=== PATIENT | female | born 1935 | race Caucasian/White ===

== ENCOUNTER → 2017-05-16 13:45 | Outpatient (CLI) | payer MEDICARE, OTHER, SELFPAY ==
[2017-05-16 14:41] LABS: Absolute Lymphocyte Count 1.75 X10^3/ul (0.83-4.51); Absolute Neutrophil Count 3.1 X10^3/uL (2.0-7.7); Basophil# 0.03 X10^3/uL; Basophil% 0.5 % (0-1); Eosinophil# 0.28 X10^3/uL; Eosinophils% 5.1 % (0-5); Hematocrit 37.8 % (37-47); Hemoglobin 12.9 g/dl (12.0-15.0); Lymphocyte # 1.75 X10^3/ul (4.0); Lymphocyte % 31.8 % (19-41); Mean Corp Hgb Conc 34.1 g/gl (32-36); Mean Corpuscular Hgb 33.1 pg (27.0-32.0); Mean Corpuscular Volume 96.9 fL (81-99); Mean Platelet Vol. 10.4 fl (6.2-12.0); Monocyte# 0.35 X10^3/uL; Monocyte% 6.4 % (0-10); Neutrophil % 56.2 % (47-70); Platelet Count 160 K/mm3 (150-450); RBC Distribution Width CV 13.5 % (11.6-14.6); RBC Distribution Width SD 47.6 fl (35.1-43.9); White Blood Count 5.5 K/mm3 (4.4-11.0)
[2017-05-16 14:42] LABS: POSITIVE COUNT NO; POSITIVE DIFFERENTIAL NO; POSITIVE MORPHOLOGY NO
[2017-05-16 14:57] LABS: EST Glomerular Filtration Rate 86 mL/min (>60); Est Glom Filt Rate - Afr Amer 104 mL/min (>60)
== END ==
PROVIDERS: Family Provider Family Medicine; PCP Family Medicine; Visit Provider Dermatology
DX: C44.92 Squamous cell carcinoma of skin, unspecified (principal); Z79.899 Other long term (current) drug therapy
CPT/HCPCS: 36415; 82565; 85025

== ENCOUNTER → 2017-06-04 09:22 | Outpatient (CLI) | payer MEDICARE, OTHER, SELFPAY ==
[2017-06-04 10:43] LABS: Absolute Neutrophil Count 3.6 X10^3/uL (2.0-7.7); Basophil# 0.05 X10^3/uL; Basophil% 0.9 % (0-1); Eosinophil# 0.36 X10^3/uL; Eosinophils% 6.5 % (0-5); Hematocrit 36.2 % (37-47); Hemoglobin 12.4 g/dl (12.0-15.0); Lymphocyte % 21.7 % (19-41); Mean Corp Hgb Conc 34.3 g/gl (32-36); Mean Corpuscular Hgb 33.6 pg (27.0-32.0); Mean Corpuscular Volume 98.1 fL (81-99); Mean Platelet Vol. 10.4 fl (6.2-12.0); Monocyte# 0.26 X10^3/uL; Monocyte% 4.7 % (0-10); Neutrophil # 3.64 X10^3/uL (2.7-7.7); Platelet Count 153 K/mm3 (150-450); RBC Distribution Width CV 13.3 % (11.6-14.6); RBC Distribution Width SD 45.7 fl (35.1-43.9); Red Blood Count 3.69 M/mm3 (4.2-5.4); White Blood Count 5.5 K/mm3 (4.4-11.0)
[2017-06-04 10:54] LABS: POSITIVE COUNT NO; POSITIVE DIFFERENTIAL NO; POSITIVE MORPHOLOGY NO
== END ==
PROVIDERS: Family Provider Family Medicine; PCP Family Medicine; Visit Provider Dermatology
DX: C44.42 Squamous cell carcinoma of skin of scalp and neck (principal); Z79.899 Other long term (current) drug therapy
CPT/HCPCS: 36415; 85025

== ENCOUNTER → 2017-06-18 08:04 | Outpatient (CLI) | payer MEDICARE, OTHER, SELFPAY ==
[2017-06-18 08:43] LABS: Absolute Lymphocyte Count 1.08 X10^3/ul (0.83-4.51); Absolute Neutrophil Count 3.5 X10^3/uL (2.0-7.7); Basophil# 0.04 X10^3/uL; Basophil% 0.7 % (0-1); Eosinophil# 0.38 X10^3/uL; Eosinophils% 7.1 % (0-5); Hematocrit 35.6 % (37-47); Hemoglobin 12.1 g/dl (12.0-15.0); Lymphocyte # 1.08 X10^3/ul (4.0); Lymphocyte % 20.1 % (19-41); Mean Corpuscular Hgb 33.4 pg (27.0-32.0); Mean Corpuscular Volume 98.3 fL (81-99); Mean Platelet Vol. 10.1 fl (6.2-12.0); Monocyte# 0.33 X10^3/uL; Monocyte% 6.2 % (0-10); Neutrophil # 3.52 X10^3/uL (2.7-7.7); Neutrophil % 65.7 % (47-70); Platelet Count 140 K/mm3 (150-450); RBC Distribution Width CV 13.3 % (11.6-14.6); RBC Distribution Width SD 47.6 fl (35.1-43.9); Red Blood Count 3.62 M/mm3 (4.2-5.4); White Blood Count 5.4 K/mm3 (4.4-11.0)
[2017-06-18 08:44] LABS: POSITIVE COUNT NO; POSITIVE DIFFERENTIAL NO; POSITIVE MORPHOLOGY NO
== END ==
PROVIDERS: Family Provider Family Medicine; PCP Family Medicine; Visit Provider Dermatology
DX: C44.42 Squamous cell carcinoma of skin of scalp and neck (principal); Z79.899 Other long term (current) drug therapy
CPT/HCPCS: 36415; 85025

== ENCOUNTER → 2017-07-02 12:44 | Outpatient (CLI) | payer MEDICARE, OTHER, SELFPAY ==
[2017-07-02 13:46] LABS: Absolute Lymphocyte Count 1.82 X10^3/ul (0.83-4.51); Absolute Neutrophil Count 3.3 X10^3/uL (2.0-7.7); Basophil# 0.06 X10^3/uL; Eosinophil# 0.26 X10^3/uL; Eosinophils% 4.4 % (0-5); Hematocrit 36.3 % (37-47); Hemoglobin 12.8 g/dl (12.0-15.0); Lymphocyte # 1.82 X10^3/ul (4.0); Lymphocyte % 31.1 % (19-41); Mean Corp Hgb Conc 35.3 g/gl (32-36); Mean Corpuscular Hgb 34.5 pg (27.0-32.0); Mean Corpuscular Volume 97.8 fL (81-99); Mean Platelet Vol. 10.4 fl (6.2-12.0); Monocyte# 0.44 X10^3/uL; Monocyte% 7.5 % (0-10); Neutrophil # 3.27 X10^3/uL (2.7-7.7); Neutrophil % 55.8 % (47-70); Platelet Count 171 K/mm3 (150-450); RBC Distribution Width CV 13.4 % (11.6-14.6); RBC Distribution Width SD 46.1 fl (35.1-43.9); Red Blood Count 3.71 M/mm3 (4.2-5.4); White Blood Count 5.9 K/mm3 (4.4-11.0)
[2017-07-02 13:54] LABS: POSITIVE COUNT NO; POSITIVE DIFFERENTIAL NO; POSITIVE MORPHOLOGY NO
== END ==
PROVIDERS: Family Provider Family Medicine; PCP Family Medicine; Visit Provider Dermatology
DX: C44.42 Squamous cell carcinoma of skin of scalp and neck (principal); Z79.899 Other long term (current) drug therapy
CPT/HCPCS: 36415; 85025

== ENCOUNTER → 2017-07-16 07:19 | Outpatient (CLI) | payer MEDICARE, OTHER, SELFPAY ==
[2017-07-16 08:02] LABS: Anion Gap 6 (5-15); BUN 13 mg/dL (7-18); Calcium,Total 8.8 mg/dL (8.5-10.1); Chloride 103 mmol/L (98-107); Creatinine, Serum 0.68 mg/dL (0.55-1.02); EST Glomerular Filtration Rate 88 mL/min (>60); Est Glom Filt Rate - Afr Amer 106 mL/min (>60); Glucose 83 mg/dL (74-106); Potassium 3.8 mmol/L (3.5-5.1); Sodium Level 137 mmol/L (136-145)
== END ==
PROVIDERS: Family Provider Family Medicine; PCP Family Medicine; Visit Provider Family Medicine
DX: I10 Essential (primary) hypertension (principal)
CPT/HCPCS: 36415; 80048

== ENCOUNTER → 2018-02-10 11:43 | Outpatient (CLI) | payer MEDICARE, OTHER, SELFPAY ==
--- NOTE | 2018-02-10 11:48 | BI_ITS ---
MAMMOGRAPHY - BILATERAL SCREENING REASON FOR EXAM: Female, 82 years old. Routine annual screening examination. PERTINENT HISTORY: Non-contributory. TECHNIQUE: Digital bilateral breast nikki (3D mammographic acquisition) in the CC and MLO projections. 2-D mediolateral oblique (MLO) and craniocaudad (CC) views of both breasts were obtained. CAD: Full Field Digital Mammography with Computer Added Detection was performed. COMPARISON: Comparison is made with prior study dated March 14, 2016 and January 26, 2015. FINDINGS: Breast Composition: There are scattered areas of fibroglandular density. There are no dominant masses or suspicious calcifications. Stable left axillary lymph nodes. Stable appearance of the tissue clip marker in the slightly upper lateral aspect of the right breast. No other significant abnormalities are identified. There has been no significant change since the prior study. BI/SCREENING MAMM (CAD), BILAT IMPRESSION: Stable bilateral screening mammogram. Yearly follow-up mammogram recommended. (A) ASSESSMENT CATEGORY: BIRADS Category 2: Benign. A letter regarding these results will be sent to the patient by the facility within 30 days. Approximately 10% of breast cancers are not detected by mammography. A normal mammogram should not delay biopsy of a clinically suspicious abnormality. [id number] Electronically Signed: Rishabh Milian MD at 13:11 EST Tel [phone], Service support ,
== END ==
PROVIDERS: Family Provider Family Medicine; PCP Family Medicine; Referring Provider Family Medicine; Visit Provider Family Medicine
DX: Z12.31 Encounter for screening mammogram for malignant neoplasm of breast (principal)
CPT/HCPCS: 77063; 77067

== ENCOUNTER → 2018-07-07 14:35 | Outpatient (CLI) | payer MEDICARE, OTHER, SELFPAY ==
[2018-07-07 16:22] LABS: Anion Gap 7 (5-15); BUN 25 mg/dL (7-18); BUN/Creat Ratio 31.9 RATIO (10-20); Calcium,Total 9.1 mg/dL (8.5-10.1); Chloride 106 mmol/L (98-107); Creatinine, Serum 0.78 mg/dL (0.55-1.02); EST Glomerular Filtration Rate 75 mL/min (>60); Est Glom Filt Rate - Afr Amer 91 mL/min (>60); Glucose 87 mg/dL (74-106); Potassium 3.9 mmol/L (3.5-5.1); Sodium Level 141 mmol/L (136-145)
== END ==
PROVIDERS: Family Provider Family Medicine; PCP Family Medicine; Referring Provider Family Medicine; Visit Provider Family Medicine
DX: I10 Essential (primary) hypertension (principal)
CPT/HCPCS: 36415; 80048

== ENCOUNTER → 2018-09-04 14:00 | Outpatient (CLI) | payer MEDICARE, OTHER, SELFPAY | PROVIDERS: Family Provider Family Medicine; PCP Family Medicine; Referring Provider Nurse Practitioner Family; Visit Provider Nurse Practitioner Family | DX: N39.0 Urinary tract infection, site not specified (principal); R35.0 Frequency of micturition | CPT/HCPCS: 87086; 87088; 87186 ==

== ENCOUNTER → 2018-11-17 16:47 | Outpatient (CLI) | payer MEDICARE, OTHER, SELFPAY | PROVIDERS: Family Provider Family Medicine; PCP Family Medicine; Visit Provider Family Medicine | DX: N39.0 Urinary tract infection, site not specified (principal) | CPT/HCPCS: 87077; 87086; 87088; 87186 ==

== ENCOUNTER → 2018-12-15 15:26 | Outpatient (CLI) | payer MEDICARE, OTHER, SELFPAY ==
[2018-12-15 17:36] LABS: Absolute Lymphocyte Count 1.37 X10^3/uL (0.83-4.51); Absolute Neutrophil Count 3.1 X10^3/uL (2.0-7.7); Basophil# 0.04 X10^3/uL; Basophil% 0.8 % (0-1); Eosinophil# 0.22 X10^3/uL; Eosinophils% 4.4 % (0-5); Hematocrit 35.3 % (37-47); Hemoglobin 11.9 g/dL (12.0-15.0); Lymphocyte # 1.37 X10^3/ul (4.0); Lymphocyte % 27.6 % (19-41); Mean Corp Hgb Conc 33.7 g/dL (32-36); Mean Corpuscular Hgb 33.2 pg (27.0-32.0); Mean Corpuscular Volume 98.6 fL (81-99); Mean Platelet Vol. 10.8 fl (6.2-12.0); Monocyte# 0.28 X10^3/uL; Monocyte% 5.6 % (0-10); NRBC Flagged by Analyzer 0 % (0-5); Neutrophil # 3.05 X10^3/uL (2.7-7.7); Neutrophil % 61.4 % (47-70); Platelet Count 160 K/mm3 (150-450); RBC Distribution Width CV 12.7 % (11.6-14.6); RBC Distribution Width SD 46.2 fl (35.1-43.9); Red Blood Count 3.58 M/mm3 (4.2-5.4)
[2018-12-15 18:42] LABS: ALB/GLOB Ratio 1.2 RATIO (0.9-2.4); AST(SGOT) 18 U/L (15-37); Alanine Aminotransfer ALT/SGPT 19 U/L (13-56); Alkaline Phosphatase 60 U/L (45-117); Anion Gap 10 (5-15); BUN 25 mg/dL (7-18); BUN/Creat Ratio 32.1 RATIO (10-20); Calcium,Total 9.1 mg/dL (8.5-10.1); Chloride 104 mmol/L (98-107); Creatinine, Serum 0.78 mg/dL (0.55-1.02); EST Glomerular Filtration Rate 75 mL/min (>60); Est Glom Filt Rate - Afr Amer 91 mL/min (>60); Globulin 3.2 g/dL (2.2-4.2); Glucose 88 mg/dL (74-106); Potassium 4.1 mmol/L (3.5-5.1); Protein, Total 7.2 g/dL (6.4-8.2); Sodium Level 141 mmol/L (136-145); Thyroid Stim Hormone (TSH) 1.13 uIU/mL (0.358-3.74)
== END ==
PROVIDERS: Family Provider Family Medicine; PCP Family Medicine; Visit Provider Family Medicine
DX: R07.89 Other chest pain (principal); E78.5 Hyperlipidemia, unspecified
CPT/HCPCS: 36415; 80053; 84443; 85025

== ENCOUNTER → 2018-12-29 12:32 | Outpatient (CLI) | payer MEDICARE, OTHER, SELFPAY ==
--- NOTE | 2018-12-29 12:35 | STE_ITS ---
Reason For Study: NON CARDIAC CHEST PAIN Stress Results Protocol: [facility] Protocol Maximum Predicted HR: 138 bpm Target HR: 117 bpm % Maximum Predicted HR: 91 % DurationHeart Rate Stage (mm:ss) (bpm) BP Comment BASELINE 71 140/70 STAGE 1 3:00 110 172/70SLIGHT SOB STAGE 2 3:00 125 174/70SLIGHT SOB, NO CHEST PAIN RECOVERY 85 142/60 Stress Duration: 6:00 mm:ss Maximum Stress HR: 125 bpm Baseline Echocardiogram Findings Stress Echo Wall motion Data Resting WM Intermediate WM Stress WM Interpretation Summary Exercise stress echo. 83-year-old lady with a history of chest pain. Resting EKG: Resting EKG demonstrates normal sinus rhythm with rate of 74 bpm frequent premature ventricular complexes are noted resting blood pressures 140/70 mmHg. The patient exercised according to regular [facility] protocol for total duration of 6 minutes. The maximum heart rate attained was 144 bpm which was 104% of maximum predicted heart rate the maximum workload was 7 metabolic equivalents. At rest there were no ST or T wave changes noted suggest ischemia peak exercise upsloping ST changes only were noted with no meet the criteria for ischemia. No clinical angina was noted the test was terminated due to target heart rate being achieved. The resting blood pressures 140/70 mmHg with a peak blood pressure 174/70 mmHg. Stress echocardiogram. The resting echocardiogram demonstrated preserved ejection fraction estimated to be 55%. No wall motion of normalities were noted valvular structures were grossly normal. The patient exercised according to regular [facility] protocol for total duration of 6 minutes at peak exercise images were obtained there was thickening of all steve with reduction in left ventricular cavity size the estimated ejection fraction was noted to be 65%. No wall motion of normalities were noted to suggest ischemia. Conclusion: Exercise stress echo with normal resting echocardiogram and peak echocardiogram demonstrating no wall motion of normalities. Excellent functional capacity. Occasional premature ventricular complexes only. Ordering Physician: Yumi^Willow^Octavio^^ Referring Physician: Willow Eason Performed By: Usman Holden RCS
== END ==
PROVIDERS: Family Provider Family Medicine; PCP Family Medicine; Referring Provider Family Medicine; Visit Provider Family Medicine
DX: R07.89 Other chest pain (principal)
CPT/HCPCS: 93017; 93350

== ENCOUNTER → 2019-01-19 14:31 | Outpatient (CLI) | payer MEDICARE, OTHER, SELFPAY ==
[2019-01-19 16:12] LABS: AST(SGOT) 16 U/L (15-37); Alanine Aminotransfer ALT/SGPT 15 U/L (13-56); Cholesterol 156 mg/dL (200); High Density Lipoprotein 44 mg/dL; Triglycerides 154 mg/dL; Very Low Density Lipoprotein 31 mg/dL (5-40)
== END ==
PROVIDERS: Family Provider Family Medicine; PCP Family Medicine; Referring Provider Family Medicine; Visit Provider Family Medicine
DX: E78.5 Hyperlipidemia, unspecified (principal)
CPT/HCPCS: 36415; 80061; 84450; 84460

== ENCOUNTER → 2019-12-14 16:15 | Outpatient (CLI) | payer MEDICARE, OTHER, SELFPAY ==
[2019-12-14 18:36] LABS: AST(SGOT) 15 U/L (15-37); Alanine Aminotransfer ALT/SGPT 21 U/L (13-56); Anion Gap 7 (5-15); BUN 17 mg/dL (7-18); BUN/Creat Ratio 15.5 RATIO (10-20); Calcium,Total 9.3 mg/dL (8.5-10.1); Chloride 104 mmol/L (98-107); Cholesterol 148 mg/dL (200); EST Glomerular Filtration Rate 50 mL/min (>60); Est Glom Filt Rate - Afr Amer 61 mL/min (>60); Glucose 89 mg/dL (74-106); High Density Lipoprotein 39 mg/dL; Potassium 4.4 mmol/L (3.5-5.1); Sodium Level 136 mmol/L (136-145); Thyroid Stim Hormone (TSH) 1.14 uIU/mL (0.358-3.74); Triglycerides 148 mg/dL; Very Low Density Lipoprotein 30 mg/dL (5-40)
== END ==
PROVIDERS: PCP Family Medicine; Referring Provider Family Medicine; Visit Provider Family Medicine
DX: I10 Essential (primary) hypertension (principal); E78.5 Hyperlipidemia, unspecified; K59.00 Constipation, unspecified
CPT/HCPCS: 36415; 80048; 80061; 84443; 84450; 84460

== ENCOUNTER → 2020-05-16 16:14 | Outpatient (CLI) | payer MEDICARE, OTHER, SELFPAY | PROVIDERS: PCP Family Medicine; Visit Provider Family Medicine | DX: R19.7 Diarrhea, unspecified (principal) | CPT/HCPCS: 87177; 87209; 87493; 87506 ==

== ENCOUNTER → 2020-05-19 | Outpatient (CLI) | payer MEDICARE, OTHER, SELFPAY | END | disposition home or self-care (01) | LOC: LABSPEC 12:10 | PROVIDERS: PCP Family Medicine; Referring Provider Family Medicine; Visit Provider Family Medicine | DX: R19.7 Diarrhea, unspecified (principal) | CPT/HCPCS: 87177; 87209 ==

== ENCOUNTER → 2020-07-19 15:08 | Outpatient (CLI) | payer MEDICARE, OTHER, SELFPAY ==
[2020-07-19 19:13] LABS: AST(SGOT) 18 U/L (15-37); Alanine Aminotransfer ALT/SGPT 22 U/L (13-56); Anion Gap 6 (5-15); BUN 20 mg/dL (7-18); BUN/Creat Ratio 24.5 RATIO (10-20); CRP < 2.90 mg/L (0.0-3.0); Calcium,Total 9.1 mg/dL (8.5-10.1); Chloride 104 mmol/L (98-107); Cholesterol 149 mg/dL (200); Creatinine, Serum 0.82 mg/dL (0.55-1.02); EST Glomerular Filtration Rate 71 mL/min (>60); Est Glom Filt Rate - Afr Amer 86 mL/min (>60); Glucose 87 mg/dL (74-106); High Density Lipoprotein 43 mg/dL; Potassium 3.9 mmol/L (3.5-5.1); Sodium Level 137 mmol/L (136-145); Thyroid Stim Hormone (TSH) 1.09 uIU/mL (0.358-3.74); Triglycerides 157 mg/dL; Very Low Density Lipoprotein 31 mg/dL (5-40)
[2020-07-21 16:09] LABS: Endomysial Antibody IgA Negative (Negative)
[2020-07-21 18:38] LABS: Immunoglobulin A 180 mg/dL (64-422); t-Transglutaminase IgA <2 U/mL (0-3)
== END ==
PROVIDERS: PCP Family Medicine; Visit Provider Family Medicine
DX: R19.7 Diarrhea, unspecified (principal); E78.5 Hyperlipidemia, unspecified; I10 Essential (primary) hypertension; K59.00 Constipation, unspecified
CPT/HCPCS: 36415; 80048; 80061; 82784; 83516; 84443; 84450; 84460; 86140; 86255

== ENCOUNTER 2021-05-04 13:25 | Emergency (ER) | payer MEDICARE, OTHER, SELFPAY ==
[2021-05-04 13:25] VITALS: BP 218/94; PULSE 53; RESP 16; TEMP 36.4; O2SAT 99; BMI 27.4
--- NOTE | 2021-05-04 13:42 | CT_ITS ---
STUDY: CT BRAIN WITHOUT CONTRAST REASON FOR EXAM: Female, 85 years old. Numbness RADIATION DOSAGE (If Supplied By Facility): CTDIvol = ( 44.99 ) mGy, DLP = ( 765.18 ) mGycm TECHNIQUE: Transaxial CT imaging of the brain was performed without administration of intravenous contrast material. Individualized dose optimization techniques were used for this CT. COMPARISON: No relevant priors. FINDINGS: Normal soft tissue structures. Normal calvarium. There is mild cerebral atrophy with widening of the extra-axial spaces and ventricular dilatation. Normal white matter tracts of the cerebral hemispheres. Normal basal ganglia and thalami. Normal brainstem. Normal cerebellum. There is no intracranial hemorrhage. There are no findings of an acute ischemic infarction. Atherosclerotic calcification of the vertebral arteries as well as the cavernous portions of the internal carotid arteries bilaterally. Normal visualized paranasal sinuses. CT/Brain/Head without Contrast IMPRESSION: Chronic involutional changes of the brain. Electronically Signed: Rishabh Milian MD at 14:37 EST ,
--- NOTE | 2021-05-04 13:43 | EKG12_ITS ---
Test Reason : NEURO Blood Pressure : / mmHG Vent. Rate : 090 BPM Atrial Rate : 090 BPM P-R Int : 152 ms QRS Dur : 096 ms QT Int : 342 ms P-R-T Axes : 053 -04 039 degrees QTc Int : 418 ms Sinus rhythm with frequent Premature ventricular complexes in a pattern of bigeminy Otherwise normal ECG Confirmed by MIGUEL PARK, YAMILETH ([id number]), medical transcription editor MIGUEL ÁNGEL HARLEY ([id number]) on 05/08/2021 12:32:47 PM Referred By: ZCAHERY Confirmed By:YAMILETH RIVERA MD
--- NOTE | 2021-05-04 13:45 | EDS_ITS ---
HPI <DYLAN Bello - Last Filed: 05/04/21 15:02> History of Present Illness Chief Complaint: Numb/Ting Narrative Narrative: 85-year-old female with past medical history of HTN, HLD presents with transient left hand numbness. She took a nap and was sleeping on her left side and when she woke up 20 minutes ago her left hand was completely numb and she had trouble extending the wrist. She flopped it around several times and it went back to normal after 3 minutes. She had no symptoms in her face or legs. No vision or speech changes. She now is back to normal. She denies any headache, nausea, vomiting, or recent illness. She was found to be hypertensive in triage and states she took her morning BP meds at 5 AM. She has no history of TIA/stroke. PFSH <DYLAN Bello - Last Filed: 05/04/21 15:02> [facility] Home Medications lisinopril-hydrochlorothiazide 1 tab PO DAILY 05/04/21 [History Last Taken Unknown] simvastatin 10 mg PO DAILY 05/04/21 [History Last Taken Unknown] Allergy/AdvReac Type Severity Reaction Status Date / Time No Known Allergies Allergy Verified 05/04/21 13:27 Social History Smoking Status: Never smoker ROS <DYLAN Bello Last Filed: 05/04/21 15:02> ROS ED ROS Narrative Constitutional: Negative for fever, chills, malaise. Eyes: Negative for visual change. ENT: Negative for sore throat, ear pain, rhinorrhea. CVS: Negative for palpitations, chest pain, syncope. Respiratory: Negative for shortness of breath, cough, orthopnea. GI: Negative for abdominal pain, nausea, vomiting, diarrhea, constipation, melena, hematochezia. : Negative for dysuria, hematuria or frequency. Neuro: Positive for transient sensory dysfunction. Negative for headache, motor dysfunction. Skin: Negative for rash, abscess, or wound. Endo: Negative for polyuria, polydipsia. Heme: Negative for easy bruising, bleeding, lymphadenopathy. EXAM <DYLAN Bello Last Filed: 05/04/21 15:02> Physical Exam Narrative Exam Narrative: CONST: Patient sitting in no acute distress. EYES: Normal inspection. ENT: Normal inspection, moist mucous membranes. NECK: Normal inspection. RESP: No respiratory distress, CTAB. CVS: Irregularly irregular rhythm, no murmur, no gallop. ABD: Soft and nontender, no guarding or rebound, nondistended, no hepatosplenomegaly. SKIN: Color normal, no rash, warm, dry, intact. EXTREMITIES: Normal appearance, no pedal edema. NEURO: Oriented x4. Follows commands, extraocular motion intact with no visual field deficits, face symmetric, no upper or lower extremity drift, 5/5 upper and lower extremity strength, normal pjhhia-kg-[id number] and ivhn-ub-[id number] testing, normal sensation in face and arms and legs, no aphasia or dysarthria, no extinction. NIH equals 0. PSYCH: Normal affect. Const Vital Signs: 05/04/21 13:25 Temperature 97.5 F L Temperature Source Temporal Pulse Rate 53 L Respiratory Rate 16 Blood Pressure 218/94 H Blood Pressure Mean 135 Pulse Ox 99 Oxygen Delivery Method Room Air <Dr. Kristi Sherman DO - Last Filed: 05/04/21 15:58> Physical Exam Const Vital Signs: 05/04/21 13:25 Temperature 97.5 F L Temperature Source Temporal Pulse Rate 53 L Respiratory Rate 16 Blood Pressure 218/94 H Blood Pressure Mean 135 Pulse Ox 99 Oxygen Delivery Method Room Air MDM <DYLAN Bello - Last Filed: 05/04/21 15:02> [facility] MDM Narrative Medical decision making narrative: Patient had left hand numbness that occurred after sleeping on her left side and resolved within several minutes. She has no other strokelike symptoms. She appears well nontoxic. She was hypertensive at 218/94, otherwise normal vital signs. She has a normal neurological exam and NIH is 0. She did have an irregular heart rhythm on exam and EKG showed sinus rhythm with PVCs and a pattern of bigeminy. Basic labs and troponin are unremarkable. CT brain is negative. Patient symptoms are most consistent with a radial neuropathy from sleeping on her left arm. BP improved prior to discharge and she is stable to follow-up with her PCP. Lab Data Labs: Laboratory Results - last 24 hr 05/04/21 05/04/21 05/04/21 13:52 13:52 13:57 WBC 5.9 RBC 3.92 L Hgb 13.5 Hct 37.8 MCV 96.4 MCH 34.4 H MCHC 35.7 RDW Std Deviation 44.1 H RDW Coeff of Georges 12.5 Plt Count 183 MPV 10.2 Immature Gran % (Auto) 0.300 Neut % (Auto) 59.7 Lymph % (Auto) 29.4 Beltrami % (Auto) 6.8 Eos % (Auto) 3.1 Baso % (Auto) 0.7 Absolute Neuts (auto) 3.5 Absolute Lymphs (auto) 1.72 Nucleated RBC % 0 Sodium 135 L Potassium 3.7 Chloride 101 Carbon Dioxide 27.0 Anion Gap 7 BUN 20 H Creatinine 0.91 Estim Creat Clear Calc 39.74 Est GFR (MDRD) Af Amer 76 Est GFR (MDRD) Non-Af 63 BUN/Creatinine Ratio 22.0 H Glucose 147 H Calcium 9.3 Troponin I High Sens 6 Radiography Diagnostic Testing: Clinical Impression(s) from Imaging Studies Brain CT 05/04/21 13:42 IMPRESSION: Chronic involutional changes of the brain. Electronically Signed: Rishabh Milian MD at 14:37 EST , <Dr. Kristi Sherman, DO - Last Filed: 05/04/21 15:58> [facility] MDM Narrative Medical decision making narrative: Patient evaluated independently and in conjunction with physician clerical administrative assistant. Agree with note above unless documented otherwise. I was personally present or immediately available for all clinically relevant procedures and performed my own physical exam and review of systems. Patient presents with 3-minute episode of weakness of her left wrist. It happened when she woke up from a nap. She is describing a wrist drop and I suspect she might have compressed her radial nerve when she was sleeping. Her current NIH is 0. 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 She initially is hypertensive however her hypertension resolved without any further intervention with just monitoring in the ER. A work-up is largely unremarkable. No signs of endorgan damage from her hypertension. Patient be discharged with follow-up instructions with her PCP. Do not suspect an acute stroke and I do not do not think patient needs admission for MRI and further stroke evaluation. Lab Data Attestation: I reviewed the patient's lab results. Labs: Laboratory Results - last 24 hr 05/04/21 05/04/21 05/04/21 13:52 13:52 13:57 WBC 5.9 RBC 3.92 L Hgb 13.5 Hct 37.8 MCV 96.4 MCH 34.4 H MCHC 35.7 RDW Std Deviation 44.1 H RDW Coeff of Georges 12.5 Plt Count 183 MPV 10.2 Immature Gran % (Auto) 0.300 Neut % (Auto) 59.7 Lymph % (Auto) 29.4 Beltrami % (Auto) 6.8 Eos % (Auto) 3.1 Baso % (Auto) 0.7 Absolute Neuts (auto) 3.5 Absolute Lymphs (auto) 1.72 Nucleated RBC % 0 Sodium 135 L Potassium 3.7 Chloride 101 Carbon Dioxide 27.0 Anion Gap 7 BUN 20 H Creatinine 0.91 Estim Creat Clear Calc 39.74 Est GFR (MDRD) Af Amer 76 Est GFR (MDRD) Non-Af 63 BUN/Creatinine Ratio 22.0 H Glucose 147 H Calcium 9.3 Troponin I High Sens 6 Radiography Diagnostic Testing: Clinical Impression(s) from Imaging Studies Brain CT 05/04/21 13:42 IMPRESSION: Chronic involutional changes of the brain. Electronically Signed: Rishabh Milian MD at 14:37 EST , Rhythm Strip Rhythm Strip: Sinus Rhythm Rate: 90 Ectopy: PVC(s) EKG Initial EKG: Attestation: I personally reviewed and interpreted this EKG as follows: Interpretation: Sinus Rhythm Comments: Normal sinus rhythm rate of 90 Normal axis PVCs in a bigeminy pattern present Normal ST segments Compared to prior EKG on 01/31/2007 patient has some mild axis change and does not have bigeminy Discharge Plan Triage Chief Complaint: Numb/Ting ED Provider: Claribel Long Dx/Rx/DC Orders Clinical Impression: Hypertension, Acute radial nerve palsy of left upper extremity Instructions: ED Paraesthesias Prescriptions: No Action lisinopril-hydrochlorothiazide 20-12.5 mg tablet 1 tab PO DAILY RF: 0 simvastatin 10 mg tablet 10 mg PO DAILY RF: 0 Primary Care Provider: Willow Eason Referrals: Willow Eason MD [Primary Care Provider] - Disposition Disposition: Home, Self Care Discharge Date/Time: 05/04/21 15:13
[2021-05-04 13:58] LABS: Absolute Lymphocyte Count 1.72 X10^3/uL (0.83-4.51); Absolute Neutrophil Count 3.5 X10^3/uL (2.0-7.7); Basophil# 0.04 X10^3/uL; Basophil% 0.7 % (0-1); Eosinophil# 0.18 X10^3/uL; Eosinophils% 3.1 % (0-5); Hematocrit 37.8 % (37-47); Hemoglobin 13.5 g/dL (12.0-15.0); Lymphocyte # 1.72 X10^3/ul (0.83-4.51); Lymphocyte % 29.4 % (19-41); Mean Corp Hgb Conc 35.7 g/dL (32-36); Mean Corpuscular Hgb 34.4 pg (27.0-32.0); Mean Corpuscular Volume 96.4 fL (81-99); Mean Platelet Vol. 10.2 fl (6.2-12.0); Monocyte% 6.8 % (0-10); NRBC Flagged by Analyzer 0 % (0-5); Neutrophil % 59.7 % (47-70); Platelet Count 183 K/mm3 (150-450); RBC Distribution Width CV 12.5 % (11.6-14.6); RBC Distribution Width SD 44.1 fl (35.1-43.9); Red Blood Count 3.92 M/mm3 (4.2-5.4); White Blood Count 5.9 K/mm3 (4.4-11.0)
[2021-05-04 14:10] LABS: Anion Gap 7 (5-15); BUN 20 mg/dL (7-18); Calcium,Total 9.3 mg/dL (8.5-10.1); Chloride 101 mmol/L (98-107); Creatinine, Serum 0.91 mg/dL (0.55-1.02); EST Glomerular Filtration Rate 63 mL/min (>60); Est Glom Filt Rate - Afr Amer 76 mL/min (>60); Estimated Creatinine Clearance 39.74 ml/min; Glucose 147 mg/dL (74-106); Potassium 3.7 mmol/L (3.5-5.1); Sodium Level 135 mmol/L (136-145)
[2021-05-04 14:51] LABS: Troponin-I HS 6 pg/mL (3.0-54.0)
== END 2021-05-04 15:13 | disposition home or self-care (01) ==
PROVIDERS: Emergency Medicine; Emergency Provider Physician Assistant; PCP Family Medicine; Visit Provider Physician Assistant
DX: I10 Essential (primary) hypertension (principal); I49.3 Ventricular premature depolarization; G56.32 Lesion of radial nerve, left upper limb; E78.5 Hyperlipidemia, unspecified
CPT/HCPCS: 70450; 80048; 84484; 85025; 93005; 99283; A4216

== ENCOUNTER → 2021-07-26 | Outpatient (CLI) | payer MEDICARE, OTHER, SELFPAY ==
[2021-07-26 08:37] LABS: Hemoglobin A1c 5.4 % (3.8-5.6)
[2021-07-26 09:23] LABS: ALB/GLOB Ratio 1.2 RATIO (0.9-2.4); AST(SGOT) 15 U/L (15-37); Alanine Aminotransfer ALT/SGPT 18 U/L (13-56); Albumin, Serum 4.1 g/dL (3.2-5.0); Alkaline Phosphatase 61 U/L (45-117); Anion Gap 8 (5-15); BUN 15 mg/dL (7-18); BUN/Creat Ratio 21.6 RATIO (10-20); Calcium,Total 9.3 mg/dL (8.5-10.1); Chloride 101 mmol/L (98-107); Creatinine, Serum 0.69 mg/dL (0.55-1.02); EST Glomerular Filtration Rate 85 mL/min (>60); Est Glom Filt Rate - Afr Amer 103 mL/min (>60); Globulin 3.4 g/dL (2.2-4.2); Glucose 89 mg/dL (74-106); Potassium 3.9 mmol/L (3.5-5.1); Protein, Total 7.5 g/dL (6.4-8.2); Sodium Level 136 mmol/L (136-145)
[2021-07-26 09:32] LABS: Vitamin B12 402 pg/mL (211-911)
[2021-08-07 08:07] LABS: Free Kappa Light Chains 14.4 mg/L (3.3-19.4); Free Lambda Light Chains 12.3 mg/L (5.7-26.3)
== END | disposition home or self-care (01) ==
LOC: LAB 07:09
PROVIDERS: PCP Family Medicine; Referring Provider Psychiatry & Neurology Neurology; Visit Provider Psychiatry & Neurology Neurology
DX: G62.9 Polyneuropathy, unspecified (principal); R73.9 Hyperglycemia, unspecified; I10 Essential (primary) hypertension
CPT/HCPCS: 36415; 80053; 82607; 82746; 83036; 83883; 84425; 84443

== ENCOUNTER → 2021-09-13 | Outpatient (CLI) | payer MEDICARE, OTHER, SELFPAY ==
--- NOTE | 2021-09-13 10:40 | NEURO ---
NCS and/or EMG Patient Report Ordering Doctor: Erick Medina DATE OF SERVICE: 09/13/21 Malini presents for electrodiagnostic testing of the lower limbs. She reports numbness and tingling, which is intermittent in both feet, worse around the left foot. Electrodiagnostic findings: Peroneal motor nerve demonstrates normal distal latency, amplitude and conduction velocity bilaterally. Normal tibial motor response bilaterally. Borderline prolonged right tibial F wave. On needle EMG, sural nerve is prolonged bilaterally. Prolonged left median plantar latency. Normal superficial peroneal response bilaterally. On needle EMG, all muscles tested in the lower limbs as well as lumbar paraspinal showed no evidence of denervation with normal motor unit action potentials. Electrodiagnostic impression: This is a mildly abnormal study in the lower limbs 1. 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 2. No electrodiagnostic evidence is noted for lumbosacral radiculopathy.
== END | disposition home or self-care (01) ==
LOC: PSN 08:48
PROVIDERS: PCP Family Medicine; Referring Provider Psychiatry & Neurology Neurology; Visit Provider Psychiatry & Neurology Neurology
DX: G62.9 Polyneuropathy, unspecified (principal); R20.0 Anesthesia of skin
CPT/HCPCS: 95886; 95912

== ENCOUNTER → 2021-12-16 | Outpatient (CLI) | payer MEDICARE, OTHER, SELFPAY ==
[2021-12-16 14:22] LABS: Bacteria 0 SEEN /hpf (None Seen); Mucous, Urine 0 SEEN /hpf (<or=2+); Red Blood Cells-Urine 0 SEEN /hpf (0-5); Squamous Epithelial Cells - UA 0 SEEN /hpf (5-10)
[2021-12-16 14:30] LABS: Color, Urine Yellow (Yellow); Glucose, Dipstick Normal (Normal); Ketone-Dipstick Negative (Negative); Leukocyte Esterase-Dipstick 500 /ul (Negative); Nitrite-Dipstick Negative (Negative); Occult Blood-Urine 150 /ul (Negative); Protein-Dipstick 15 mg/dl (Negative); Specific Gravity, Urine 1.005 (1.002-1.030); Urine Bilirubin Dipstick Negative (Negative); Urine Clarity Clear (Clear); Urine Urobilinogen Normal (Normal); Urine pH 6.5 (5.0 - 8.0)
[2021-12-16 14:38] LABS: White Blood Cells 5-10 SEEN /hpf (0-5)
== END | disposition home or self-care (01) ==
PROVIDERS: PCP Family Medicine; Referring Provider Physician Assistant Surgical; Visit Provider Physician Assistant Surgical
DX: R35.0 Frequency of micturition (principal)
CPT/HCPCS: 81001; 87086; 87088; 87186

== ENCOUNTER → 2022-03-30 | Outpatient (CLI) | payer MEDICARE, OTHER, SELFPAY ==
--- NOTE | 2022-03-30 16:06 | RAD_ITS ---
STUDY: X-RAY - LUMBAR SPINE REASON FOR EXAM: Female, 86 years old. Lower back pain. TECHNIQUE: 5 view(s) of the lumbar spine were obtained. COMPARISON: None FINDINGS: Normal lumbar lordosis. Minimal dextroscoliotic stenosis. There is a normal alignment of the vertebrae. There is diffuse demineralization with multi-level endplate spondylosis. Normal disc space heights. There is no evidence of acute fracture or loss of vertebral axial height. There is no demonstrated spondylolysis of the pars interarticulares. There is atherosclerotic calcification of the abdominal aorta without a demonstrated aneurysm. RAD/L/S Spine Min 4 Views IMPRESSION: Degenerative changes of the lumbar spine without acute abnormality. Electronically Signed: Sarkis Sweet DO at 20:44 EST ,
== END | disposition home or self-care (01) ==
LOC: RAD 15:24
PROVIDERS: PCP Family Medicine; Visit Provider Family Medicine
DX: M47.816 Spondylosis without myelopathy or radiculopathy, lumbar region (principal); I70.0 Atherosclerosis of aorta
CPT/HCPCS: 72110

== ENCOUNTER 2022-05-02 13:00 | Outpatient (RCR) | payer MEDICARE, OTHER, SELFPAY ==
--- NOTE | 2022-04-04 10:01 | HP.PTEVAL_ITS ---
Patient's Visit Information MOSHE WALTER is a 86 year old F referred to Physical Therapy by Dr. Willow Eason MD with a diagnosis of LOW BACK PAIN. Date of Evaluation: 04/04/22 Physical Therapist: Plaicdo Hamilton PT, Cert MDT, OCS - Visit Plan Frequency: 2x /Week Duration: 4 Weeks Plan: PT INTEREVTIONS DLS , POSTURAL EX'S ,LUMBAR FLEXION AND MODALTRIES FOR PAIN - Subjective This 86 y/o female presents to physical therapy with low back pain. Patient has had back pain 10days due to picking up spouse who was falling . Patient seen DR recommended PT and did cortisone. Patient pain was highly irritated pain when getting OOB and progressively get better. Patient pain left lumbar describe as ache and occasional spasms which was worse initially.. Patient has had x-rays -. Patient has had no prior back pain or treatment Denies paresthesia/tingling. Bowel/bladder -. No abnormal night pain. Coughing/sneezing -. Patient goals not to have pain. Patient has had COVID past 1week Patient condition affects QOL . SOCAIL: . VOCATION:retired - Pain Left Back Pain Intensity (Out of 10): 4 Pain Intensity Range: 10 - Objective POSTURE: mild forward posture. GAIT: reciprocal pattern. NEURO: denies paresthesia/tingling ,reflexes L3-4,L4-5,L5-S1 1/3. PALAPTION: tende. LUMBAR ROM: flexion min loss ,extension mod loss ,side glides min mod loss. MMT: quads/hamstrings 4/5,hip flexion 4-/5,ankle 4/5. FLEXABILIY: hamstrings min loss - Balance/Special Test Scores Oswestry Low Back Score: 25 - Goals Goal 1:: Patient to be I with HEP Goal Time Frame: 4-6 Weeks Goal 2:: Patient to improve posture/body mechanics for ADLS' Goal Time Frame: 4-6 Weeks Goal 3:: Patient to demonstrate 50% improvement with increase function and less pain Goal Time Frame: 4-6 Weeks Goal 4:: Patient to improve lumbar ROM for function of recovery to tie shoes Goal Time Frame: 4-6 Weeks Goal 5:: Patient improve back oswestry score by 5 points or > to improve function Goal Time Frame: 4-6 Weeks - Rehabilitation Potential Physical Therapy Diagnosis: This patient has developed lumbar pain with decrease ROM for function of recovery ,spasms when lay down or transitional movements thus pain increases with motion testing and movements thus benefIt from skilled PT Rehabilitation Potential: Good - Anticipated Interventions Patient/Client Instruction: Educate patient on: Condition, Plan of Care For the Purpose of:: To decrease pain, To increase oxygenation perfusion, To improve ability to perform ADL's, To increase tolerance to activity/condition/position, To improve ability of physical actions for home/community/work/leisure, To improve health of tissue, To decrease soft tissue restriction, To increase flexibility/ROM Therapeutic Exercise to Include: Strength training, Body mechanics, Postural training, Flexibilty training, Dynamic Lumbar Stabilization For the Purpose of:: To decrease pain, To increase ROM, To improve muscle performance and motor function, To improve ability to perform ADL's, To increase tolerance to activity/condition/position, To improve ability of physical actions for home/community/work/leisure, To improve health of tissue, To decrease soft tissue restriction, To reduce risk of recurrence TENS: Yes IF ES: Yes Cryotherapy (ice pack, ice massage): Yes Thermo therapy (hot pack): Yes Ultrasound (thermal/non thermal): Yes For the Purpose of:: To decrease pain, To increase ROM, To improve nutrient delivery to tissue, To increase oxygenation perfusion, To improve health of ti ssue, To decrease soft tissue restriction Thank you for the opportunity to evaluate your patient. For Medicare and Medicare HMO plans, please review the plan of care and approve it. It will need to be FAXED BACK to us at [phone] for Medicare purposes. For Medicare only, by signing this I certify the plan of care. Please let me know if there are questions or concerns regarding this plan of care. Physician Signature: Date:
--- NOTE | 2022-10-10 13:42 | HP.PTDCSUM ---
Discharge Summary D/C summary: It has been my pleasure to treat MOSHE WALTER referred by Dr. Willow Eason MD, with the diagnosis of LOW BACK PAIN for a total of 8 visit(s). Discharge Date: Please see the following information for a summary of their discharge status. Subjective Subjective: Doing good ,no pain at night or getting OOB Pain Left Back: Pain Intensity (Out of 10): 0 Overall Improvement % Improvement: 70 Objective Objective/Function: Doing well with goals with decrease pain and improved function added seated knee ext appropriate fatigue no pain Goals Goal 1:: Patient to be I with HEP Goal Progress: Goal Met Goal 2:: Patient to improve posture/body mechanics for ADLS' Goal 3:: Patient to demonstrate 50% improvement with increase function and less pain Goal Progress: Goal Met Goal 4:: Patient to improve lumbar ROM for function of recovery to tie shoes Goal Progress: Goal Met Goal 5:: Patient improve back oswestry score by 5 points or > to improve function Goal Progress: Goal Met Plan Plan: D/C D/C Information d/c sentence: If there are questions or concerns regarding this patient's physical therapy, please feel free to call me at [phone]. Thank you for the referral of this patient. Sincerely, Placido Hamilton, PT, Cert MDT, OCS Balance/Gait/Functional tests Balance/Special Test Scores Oswestry Low Back Score: 5
== END 2022-05-02 19:00 | disposition home or self-care (01) ==
LOC: PT 13:00
PROVIDERS: PCP Family Medicine; Referring Provider Family Medicine; Visit Provider Family Medicine
DX: M54.50 Low back pain, unspecified (principal)
CPT/HCPCS: 97110; 97162

== ENCOUNTER → 2022-07-30 | Outpatient (CLI) | payer MEDICARE, OTHER, SELFPAY ==
[2022-07-30 12:45] LABS: Microalbumin,Random Urine 27.1 mg/L (NO RANGE EST.); Microalbumin:Creatinine Ratio 28.9 mg/g CRE (<30 mg/g CRE)
[2022-07-30 12:55] LABS: AST(SGOT) 15 U/L (15-37); Alanine Aminotransfer ALT/SGPT 19 U/L (13-56); Anion Gap 8 (5-15); BUN 37 mg/dL (7-18); BUN/Creat Ratio 38.3 RATIO (10-20); Calcium,Total 9.6 mg/dL (8.5-10.1); Chloride 106 mmol/L (98-107); Cholesterol 164 mg/dL (200); Creatinine, Serum 0.97 mg/dL (0.55-1.02); EST Glomerular Filtration Rate 58 mL/min (>60); Est Glom Filt Rate - Afr Amer 70 mL/min (>60); Glucose 76 mg/dL (74-106); High Density Lipoprotein 44 mg/dL; Potassium 3.6 mmol/L (3.5-5.1); Sodium Level 141 mmol/L (136-145); Triglycerides 144 mg/dL; Very Low Density Lipoprotein 29 mg/dL (5-40)
== END | disposition home or self-care (01) ==
LOC: MFPLAB 11:20
PROVIDERS: PCP Family Medicine; Visit Provider Family Medicine
DX: I10 Essential (primary) hypertension (principal); E78.5 Hyperlipidemia, unspecified
CPT/HCPCS: 36415; 80048; 80061; 82043; 82570; 84450; 84460

== ENCOUNTER → 2023-08-14 | Outpatient (CLI) | payer MEDICARE, OTHER, SELFPAY ==
[2023-08-14 10:54] LABS: Protein, Urine (Random) 18.7 mg/dL (<11.9); Protein:Creat Ratio 178 mg/g CRE (0-200)
[2023-08-14 11:18] LABS: AST(SGOT) 16 U/L (15-37); Alanine Aminotransfer ALT/SGPT 18 U/L (13-56); Anion Gap 6 (5-15); BUN 34 mg/dL (7-18); BUN/Creat Ratio 35.2 RATIO (10-20); Calcium,Total 9.4 mg/dL (8.5-10.1); Chloride 106 mmol/L (98-107); Cholesterol 145 mg/dL (200); Creatinine, Serum 0.97 mg/dL (0.55-1.02); EST Glomerular Filtration Rate 58 mL/min (>60); Est Glom Filt Rate - Afr Amer 70 mL/min (>60); Glucose 101 mg/dL (74-106); High Density Lipoprotein 46 mg/dL; Potassium 3.8 mmol/L (3.5-5.1); Sodium Level 140 mmol/L (136-145); Triglycerides 103 mg/dL; Very Low Density Lipoprotein 21 mg/dL (5-40)
== END | disposition home or self-care (01) ==
PROVIDERS: PCP Family Medicine; Visit Provider Family Medicine
DX: I10 Essential (primary) hypertension (principal); E78.5 Hyperlipidemia, unspecified
CPT/HCPCS: 36415; 80048; 80061; 82570; 84156; 84450; 84460

== ENCOUNTER → 2024-03-14 | Outpatient (CLI) | payer MEDICARE, OTHER, SELFPAY ==
[2024-03-14 09:35] LABS: Hematocrit 38.9 % (37-47); Hemoglobin 13.4 g/dL (12.0-15.0); Mean Corp Hgb Conc 34.4 g/dL (32-36); Mean Corpuscular Hgb 33.6 pg (27.0-32.0); Mean Corpuscular Volume 97.5 fL (81-99); Mean Platelet Vol. 10.9 fl (6.2-12.0); Platelet Count 194 K/mm3 (150-450); RBC Distribution Width CV 13.2 % (11.6-14.6); RBC Distribution Width SD 47.5 fl (35.1-43.9); Red Blood Count 3.99 M/mm3 (4.2-5.4); White Blood Count 6.3 K/mm3 (4.4-11.0)
[2024-03-14 10:53] LABS: ALB/GLOB Ratio 1.3 RATIO (0.9-2.4); AST(SGOT) 15 U/L (15-37); Alanine Aminotransfer ALT/SGPT 13 U/L (13-56); Albumin, Serum 4.2 g/dL (3.2-5.0); Alkaline Phosphatase 70 U/L (45-117); Anion Gap 8 (5-15); BUN 27 mg/dL (7-18); BUN/Creat Ratio 26.5 RATIO (10-20); Calcium,Total 9.6 mg/dL (8.5-10.1); Chloride 107 mmol/L (98-107); Creatinine, Serum 1.02 mg/dL (0.55-1.02); EST Glomerular Filtration Rate 54 mL/min (>60); Est Glom Filt Rate - Afr Amer 66 mL/min (>60); Globulin 3.2 g/dL (2.2-4.2); Glucose 108 mg/dL (74-106); Potassium 4.3 mmol/L (3.5-5.1); Protein, Total 7.4 g/dL (6.4-8.2); Sodium Level 140 mmol/L (136-145)
== END | disposition home or self-care (01) ==
LOC: LAB 09:03
PROVIDERS: PCP Family Medicine; Referring Provider Family Medicine; Visit Provider Family Medicine
DX: R00.1 Bradycardia, unspecified (principal)
CPT/HCPCS: 36415; 80053; 84443; 85027

== ENCOUNTER → 2024-05-27 | Outpatient (CLI) | payer MEDICARE, OTHER, SELFPAY ==
--- NOTE | 2024-05-27 08:47 | CDU_ITS ---
Reason For Study Reason For Study: Carotid bruit Rt. Velocities/BP Lt. Velocities/BP Prox CCA 82.6/12.6 cm/sec. Prox CCA 81.4/12.6 cm/sec. Mid CCA 77.7/10.2 cm/sec. Mid CCA 65.4/6.5 cm/sec. Dist CCA 70.4/10.2 cm/sec. Dist CCA 59.3/11.4 cm/sec. Prox ICA 43.6/11.6 cm/sec. Prox ICA 64.2/10.2 cm/sec. Mid ICA 70.9/18.6 cm/sec. Mid ICA 106/23.7 cm/sec. Dist ICA 96.1/22.5 cm/sec. Dist ICA 112/27.9 cm/sec. Rt. ICA/CCA = 1.24. Lt. ICA/CCA = 1.71. Prox ECA 70.7/4.7 cm/sec. Prox ECA 85.1/2.8 cm/sec. Rt. Vert. 53.2/15.1 cm/sec. Lt. Vert. 33.3/6 cm/sec. Right Extracranial There is homogeneous, smooth atherosclerotic plaque noted in the right common carotid artery. There is homogeneous, smooth atherosclerotic plaque noted in the right internal carotid artery. There is intimal thickening but no significant atherosclerotic plaque noted in the right external carotid artery. Antegrade flow is noted in the right vertebral artery. Left Extracranial There is homogeneous, smooth atherosclerotic plaque noted in the left common carotid artery. There is intimal thickening but no significant atherosclerotic plaque noted in the left internal carotid artery. There is intimal thickening but no significant atherosclerotic plaque noted in the left external carotid artery. Antegrade flow is noted in the left vertebral artery. Procedure Carotid Duplex [id number]. This is a Carotid Duplex examination using B-mode, color flow and specral Doppler. Exam performed in department. VL/Carotid Duplex Ultrasound Interpretation Summary Mild (<50%) stenosis right extracranial internal carotid. Normal left extracranial internal carotid. Patent and antegrade vertebrals bilaterally. Ordering Physician: Anish Capps Referring Physician: Willow Eason M.D. Performed By: Shantel Marshall RVT
== END | disposition home or self-care (01) ==
LOC: CVS 08:46
PROVIDERS: PCP Family Medicine; Referring Provider Internal Medicine Cardiovascular Disease; Visit Provider Internal Medicine Cardiovascular Disease
DX: R09.89 Other specified symptoms and signs involving the circulatory and respiratory systems (principal)
CPT/HCPCS: 93880

== ENCOUNTER → 2024-06-18 | Outpatient (CLI) | payer MEDICARE, OTHER, SELFPAY ==
--- NOTE | 2024-06-18 06:04 | ECHOD_ITS ---
Reason For Study Reason For Study: CHEST PAIN Procedure This was a 2D Doppler, Color Flow transthoracic echocardiogram. Exam performed in department. Left Ventricle Normal LV size. The left ventricular ejection fraction is 55 %. No regional wall motion abnormalities noted. Right Ventricle Normal RV size. Normal systolic function. Mitral Valve Normal mitral valve. Mild (1+) eccentric mitral valve insufficiency. Tricuspid Valve Normal tricuspid valve. Mild (1+) tricuspid valve insufficiency. Aortic Valve Trisinus/trileaflet aortic valve. Mild (1+) eccentric aortic valve insufficiency. Pulmonic Valve Normal pulmonic valve. Mild (1+) pulmonic valve insufficiency. Great Vessels Normal sized aortic root. The pulmonary artery is normal size. Inferior vena cava collapse with respiration. Pericardium/Pleural No pericardial effusion. MMode/2D Measurements & Calculations LVIDd: 4.9 cm IVSd: 1.4 cm LVOT diam: 2.0 cm LVIDs: 3.4 cm LVPWd: 1.1 cm LVOT area: 3.1 cm2 FS: 30.4 % Ao root diam: 3.2 cm LAV(MOD-bp): 58.2 ml LVAd ap4: 25.9 cm2 LAV(MOD-bp) Indexed: 32.7 ml/m2 LVLd ap4: 7.6 cm LAV(MOD-sp2): 59.3 ml EDV(MOD-sp4): 74.1 ml LAV(MOD-sp4): 52.6 ml EDV(sp4-el): 75.4 ml LVAs ap4: 16.2 cm2 LVLs ap4: 6.5 cm ESV(MOD-sp4): 33.2 ml ESV(sp4-el): 34.3 ml EF(MOD-sp4): 55.1 % EF(sp4-el): 54.5 % SV(MOD-sp4): 40.8 ml SV(sp4-el): 41.1 ml LA A4 area: 19.0 cm2 SI(MOD-sp4): 23.0 ml/m2 LA dimension(2D): 4.2 cm RA A4 area: 13.4 cm2 Time Measurements MV dec time: 0.21 sec Doppler Measurements & Calculations MV E max aung: 36.1 cm/sec Lat Peak E' Aung: 6.9 cm/sec Med Peak E' Aung: 6.0 cm/sec MV A max aung: 82.5 cm/sec E/E' lat: 5.2 E/E' med: 6.0 MV E/A: 0.44 MV V2 max: 97.6 cm/sec Ao V2 max: 120.5 cm/sec MV max P.8 mmHg MV dec slope: 176.5 cm/sec2 Ao max P.8 mmHg MV V2 mean: 44.4 cm/sec Ao V2 mean: 87.0 cm/sec MV mean P.1 mmHg Ao mean P.4 mmHg MV V2 VTI: 23.7 cm Ao V2 VTI: 27.1 cm AV (velocity ratio): 0.78 MVA(VTI): 2.8 cm2 JOHANA(I,D): 2.4 cm2 JOHANA(V,D): 2.7 cm2 AI max aung: 428.0 cm/sec LV V1 max: 103.8 cm/sec SV(LVOT): 66.1 ml AI max P.4 mmHg LV V1 max P.3 mmHg AI dec slope: 276.8 cm/sec2 LV V1 mean P.2 mmHg AI P1/2t: 452.9 msec LV V1 mean: 69.4 cm/sec LV V1 VTI: 21.2 cm PA V2 max: 120.8 cm/sec PI end-d aung: 78.9 cm/sec TR max aung: 296.9 cm/sec PA V2 mean: 82.2 cm/sec TR max P.3 mmHg PA mean PG (full): 1.8 mmHg ECHO/Echo Complete Interpretation Summary Normal LV size. The left ventricular ejection fraction is 55 %. No regional wall motion abnormalities noted. Mild (1+) eccentric mitral valve insufficiency. Mild (1+) eccentric aortic valve insufficiency. Mild (1+) tricuspid valve insufficiency. Ordering Physician: Anish Capps Referring Physician: Anish Capps Performed By: Juana Beal RCS
--- NOTE | 2024-06-18 14:06 | STRESSREP ---
Stress Test Report Exercise myocardial perfusion stress test. 88-year-old lady with a history of chest pain Stress protocol: Resting EKG demonstrates normal sinus rhythm with a rate of 60 bpm resting blood pressure is 128/70 mmHg. The patient exercised according to the regular [employer] protocol for a total duration of 5 minutes and 20 seconds attaining a maximum heart rate of 108 bpm which was 81% of maximum predicted heart rate; the maximum workload was 7 metabolic equivalents. At rest there were no ST or T wave changes noted to suggest ischemia and at peak exercise upsloping ST changes only were noted which did not meet the criteria for ischemia. No clinical angina was noted the test was terminated due to the target heart rate being achieved/fatigue. The peak blood pressure was 168/72 mmHg. Rate-pressure product was 15,000. Myocardial perfusion protocol. 11.8 mCi of technetium 99m sestamibi was injected at rest. The patient exercised according to regular [employer] protocol for total duration of 5 minutes and 20 seconds and at peak exercise 34.5 mCi of technetium 99m sestamibi was injected stress images were obtained stress and rest images were reconstructed in comparing the short axis vertical long and horizontal long axis. Gated images were also obtained. Perfusion SPECT analysis: Review of the stress images demonstrate normal uptake of tracer noted in all areas of the myocardium. The resting images similarly demonstrate normal uptake of tracer noted in all areas of the myocardium. No areas of reversibility are noted to suggest ischemia no previous infarct was noted. Gated SPECT analysis: The gated ejection fraction is 60%. Conclusion: Normal exercise myocardial perfusion stress test at a moderate workload Preserved ejection fraction.
== END | disposition home or self-care (01) ==
LOC: CVS 06:03
PROVIDERS: PCP Family Medicine; Referring Provider Internal Medicine Cardiovascular Disease; Visit Provider Internal Medicine Cardiovascular Disease
DX: R07.9 Chest pain, unspecified (principal); I10 Essential (primary) hypertension
CPT/HCPCS: 78452; 93017; 93306; A9500; A4216

== ENCOUNTER 2024-11-04 17:15 | Emergency (ER) | payer MEDICARE, OTHER, SELFPAY ==
[2024-11-04 17:15] VITALS: BP 219/58; PULSE 87; RESP 20; TEMP 36.2; O2SAT 98; BMI 28.0
--- NOTE | 2024-11-04 17:51 | EDS_ITS ---
HPI History of Present Illness Chief Complaint: Hypertension Detail of Chief Complaint: Asymptomatic hypertension Informant: patient Onset/Context/Timing Onset: Today (Several elevated blood pressure readings) Context: - (Unknown since patient was asymptomatic) Timing: Waxes and wanes Quality: Systolic varying from 140-220 Location: Cardiovascular Current Severity: Moderate Maximum Severity: Moderate Worsened by: Nothing per patient. She reports compliance Relieved by: Nothing Associated Symptoms Associated Symptoms: Absolutely no symptoms Narrative Narrative: Patient is an 89-year-old woman. She has history of carotid bruit, essential primary hypertension, hyperlipidemia, paresthesias of her hands, essential tremor and noncardiac chest pain. She presents because of elevated blood pressure readings. Patient denies headache. She denies double vision, blurred vision loss of vision. Denies ringing or ears or decreased hearing from ba seline. She states she her hearing is poor. She denies trouble with speech or swallowing. She denies trouble saying what she wants. She denies no new paresthesia, anesthesia or motor weakness upper or lower extremity. She denies problems with coordination or balance. She denies chest pain, pressure, tightness or heaviness. She denies ripping pain going through to her back. She denies back pain. Prior similar symptoms: Yes Recent Illness/Hospitalization: No [facility] Medical History Bradycardia Hyperlipidemia Essential (primary) hypertension Osteoporosis Paresthesia Hearing loss Tachycardia Fatigue Essential tremor Bilateral carpal tunnel syndrome Polyneuropathy Home Medications ?Medication ?Instructions ?Recorded ?Last Taken ?Type Bilateral wrist splints #2 ea 07/25/21 Unknown Rx acetaminophen 500 mg oral powder 500 mg PO Q6H PRN Unknown History packet (Tylenol Extra Strength) aspirin 81 mg chewable tablet 81 mg PO DAILY 07/23/22 Unknown History cranberry 500 mg capsule 500 mg PO BID 10/24/23 Unkno wn History loratadine 10 mg tablet 10 mg PO DAILY PRN 10/24/23 Unknown History naproxen 500 mg tablet 500 mg PO BID PRN 10/24/23 U nknown History psyllium husk 0.4 gram capsule 0.8 g PO DAILY 10/24/23 Unknown History (Fiber (psyllium husk)) cholecalciferol (vitamin D3) 25 25 mcg PO QDAY 5 Unknown History mcg (1,000 unit) capsule lisinopril 20 2 tab PO DAILY 05/06/2409/23 History mg-hydrochlorothiazide 12.5 mg tablet metoprolol succinate 50 mg 50 mg PO QDAY #90 tabs 08/2311/03/24 Rx tablet,extended release 24 hr (Toprol XL) gabapentin 100 mg capsule 100 mg PO BID #180 caps 07/31 Unknown Rx Allergy/AdvReac Type Severity Reaction Status Date / Time No Known Allergies Allergy Verified 11/04/24 17:22 Family History Mother Heart disease Diabetes Father Alzheimer disease Surgical History History of hysterectomy History of cataract surgery Social History Smoking Status: Never smoker second hand exposure: No alcohol intake: current details: rarely substance use type: does not use what type of physical activity do you participate in: walking and swimming ruddy/holiness: Druze seatbelt use: always ROS ROS ED Constitutional Constitutional ED: Denies chills or fever(s) Eyes Eyes: Denies blurry vision, change in vision or diplopia ENT ENT ED: Denies ear pain, rhinorrhea or sore throat Cardiovascular Cardiovascular: Denies chest pain, orthopnea, palpitations, paroxysmal nocturnal dyspnea or racing heartbeat Respiratory/Chest Respiratory/Chest: Denies cough, dyspnea, dyspnea on exertion, orthopnea or paroxysmal nocturnal dyspnea Gastrointestinal Gastrointestinal: Denies abdominal pain, nausea or vomiting Musculoskeletal Musculoskeletal: Denies arthralgias, back pain, myalgias or neck pain Integumentary Denies rash Neurologic Neurologic: Denies headache(s), paresthesias or weakness Hematologic/Lymphatic Hematologic/Lymphatic: Reports systems reviewed and no addt'l complaints, except as documented EXAM Physical Exam Const Vital Signs: 11/04/24 17:15 11/04/24 17:20 11/04/24 18:15 Temperature 97.2 F L Temperature Source Temporal Pulse Rate 87 69 Respiratory Rate 20 H 21 H Respiratory Effort Normal Respiratory Pattern Normal Blood Pressure 219/58 H 176/65 H Blood Pressure Mean 111 102 Pulse Ox 98 99 Oxygen Delivery Method Room Air Room Air 11/04/24 18:39 Temperature Temperature Source Pulse Rate 68 Respiratory Rate 18 Respiratory Effort Respiratory Pattern Blood Pressure 162/67 H Blood Pressure Mean 98 Pulse Ox 98 Oxygen Delivery Method Room Air Positive well nourished and well developed General Appearance ED: well developed and NAD; Negative for pallor HEENT Reports moist mucous membranes HEENT Narrative: Head is atraumatic and normocephalic. Ears normal. Nares patent. Uvula midline. No deviation of the tongue with protrusion. Eyes PERRL and EOMs intact bilaterally Eyes Narrative: There is no nystagmus. There is no diplopia. There is no visual field cut. General Eye ED: Negative for pale conjunctiva or scleral icterus Neck no lymphadenopathy, supple and no JVD Neck Narrative: Trachea is midline. There is no dysphonia. Chest Wall inspection of chest normal and palpation of chest normal Resp normal respiratory effort and clear to auscultation bilaterally Cardio regular rate, regular rhythm, S1 normal heart sound, S2 normal heart sound and no murmurs GI normal to inspection, nondistended, normoactive bowel sounds, non-tender, non- distended and no masses; Negative for hepatosplenomegaly GI Narrative: There is no palpable pulsatile mass. There is no abdominal bruit. Extremity normal to inspection General Extremety ED: Negative for edema or tenderness General Extremity: Negative for edema Neuro oriented x3, CN's II-XII intact bilaterally and no sensory deficits noted Neuro Narrative: There is no dysmetria. There is no clonus or Babinski sign noted right or left. Sensorium / Orientation: alert Psych mental status grossly normal Skin no rashes or lesions noted, no wounds and skin turgor normal General Skin Exam: elasticity normal; Negative for jaundice or pallor MDM MDM MDM Narrative Medical decision making narrative: Patient with asymptomatic hypertension. Her first reading is elevated to 19/58. Repeat was 182/84. Will obtain BMP and UA since she has not had blood work in approximately 9 months. This was obtained to assess for any evidence of an organ dysfunction. Since she does not have any chest pain, cardiac or cardiac equivalent symptoms or respiratory symptoms EKG and chest x-ray were not obtained. Will observe blood pressure. Will treat if needed. Lab Data Attestation: I reviewed the patient's lab results. Lab results narrative: UA is positive for protein, occult blood leukoesterase. Micro reveals 0-5 RBCs, WBCs and epithelial cells and 1+ bacteria. Since patient has no urinary symptoms she was not treated with with antibiotics per the literature. She has asymptomatic bacteriuria Labs: Laboratory Results - last 24 hr 11/04/24 11/04/24 17:41 18:05 Sodium 131 L Potassium 3.7 Chloride 95 L Carbon Dioxide 20.9 L Anion Gap 16 H BUN 22 H Creatinine 1.11 Estim Creat Clear Calc 34.52 L Est GFR (MDRD) Non-Af 48 L BUN/Creatinine Ratio 19.8 Glucose 96 Calcium 9.2 Urine Color Yellow Urine Clarity Clear Urine pH 6.0 Ur Specific [place] 1.010 Urine Protein 30 H Urine Glucose (UA) Normal Urine Ketones Negative Urine Occult Blood 10 H Urine Nitrite Negative Urine Bilirubin Negative Urine Urobilinogen Normal Ur Leukocyte Esterase 100 H Urine RBC 0-5 SEEN Urine WBC 0-5 SEEN Ur Squamous Epith Cells 0-5 SEEN Urine Bacteria 1+ Urine Mucus 0 SEEN Treatment and Re-Evaluation :: Most recent blood pressure is 162/67. When patient was informed of results she informed that her son-in-law just . She is inquiring if this could be due to stress. She states she is under a lot of stress. She was informed that it could. At this point recommend not checking her blood pressure and follow-up with her doctor for repeat exam Samp/blood pressure in 1 to 2 weeks. Discharge Plan Triage Chief Complaint: Hypertension ED Provider: Aaron Baig Dx/Rx/DC Orders Clinical Impression: Asymptomatic hypertension, Hyperlipidemia, Hematuria with proteinuria, Acute hyponatremia, High anion gap Instructions: ED High Blood Pressure Hypertension Prescriptions: No Action (DME) Bilateral wrist splints See Rx Instructions .Route .MEDSUPPLY Qty: 2 0RF Rx Instructions: Wear at night. Tylenol Extra Strength 500 mg powder in packet 500 mg PO Q6H PRN aspirin 81 mg tablet,chewable 81 mg PO DAILY cranberry 500 mg capsule 500 mg PO BID Rx Instructions: administer with meals psyllium husk [Fiber (psyllium husk)] 0.4 gram capsule 0.8 g PO DAILY loratadine 10 mg tablet 10 mg PO DAILY PRN naproxen 500 mg tablet 500 mg PO BID PRN gabapentin 100 mg capsule 100 mg PO BID Qty: 180 1RF cholecalciferol (vitamin D3) 25 mcg (1,000 unit) capsule 25 mcg PO QDAY lisinopril-hydrochlorothiazide 20-12.5 mg tablet 2 tab PO DAILY metoprolol succinate [Toprol XL] 50 mg tablet extended release 24 hr 50 mg PO QDAY Qty: 90 2RF Primary Care Provider: Will Polk Referrals: Will Polk MD [Primary Care Provider] - 1-2 Weeks Print Language: [place] Zealander Disposition Disposition: Home, Self Care
[2024-11-04 18:09] LABS: Mucous, Urine 0 SEEN /hpf (<or=2+)
[2024-11-04 18:15] VITALS: BP 176/65; PULSE 69; RESP 21; O2SAT 99
[2024-11-04 18:19] LABS: Color, Urine Yellow (Yellow); Glucose, Dipstick Normal (Normal); Ketone-Dipstick Negative (Negative); Leukocyte Esterase-Dipstick 100 /ul (Negative); Nitrite-Dipstick Negative (Negative); Occult Blood-Urine 10 /ul (Negative); Protein-Dipstick 30 mg/dl (Negative); Specific Gravity, Urine 1.010 (1.002-1.030); Urine Bilirubin Dipstick Negative (Negative)
[2024-11-04 18:32] LABS: Red Blood Cells-Urine 0-5 SEEN /hpf (0-5); Squamous Epithelial Cells - UA 0-5 SEEN /hpf (5-10)
[2024-11-04 18:39] VITALS: BP 162/67; PULSE 68; RESP 18; O2SAT 98
[2024-11-04 18:45] LABS: Anion Gap 16 (5-15); BUN 22 mg/dL (4-19); BUN/Creat Ratio 19.8 RATIO (10-20); Calcium,Total 9.2 mg/dL (7.6-11.0); Carbon Dioxide 20.9 mmol/L (21.0-32.0); Chloride 95 mmol/L (98-108); Estimated Creatinine Clearance 34.52 ml/min (50-250); Glucose 96 mg/dL (70-99); Potassium 3.7 mmol/L (3.3-5.1)
[2024-11-04 19:01] VITALS: BP 168/62; PULSE 67; RESP 15; TEMP 36.2; O2SAT 100
--- OUTSIDE RECORDS SUMMARY | 2024-11-04 19:06 | XMS RPT_ITS | CCD ---
Author Organization [facility] CliniSyct Care Team Providers Care Sales And Service Advisor Name Role Phone Dr. Willow Eason Primary Care Provider Dr. Willow Eason Referring Provider Dr. Erick Medina Attending Provider Dr. Willow Eason Primary Care Provider Dr. Willow Eason Referring Provider DYLAN Albarado Attending Provider DYLAN Ballard Attending Provider Dr. Willow Eason Primary Care Provider Dr. Erick Medina Attending Provider Dr. Erick Medina Referring Provider Dr. Willow Eason MD Primary Care Provider Dr. Willow Eason MD Attending Provider Dr. Willow Eason MD Referring Provider Dr. Anish Capps MD Attending Provider Dr. Anish Capps MD Referring Provider Dr. Jose Mello MD Attending Provider Dr. Willow Eason MD Primary Care Provider Dr. Willow Eason MD Referring Provider Dr. Erick Medina MD Attending Provider Anish Capps Attending Unavailable Anish Capps Referring Unavailable Jolliff, Willow S Primary Care Unavailable Jefry, [place] Attending Unavailable Jolliff, Willow S Primary Care Unavailable Jolliff, Willow S Referring Unavailable Jefry, [place] Attending Unavailable Jolliff, Willow S Primary Care Unavailable Jolliff, Willow S Primary Care Unavailable Jefry, Anish Referring Unavailable Jose Mello Attending Unavailable Jolliff, Willow S Referring Unavailable Jolliff, Willow S Primary Care Unavailable Erick Medina Attending Unavailable Erick Medina Attending Unavailable Jolliff, Willow S Primary Care Unavailable Jolliff, Willow S Referring Unavailable Jolliff, Willow S Primary Care Unavailable Jefry, Anish Attending Unavailable Jolliff, Willow S Referring Unavailable Jolliff, Willow S Primary Care Unavailable Jolliff, Willow S Attending Unavailable Jolliff, Willow S Referring Unavailable Ejfry, [place] Attending Unavailable Jolliff, Willow S Primary Care Unavailable Jefry, Anish Referring Unavailable Shanekaiff , Dr. Willow Cunningham Primary Care Provider Dr. Willow Eason MD Referring Provider Dr. aAron Baig MD Emergency Provider Jam PARK, Dr. Solis Primary Care Provider Medications Current Medications Medication Drug Class(es) Dates Sig (Normalized) Sig (Original) Acetaminophen (Tylenol Extra Strength) 500 mg powder in packet (5 sources) Start: 01-22-2022 take 500 mg by mouth every six hours as needed Acetaminophen (Tylenol Extra Strength) 500 mg powder in packet Active 500 mg PO EVERY 6 HOURS as needed January 22, 2022 12:00am Start: 01-22-2022 take 500 mg by mouth every six hours Acetaminophen (Tylenol Extra Strength) 500 mg powder in packet Active 500 MG PO EVERY 6 HOURS January 22, 2022 12:00am aspirin 81 mg chewable tablet (5 sources) Platelet Aggregation Inhibitor, Nonsteroidal Anti-inflammatory Drug Start: 07-23-2022 take 1 tablet by mouth once daily Aspirin 81 mg tablet,chewable Active 81 mg PO DAILY July 23, 2022 12:00am Bilateral wrist splints (8 sources) Start: 07-25-2021 Bilateral wrist splints Active 0 .Route .MEDSUPPLY 2 July 25, 2021 1:46pm Wear at night. Start: 07-25-2021 Bilateral wris t splints Active 0 .Route .MEDSUPPLY 2 0 July 25, 2021 12:00am Bilateral carpal tunnel syndrome Carpal tunnel syndrome, bilateral upper limbs Carpal tunnel syndrome Wear at night. Start: 07-25-2021 Bilateral wris t splints Active 0 .Route .MEDSUPPLY 2 July 25, 2021 12:00am Wear at night. cholecalciferol 0.025 mg oral capsule (4 sources) Vitamin D Start: 04-27-2024 take 1 capsule by mouth once daily Cholecalciferol (Vitamin D3) 25 mcg (1,000 unit) capsule Active 25 ug PO daily April 27, 2024 1:00am Cranberry (4 sources) Non-Standardized Food Allergenic Extract, Non-Standardized Plant Allergenic Extract Start: 10-24-2023 take 1 capsule by mouth twice daily at mealtime Cranberry 500 mg capsule Active 500 mg PO TWICE A DAY October 24, 2023 12:00am administer with meals gabapentin 100 mg oral capsule (4 sources) Anti-epileptic Agent Start: 08-18-2024 End: 08-18-2024 take 1 capsule by mouth twice daily Gabapentin 100 mg capsule Active 100 mg PO TWICE A DAY 180 1 August 18, 2024 8:53am hydroCHLOROthiazide 12.5 mg / lisinopril 20 mg oral tablet (12 sources) Thiazide Diuretic, Angiotensin Converting Enzyme Inhibitor Start: 05-04-2021 End: 05-06-2024 Lisinopril-Hydrochl orothiazide 20-12.5 mg tablet Active 2 {tbl} PO DAILY May 06, 2024 10:39am Start: 05-04-2021 take 1 tablet by dolores th once daily Lisinopril-Hydrochlorothiazide Active 1 TABLET PO DAILY May 04, 2021 1:00am loratadine 10 mg oral tablet (4 sources) Start: 10-24-2023 take 1 tablet by mouth once daily as needed Loratadine 10 mg tablet Active 10 mg PO DAILY as needed October 24, 2023 12:00am 24 hr metoprolol succinate 50 mg extended release oral tablet (4 sources) beta-Adrenergic Wilfred Start: 05-06-2024 take 1 tablet by mouth once daily Metoprolol Succinate (Toprol Xl) 50 mg tablet extended release 24 hr Active 50 mg PO daily 90 2 May 06, 2024 1:00am naproxen 500 mg oral tablet (4 sources) Nonsteroidal Anti-inflammatory Drug Start: 10-24-2023 take 1 tablet by mouth twice daily as needed Naproxen 500 mg tablet Active 500 mg PO TWICE A DAY as needed October 24, 2023 12:00am psyllium 400 mg oral capsule (4 sources) Start: 10-24-2023 Psyllium Husk (Fiber (Psyllium Husk)) 0.4 gram capsule Active 0.8 g PO DAILY October 24, 2023 12:00am Completed/Discontinued Medications Medication Drug Class(es) Dates Sig (Normalized) Sig (Original) amLODIPine 5 mg oral tablet (5 sources) Dihydropyridine Calcium Channel Wilfred Start: 07-23-2022 End: 05-06-2024 take 1 tablet by mouth once daily Amlodipine 5 mg tablet Discontinued 5 mg PO DAILY July 23, 2022 12:00am May 06, 2024 10:01am cephalexin 500 mg oral capsule (6 sources) Cephalosporin Antibacterial Start: 12-16-2021 End: 12-26-2021 take 1 capsule by mouth every twelve hours Cephalexin 500 mg capsule Discontinued 500 mg PO Q12H 20 10 0 December 16, 2021 12:00am December 25, 2021 12:00am December 26, 2021 12:03am DULoxetine 30 mg delayed release oral capsule (20 sources) Serotonin and Norepinephrine Reuptake Inhibitor Start: 07-25-2021 End: 05-06-2024 take 1 capsule by mouth once daily in the evening Duloxetine 30 mg capsule,delayed release(DR/EC) Discontinued 30 mg PO .Every evening 30 December 25, 2021 5:18pm January 22, 2022 2:24pm simvastatin 10 mg oral tablet (8 sources) HMG-CoA Reductase Inhibitor Start: 05-04-2021 End: 11-04-2024 take 1 tablet by mouth once daily Simvastatin 10 mg tablet Discontinued 10 mg PO DAILY May 04, 2021 1:00am November 04, 2024 6:09pm Problems Problem Classification Problem Date Documented Da te Episodic/Chronic Cardiac dysrhythmias (15 sources) Bradycardia; Translations: [Bradycardia, unspecified] Onset: 05-06-2024 04-27-2024 Episodic Disorders of lipid metabolism (5 sources) Hyperlipidemia; Translations: [Hyperlipidemia, unspecified] Onset: 05-06-2024 04-27-2024 Chronic Essential hypertension (19 sources) Hypertensive disorder; Translations: [Essential (primary) hypertension] Onset: 05-06-2024 05-12-2021 Chronic Fluid and electrolyte disorders (2 sources) Increased anion gap; Translations: [Other disorders of electrolyte and fluid balance, not elsewhere classified] 11-04-2024 Episodic Genitourinary symptoms and ill-defined conditions (1 source) Blood in urine; Translations: [Hematuria, unspecified] 11-04-2024 Episodic Malaise and fatigue (1 source) Chronic fatigue, unspecified; Translations: [Chronic fatigue, unspecified] Onset: 05-06-2024 Chronic Malaise and fatigue (7 sources) Fatigue; Translations: [Other fatigue] 2022 Episodic Nonspecific chest pain (10 sources) Chest pain; Translations: [Chest pain, unspecified] Onset: 06-26-2024 05-06-2024 Episodic Open wounds of extremities (5 sources) Laceration of left thumb; Translations: [Laceration without foreign body of left thumb without damage to nail, initial encounter] 01-19-2022 Episodic Osteoporosis (4 sources) Osteoporosis; Translations: [Age-related osteoporosis without current pathological fracture] 04-27-2024 Chronic Other circulatory disease (9 sources) Carotid bruit; Translations: [Other specified symptoms and signs involving the circulatory and respiratory systems] 05-06-2024 Episodic Other circulatory disease (1 source) Other specified symptoms and signs involving the circulatory and respiratory systems; Translations: [Other specified symptoms and signs involving the circulatory and respiratory systems] Onset: 06-07-2024 Episodic Other ear and sense organ disorders (4 sources) Hearing loss; Translations: [Unspecified hearing loss, unspecified ear] 04-27-2024 Chronic Other hereditary and degenerative nervous system conditions (7 sources) Essential tremor; Translations: [Essential tremor] 01-22-2022 Chronic Other hereditary and degenerative nervous system conditions (1 source) Essential tremor; Translations: [Essential and other specified forms of tremor] 07-23-2022 Chronic Other nervous system disorders (8 sources) Acute radial nerve palsy; Translations: [Lesion of radial nerve, left upper limb] 05-12-2021 Chronic Other nervous system disorders (10 sources) Polyneuropathy; Translations: [Polyneuropathy, unspecified] 07-25-2021 Chronic Other nervous system disorders (8 sources) Carpal tunnel syndrome; Translations: [Carpal tunnel syndrome, bilateral upper limbs] 07-25-2021 Chronic Other nervous system disorders (3 sources) Polyneuropathy, unspecified; Translations: [Unspecified hereditary and idiopathic peripheral neuropathy] Chronic Other nervous system disorders (1 source) Carpal tunnel syndrome, bilateral upper limbs; Translations: [Carpal tunnel syndrome, bilateral upper limbs] Onset: 05-06-2024 Chronic Other nervous system disorders (4 sources) Paresthesia; Translations: [Paresthesia of skin] 04-27-2024 Episodic Urinary tract infections (3 sources) Cystitis; Translations: [Cystitis, unspecified without hematuria] Episodic Results Test Name Value Interpretation Reference Range Facility Anion gap in Serum or Plasma Ordered By: Aaron Baig on 11-04-2024 Anion gap [Moles/Vol] 16 mmol/L High 5-15 [facility] BUN/creatinine ratioOrdered By: Aaron Baig on 11-04-2024 Urea nitrogen/Creatinine [Mass ratio] 19.8 mg/mg 10-20 [facility] Bilirubin Test strip Ql (U)O rdered By: Aaronkevin Baig on 11-04-2024 Bilirubin Ql (U) Negative Negative [facility] Carbon dioxide, total [Moles /volume] in Central venous bloodOrdered By: Aaron Baig on 11-04-2024 CO2 [Moles/Vol] 20.9 mmol/L Low 21.0-32.0 [facility] Chloride assayOrdered By: Doe Baig on 11-04-2024 Chloride [Moles/Vol] 95 mmol/L Low 98-108 [facility] Glomerular filtration rate ( GFR) estimation/1.73 sq m using serum, plasma, or whole bOrdered By: Aaron Baig on 11-04-2024 GFR/1.73 sq M.predicted among non-blacks MDRD (S/P/Bld) [Vol rate/Area] 48 mL/min/{1.73_m2} Low >60 [facility] Comment on above: mL/min/1.73m2 CKD-EP I Creatinine Equation (2020) Ketones Test strip Ql (U)Ord ered By: Aaron Baig on 11-04-2024 Ketones Ql (U) Negative Negative [facility] Microscopic analysis of urin e for red blood cells (RBC)Ordered By: Aaron Baig on 11-04-2024 Microscopic analysis of urine for red blood cells (RBC) 0-5 SEEN /hpf 0-5 [facility] Mucus LM Ql (Urine sed)Order ed By: Aaron Baig on 11-04-2024 Mucus Ql (Urine sed) 0 SEEN /hpf [facility] Nitrite Test strip Ql (U)Ord ered By: Aaron Baig on 11-04-2024 Nitrite Ql (U) Negative Negative [facility] Potassium measurement (mass/ volume)Ordered By: Aaron Baig on 11-04-2024 Potassium (Unsp spec) [Mass/Vol] 3.7 mmol/L 3.3-5.1 [facility] Comment on above: Hemolysis present, R esults could be affected. Protein Test strip Ql (U)Ord ered By: Aaron Baig on 11-04-2024 Protein Ql (U) 30 mg/dl High Negative [facility] Serum creatinine measurement (mass/volume)Ordered By: Aaron Baig on 11-04-2024 Creatinine [Mass/Vol] 1.11 mg/dL 0.70-1.20 [facility] Serum glucose measurement (m ass/volume)Ordered By: Aaron Baig on 11-04-2024 Glucose [Mass/Vol] 96 mg/dL 70-99 [facility] Serum or plasma calcium jaron urement (mass/volume)Ordered By: Aaron Baig on 11-04-2024 Calcium [Mass/Vol] 9.2 mg/dL 7.6-11.0 [facility] Serum or plasma urea nitroge n measurement (mass/volume)Ordered By: Aaron Baig on 11-04-2024 Urea nitrogen [Mass/Vol] 22 mg/dL High 4-19 [facility] Sodium levelOrdered By: Aaron Baig on 11-04-2024 Sodium [Moles/Vol] 131 mmol/L Low 133-145 [facility] Squamous epithelial cells de tection in urine sediment by light microscopyOrdered By: Aaron Baig on 11-04-2024 Epithelial cells.squamous LM Ql (Urine sed) 0-5 SEEN /hpf 5-10 [facility] Urine clarityOrdered By: Aaron Baig on 11-04-2024 Clarity (U) Clear Clear [facility] Urine color determinationOrd ered By: Aaron Baig on 11-04-2024 Color (U) Yellow Yellow [facility] Urine glucose detectionOrder ed By: Aaron Baig on 11-04-2024 Glucose Ql (U) Normal mg/dl Normal [facility] Urine leukocyte esterase det ection by dipstickOrdered By: Aaron Baig on 11-04-2024 Leukocyte esterase Test strip Ql (U) 100 /ul High Negative [facility] Urine pHOrdered By: Aaron brown on 11-04-2024 pH (U) 6.0 [pH] 5.0 - 8.0 [facility] Urine sediment bacteria coun t by microscopy (number/high power field)Ordered By: Aaron Baig on 11-04-2024 Bacteria LM.HPF (Urine sed) [#/Area] 1 /[HPF] None Seen [facility] Urine specific gravity measu rementOrdered By: Aaronkevin Baig on 11-04-2024 Specific gravity (U) [Rel density] 1.010 1.002-1.030 [facility] Urine urobilinogen measureme ntOrdered By: Aaron Baig on 11-04-2024 Urobilinogen Ql (U) Normal mg/dl Normal [facility] White blood cell countOrdere d By: Aaron Baig on 11-04-2024 White blood cell count 0-5 SEEN /hpf 0-5 [facility] Neurology Visit Reporton Neurology Visit Report [facility] [address], [address] [place] [address] OFFICE VISIT Date of Service: 08/18/24 MR#: [id number] Acct: [id number] Name: MALINI WALTER Rep #: [id number] : 1935 Provider: Dr. Erick chow MD Age/Sex: 88/F [place] [facility] [place] Status: Signed HPI HPI Chief Complaint: Details: Interim History: Malini returns for follow-up visit. She has a history of hypertension, hyperlipidemia and frequent UTIs. Since 2020, she has been experiencing numbness and tingling pain in the feet. Her pain is worse at night. She denied having any low back pain or lower extremity radicular type pain. She also reported having some difficulty climbing stairs otherwise she denied having any weakness. In 2021, she had intermittent numbness and tingling in the hands; this resolved. She denied having neck pain. She remains able to ambulate independently. In May 2021, she presented to the emergency room with complaint of transient left hand numbness and difficulty in extending the wrist that she noticed after awakening from a nap during which time she was lying on her left side. Her left wrist weakness and left hand numbness resolved within several minutes. 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 She has anxiety. She denied having depression. Since initiation of duloxetine she has had significant reduction of her lower extremity neuropathic pain and she is satisfied with her current degree of pain control however she notes having palpitations which she attributes as a side effect to duloxetine (since her last visit, she had discontinued the use of duloxetine for a period of time she had reduction of the occurrence of palpitations). Various cardiac arrhythmias including PVCs and brief episodes of ventricular tachycardia were noted on cardiac monitoring. She was evaluated by a licensed practical nurse, Dr. Capps, and is on antihypertensive medication. She has a history of chronic anosmia. She has had a mild intermittent tremor affecting the hands that occurs with action such as holding a steering wheel. Her tremor began around 2018 and had previously slightly worsened over time. No further recent changes in her tremor has been noted. She is not experiencing significant functional impairment due to her tremor. Per prior discussion, she did not wish to begin any medication for her tremor. Over the years, she has been experiencing left ear tinnitus. She does not have vertigo. She had an ENT evaluation in the past; she was noted to have hearing loss. Since her visit in December 2021, she had a COVID-19 infection and has had subsequent persistent fatigue. Monthly B12 1500 mcg injections lost efficacy for treatment of her fatigue and were discontinued. Physical Exam: Neuro: The patient is awake and alert and responds appropriately; speech is fluent; motor strength is 5/5 in the foot dorsiflexors bilaterally Neck: No bruits Heart: Irregularly irregular On prior examination: Extremities: Dupuytren's contractures are noted in both hands Supplemental Info Head MRI (09/09/2014): FINDINGS: The ventricles are normal in size. There is widening of the extra-axial spaces at the vertex. No subfrontal mass lesion is identified. The thin section coronal T2-weighted images suggest atrophy of the olfactory bulbs and tracts. No sinonasal mass lesion is identified. No acute infarction is demonstrated on the diffusion weighted series. No apparent changes of chronic small vessel ischemic disease are seen in the cerebral white matter. Numerous perivascular spaces are noted in the white matter. The basal ganglia and thalami appear normal. Minimal chronic small vessel ischemic changes are seen posteriorly in the lilia. No abnormality noted in the cerebellum A small arachnoid cyst is present in the retrocerebellar region, without change. No abnormal enhancement is identified. No abnormality is identified in the pituitary, optic chiasm, or pineal. The cavernous sinuses appear normal. Expected major vascular structures at the base of the brain show patency. The left vertebral artery is hypoplastic. The visualized internal auditory canals appear normal. No acute orbital abnormality is seen. There is mild mucosal thickening in the bilateral ethmoid sinus. Moderate left mastoid air cell opacification is present, mildly improved compared to the old MRI. No lesion is identified in the calvarium or skull base. IMPRESSION: No acute intracranial abnormality identified. Probable atrophic changes in the olfactory bulbs and tracts. TSH, lipid profile (07/19/2020): Normal. CBC, BMP, troponin (05/04/2021): Sodium 135, BUN 20, glucose 147 EKG (05/04/2021): Sinus rhythm with frequent premature ventricular complexes in a pattern of bigeminy. Otherwise normal EKG. Head CT (05/04/2021): Findings: (more content not included)... Normal [facility] Cardiovascular stress test r eportOrdered By: Anish Capps on 06-18-2024 Study report [facility] [address] [place] [address] MR#: [id number] Acct: [id number] Name: MALINI WALTER Rep #: [id number] : 1935 88 From: Anish Capps MD Primary Care: Dr. Willow Eason MD Statu s: REG CLI Referring Dr: Anish Capps MD Sex: F C Stress Test Report Exercise myocardial perfusion stress test. 88-year-old lady with a history of chest pain Stress protocol: Resting EKG demonstrates normal sinus rhythm with a rate of 60 bpm resting bloodpressure is 128/70 mmHg. The patient exercised according to the regular [employer] protocol for a total duration of 5 minutes and 20 seconds attaining a maximum heart rate of 108 bpm which was 81% of maximum predicted heart rate; the maximumworkload was 7 metabolic equivalents. At rest there were no ST or T wave changes noted to suggest ischemia and at peak exercise upsloping ST changes onlywere noted which did not meet the criteria for ischemia. No clinical angina wasnoted the test was terminated due to the target heart rate being achieved/fatigue. The peak blood pressure was 168/72 mmHg. Rate-pressure product was 15,000. Myocardial perfusion protocol. 11.8 mCi of technetium 99m sestamibi was injected at rest. The patient exercised according to regular [employer] protocol for total duration of 5 minutes and 20 seconds and at peak exercise 34.5 mCi of technetium 99m sestamibi was injected stress images were obtained stress and rest images were reconstructed in comparing the short axis vertical long and horizontal long axis. Gated images were also obtained. Perfusion SPECT analysis: Review of the stress images demonstrate normal uptake of tracer noted in all areas of the myocardium. The resting images similarly demonstrate normal uptakeof tracer noted in all areas of the myocardium. No areas of reversibility are noted to suggest ischemia no previous infarct was noted. Gated SPECT analysis: The gated ejection fraction is 60%. Conclusion: Normal exercise myocardial perfusion stress test at a moderate workload Preserved ejection fraction. 06/18/24 1413 Date _ Anish Capps MD CC: Dr. Willow Eason MD; Dr. Anish Capps MD ~ Date Dictated: 06/18/24 140 Date Transcribed: 06/18/241405 Stained Glass [place]: [place] Signed [facility] Work Phone: Echo Completeon 06-18-2024 Echo Complete [facility] Cardiovascular Services [address] [place] [address] Echo Complete 06/18/24 0839 MR#: [id number] Acct: [id number] Name: MALINI WALTER Rep #: [id number] : 1935 88 From: Anish Capps MD Attending Dr: Dr. Anish Capps MD Status: [facility] Ordering Dr: Anish Capps MD Date: 06/18/24 Location: [facility] Sex: F C Admitted: Reason For Study Reason For Study: CHEST PAIN Procedure This was a 2D Doppler, Color Flow transthoracic echocardiogram. Exam performed in department. Left Ventricle Normal LV size. The left ventricular ejection fraction is 55 %. No regional wall motion abnormalities noted. Right Ventricle Normal RV size. Normal systolic function. Mitral Valve Normal mitral valve. Mild (1+) eccentric mitral valve insufficiency. Tricuspid Valve Normal tricuspid valve. Mild (1+) tricuspid valve insufficiency. Aortic Valve Trisinus/trileaflet aortic valve. Mild (1+) eccentric aortic valve insufficiency. Pulmonic Valve Normal pulmonic valve. Mild (1+) pulmonic valve insufficiency. Great Vessels Normal sized aortic root. The pulmonary artery is normal size. Inferior vena cava collapse with respiration. Pericardium/Pleural No pericardial effusion. MMode/2D Measurements Calculations LVIDd: 4.9 cm IVSd: 1.4 cm LVOT diam: 2.0 cm LVIDs: 3.4 cm LVPWd: 1.1 cm LVOT area: 3.1 cm2 FS: 30.4 % Ao root diam: 3.2 cm LAV(MOD-bp): 58.2 ml LVAd ap4: 25.9 cm2 LAV(MOD-bp) Indexed: 32.7 ml/m2 LVLd ap4: 7.6 cm LAV(MOD-sp2): 59.3 ml EDV(MOD-sp4): 74.1 ml LAV(MOD-sp4): 52.6 ml EDV(sp4-el): 75.4 ml LVAs ap4: 16.2 cm2 LVLs ap4: 6.5 cm ESV(MOD-sp4): 33.2 ml ESV(sp4-el): 34.3 ml EF(MOD-sp4): 55.1 % EF(sp4-el): 54.5 % SV(MOD-sp4): 40.8 ml SV(sp4-el): 41.1 ml LA A4 area: 19.0 cm2 SI(MOD-sp4): 23.0 ml/m2 LA dimension(2D): 4.2 cm RA A4 area: 13.4 cm2 Time Measurements MV dec time: 0.21 sec Doppler Measurements Calculations MV E max aung: 36.1 cm/sec Lat Peak E' Aung: 6.9 cm/sec Med Peak E' Aung: 6.0 cm/sec MV A max aung: 82.5 cm/sec E/E' lat: 5.2 E/E' med: 6.0 MV E/A: 0.44 MV V2 max: 97.6 cm/sec Ao V2 max: 120.5 cm/sec MV max P.8 mmHg MV dec slope: 176.5 cm/sec2 Ao max P.8 mmHg MV V2 mean: 44.4 cm/sec Ao V2 mean: 87.0 cm/sec MV mean P.1 mmHg Ao mean P.4 mmHg MV V2 VTI: 23.7 cm Ao V2 VTI: 27.1 cm AV (velocity ratio): 0.78 MVA(VTI): 2.8 cm2 JOHANA(I,D): 2.4 cm2 JOHANA(V,D): 2.7 cm2 AI max aung: 428.0 cm/sec LV V1 max: 103.8 cm/sec SV(LVOT): 66.1 ml AI max P.4 mmHg LV V1 max P.3 mmHg AI dec slope: 276.8 cm/sec2 LV V1 mean P.2 mmHg AI P1/2t: 452.9 msec LV V1 mean: 69.4 cm/sec LV V1 VTI: 21.2 cm PA V2 max: 120.8 cm/sec PI end-d aung: 78.9 cm/sec TR max aung: 296.9 cm/sec PA V2 mean: 82.2 cm/sec TR max P.3 mmHg PA mean PG (full): 1.8 mmHg ECHO/Echo Complete Interpretation Summary Normal LV size. The left ventricular ejection fraction is 55 %. No regional wall motion abnormalities noted. Mild (1+) eccentric mitral valve insufficiency. Mild (1+) eccentric aortic valve insufficiency. Mild (1+) tricuspid valve insufficiency. Ordering Physician: Anish Capps Referring Physician: Anish Capps Performed By: Juana Beal RCS 06/18/24 1251 Date Anish Capps MD CC: Dr. Willow Eason MD; Dr. Anish Capps MD Date Dictated: 06/18/24 0839 Date Transcribed: 06/18/24 1251 Stained Glass Glazier: Signed Normal [facility] Echocardiogram study reportO rdered By: Anish Capps on 06-18-2024 Study report [facility] [address] [place] [address] Echo Complete 06/18/24 0839 MR#: [id number] Acct: [id number] Name: MALINI WALTER Rep #:[id number] : 1935 88 From: Anish Esposito Attending Dr: Dr. Anish Capps MD S tatus: REG CLI Ordering Dr: Anish Capps MD Date: Location: CVS Sex: F C Admitted: Reason For Study Reason For Study: CHEST PAIN Procedure This was a 2D Doppler, Color Flow transthoracic echocardiogram. Exam performed in department. Left Ventricle Normal LV size. The left ventricular ejection fraction is 55 %. No regional wallmotion abnormalities noted. Right Ventricle Normal RV size. Normal systolic function. Mitral Valve Normal mitral valve. Mild (1+) eccentric mitral valve insufficiency. Tricuspid Valve Normal tricuspid valve. Mild (1+) tricuspid valve insufficiency. Aortic Valve Trisinus/trileaflet aortic valve. Mild (1+) eccentric aortic valve insufficiency. Pulmonic Valve Normal pulmonic valve. Mild (1+) pulmonic valve insufficiency. Great Vessels Normal sized aortic root. The pulmonary artery is normal size. Inferior vena cava collapse with respiration. Pericardium/Pleural No pericardial effusion. MMode/2D Measurements & Calculations LVIDd: 4.9 cm IVSd: 1.4 cm LVOT diam: 2.0 cm LVIDs: 3.4 cm LVPWd: 1.1 cm LVOT area: 3.1 cm2 FS: 30.4 % Ao root diam: 3.2 cm LAV(MOD-bp): 58.2 ml LVAd ap4: 25.9 cm2 LAV(MOD-bp) Indexed: 32.7 ml/m2 LVLd ap4: 7.6 cm LAV(MOD-sp2): 59.3 ml EDV(MOD-sp4): 74.1 ml LAV(MOD-sp4): 52.6 ml EDV(sp4-el): 75.4 ml LVAs ap4: 16.2 cm2 LVLs ap4: 6.5 cm ESV(MOD-sp4): 33.2 ml ESV(sp4-el): 34.3 ml EF(MOD-sp4): 55.1 % EF(sp4-el): 54.5 % SV(MOD-sp4): 40.8 ml SV(sp4-el): 41.1 ml LA A4 area: 19.0 cm2 SI(MOD-sp4): 23.0 ml/m2 LA dimension(2D): 4.2 cm RA A4 area: 13.4 cm2 Time Measurements MV dec time: 0.21 sec Doppler Measurements & Calculations MV E max aung: 36.1 cm/sec Lat Peak E' Aung: 6.9 cm/sec Med Peak E' Aung: 6.0 cm/sec MV A max aung: 82.5 cm/sec E/E' lat: 5.2 E/E' med: 6.0 MV E/A: 0.44 MV V2 max: 97.6 cm/sec Ao V2 max: 120.5 cm/sec MV max P.8 mmHg MV dec slope: 176.5 cm/sec2 Ao max P.8 mmHg MV V2 mean: 44.4 cm/sec Ao V2 mean: 87.0 cm/sec MV mean P.1 mmHg Ao mean P.4 mmHg MV V2 VTI: 23.7 cm Ao V2 VTI: 27.1 cm AV (velocity ratio): 0.78 MVA(VTI): 2.8 cm2 JOHANA(I,D): 2.4 cm2 JOHANA(V,D): 2.7 cm2 AI max aung: 428.0 cm/sec LV V1 max: 103.8 cm/sec SV(LVOT): 66.1 ml AI max P.4 mmHg LV V1 max P.3 mmHg AI dec slope: 276.8 cm/sec2 LV V1 mean P.2 mmHg AI P1/2t: 452.9 msec LV V1 mean: 69.4 cm/sec LV V1 VTI: 21.2 cm PA V2 max: 120.8 cm/sec PI end-d aung: 78.9 cm/sec TR max aung: 296.9 cm/sec PA V2 mean: 82.2 cm/sec TR max P.3 mmHg PA mean PG (full): 1.8 mmHg ECHO/Echo Complete Interpretation Summary Normal LV size. The left ventricular ejection fraction is 55 %. No regional wall motion abnormalities noted. Mild (1+) eccentric mitral valve insufficiency. Mild (1+) eccentric aortic valve insufficiency. Mild (1+) tricuspid valve insufficiency. Ordering Physician: Anish Capps Referring Physician: Anish Capps Performed By: Juana Beal RCS 06/18/24 1251 Date _ Anish Capps MD CC: Dr. Willow Eason MD; Dr. Anish Capps MD ~ Date Dictated: 06/18/24 0839 Date Transcribed: 06/18/24 125 Stained Glass Glazier: Signed [facility] Work Phone: Stress Reporton 06-18-2024 Stress Report [facility] Cardi[facility] Services [address] [place] [address] MR#: [id number] Acct: [id number] Name: MALINI WALTER Rep #: [id number] : 1935 88 From: Anish Capps MD Primary Care: Dr. Willow Eason MD Status: REG CLI Referring Dr: Anish Capps MD Sex: F C Stress Test Report Exercise myocardial perfusion stress test. 88-year-old lady with a history of chest pain Stress protocol: Resting EKG demonstrates normal sinus rhythm with a rate of 60 bpm resting blood pressure is 128/70 mmHg. The patient exercised according to the regular [employer] protocol for a total duration of 5 minutes and 20 seconds attaining a maximum heart rate of 108 bpm which was 81% of maximum predicted heart rate; the maximum workload was 7 metabolic equivalents. At rest there were no ST or T wave changes noted to suggest ischemia and at peak exercise upsloping ST changes only were noted which did not meet the criteria for ischemia. No clinical angina was noted the test was terminated due to the target heart rate being achieved/fatigue. The peak blood pressure was 168/72 mmHg. Rate- pressure product was 15,000. Myocardial perfusion protocol. 11.8 mCi of technetium 99m sestamibi was injected at rest. The patient exercised according to regular [employer] protocol for total duration of 5 minutes and 20 seconds and at peak exercise 34.5 mCi of technetium 99m sestamibi was injected stress images were obtained stress and rest images were reconstructed in comparing the short axis vertical long and horizontal long axis. Gated images were also obtained. Perfusion SPECT analysis: Review of the stress images demonstrate normal uptake of tracer noted in all areas of the myocardium. The resting images similarly demonstrate normal uptake of tracer noted in all areas of the myocardium. No areas of reversibility are noted to suggest ischemia no previous infarct was noted. Gated SPECT analysis: The gated ejection fraction is 60%. Conclusion: Normal exercise myocardial perfusion stress test at a moderate workload Preserved ejection fraction. 06/18/24 1413 Date Anish Capps MD CC: Dr. Willow Eason MD; Dr. Anish Capps MD Date Dictated: 06/18/24 140 Date Transcribed: 06/18/241405 Stained Glass Glazier: CO Signed Normal [facility] Cardiology Visit Reporton Cardiology Visit Report [facility] [address] [place] [address]. [address] [place] [address] OFFICE VISIT Date of Service: 06/16/24 MR#: [id number] Acct: [id number] Name: MALINI WALTER Rep #: [id number] : 1935 Provider: Dr. 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 She had presented for evaluation of chest tightness, was noted to be very hypertensive and she had also had some cardiac arrhythmias. She was placed on medication and she says that she has done quite well with this medication her blood pressure has improved she has not had any palpitations she is only short of breath with activity but otherwise has not had any neck arm or jaw discomfort suggest angina. She has been compliant with her medications. She is due for a stress test and an echocardiogram later this week. Intake Vital Signs 05/06/24 08:51 06/16/24 14:41 Height 5 ft 4 in 5 ft 4 in Weight: 170 lb 166 lb BMI 29.2 28.5 BP 184/65 H 111/63 Blood Pressure Location Lt brachial Lt brachial Position Sitting Sitting Respiration 16 16 Pulse 44 L 70 Pulse Source Monitor Monitor Intake Visit Reasons: 6 W FU Regulator Assembler Required: No Accompanied by: Self Is patient in pain?: No Allergies No Known Allergies Allergy (Verified 06/16/24 14:44) Medications ???Medication ???Instructions ???Recorded ???Confirmed ???Type simvastatin 10 mg tablet 10 mg PO DAILY 05/04/21 06/16/24 H istory Bilateral wrist splints #2 ea 07/25/21 01/22/23 Rx acetaminophen 500 mg oral powder 500 mg PO Q6H PRN 01/22/22 5 History packet (Tylenol Extra Strength) aspirin 81 mg chewable tablet 81 mg PO DAILY 07/23/22 06/16/24 H istory cranberry 500 mg capsule 500 mg PO BID 10/24/23 06/16/24 Hi story loratadine 10 mg tablet 10 mg PO DAILY PRN 10/24/23 History naproxen 500 mg tablet 500 mg PO BID PRN 10/24/23 5 History psyllium husk 0.4 gram capsule 0.8 g PO DAILY 10/24/23 06/16/24 H istory (Fiber (psyllium husk)) cholecalciferol (vitamin D3) 25 25 mcg PO QDAY 04/27/24 06/16/24 H istory mcg (1,000 unit) capsule lisinopril 20 2 tab PO DAILY 05/06/24 06/16/24 H istory mg-hydrochlorothiazi de 12.5 mg tablet metoprolol succinate 50 mg 50 mg PO QDAY #90 tabs 05/06/24 Rx tablet,extended release 24 hr (Toprol XL) Have you fallen in the past year?: No PFSH Medical History Bradycardia Hyperlipidemia Essential (primary) hypertension Osteoporosis Paresthesia Hearing loss Tachycardia Fatigue Essential tremor Bilateral carpal tunnel syndrome Polyneuropathy Surgical History History of hysterectomy History of cataract surgery Family History Mother Heart disease Diabetes Father Alzheimer disease Social History Smoking Status: Never smoker second hand exposure: No alcohol intake: current details: rarely substance use type: does not use what type of physical activity do you participate in: walking and swimming ruddy/quaker: Jew seatbelt use: always ROS Const Const: Negative for fatigue, weakness, headache(s), daytime sleepiness or difficulty sleeping ENT ENT: Positive for dizziness (occasionally); Negative for headache(s) or Nosebleed/epistaxis Cardio Chest Pain: No Palpitations: No Edema: None Resp Respiratory: Positive for SOB with activity; Negative for SOB at rest, SOB orthopnea SOB lying down or Cough GI GI: Negative nausea, vomiting or heartburn Neuro Neuro: Positive for dizziness (occasionally); Negative for lightheadedness, near syncope, headache(s) or weakness Endo Endo: Negative for fatigue Cardiology Exam Const Appearance: cooperative, healthy appearing, no acute distress, well developed and well groomed Nutritional Appearance: average body habitus and well nourished Orientation: alert, awake and oriented x3 Head Head: normal to inspection, normocephalic and atraumatic Ears: hearing grossly normal bilaterally and external ears normal Nose: external nose normal, nares normal, nasal mucous membranes and turbinates normal, septum normal and no nasal discharge Face and Sinus: face symmetric Mouth: oral mucosae normal, tongue normal, oropharynx normal and moist mucous membranes Teeth and gingiva: dentition normal Throat: posterior oropharynx normal, tonsils normal and uvula midline Eyes General: appearance normal, both eyes and all related structur (more content not included)... Normal [facility] Carotid Duplex Ultrasoundon 05-27-2024 Carotid Duplex Ultrasound [facility] [address] [place] [address] Carotid Duplex Ultrasound 05/27/24 0947 MR#: [id number] Acct: [id number] Name: MALINI WALTER Rep #: [id number] : 1935 88 From: Jose Mello MD Attending Dr: Dr. Anish Capps MD Status: REG C LI Ordering Dr: Anish Capps MD Date: 05/27/24 Location: [facility] Sex: F C Admitted: Reason For Study Reason For Study: Carotid bruit Rt. Velocities/BP Lt. Velocities/BP Prox CCA 82.6/12.6 cm/sec. Prox CCA 81.4/12.6 cm/sec. Mid CCA 77.7/10.2 cm/sec. Mid CCA 65.4/6.5 cm/sec. Dist CCA 70.4/10.2 cm/sec. Dist CCA 59.3/11.4 cm/sec. Prox ICA 43.6/11.6 cm/sec. Prox ICA 64.2/10.2 cm/sec. Mid ICA 70.9/18.6 cm/sec. Mid ICA 106/23.7 cm/sec. Dist ICA 96.1/22.5 cm/sec. Dist ICA 112/27.9 cm/sec. Rt. ICA/CCA = 1.24. Lt. ICA/CCA = 1.71. Prox ECA 70.7/4.7 cm/sec. Prox ECA 85.1/2.8 cm/sec. Rt. Vert. 53.2/15.1 cm/sec. Lt. Vert. 33.3/6 cm/sec. Right Extracranial There is homogeneous, smooth atherosclerotic plaque noted in the right common carotid artery. There is homogeneous, smooth atherosclerotic plaque noted in the right internal carotid artery. There is intimal thickening but no significant atherosclerotic plaque noted in the right external carotid artery. Antegrade flow is noted in the right vertebral artery. Left Extracranial There is homogeneous, smooth atherosclerotic plaque noted in the left common carotid artery. There is intimal thickening but no significant atherosclerotic plaque noted in the left internal carotid artery. There is intimal thickening but no significant atherosclerotic plaque noted in the left external carotid artery. Antegrade flow is noted in the left vertebral artery. Procedure Carotid Duplex 76004. This is a Carotid Duplex examination using B-mode, color flow and specral Doppler. Exam performed in department. VL/Carotid Duplex Ultrasound Interpretation Summary Mild (<50%) stenosis right extracranial internal carotid. Normal left extracranial internal carotid. Patent and antegrade vertebrals bilaterally. Ordering Physician: Anish Capps Referring Physician: Willow Eason M.D. Performed By: Shantel Marshall RVT 05/27/241831 Date Jose Mello MD CC: Dr. Willow Eason MD; Dr. Anish Capps MD Date Dictated: 05/27/24946 Date Transcribed: 05/27/241831 Stained Glass Glazier: Signed Normal [facility] Duplex ultrasound of carotid artery reportOrdered By: Jose Mello on 05-27-2024 Study report [facility] [address] [place] [address] Carotid Duplex Ultrasound 05/27/24946 MR#: [id number] Acct: [id number] Name: MALINI WALTER Rep #:[id number] : 1935 88 From: Jose Esposito Attending Dr: Dr. Anish Capps MD S tatus: REG CLI Ordering Dr: Anish Capps MD Date: Location: [facility] Sex: F C Admitted: Reason For Study Reason For Study: Carotid bruit Rt. Velocities/BP Lt. Velocities/BP Prox CCA 82.6/12.6 cm/sec. Prox CCA 81.4/12.6 cm/sec. Mid CCA 77.7/10.2 cm/sec. Mid CCA 65.4/6.5 cm/sec. Dist CCA 70.4/10.2 cm/sec. Dist CCA 59.3/11.4 cm/sec. Prox ICA 43.6/11.6 cm/sec. Prox ICA 64.2/10.2 cm/sec. Mid ICA 70.9/18.6 cm/sec. Mid ICA 106/23.7 cm/sec. Dist ICA 96.1/22.5 cm/sec. Dist ICA 112/27.9 cm/sec. Rt. ICA/CCA = 1.24. Lt. ICA/CCA = 1.71. Prox ECA 70.7/4.7 cm/sec. Prox ECA 85.1/2.8 cm/sec. Rt. Vert. 53.2/15.1 cm/sec. Lt. Vert. 33.3/6 cm/sec. Right Extracranial There is homogeneous, smooth atherosclerotic plaque noted in the right common carotid artery. There is homogeneous, smooth atherosclerotic plaque noted in the right internal carotid artery. There is intimal thickening but no significant atherosclerotic plaque noted in the right external carotid artery. Antegrade flow is noted in the right vertebral artery. Left Extracranial There is homogeneous, smooth atherosclerotic plaque noted in the left common carotid artery. There is intimal thickening but no significant atherosclerotic plaque noted in the left internal carotid artery. There is intimal thickening but no significant atherosclerotic plaque noted in the left external carotid artery. Antegrade flow is noted in the left vertebral artery. Procedure Carotid Duplex 02416. This is a Carotid Duplex examination using B-mode, color flow and specral Doppler. Exam performed in department. VL/Carotid Duplex Ultrasound Interpretation Summary Mild (<50%) stenosis right extracranial internal carotid. Normal left extracranial internal carotid. Patent and antegrade vertebrals bilaterally. Ordering Physician: Anish Capps Referring Physician: Willow Eason M.D. Performed By: Shantel Marshall RVT 05/27/241831 Date _ Jose Mello MD CC: Dr. Willow Eason MD; Dr. Anish Capps MD ~ Date Dictated: 05/27/24946 Date Transcribed: 05/27/241831 Stained Glass Glazier: Signed [facility] Work Phone: 12 Lead EKG performed by [facility] on 05-06-2024 12 Lead EKG performed by [id number] [place] [address] 12 Lead EKG performed by [facility] 05/06/24850 MR#: [id number] Acct: [id number] Name: MALINI WALTER Rep #: [id number] : 1935 88 From: Anish Capps MD Attending Dr: Dr. Anish Capps MD Status: DEP A MB Ordering Dr: Anish Capps MD Date: 05/06/24 Location: [facility] [place] Sex: F C Admitted: [facility]12 Lead EKG performed by [facility] ECG Report Interpretation ------Sinus Rhythm -Frequent pvcs -ventricular bigeminy -Combined atrial enlargement. ABNORMAL RHYTHMElectronically signed on 05/07/2024 at 11:38 by Anish Capps [employer] Version [id number] 05/07/24 1140 Date Anish Capps MD CC: Dr. Willow Eason MD Date Dictated: 05/06/24850 Date Transcribed: 02/05/25 0851 Stained Glass Glazier: CO Signed Normal [facility] Cardiology Visit Reporton Cardiology Visit Report [facility] [address] [place] [address] OFFICE VISIT Date of Service: 05/06/24 MR#: [id number] Acct: [id number] Name: MALINI WALTER Rep #: [id number] : 1935 Provider: Dr. 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 She remains actually quite active and she says that she has been having some tightness on and off in her chest for a while it does not last long it is not when she is exerting herself. She is also noted that her pulse is sometimes on the low side and as a result of this Holter monitor was performed and this demonstrated some premature ventricular complexes as well as short periods of atrial tachycardia. The predominant rhythm however was noted to be sinus and was approximately 69 bpm. She has had no dizziness or diaphoresis no near-syncope or syncope. She has not had any recent other cardiac workup her last echocardiogram was from 2006 demonstrating mitral calcification and a preserved ejection fraction. She did have an EKG performed in May 2021 demonstrating sinus rhythm with frequent premature ventricular complexes in a pattern of bigeminy and her most recent EKG today demonstrates sinus rhythm with a rate of 89 bpm with premature ventricular complexes and occasional couplet activity. She was also noted to have a 3 beat run of a wide-complex tachycardia with an average heart rate of 144 bpm. She has been compliant with her medication she says that her blood pressure has been running somewhat high on occasion. She has not had any syncopal episodes. Her most recent lipid profile demonstrates a total cholesterol 145 HDL of 46 LDL of 78. Intake Vital Signs 10/24/23 12:46 05/06/24 08:51 Height 5 ft 4 in 5 ft 4 in Weight: 164 lb 10 oz 170 lb BMI 28.2 29.2 BP 166/60 H 184/65 H Blood Pressure Location Lt brachial Lt brachial Position Sitting Sitting Respiration 16 16 Pulse 45 L 44 L Pulse Source Monitor Monitor Temp 97.3 F L Pulse Oximetry (%) 97 Oxygen Delivery Method room air Intake Visit Reasons: TACHYCARDIA (JOLLIFF) Regulator Assembler Required: No Accompanied by: Self Is patient in pain?: No Allergies No Known Allergies Allergy (Verified 05/06/24 08:59) Medications ???Medication ???Instructions ???Recorded ???Confirmed ???Type simvastatin 10 mg tablet 10 mg PO DAILY 05/04/21 05/06/24 H istory Bilateral wrist splints #2 ea 07/25/21 01/22/23 Rx acetaminophen 500 mg oral powder 500 mg PO Q6H PRN 01/22/22 5 History packet (Tylenol Extra Strength) aspirin 81 mg chewable tablet 81 mg PO DAILY 07/23/22 05/06/24 H istory cranberry 500 mg capsule 500 mg PO BID 10/24/23 05/06/24 Hi story loratadine 10 mg tablet 10 mg PO DAILY PRN 10/24/23 History naproxen 500 mg tablet 500 mg PO BID PRN 10/24/23 5 History psyllium husk 0.4 gram capsule 0.8 g PO DAILY 10/24/23 05/06/24 H istory (Fiber (psyllium husk)) cholecalciferol (vitamin D3) 25 25 mcg PO QDAY 04/27/24 05/06/24 H istory mcg (1,000 unit) capsule lisinopril 20 2 tab PO DAILY 05/06/24 05/06/24 H istory mg-hydrochlorothiazi de 12.5 mg tablet metoprolol succinate 50 mg 50 mg PO QDAY #90 tabs 05/06/24 Rx tablet,extended release 24 hr (Toprol XL) Have you fallen in the past year?: No PFSH Medical History Bradycardia Hyperlipidemia Essential (primary) hypertension Osteoporosis Paresthesia Hearing loss Tachycardia Fatigue Essential tremor Bilateral carpal tunnel syndrome Polyneuropathy Surgical History History of hysterectomy History of cataract surgery Family History Mother Heart disease Diabetes Father Alzheimer disease Social History Smoking Status: Never smoker second hand exposure: No alcohol intake: current details: rarely substance use type: does not use what type of physical activity do you participate in: walking and swimming ruddy/quaker: Jew seatbelt use: always ROS Const Const: Positive for headache(s); Negative for fatigue, weakness, daytime sleepiness or difficulty sleeping ENT ENT: Positive for headache(s); Negative for dizziness or Nosebleed/epistaxis Cardio Chest Pain: Yes Frequency: other (comes and goes) Character: other (tightness) Onset: other Location: mid sternal and left chest Duration: brief Palpitations: Yes feels like its: skipping Edema: Bi (more content not included)... Normal [facility] Albumin to globulin ratioOrd ered By: Willow Eason on 03-14-2024 Albumin/Globulin [Mass ratio] 1.3 {ratio} 0.9-2.4 [facility] Bilirubin, totalOrdered By: Willow Eason on 03-14-2024 Bilirubin [Mass/Vol] 0.80 mg/dL 0.20-1.00 [facility] Comment on above: For patients on eltr ombopag therapy, use of Dimension [place] TBIL is not recommended. Blood urea nitrogen (BUN)/cr eatinine ratioOrdered By: Willow Eason on 03-14-2024 Urea nitrogen/Creatinine [Mass ratio] 26.5 mg/mg High 10-20 [facility] CBC-Complete Blood Cnt No Di ffon 03-14-2024 Erythrocyte distribution width (RBC) [Ratio] 13.2 % Normal 11.6-14.6 [facility] Comment on above: Order Comment: Order Date: 03/13/24 Order Info: [id number] - CBC Performed By: #### L 501.7865, L500.3750, L100.0500 #### [facility] [address] [place], [address] Hematocrit (Bld) [Volume fraction] 38.9 % Normal 37-47 [facility] Comment on above: Order Comment: Order Date: 03/13/24 Order Info: [id number] - CBC Performed By: #### L 501.9520, L500.4050, L100.0500 #### [facility] [address] [place], [address] Hemoglobin (Bld) [Mass/Vol] 13.4 g/dL Normal 12.0-15.0 [facility] Comment on above: Order Comment: Order Date: 03/13/24 Order Info: [id number] - CBC Performed By: #### L 501.9520, L500.4050, L100.0500 #### [facility] [address] [place], [address] MCH (RBC) [Entitic mass] 33.6 pg High 27.0-32.0 [facility] Comment on above: Order Comment: Order Date: 03/13/24 Order Info: [id number] - CBC Performed By: #### L 501.9520, L500.4050, L100.0500 #### [facility] [address] [place], [address] MCHC (RBC) [Mass/Vol] 34.4 g/dL Normal 32-36 [facility] Comment on above: Order Comment: Order Date: 03/13/24 Order Info: [id number] - CBC Performed By: #### L 501.9520, L500.4050, L100.0500 #### [facility] [address] [place], [address] MCV (RBC) [Entitic vol] 97.5 fL Normal 81-99 [facility] Comment on above: Order Comment: Order Date: 03/13/24 Order Info: [id number] - CBC Performed By: #### L 501.9520, L500.4050, L100.0500 #### [facility] [address] [place], [address] Platelet mean volume (Bld) [Entitic vol] 10.9 fL Normal 6.2-12.0 [facility] Comment on above: Order Comment: Order Date: 03/13/24 Order Info: [id number] - CBC Performed By: #### L 501.9520, L500.4050, L100.0500 #### [facility] [address] [place], [address] Platelets (Bld) [#/Vol] 194 10*3/uL Normal 150-450 [facility] Comment on above: Order Comment: Order Date: 03/13/24 Order Info: [id number] - CBC Performed By: #### L 501.9520, L500.4050, L100.0500 #### [facility] [address] [place], [address] RBC (Bld) [#/Vol] 3.99 10*6/uL Low 4.2-5.4 [facility] Comment on above: Order Comment: Order Date: 03/13/24 Order Info: [id number] - CBC Performed By: #### L 501.9520, L500.4050, L100.0500 #### [facility] [address] [place], [address] RDW SD 47.5 fl High 35.1-43.9 [facility] Comment on above: Order Comment: Order Date: 03/13/24 Order Info: [id number] - CBC Performed By: #### L 501.9520, L500.4050, L100.0500 #### [facility] [facility] [address] [place], [address] WBC (Bld) [#/Vol] 6.3 10*3/uL Normal 4.4-11.0 [facility] Comment on above: Order Comment: Order Date: 03/13/24 Order Info: [id number] - CBC Performed By: #### L [id number], L500.4050, L100.0500 #### [facility] [address] [place], [address] Carbon dioxide measurementOr dered By: Willow Eason on 03-14-2024 CO2 [Moles/Vol] 26.0 mmol/L 21.0-32.0 [facility] Chloride measurementOrdered By: Willow Eason on 03-14-2024 Chloride [Moles/Vol] 107 mmol/L 98-107 [facility] Comprehensive Metabolic Prof ilon 03-14-2024 Albumin [Mass/Vol] 4.2 g/dL Normal 3.2-5.0 [facility] Comment on above: Order Comment: Order Date: 03/13/24 Order Info: 0786-1 - CMP Order Info: 3016-3 - TSH Performed By: #### L [id number], [id number], L100.0500 #### [facility] [address] [place], [address] Albumin/Globulin [Mass ratio] 1.3 {ratio} Normal 0.9-2.4 [facility] Comment on above: Order Comment: Order Date: 03/13/24 Order Info: 0786-1 - CMP Order Info: 3016-3 - TSH Performed By: #### L [id number], [id number], L100.0500 #### [facility] [address] [place], [address] ALK P 70 U/L Normal 45-117 [facility] Comment on above: Order Comment: Order Date: 03/13/24 Order Info: 0786-1 - CMP Order Info: 3016-3 - TSH Performed By: #### L [id number], [id number], L100.0500 #### [facility] [address] [place], [address] ALT [Catalytic activity/Vol] 13 U/L Normal 13-56 [facility] Comment on above: Order Comment: Order Date: 03/13/24 Order Info: 0786-1 - CMP Order Info: 3016-3 - TSH Performed By: #### L [id number], [id number], L100.0500 #### [facility] [address] [place], [address] AST [Catalytic activity/Vol] 15 U/L Normal 15-37 [facility] Comment on above: Order Comment: Order Date: 03/13/24 Order Info: 785-04 - CMP Order Info: 3015-05 - TSH Performed By: #### L [id number], [id number], L100.0500 #### [facility] [address] [place], [address] Bilirubin [Mass/Vol] 0.80 mg/dL Normal 0.20-1.00 [facility] Comment on above: Order Comment: Order Date: 03/13/24 Order Info: 785-04 - CMP Order Info: 3015-05 - TSH Result Comment: For patients on eltrombopag therapy, use of Dimension [place] TBIL is not recommended. Performed By: #### L [id number], [id number], L100.0500 #### [facility] [address] [place], [address] BUN/CRE 26.5 RATIO High 10-20 [facility] Comment on above: Order Comment: Order Date: 03/13/24 Order Info: 785-04 - CMP Order Info: 3015-05 - TSH Performed By: #### L [id number], [id number], L100.0500 #### [facility] [address] [place], [address] CA,Total 9.6 mg/dL Normal 8.5-10.1 [facility] Comment on above: Order Comment: Order Date: 03/13/24 Order Info: 785-04 - CMP Order Info: 3015-05 - TSH Performed By: #### L [id number], [id number], L100.0500 #### [facility] [address] [place], [address] Chloride [Moles/Vol] 107 mmol/L Normal 98-107 [facility] Comment on above: Order Comment: Order Date: 03/13/24 Order Info: 0786-1 - CMP Order Info: 301-3 - TSH Performed By: #### L [id number], [id number], L100.0500 #### [facility] [address] [place], [address] CO2 [Moles/Vol] 26.0 mmol/L Normal 21.0-32.0 [facility] Comment on above: Order Comment: Order Date: 03/13/24 Order Info: 0786- - CMP Order Info: 3 - TSH Performed By: #### L [id number], [id number], L100.0500 #### [facility] [address] [place], [address] Creatinine [Mass/Vol] 1.02 mg/dL Normal 0.55-1.02 [facility] Comment on above: Order Comment: Order Date: 03/13/24 Order Info: 0786- - CMP Order Info: [id number] - TSH Result Comment: The validity of the calculated GFR GFRAA in patients over 70 years has not been determined. Clinical correlation is essential. Performed By: #### L [id number], [id number], L100.0500 #### [facility] [address] [place], [address] EST GFR - AA 66 mL/min Normal >60 [facility] Comment on above: Order Comment: Order Date: 03/13/24 Order Info: 0786- - CMP Order Info: 301-3 - TSH Result Comment: Afri can [place] Citizen GFR Calc Performed By: #### L [id number], [id number], L100.0500 #### [facility] [address] [place], [address] GAP 8 Normal 5-15 [facility] Comment on above: Order Comment: Order Date: 03/13/24 Order Info: 0786-1 - CMP Order Info: 3016-3 - TSH Performed By: #### L [id number], [id number], L100.0500 #### [facility] [address] [place], [address] GFR/1.73 sq M.predicted among non-blacks MDRD (S/P/Bld) [Vol rate/Area] 54 mL/min/{1.73_m2} Low >60 [facility] Comment on above: Order Comment: Order Date: 03/13/24 Order Info: 0786-1 - [facility] Order Info: [id number] - TSH Result Comment: Non- GFR Calc Performed By: #### L [id number], [id number], L100.0500 #### [facility] [address] [place], [address] Globulin (S) [Mass/Vol] 3.2 g/dL Normal 2.2-4.2 [facility] Comment on above: Order Comment: Order Date: 03/13/24 Order Info: 0786-1 - [facility] Order Info: 3016-3 - TSH Performed By: #### L [id number], [id number], L100.0500 #### [facility] [address] [place], [address] Glucose [Mass/Vol] 108 mg/dL High 74-106 [facility] Comment on above: Order Comment: Order Date: 03/13/24 Order Info: 0786-1 - [facility] Order Info: 3016-3 - TSH Result Comment: Fast ing Glucose result from 100 to 125 mg/dL suggests IMPAIRED HOMEOSTASIS per A.D.A. criteria. Performed By: #### L [id number], L500.4050, L100.0500 #### [facility] [address] [place], [address] Potassium [Moles/Vol] 4.3 mmol/L Normal 3.5-5.1 [facility] Comment on above: Order Comment: Order Date: 03/13/24 Order Info: 0786-1 - CMP Order Info: 3015-3 - TSH Performed By: #### L [id number], L500.4050, L100.0500 #### [facility] [address] [place], [address] Sodium [Moles/Vol] 140 mmol/L Normal 136-145 [facility] Comment on above: Order Comment: Order Date: 03/13/24 Order Info: 0786-1 - [facility] Order Info: 3 - TSH Performed By: #### L [id number], [id number], L100.0500 #### [facility] [address] [place], [address] T PROT 7.4 g/dL Normal 6.4-8.2 [facility] Comment on above: Order Comment: Order Date: 03/13/24 Order Info: 0786-1 - [facility] Order Info: 3 - TSH Performed By: #### L [id number], [id number], L100.0500 #### [facility] [address] [place], [address] Urea nitrogen [Mass/Vol] 27 mg/dL High 7-18 [facility] Comment on above: Order Comment: Order Date: 03/13/24 Order Info: 0786-1 - [facility] Order Info: 3013 - TSH Performed By: #### L [id number], L500.4050, L100.0500 #### [facility] [address] [place], [address] Erythrocyte distribution wid th ratioOrdered By: Willow Eason on 03-14-2024 Erythrocyte distribution width (RBC) [Ratio] 13.2 % 11.6-14.6 [facility] Erythrocyte distribution wid th standard deviationOrdered By: Willow Eason on 03-14-2024 Erythrocyte distribution width (RBC) [Entitic vol] 47.5 fL High 35.1-43.9 [facility] Estimated glomerular filtrat ion rate (GFR) AmericanOrdered By: Willow Eason on 03-14-2024 Estimated GFR (MDRD) Amer 66 mL/min >60 [facility] Comment on above: GFR Calc Glomerular filtration rate ( GFR) estimationOrdered By: Willow Eason on 03-14-2024 Estimated GFR (MDRD) Non-Af Amer 54 mL/min Low >60 [facility] Comment on above: Non- GFR Calc Glucose measurementOrdered B y: Willow Eason on 03-14-2024 Glucose [Mass/Vol] 108 mg/dL High 74-106 [facility] Comment on above: Fasting Glucose resu lt from 100 to 125 mg/dL suggests IMPAIRED HOMEOSTASIS per A.D.A. criteria. Hematocrit Auto (Bld) [Volum e fraction]Ordered By: Willow Eason on 03-14-2024 Hematocrit (Bld) [Volume fraction] 38.9 % 37-47 [facility] Hemoglobin measurementOrdere d By: Willow Eason on 03-14-2024 Hemoglobin (Bld) [Mass/Vol] 13.4 g/dL 12.0-15.0 [facility] - Chemistry and C hemistry - challengeOrdered By: Willow Eason on 03-14-2024 AST [Catalytic activity/Vol] 15 U/L 15-37 [facility] MCV (mean corpuscular volume ) determinationOrdered By: Willow Eason on 03-14-2024 MCV (RBC) [Entitic vol] 97.5 fL 81-99 [facility] Mean corpuscular hemoglobin (MCH) determinationOrdered By: Willow Eason on 03-14-2024 MCH (RBC) [Entitic mass] 33.6 pg High 27.0-32.0 [facility] Mean corpuscular hemoglobin concentration (MCHC) determinationOrdered By: Willow Eason on 03-14-2024 MCHC (RBC) [Mass/Vol] 34.4 g/dL 32-36 [facility] Mean platelet volume determi nationOrdered By: Willow Eason on 03-14-2024 Platelet mean volume (Bld) [Entitic vol] 10.9 fL 6.2-12.0 [facility] Platelet countOrdered By: Mart Eason on 03-14-2024 Platelets (Bld) [#/Vol] 194 10*3/uL 150-450 [facility] Potassium measurementOrdered By: Willow Eason on 03-14-2024 Potassium [Moles/Vol] 4.3 mmol/L 3.5-5.1 [facility] RBC Auto (Bld) [#/Vol]Ordere d By: Willow Eason on 03-14-2024 RBC (Bld) [#/Vol] 3.99 10*6/uL Low 4.2-5.4 [facility] Serum anion gap measurementO rdered By: Willow Eason on 03-14-2024 Anion gap [Moles/Vol] 8 mmol/L 5-15 [facility] Serum globulin measurementOr dered By: Willow Eason on 03-14-2024 Globulin (S) [Mass/Vol] 3.2 g/dL 2.2-4.2 [facility] Serum or plasma alanine man otransferase (ALT) measurementOrdered By: Willow Eason on 03-14-2024 ALT [Catalytic activity/Vol] 13 U/L 13-56 [facility] Serum or plasma albumin jaron urement (mass/volume)Ordered By: Willow Eason on 03-14-2024 Albumin [Mass/Vol] 4.2 g/dL 3.2-5.0 [facility] Serum or plasma alkaline sissy sphatase measurementOrdered By: Willow Eason on 03-14-2024 ALP [Catalytic activity/Vol] 70 U/L 45-117 [facility] Serum or plasma calcium jaron urement (mass/volume)Ordered By: Willow Eason on 03-14-2024 Calcium [Mass/Vol] 9.6 mg/dL 8.5-10.1 [facility] Serum or plasma creatinine m easurement (mass/volume)Ordered By: Willow Eason on 03-14-2024 Creatinine [Mass/Vol] 1.02 mg/dL 0.55-1.02 [facility] Comment on above: The validity of the calculated GFR & GFRAA in patients over 70 years has not been determined. Clinical correlation is essential. Serum or plasma urea nitroge n measurement (mass/volume)Ordered By: Willow Eason on 03-14-2024 Urea nitrogen [Mass/Vol] 27 mg/dL High - [facility] Sodium levelOrdered By: Willow Eason on 03-14-2024 Sodium [Moles/Vol] 140 mmol/L 136-145 [facility] TSH QnOrdered By: Willow courtney on 03-14-2024 Thyroid Stimulating Hormone (TSH) 1.490 uIU/mL 0.358-3.740 [facility] Thyroid Stim Hormone (TSH)on 03-14-2024 TSH 1.490 uIU/mL Normal 0.358-3.740 [facility] Comment on above: Order Comment: Order Date: 03/13/24 Order Info: 0786-1 - CMP Order Info: 3016-3 - TSH Performed By: #### L [id number], L500.4050, L100.0500 #### [facility] [address] [place], [place], [id number] Total proteinOrdered By: Willow Eason on 03-14-2024 Protein [Mass/Vol] 7.4 g/dL 6.4-8.2 [facility] White blood cell (WBC) count Ordered By: Willow Eason on 03-14-2024 WBC (Bld) [#/Vol] 6.3 10*3/uL 4.4-11.0 [facility] Neurology Visit Reporton Neurology Visit Report [facility] [address], [address] [place], [place] [id number] OFFICE VISIT Date of Service: 10/24/23 MR#: [id number] Acct: [id number] Name: MALINI WALTER Rep #: [id number] : 1935 Provider: Dr. Erick chow MD Age/Sex: 88/F [place] [facility] [place] Status: Signed with Addenda ADDENDUM by Dr. Erick Medina MD on 10/24/23 at 1356 Addendum Addendum (10/24/2023): Correction change heart examination on 10/24/2023 visit to: Heart: Regular rhythm; bradycardia 10/24/23 1356 Date Erick Medina MD cc: * Signed [facility] Chief Complaint: Details: Interim History: Malini returns for follow-up visit. She has a history of hypertension, hyperlipidemia and frequent UTIs. Since 2020, she has been experiencing numbness and tingling pain in the feet. Her pain is worse at night. She denied having any low back pain or lower extremity radicular type pain. She also reported having some difficulty climbing stairs otherwise she denied having any weakness. In 2021, she had intermittent numbness and tingling in the hands; this resolved. She denied having neck pain. She remains able to ambulate independently. In May 2021, she presented to the emergency room with complaint of transient left hand numbness and difficulty in extending the wrist that she noticed after awakening from a nap during which time she was lying on her left side. Her left wrist weakness and left hand numbness resolved within several minutes. 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 She has anxiety. She denied having depression. Since initiation of duloxetine she has had significant reduction of her lower extremity neuropathic pain and she is satisfied with her current degree of pain control. She has a history of chronic anosmia. She has had a mild intermittent tremor affecting the hands that occurs with action such as holding a steering wheel. Her tremor began around 2018 and had previously slightly worsened over time. No further recent changes in her tremor has been noted. She infrequently experiences functional impairment with using her computer due to her tremor. She did not wish to begin any medication for her tremor at this time. Over the years, she has been experiencing left ear tinnitus. She does not have vertigo. She had an ENT evaluation in the past; she was noted to have hearing loss. Since her visit in December 2021, she had a COVID-19 infection and has had subsequent persistent fatigue. Monthly B12 1500 mcg injections lost efficacy for treatment of her fatigue and were discontinued. Physical Exam: Neuro: The patient is awake and alert and responds appropriately; speech is fluent; motor strength is 5/5 in the foot dorsiflexors bilaterally and quadriceps bilaterally; a minimal fine tremor is noted in the left hand when arms are extended; no tremor is noted in the right hand Neck: No bruits Heart: Regular rate and rhythm On prior examination: Extremities: Dupuytren's contractures are noted in both hands Supplemental Info Head MRI (09/09/2014): FINDINGS: The ventricles are normal in size. There is widening of the extra-axial spaces at the vertex. No subfrontal mass lesion is identified. The thin section coronal T2-weighted images suggest atrophy of the olfactory bulbs and tracts. No sinonasal mass lesion is identified. No acute infarction is demonstrated on the diffusion weighted series. No apparent changes of chronic small vessel ischemic disease are seen in the cerebral white matter. Numerous perivascular spaces are noted in the white matter. The basal ganglia and thalami appear normal. Minimal chronic small vessel ischemic changes are seen posteriorly in the lilia. No abnormality noted in the cerebellum A small arachnoid cyst is present in the retrocerebellar region, without change. No abnormal enhancement is identified. No abnormality is identified in the pituitary, optic chiasm, or pineal. The cavernous sinuses appear normal. Expected major vascular structures at the base of the brain show patency. The left vertebral artery is hypoplastic. The visualized internal auditory canals appear normal. No acute orbital abnormality is seen. There is mild mucosal thickening in the bilateral ethmoid sinus. Moderate left mastoid air cell opacification is present, mildly improved compared to the old MRI. No lesion is identified in the calvarium or skull base. IMPRESSION: No acute intracranial abnormality identified. Probable atrophic changes in the olfactory bulbs and tracts. TSH, lipid profile (07/19/2020): Normal. CBC, BMP, troponin (05/04/2021): Sodium 135, BUN 20, glucose 147 EKG (05/04/2021): Sinus rhythm with frequent premature ventricular complexes in a pattern of bigeminy. Otherwise normal EKG. Hea (more content not included)... Normal [facility] Basophil percentageOrdered B y: Willow Eason on 07-30-2022 Chloride [Moles/Vol] 106 mmol/L 98-107 [facility] Cholesterol [Mass/Vol] 164 mg/dL <200 [facility] Comment on above: <200 mg/dL Desirable 200-240 mg/dL Borderline >240 mg/dL High Risk Glucose [Mass/Vol] 76 mg/dL 74-106 [facility] Potassium [Moles/Vol] 3.6 mmol/L 3.5-5.1 [facility] Sodium [Moles/Vol] 141 mmol/L 136-145 [facility] Triglyceride [Mass/Vol] 144 mg/dL <199 [facility] Comment on above: The drugs N-Acetylcy steine and Metamizole may falsely depress this assay.Serum Triglycerides Reference Interval Normal <150 mg/dL Borderline high 150 - 199 mg/dL High 200 - 499 mg/dL Very High > or = 500 mg/dL Laboratory - Chemistry and C hemistry - challengeOrdered By: Willow Eason on 07-30-2022 ALT [Catalytic activity/Vol] 19 U/L 13-56 [facility] CO2 [Moles/Vol] 27.0 mmol/L 21.0-32.0 [facility] Urea nitrogen/Creatinine [Mass ratio] 38.3 mg/mg 10-20 [facility] No Panel InformationOrdered By: Willow Eason on 07-30-2022 Estimated GFR (MDRD) Amer 70 mL/min >60 [facility] Comment on above: GFR Calc Estimated GFR (MDRD) Non-Af Amer 58 mL/min >60 [facility] Comment on above: Non- GFR Calc Urine Microalbumin/Creatinine Ratio 28.9 mg/g CRE <30 [facility] Serum or plasma calcium jaron urement (mass/volume)Ordered By: Willow Eason on 07-30-2022 Calcium [Mass/Vol] 9.6 mg/dL 8.5-10.1 [facility] Serum or plasma cholesterol in HDL measurement (mass/volume)Ordered By: Willow Eason on 07-30-2022 Cholesterol in HDL [Mass/Vol] 44 mg/dL >40 [facility] Comment on above: The drugs N-Acetylcy steine and Metamizole may falsely depress this assay. Reference Range HDL <40 mg/dL Low HDL Cholesterol HDL >or= 60 mg/dL High HDL Cholesterol Serum or plasma cholesterol in VLDL measurement (mass/volume)Ordered By: Willow Eason on 07-30-2022 Cholesterol in VLDL [Mass/Vol] 29 mg/dL 5-40 [facility] Serum or plasma creatinine m easurement (mass/volume)Ordered By: Willow Eason on 07-30-2022 Creatinine [Mass/Vol] 0.97 mg/dL 0.55-1.02 [facility] Comment on above: The validity of the calculated GFR & GFRAA in patients over 70 years has not been determined. Clinical correlation is essential. Serum or plasma low density lipoprotein (LDL) cholesterol measurement (mass/volume)Ordered By: Willow Eason on 07-30-2022 Cholesterol in LDL [Mass/Vol] 91 mg/dL 0-130 [facility] Serum or plasma urea nitroge n measurement (mass/volume)Ordered By: Willow Eason on 07-30-2022 Urea nitrogen [Mass/Vol] 37 mg/dL 7-18 [facility] Thin prep Papanicolaou smear with manual screeningOrdered By: Willow Eason on 07-30-2022 Thin prep Papanicolaou smear with manual screening 15 U/L 15-37 [facility] Thin prep Papanicolaou smear with manual screening 8 5-15 [facility] Thin prep Papanicolaou smear with manual screening 27.1 mg/L NO RANGE EST. [facility] Urine creatinine measurement (mass/volume)Ordered By: Willow Eason on 07-30-2022 Creatinine (U) [Mass/Vol] 93.70 mg/dL NO RANGE EST. [facility] Basophil percentageon 2021 Basophil percentage 5-10 SEEN /hpf 0-5 [facility] Work Phone: Bilirubin Test strip Ql (U)o n 12-16-2021 Bilirubin Ql (U) Negative Negative [facility] Work Phone: Ketones Test strip Ql (U)on 12-16-2021 Ketones Ql (U) Negative Negative [facility] Work Phone: Laboratory - Chemistry and C hemistry - challengeon 12-16-2021 Bilirubin Ql (U) Negative [facility] Work Phone: Glucose Ql (U) Negative [facility] Work Phone: Ketones Ql (U) Negative [facility] Work Phone: pH (U) 6.5 [pH] [facility] Work Phone: Specific gravity (U) [Rel density] 1.005 [facility] Work Phone: Urobilinogen (U) [Mass/Vol] Negative [facility] Work Phone: Laboratory - Hematology and Cell countson 12-16-2021 Hemoglobin Ql (U) Hemolyzed [facility] Work Phone: Laboratory - Specimen inform ationon 12-16-2021 Clarity (U) Cloudy [facility] Work Phone: Color (U) YELLOW [facility] Work Phone: Laboratory - Urinalysison Nitrite Ql (U) Positive [facility] Work Phone: Protein Ql (U) Negative [facility] Work Phone: Mucus LM Ql (Urine sed)on Mucus Ql (Urine sed) 0 SEEN /hpf [facility] Work Phone: Nitrite Test strip Ql (U)on 12-16-2021 Nitrite Ql (U) Negative Negative [facility] Work Phone: No Panel Informationon 12-16 Urine Leukocytes Positive [facility] Work Phone: Urine Non-Hemolyzed Blood Large [facility] Work Phone: Protein Test strip Ql (U)on 12-16-2021 Protein Ql (U) 15 mg/dl Negative [facility] Work Phone: Squamous epithelial cells de tection in urine sediment by light microscopyon 12-16-2021 Epithelial cells.squamous LM Ql (Urine sed) 0 SEEN /hpf 5-10 [facility] Work Phone: Urine blood detectionon 11-30 RBC Ql (U) 150 /ul Negative [facility] Work Phone: RBC Ql (U) 0 SEEN /hpf 0-5 [facility] Work Phone: Urine clarityon 12-16-2021 Clarity (U) Clear Clear [facility] Work Phone: Urine color determinationon 12-16-2021 Color (U) Yellow Yellow [facility] Work Phone: Urine glucose detectionon Glucose Ql (U) Normal mg/dl Normal [facility] Work Phone: Urine leukocyte esterase det ection by dipstickon 12-16-2021 Leukocyte esterase Test strip Ql (U) 500 /ul Negative [facility] Work Phone: Urine pHon 12-16-2021 pH (U) 6.5 [pH] 5.0 - 8.0 [facility] Work Phone: Urine sediment bacteria coun t by microscopy (number/high power field)on 12-16-2021 Bacteria LM.HPF (Urine sed) [#/Area] 0 /[HPF] None Seen [facility] Work Phone: Urine specific gravity measu rementon 12-16-2021 Specific gravity (U) [Rel density] 1.005 1.002-1.030 [facility] Work Phone: Urobilinogen Auto test strip Ql (U)on 12-16-2021 Urobilinogen Ql (U) Normal mg/dl Normal [facility] Work Phone: Basophil percentageon 2021 Bilirubin [Mass/Vol] 0.50 mg/dL 0.20-1.00 [facility] Work Phone: Comment on above: For patients on eltr ombopag therapy, use of Dimension [place] TBIL is not recommended. Chloride [Moles/Vol] 101 mmol/L 98-107 [facility] Work Phone: Glucose [Mass/Vol] 89 mg/dL 74-106 [facility] Work Phone: Potassium [Moles/Vol] 3.9 mmol/L 3.5-5.1 [facility] Work Phone: Protein [Mass/Vol] 7.5 g/dL 6.4-8.2 [facility] Work Phone: Sodium [Moles/Vol] 136 mmol/L 136-145 [facility] Work Phone: Laboratory - Chemistry and C hemistry - challengeon 07-26-2021 ALP [Catalytic activity/Vol] 61 U/L 45-117 [facility] Work Phone: ALT [Catalytic activity/Vol] 18 U/L 13-56 [facility] Work Phone: CO2 [Moles/Vol] 27.0 mmol/L 21.0-32.0 [facility] Work Phone: Cobalamin (Vitamin B12) [Mass/Vol] 402 pg/mL 211-911 [facility] Work Phone: Globulin (S) [Mass/Vol] 3.4 g/dL 2.2-4.2 [facility] Work Phone: Urea nitrogen/Creatinine [Mass ratio] 21.6 mg/mg 10-20 [facility] Work Phone: No Panel Informationon 07-26 Estimated GFR (MDRD) Amer 103 mL/min >60 [facility] Work Phone: Comment on above: GFR Calc Estimated GFR (MDRD) Non-Af Amer 85 mL/min >60 [facility] Work Phone: Comment on above: Non- GFR Calc Free Lambda Light Chains, Quant 12.3 mg/L 5.7-26.3 [facility] Work Phone: Thyroid Stimulating Hormone (TSH) 1.60 uIU/mL 0.358-3.74 [facility] Work Phone: Whole Blood Vitamin B1 Level 118.0 nmol/L 66.5-200.0 [facility] Work Phone: Comment on above: Performed at: [address] [id number] Director: Darren Britt PhD, Phone: [phone] at: [facility] [place] [address] [id number] Director: Barrera Castro MD, Phone: [phone] Serum immunoglobulin kappa l ight chains/immunoglobulin lambda light chains mass ratioon 07-26-2021 Immunoglobulin light chains.kappa/Immunoglobu pippa light chains.lambda (S) [Mass ratio] 1.17 0.26-1.65 [facility] Work Phone: Serum or plasma albumin jaron urement (mass/volume)on 07-26-2021 Albumin [Mass/Vol] 4.1 g/dL 3.2-5.0 [facility] Work Phone: Serum or plasma albumin/glob ulin mass ratioon 07-26-2021 Albumin/Globulin [Mass ratio] 1.2 {ratio} 0.9-2.4 [facility] Work Phone: Serum or plasma calcium jaron urement (mass/volume)on 07-26-2021 Calcium [Mass/Vol] 9.3 mg/dL 8.5-10.1 [facility] Work Phone: Serum or plasma creatinine m easurement (mass/volume)on 07-26-2021 Creatinine [Mass/Vol] 0.69 mg/dL 0.55-1.02 [facility] Work Phone: Comment on above: The validity of the calculated GFR & GFRAA in patients over 70 years has not been determined. Clinical correlation is essential. Serum or plasma folate measu rement (mass/volume)on 07-26-2021 Folate [Mass/Vol] 39.70 ng/mL 3.1-55.4 [facility] Work Phone: Serum or plasma immunoglobul in kappa light chains measurement (mass/volume)on 07-26-2021 Immunoglobulin light chains.kappa [Mass/Vol] 14.4 mg/L 3.3-19.4 [facility] Work Phone: Serum or plasma urea nitroge n measurement (mass/volume)on 07-26-2021 Urea nitrogen [Mass/Vol] 15 mg/dL 7-18 [facility] Work Phone: Thin prep Papanicolaou smear with manual screeningon 07-26-2021 Thin prep Papanicolaou smear with manual screening 15 U/L 15-37 [facility] Work Phone: Thin prep Papanicolaou smear with manual screening 8 5-15 [facility] Work Phone: Whole blood hemoglobin A1c/t otal hemoglobin ratio (mass fraction)on 07-26-2021 HbA1c (Bld) [Mass fraction] 5.4 % 3.8-5.6 [facility] Work Phone: Comment on above: Normal < 5.7 % Predi abetic 5.7 - 6.4 % Diabetic >or= 6.5 % Please note range changes. Absolute lymphocyte counton 05-04-2021 Lymphocytes Auto (Unsp spec) [#/Vol] 1.72 10*3/uL 0.83-4.51 [facility] Work Phone: Basophil percentageon 2021 Basophils/100 WBC (Bld) 0.7 % 0-1 [facility] Work Phone: Chloride [Moles/Vol] 101 mmol/L 98-107 [facility] Work Phone: Eosinophils/100 WBC (Bld) 3.1 % 0-5 [facility] Work Phone: Glucose [Mass/Vol] 147 mg/dL 74-106 [facility] Work Phone: Comment on above: Fasting Glucose resu lt greater than or equal to 126 mg/dL suggests DIABETES MELLITUS per A.D.A. criteria. Neutrophils (Bld) [#/Vol] 3.5 10*3/uL 2.0-7.7 [facility] Work Phone: Neutrophils/100 WBC (Bld) 59.7 % 47-70 [facility] Work Phone: Potassium [Moles/Vol] 3.7 mmol/L 3.5-5.1 [facility] Work Phone: Sodium [Moles/Vol] 135 mmol/L 136-145 [facility]: WBC (Bld) [#/Vol] 5.9 10*3/uL 4.4-11.0 [facility] Work [facility]: Blood erythrocytes count (nu mber/volume)on 05-04-2021 RBC (Bld) [#/Vol] 3.92 10*6/uL 4.2-5.4 [facility] Work Phone: Blood hemoglobin measurement (mass/volume)on 05-04-2021 Hemoglobin (Bld) [Mass/Vol] 13.5 g/dL 12.0-15.0 [facility] Work Phone: Blood lymphocytes/100 leukoc yteson 05-04-2021 Lymphocytes/100 WBC (Bld) 29.4 % 19-41 [facility] Work Phone: Blood monocytes/100 leukocyt eson 05-04-2021 Monocytes/100 WBC (Bld) 6.8 % 0-10 [facility] Work Phone: Blood platelet mean volumeon 05-04-2021 Platelet mean volume (Bld) [Entitic vol] 10.2 fL 6.2-12.0 [facility] Work Phone: Determination of erythrocyte mean corpuscular volume (MCV)on 05-04-2021 MCV (RBC) [Entitic vol] 96.4 fL 81-99 [facility] Work Phone: Hematocrit Auto (Bld) [Volum e fraction]on 05-04-2021 Hematocrit (Bld) [Volume fraction] 37.8 % 37-47 [facility] Work Phone: Laboratory - Chemistry and C hemistry - challengeon 05-04-2021 CO2 [Moles/Vol] 27.0 mmol/L 21.0-32.0 [facility] Work Phone: Urea nitrogen/Creatinine [Mass ratio] 22.0 mg/mg 10-20 [facility] Work Phone: Laboratory - Hematology and Cell countson 05-04-2021 Erythrocyte distribution width (RBC) [Entitic vol] 44.1 fL 35.1-43.9 [facility] Work Phone: Erythrocyte distribution width (RBC) [Ratio] 12.5 % 11.6-14.6 [facility] Work Phone: Immature granulocytes/100 WBC (Bld) 0.300 % 0.0-0.9 [facility] Work Phone: Comment on above: IG% - Immature Granu locytes (promyelocytes, myelocytes and metamyelocytes) > 1% indicates that a LEFT SHIFT is Present. MCH (RBC) [Entitic mass] 34.4 pg 27.0-32.0 [facility] Work Phone: Nucleated RBC/100 WBC (Bld) [Ratio] 0 % 0-5 [facility] Work Phone: MCHC Auto (RBC) [Mass/Vol]on 05-04-2021 MCHC (RBC) [Mass/Vol] 35.7 g/dL 32-36 [facility] Work Phone: No Panel Informationon 05-04 Troponin I High Sensitivity 6 pg/mL 3.0-54.0 [facility] Work Phone: Comment on above: Please Note: New Jacque t Units and Gender Specific Reference Ranges. For more information see Policy Stat Procedure [place] High Sensitivity Troponin (TNIH) and attachments. Estimated Creatinine Clearance Calc 39.74 ml/min [facility] Work Phone: Estimated GFR (MDRD) Amer 76 mL/min >60 [facility] Work Phone: Comment on above: GFR Calc Estimated GFR (MDRD) Non-Af Amer 63 mL/min >60 [facility] Work Phone: Comment on above: Non- GFR Calc Platelets bldon 05-04-2021 Platelets (Bld) [#/Vol] 183 10*3/uL 150-450 [facility] Work Phone: Serum or plasma calcium jaron urement (mass/volume)on 05-04-2021 Calcium [Mass/Vol] 9.3 mg/dL 8.5-10.1 [facility] Work Phone: Serum or plasma creatinine m easurement (mass/volume)on 05-04-2021 Creatinine [Mass/Vol] 0.91 mg/dL 0.55-1.02 [facility] Work Phone: Comment on above: The validity of the calculated GFR & GFRAA in patients over 70 years has not been determined. Clinical correlation is essential. Serum or plasma urea nitroge n measurement (mass/volume)on 05-04-2021 Urea nitrogen [Mass/Vol] 20 mg/dL 7-18 [facility] Work Phone: Thin prep Papanicolaou smear with manual screeningon 05-04-2021 Thin prep Papanicolaou smear with manual screening 7 5-15 [facility] Work Phone: Culture, urine Bacteria identified Cx Nom (U) Presumptive E. coli [facility] Work Phone: Vital Signs Date Time Vital Sign Value Performing Clinician Faci lity 11-04-2024 19:01-0400 Body temperature 97.2 [degF] Dr. Willow Eason MD Work Phone: [facility] 11-04-2024 19:01-0400 Diastolic blood pressure 62 mm[Hg] Dr. Willow Eason MD Work Phone: [facility] 11-04-2024 19:01-0400 Heart rate 67 /min Dr. Willow Eason MD Work Phone: [facility] 11-04-2024 19:01-0400 Respiratory rate 15 /min Dr. Willow Eason MD Work Phone: [facility] 11-04-2024 19:01-0400 SaO2% (BldA) [Mass fraction] 100 % Dr. Willow Eason MD Work Phone: 4(493)352-863506 [place] [address] 11-04-2024 19:01-0400 Systolic blood pressure 168 mm[Hg] Dr. Willow Eason MD Work Phone: 4(452)030-482197 [place] [address] 11-04-2024 17:15-0400 Body height 162.[address] Willow Eason MD Work Phone: 8(245)870-487706 [place] [address] 11-04-2024 17:15-0400 Body mass index (BMI) [Ratio] 28 kg/m2 Dr. Willow Eason MD Work Phone: 4(999)069-955406 [place] [address] 11-04-2024 17:15-0400 Body weight [address] Willow Eason MD Work Phone: 7(306)438-826333 [address] 08-18-2024 08:10-0400 Body height 162.[address] Willow Eason MD Work Phone: 2(265)191-599106 [place] [address] 08-18-2024 08:10-0400 Body mass index (BMI) [Ratio] 29.2 kg/m2 Dr. Willow Eason MD Work Phone: 9(488)004-909197 [place] [address] 08-18-2024 08:10-0400 Body temperature 97.5 [degF] Dr. Willow Eason MD Work Phone: [facility] 08-18-2024 08:10-0400 Body weight 77.[address] Willow Eason MD Work Phone: 7(675)410-898206 [place] [address] 08-18-2024 08:10-0400 Diastolic blood pressure 59 mm[Hg] Dr. Willow Eason MD Work Phone: 3(300)087-421433 [address] 08-18-2024 08:10-0400 Heart rate 72 /min Dr. Willow Eason MD Work Phone: [facility] 08-18-2024 08:10-0400 Respiratory rate 16 /min Dr. Willow Eason MD Work Phone: [facility] 08-18-2024 08:10-0400 SaO2% (BldA) [Mass fraction] 98 % Dr. Willow Eason MD Work Phone: 2(008)829-329997 [place] [address] 08-18-2024 08:10-0400 Systolic blood pressure 148 mm[Hg] Dr. Willow Eason MD Work Phone: 1(743)677-956497 [place] [address] 06-16-2024 14:41-0400 Body height 162.[address] Willow Eason MD Work Phone: 7(285)045-118133 [address] 06-16-2024 14:41-0400 Body mass index (BMI) [Ratio] 28.5 kg/m2 Dr. Willow Eason MD Work Phone: 9(743)080-727497 [place] [address] 06-16-2024 14:41-0400 Body weight 75.[address] Willow Eason MD Work Phone: 5(626)434-479097 [place] [address] 06-16-2024 14:41-0400 Diastolic blood pressure 63 mm[Hg] Dr. Willow Eason MD Work Phone: 7(767)744-211197 [place] [address] 06-16-2024 14:41-0400 Heart rate 70 /min Dr. Willow Eason MD Work Phone: 6(331)635-576897 [place] [address] 06-16-2024 14:41-0400 Respiratory rate 16 /min Dr. Willow Eason MD Work Phone: 8(516)494-930597 [place] [address] 06-16-2024 14:41-0400 Systolic blood pressure 111 mm[Hg] Dr. Willow Eason MD Work Phone: 6(301)081-561697 [place] [address] 05-06-2024 08:51-0500 Body height 162.[address] Willow Eason MD Work Phone: 5(786)898-545697 [place] [address] 05-06-2024 08:51-0500 Body mass index (BMI) [Ratio] 29.2 kg/m2 Dr. Willow Eason MD Work Phone: [facility] 05-06-2024 08:51-0500 Body weight 77.[address] Willow Eason MD Work Phone: [facility] 05-06-2024 08:51-0500 Diastolic blood pressure 65 mm[Hg] Dr. Willow Eason MD Work Phone: 0(617)128-606797 [place] [address] 05-06-2024 08:51-0500 Heart rate 44 /min Dr. Willow Eason MD Work Phone: [facility] 05-06-2024 08:51-0500 Respiratory rate 16 /min Dr. Willow Eason MD Work Phone: 9(723)589-173297 [place] [address] 05-06-2024 08:51-0500 Systolic blood pressure 184 mm[Hg] Dr. Willow Eason MD Work Phone: 1(829)488-609397 [place] [address] 09-11-2022 09:19-0400 Body height 162.[address] Willow Eason Work Phone: 8(675)827-728197 [place] [address] 09-11-2022 09:19-0400 Body mass index (BMI) [Ratio] 26.9 kg/m2 Dr. Willow Eason Work Phone: [facility] 09-11-2022 09:19-0400 Body temperature 98.2 [degF] Dr. Willow Eason Work Phone: [facility] 09-11-2022 09:19-0400 Body weight 71.[address] Willow Eason Work Phone: [facility] 09-11-2022 09:19-0400 Diastolic blood pressure 60 mm[Hg] Dr. Willow Eason Work Phone: [facility] 09-11-2022 09:19-0400 Heart rate 48 /min Dr. Willow Eason Work Phone: [facility] 09-11-2022 09:19-0400 Respiratory rate 17 /min Dr. Willow Eason Work Phone: [facility] 09-11-2022 09:19-0400 SaO2% (BldA) [Mass fraction] 97 % Dr. Willow Eason Work Phone: [facility] 09-11-2022 09:19-0400 Systolic blood pressure 128 mm[Hg] Dr. Willow Eason Work Phone: [facility] 07-23-2022 13:33-0400 Body mass index (BMI) [Ratio] 26.6 kg/m2 Dr. Willow Eason Work Phone: [facility] 07-23-2022 13:33-0400 Body temperature 98 [degF] Dr. Willow Eason Work Phone: [facility] 07-23-2022 13:33-0400 Body weight 70.[address] Willow Eason Work Phone: [facility] 07-23-2022 13:33-0400 Diastolic blood pressure 64 mm[Hg] Dr. Willow Eason Work Phone: [facility] 07-23-2022 13:33-0400 Heart rate 76 /min Dr. Willow Eason Work Phone: [facility] 07-23-2022 13:33-0400 Respiratory rate 17 /min Dr. Willow Eason Work Phone: [facility] 07-23-2022 13:33-0400 SaO2% (BldA) [Mass fraction] 98 % Dr. Willow Eason Work Phone: [facility] 07-23-2022 13:33-0400 Systolic blood pressure 130 mm[Hg] Dr. Willow Eason Work Phone: [facility] 12-16-2021 09:19-0400 Body temperature 97.8 [degF] Dr. Willow Eason Work Phone: [facility] Work Phone: 12-16-2021 09:19-0400 Diastolic blood pressure 76 mm[Hg] Dr. Willow Eason Work Phone: [facility] Work Phone: 12-16-2021 09:19-0400 Heart rate 52 /min Dr. Willow Eason Work Phone: [facility] Work Phone: 12-16-2021 09:19-0400 Respiratory rate 14 /min Dr. Willow Eason Work Phone: [facility] Work Phone: 12-16-2021 09:19-0400 SaO2% (BldA) [Mass fraction] 99 % Dr. Willow Eason Work Phone: [facility] Work Phone: 12-16-2021 09:19-0400 Systolic blood pressure 142 mm[Hg] Dr. Willow Eason Work Phone: [facility] Work Phone: 11-11-2021 11:49-0400 Body height 162.[address] Willow Eason Work Phone: [facility] Work Phone: 11-11-2021 11:49-0400 Body mass index (BMI) [Ratio] 27.4 kg/m2 Dr. Willow Eason Work Phone: [facility] Work Phone: 11-11-2021 11:49-0400 Body temperature 97.3 [degF] Dr. Willow Eason Work Phone: [facility] Work Phone: 11-11-2021 11:49-0400 Body weight 72.[address] Willow Eason Work Phone: [facility] Work Phone: 11-11-2021 11:49-0400 Diastolic blood pressure 64 mm[Hg] Dr. Willow Eason Work Phone: [facility] Work Phone: 11-11-2021 11:49-0400 Heart rate 63 /min Dr. Willow Eason Work Phone: [facility] Work Phone: 11-11-2021 11:49-0400 Respiratory rate 15 /min Dr. Willow Eason Work Phone: [facility] Work Phone: 11-11-2021 11:49-0400 SaO2% (BldA) [Mass fraction] 99 % Dr. Willow Eason Work Phone: [facility] Work Phone: 11-11-2021 11:49-0400 Systolic blood pressure 160 mm[Hg] Dr. Willow Eason Work Phone: [facility] Work Phone: 07-25-2021 10:08-0400 Body height 162.[address] Willow Eason Work Phone: [facility] Work Phone: 07-25-2021 10:08-0400 Body mass index (BMI) [Ratio] 27.9 kg/m2 Dr. Willow Eason Work Phone: [facility] Work Phone: 07-25-2021 10:08-0400 Body temperature 97.7 [degF] Dr. Willow Eason Work Phone: [facility] Work Phone: 07-25-2021 10:08-0400 Body weight 73.[address] Willow Eason Work Phone: [facility] Work Phone: 07-25-2021 10:08-0400 Diastolic blood pressure 100 mm[Hg] Dr. Willow Eason Work Phone: [facility] Work Phone: 07-25-2021 10:08-0400 Heart rate 77 /min Dr. Willow Eason Work Phone: [facility] Work Phone: 07-25-2021 10:08-0400 Respiratory rate 16 /min Dr. Willow Eason Work Phone: [facility] Work Phone: 07-25-2021 10:08-0400 SaO2% (BldA) [Mass fraction] 99 % Dr. Wlilow Eason Work Phone: [facility] Work Phone: 07-25-2021 10:08-0400 Systolic blood pressure 190 mm[Hg] Dr. Willow Eason Work Phone: [facility] Work Phone: 07-25-2021 10:08-0400 Body height 162.[address] Willow Eason Work Phone: [facility] Work Phone: 07-25-2021 10:08-0400 Body mass index (BMI) [Ratio] 27.9 kg/m2 Dr. Willow Eason Work Phone: [facility] Work Phone: 07-25-2021 10:08-0400 Body temperature 97.7 [degF] Dr. Willow Eason Work Phone: [facility] Work Phone: 07-25-2021 10:08-0400 Body weight 73.[address] Willow Eason Work Phone: [facility] Work Phone: 07-25-2021 10:08-0400 Diastolic blood pressure 100 mm[Hg] Dr. Willow Eason Work Phone: [facility] Work Phone: 07-25-2021 10:08-0400 Heart rate 77 /min Dr. Willow Eason Work Phone: [facility] Work Phone: 07-25-2021 10:08-0400 Respiratory rate 16 /min Dr. Willow Eason Work Phone: [facility] Work Phone: 07-25-2021 10:08-0400 SaO2% (BldA) [Mass fraction] 99 % Dr. Willow Eason Work Phone: [facility] Work Phone: 07-25-2021 10:08-0400 Systolic blood pressure 190 mm[Hg] Dr. Willow Eason Work Phone: [facility] Work Phone: 05-04-2021 12:25-0500 Body mass index (BMI) [Ratio] 27.4 kg/m2 Dr. Willow Eason Work Phone: [facility] Work Phone: 05-04-2021 12:25-0500 Body temperature 97.5 [degF] Dr. Willow Eason Work Phone: [facility] Work Phone: 05-04-2021 12:25-0500 Body weight 72.[address] Willow Eason Work Phone: [facility] Work Phone: 05-04-2021 12:25-0500 Diastolic blood pressure 94 mm[Hg] Dr. Willow Eason Work Phone: [facility] Work Phone: 05-04-2021 12:25-0500 Heart rate 53 /min Dr. Willow Eason Work Phone: [facility] Work Phone: 05-04-2021 12:25-0500 Respiratory rate 16 /min Dr. Willow Eason Work Phone: [facility] Work Phone: 05-04-2021 12:25-0500 SaO2% (BldA) [Mass fraction] 99 % Dr. Willow Eason Work Phone: [facility] Work Phone: 05-04-2021 12:25-0500 Systolic blood pressure 218 mm[Hg] Dr. Willow Eason Work Phone: [facility] Work Phone: Encounters Encounter Date Encounter Type Care Provider Facility Start: 11-04-2024 End: 11-04-2024 Emergency department patient visit Dr. Willow Eason MD Work Phone: -Emergency Department Work Phone: Start: 08-18-2024 End: 08-18-[address] Erick Medina MD -[facility] Work Phone: Start: 08-18-2024 End: 08-18-[address] Willow Eason MD Work Phone: [facility] Work Phone: Start: 06-18-2024 ambulatory Anish Capps Facility:[facility] Start: 06-18-2024 Non-patient / Non-visit [facility]. Sharonda [facility] Start: 06-18-2024 End: 06-18-[address] Willow Eason MD Work Phone: [facility] Work Phone: Start: 06-18-2024 End: 06-18-[address] Anish Capps MD -Cardiovascular Services Work Phone: Start: 06-18-2024 End: 06-18-2024 ambulatory Anish Capps Facility:[facility] Start: 06-16-2024 End: 06-16-[address] Anish Capps MD -[facility] Work Phone: Start: 06-16-2024 End: 06-16-2024 ambulatory Anish Capps Facility:[facility] Start: 05-27-2024 ambulatory Willow Eason Facility: [facility] Start: 05-27-2024 Non-patient / Non-visit Dr. Jose rene MD -[facility] Start: 05-27-2024 End: 05-27-[address] Willow Eason MD Work Phone: [facility] Work Phone: Start: 05-27-2024 End: 05-27-[address] Anish Capps MD -Cardiovascular Services Work Phone: Start: 05-27-2024 End: 05-27-2024 ambulatory Anish Capps Facility:[facility] Start: 05-06-2024 End: 05-06-[address] Anish Capps MD -[facility] Work Phone: Start: 05-06-2024 End: 05-06-2024 ambulatory Willow Eason Facility:[facility] Start: 03-14-2024 End: 03-14-[address] Willow Eason MD -Laboratory Work Phone: Start: 03-14-2024 End: 03-14-2024 ambulatory Willow Eason Facility:[facility] Start: 10-24-2023 End: 10-24-2023 [facility] Start: 09-11-2022 End: 09-11-[address] Willow Eason Work Phone: [facility] Work Phone: Start: 07-30-2022 End: 07-30-[address] Willow Eason Work Phone: [facility] Start: 07-23-2022 End: 07-23-[address] Willow Eason Work Phone: [facility] Work Phone: Start: 12-16-2021 End: 12-16-[address] Willow Eason Work Phone: [facility] Work Phone: Start: 12-16-2021 End: 12-16-[address] Willow Eason Work Phone: [facility]-Laboratory, Specimen Start: 12-16-2021 End: 12-16-[address] Willow Eason Work Phone: [facility] Start: 11-11-2021 End: 11-11-[address] Willow Eason Work Phone: [facility] Start: 09-13-2021 End: 09-13-[address] Willow Eason Work Phone: [facility]-Pulmonary Services/Neurology Start: 07-26-2021 End: 07-26-[address] Willow Eason Work Phone: [facility]-Laboratory Start: 07-25-2021 End: 07-25-[address] Willow Eason Work Phone: [facility] Start: 05-04-2021 End: 05-04-2021 Emergency department patient [facility] Date Procedure Procedure Detail Performing Clinician Start: 11-04-2024 Urnls dip stick/tabl et reagent auto microscopy Dr. Willow Eason MD Work Phone: Start: 11-04-[address] Willow Eason MD Work Phone: Start: 06-18-2024 Radionuclide imaging of perfusion of myocardium under exercise stress Dr. Willow Eason MD Work Phone: Start: 05-06-2024 Evaluation of diagno stic study results Dr. Willow Eason MD Work Phone: Start: 05-04-2021 CT of head without contrast Dr. Willow Eason Work Phone: Urine culture Dr. Willow courtney Work Phone: Plan of Treatment Date Care Activity Detail Author Start: 11-04-2024 [facility] Patient Education [facility] Work Phone: Patient referral [facility] Work Phone: Radionuclide imaging of perfusion of myocardium under exercise stress [facility] Immunizations Immunization Date Immunization Notes Care Provider Fa cility 01-01-2024 influenza, seasonal, injectable, preservative free Dr. Willow Eason MD Work Phone: [facility] 01-02-2023 influenza, injectabl e, quadrivalent, preservative free Dr. Willow Eason MD Work Phone: [facility] 11-11-2021 tetanus toxoid, redu ethel diphtheria toxoid, and acellular pertussis vaccine, adsorbed Dr. Willow Eason Work Phone: [facility] 12-30-2015 influenza, injectabl e, quadrivalent, preservative free Dr. Willow Eason MD Work Phone: [facility] 12-30-2015 influenza, seasonal, injectable Dr. Willow Eason Work Phone: [facility] 12-29-2014 influenza, injectabl e, quadrivalent, preservative free Dr. Willow Eason MD Work Phone: [facility] 12-29-2014 influenza, seasonal, injectable Dr. Willow Eason Work Phone: [facility] 12-16-2013 influenza, injectabl e, quadrivalent, preservative free Dr. Willow Eason MD Work Phone: [facility] 12-16-2013 influenza, seasonal, injectable Dr. Willow Eason Work Phone: [facility] Payers Date Payer Category Payer Self-pay [id number] 2020 Medicare [id number] 2014 Private Health Insurance [id number] Unknown [id number] 2.16.8 [id number] Unknown [id number] 2.16.8 [id number] Unknown [id number] 2.16.8 [id number] Unknown [id number] 2.16.8 [id number] Unknown [id number] 2.16.8 [id number] Unknown [id number] 2.16.8 [id number] Unknown [id number] 2.16.8 [id number] Unknown [id number] 2.16.8 [id number] Unknown [id number] 2.16.8 [id number] Social History Date Type Detail Facility Start: 07-25-2021 End: 09-11-2022 Tobacco smoking status NHIS Unknown if ever smoked [facility] Start: 1935 Sex Assigned At Female [facility] Start: 03-14-2023 End: 11-04-2024 Tobacco smoking status NHIS Never smoked tobacco (finding) [facility] Start: 06-07-2024 End: 06-26-2024 Sex Female (finding) [facility] Mental Status Date Assessment Result Facility 11-04-2024 Cognitive function Level Of Cons ciousness Awake;Alert;Appropriate;Follow s Commands [facility] Work Phone: 05-04-2021 Cognitive function Voice/Name [facility] Work Phone: Discharge summary 11-04-2024 Note Date & Type Note Facility 11-04-2024 Discharge summary [facility] Discharge summary 11-04-2024 Note Date & Type Note Facility 11-04-2024 Discharge summary Note Date/Time November 04, 2024 6:55pm [facility] Medical Records Department [address] [place] [address] Emergency Department Summary 11/04/24 MR#: [id number] Acct: [id number] Name: MALINI WALTER Rep #:[id number] : [id number] 89 From: Aaron Baig MD PCP: Dr. Will Polk MD Status :REG ER Location: ED HPI History of Present Illness Chief Complaint: Hypertension Detail of Chief Complaint: Asymptomatic hypertension Informant: patient Onset/Context/Timing Onset: Today (Several elevated blood pressure readings) Context: - (Unknown since patient was asymptomatic) Timing: Waxes and wanes Quality: Systolic varying from 140-220 Location: Cardiovascular Current Severity: Moderate Maximum Severity: Moderate Worsened by: Nothing per patient. She reports compliance Relieved by: Nothing Associated Symptoms Associated Symptoms: Absolutely no symptoms Narrative Narrative: Patient is an 89-year-old woman. She has history of carotid bruit, essential primary hypertension, hyperlipidemia, paresthesias of her hands, essential tremor and noncardiac chest pain. She presents because of elevated blood pressure readings. Patient denies headache. She denies double vision, blurred vision loss of vision. Denies ringing or ears or decreased hearing from baseline. She states she her hearing is poor. She denies trouble with speech or swallowing. She denies trouble saying what she wants. She denies no new paresthesia, anesthesia or motor weakness upper or lower extremity. She denies problems with coordination or balance. She denies chest pain, pressure, tightness or heaviness. She denies ripping pain going through to her back. Shedenies back pain. Prior similar symptoms: Yes Recent Illness/Hospitalization: No PFSH PFSH Medical History Bradycardia Hyperlipidemia Essential (primary) hypertension Osteoporosis Paresthesia Hearing loss Tachycardia Fatigue Essential tremor Bilateral carpal tunnel syndrome Polyneuropathy Home Medications ?Medication ?Instructions ?Recorded ?Last Taken ?Type Bilateral wrist splints #2 ea 07/25/21 Unknown Rx acetaminophen 500 mg oral powder 500 mg PO Q6H PRN Unknown History packet (Tylenol Extra Strength) aspirin 81 mg chewable tablet 81 mg PO DAILY 07/23/22 Unknown History cranberry 500 mg capsule 500 mg PO BID 10/24/23 Unkno wn History loratadine 10 mg tablet 10 mg PO DAILY PRN 10/24/23 Unknown History naproxen 500 mg tablet 500 mg PO BID PRN 10/24/23 U nknown History psyllium husk 0.4 gram capsule 0.8 g PO DAILY 10/24/23 Unknown History (Fiber (psyllium husk)) cholecalciferol (vitamin D3) 25 25 mcg PO QDAY 5 Unknown History mcg (1,000 unit) capsule lisinopril 20 2 tab PO DAILY 05/06/2409/23 History mg-hydrochlorothiazide 12.5 mg tablet metoprolol succinate 50 mg 50 mg PO QDAY #90 tabs 08/2311/03/24 Rx tablet,extended release 24 hr (Toprol XL) gabapentin 100 mg capsule 100 mg PO BID #180 caps 07/31 Unknown Rx Allergy/AdvReac Type Severity Reaction Status Date / Time No Known Allergies Allergy Verified 11/04/24 17:22 Family History Mother Heart disease Diabetes Father Alzheimer disease Surgical History History of hysterectomy History of cataract surgery Social History Smoking Status: Never smoker second hand exposure: No alcohol intake: current details: rarely substance use type: does not use what type of physical activity do you participate in: walking and swimming ruddy/quaker: Jew seatbelt use: always ROS ROS ED Constitutional Constitutional ED: Denies chills or fever(s) Eyes Eyes: Denies blurry vision, change in vision or diplopia ENT ENT ED: Denies ear pain, rhinorrhea or sore throat Cardiovascular Cardiovascular: Denies chest pain, orthopnea, palpitations, paroxysmal nocturnaldyspnea or racing heartbeat Respiratory/Chest Respiratory/Chest: Denies cough, dyspnea, dyspnea on exertion, orthopnea or paroxysmal nocturnal dyspnea Gastrointestinal Gastrointestinal: Denies abdominal pain, nausea or vomiting Musculoskeletal Musculoskeletal: Denies arthralgias, back pain, myalgias or neck pain Integumentary Denies rash Neurologic Neurologic: Denies headache(s), paresthesias or weakness Hematologic/Lymphatic Hematologic/Lymphatic: Reports systems reviewed and no addt'l complaints, exceptas documented EXAM Physical Exam Const Vital Signs: 11/04/24 17:15 11/04/24 17:20 11/04/24 18:15 Temperature 97.2 F L Temperature Source Temporal Pulse Rate 87 69 Respiratory Rate 20 H 21 H Respiratory Effort Normal Respiratory Pattern Normal Blood Pressure 219/58 H 176/65 H Blood Pressure Mean 111 102 Pulse Ox 98 99 Oxygen Delivery Method Room Air Room Air 11/04/24 18:39 Temperature Temperature Source Pulse Rate 68 Respiratory Rate 18 Respiratory Effort Respiratory Pattern Blood Pressure 162/67 H Blood Pressure Mean 98 Pulse Ox 98 Oxygen Delivery Method Room Air Positive well nourished and well developed General Appearance ED: well developed and NAD; Negative for pallor HEENT Reports moist mucous membranes HEENT Narrative: Head is atraumatic and normocephalic. Ears normal. Nares patent. Uvula midline. No deviation of the tongue with protrusion. Eyes PERRL and EOMs intact bilaterally Eyes Narrative: There is no nystagmus. There is no diplopia. There is no visual field cut. General Eye ED: Negative for pale conjunctiva or scleral icterus Neck no lymphadenopathy, supple and no JVD Neck Narrative: Trachea is midline. There is no dysphonia. Chest Wall inspection of chest normal and palpation of chest normal Resp normal respiratory effort and clear to auscultation bilaterally Cardio regular rate, regular rhythm, S1 normal heart sound, S2 normal heart sound and no murmurs GI normal to inspection, nondistended, normoactive bowel sounds, non-tender, non-distended and no masses; Negative for hepatosplenomegaly GI Narrative: There is no palpable pulsatile mass. There is no abdominal bruit. Extremity normal to inspection General Extremety ED: Negative for edema or tenderness General Extremity: Negative for edema Neuro oriented x3, CN's II-XII intact bilaterally and no sensory deficits noted Neuro Narrative: There is no dysmetria. There is no clonus or Babinski sign noted right or left. Sensorium / Orientation: alert Psych mental status grossly normal Skin no rashes or lesions noted, no wounds and skin turgor normal General Skin Exam: elasticity normal; Negative for jaundice or pallor MDM MDM MDM Narrative Medical decision making narrative: Patient with asymptomatic hypertension. Her first reading is elevated to 19/58. Repeat was 182/84. Will obtain BMP and UA since she has not had blood work in approximately 9 months. This was obtained to assess for any evidence of an organ dysfunction. Since she does not have any chest pain, cardiac or cardiac equivalent symptoms or respiratory symptoms EKG and chest x-ray were not obtained. Will observe blood pressure. Will treat if needed. Lab Data Attestation: I reviewed the patient's lab results. Lab results narrative: UA is positive for protein, occult blood leukoesterase. Micro reveals 0-5 RBCs,WBCs and epithelial cells and 1+ bacteria. Since patient has no urinary symptoms she was not treated with with antibiotics per the literature. She has asymptomatic bacteriuria Labs: Laboratory Results - last 24 hr 11/04/24 11/04/24 17:41 18:05 Sodium 131 L Potassium 3.7 Chloride 95 L Carbon Dioxide 20.9 L Anion Gap 16 H BUN 22 H Creatinine 1.11 Estim Creat Clear Calc 34.52 L Est GFR (MDRD) Non-Af 48 L BUN/Creatinine Ratio 19.8 Glucose 96 Calcium 9.2 Urine Color Yellow Urine Clarity Clear Urine pH 6.0 Ur Specific [place] 1.010 Urine Protein 30 H Urine Glucose (UA) Normal Urine Ketones Negative Urine Occult Blood 10 H Urine Nitrite Negative Urine Bilirubin Negative Urine Urobilinogen Normal Ur Leukocyte Esterase 100 H Urine RBC 0-5 SEEN Urine WBC 0-5 SEEN Ur Squamous Epith Cells 0-5 SEEN Urine Bacteria 1+ Urine Mucus 0 SEEN Treatment and Re-Evaluation :: Most recent blood pressure is 162/67. When patient was informed of results she informed that her son-in-law just . She is inquiring if this could be due to stress. She states she is under a lot of stress. She was informed that it could. At this point recommend not checking her blood pressure and follow-up with her doctor for repeat exam Samp/blood pressure in 1 to 2 weeks. Discharge Plan Triage Chief Complaint: Hypertension ED Provider: Aaron Baig Dx/Rx/DC Orders Clinical Impression: Asymptomatic hypertension, Hyperlipidemia, Hematuria with proteinuria, Acute hyponatremia, High anion gap Instructions: ED High Blood Pressure Hypertension Prescriptions: No Action (DME) Bilateral wrist splints See Rx Instructions .Route .MEDSUPPLY Qty: 2 0RF Rx Instructions: Wear at night. Tylenol Extra Strength 500 mg powder in packet 500 mg PO Q6H PRN aspirin 81 mg tablet,chewable 81 mg PO DAILY cranberry 500 mg capsule 500 mg PO BID Rx Instructions: administer with meals psyllium husk [Fiber (psyllium husk)] 0.4 gram capsule 0.8 g PO DAILY loratadine 10 mg tablet 10 mg PO DAILY PRN naproxen 500 mg tablet 500 mg PO BID PRN gabapentin 100 mg capsule 100 mg PO BID Qty: 180 1RF cholecalciferol (vitamin D3) 25 mcg (1,000 unit) capsule 25 mcg PO QDAY lisinopril-hydrochlorothiazide 20-12.5 mg tablet 2 tab PO DAILY metoprolol succinate [Toprol XL] 50 mg tablet extended release 24 hr 50 mg PO QDAY Qty: 90 2RF Primary Care Provider: Will Polk Referrals: Will Polk MD [Primary Care Provider] - 1-2 Weeks Print Language: Portuguese Disposition Disposition: Home, Self Care What to do if you have Problems For any increased pain, shortness of breath, bleeding, nausea or vomiting, chestpain, or any unexpected problems, contact your Primary Care Provider. Call [facility] ([phone]) or report to the closest Emergency Room. Call 911 if necessary. 11/04/241854 <Electronically signed by Aaron Baig MD> Cosigner Signature (if applicable): CC: Dr. Will Polk MD ~ Signed [facility] Work Phone: Evaluation note 08-18-2024 Note Date & Type Note Facility 08-18-2024 Evaluation note Diagnosis Onset Date Resolution Polyneuropathy chronic August 18, 2024 8:11am Essential tremor inactive July 8:11am [facility] Work Phone: Evaluation note 05-06-2024 Note Date & Type Note Facility 05-06-2024 Evaluation note Diagnosis Onset Date Resolution Bradycardia acute May 06, 2024 8:49am Carotid bruit acute May 8:49am Chest pain acute May 06, 2024 8:49am Essential (primary) hypertension acute May 06 8:49am [facility] Work Phone: Evaluation note 05-06-2024 Note Date & Type Note Facility 05-06-2024 Evaluation note Diagnosis Onset Date Resolution Bradycardia acute May 06, 2024 8:49am Carotid bruit acute May 8:49am Chest pain acute May 06, 2024 8:49am Essential (primary) hypertension acute May 06 8:49am Bradycardia acute June 16, 2 025 2:40pm Carotid bruit acute June 16, 2024 2:40pm Chest pain acute June 16 2:40pm Essential (primary) hypertension acute June 16, 2024 2:40pm [facility] Work Phone: Evaluation note 05-06-2024 Note Date & Type Note Facility 05-06-2024 Evaluation note Diagnosis Onset Date Resolution Bradycardia acute May 06, 2024 8:49am Carotid bruit acute May 8:49am Chest pain acute May 06, 2024 8:49am Essential (primary) hypertension acute May 06 8:49am Bradycardia acute June 16, 2 025 2:40pm Carotid bruit acute June 16, 2024 2:40pm Chest pain acute June 16 2:40pm Essential (primary) hypertension acute June 16, 2024 2:40pm Essential tremor chronic July 8:11am Polyneuropathy chronic August 18, 2024 8:11am [facility] Work Phone: Evaluation note Note Date & Type Note Facility Evaluation note Diagnosis Onset Date Polyneuropathy chronic [facility] Work Phone: Evaluation note Note Date & Type Note Facility Evaluation note Diagnosis Onset Date Cystitis acute [facility] Work Phone: Evaluation note Note Date & Type Note Facility Evaluation note Diagnosis Onset Date Essential tremor chronic Fatigue chronic Polyneuropathy chronic Fatigue chronic [facility] Work Phone: Reason for referral (narrative) Note Date & Type Note Facility Reason for referral (narrative) No reason for referral information available [facility] Work Phone: Chief Complaint and Reason for Visit Chief Complaint N/T NUMBNESS AND TINGLING IN FEET AND LEGS E ORDERS Reason for Visit Polyneuropathy Chief Complaint NUMBNESS AND TINGLIN G IN FEET AND LEGS E ORDERS BILAT LOWER POLYNEUROPATHY Reason for Visit Polyneuropathy Chief Complaint BILAT LOWER POLYNEUR OPATHY LACERATION THUMB/ TETANUS CONCERN FOR UTI Reason for Visit Cystitis Chief Complaint 6 M FU B12 inject Reason for Visit Essential tremor Fatigue Polyneuropathy Fatigue Chief Complaint Admit Date TACHYCARDIA (JOLLIFF) May 06, 2024 8:49am BRUIT May 27, 2024 8:43am Reason for Visit Admit Date Bradycardia May 06, 2024 8 :49am Carotid bruit May 06, 2024 8 :49am Chest pain May 06, 2024 8 :49am Essential (primary) hypertension 2024 8:49am Chief Complaint Admit Date TACHYCARDIA (JOLLIFF) May 06, 2024 8:49am BRUIT May 27, 2024 8:43am 6 W FU June 16, 2024 2:4 0pm CP June 18, 2024 6:0 1am Reason for Visit Admit Date Bradycardia May 06, 2024 8 :49am Carotid bruit May 06, 2024 8 :49am Chest pain May 06, 2024 8 :49am Essential (primary) hypertension 2024 8:49am Bradycardia June 16, 2024 2:4 0pm Carotid bruit June 16, 2024 2:4 0pm Chest pain June 16, 2024 2:4 0pm Essential (primary) hypertension May 302024 2:40pm Chief Complaint Admit Date TACHYCARDIA (JOLLIFF) May 06, 2024 8:49am BRUIT May 27, 2024 8:43am 6 W FU June 16, 2024 2:4 0pm CP June 18, 2024 6:0 1am 10 M FU August 18, 2024 8:11a m Reason for Visit Admit Date Bradycardia May 06, 2024 8 :49am Carotid bruit May 06, 2024 8 :49am Chest pain May 06, 2024 8 :49am Essential (primary) hypertension 2024 8:49am Bradycardia June 16, 2024 2:4 0pm Carotid bruit June 16, 2024 2:4 0pm Chest pain June 16, 2024 2:4 0pm Essential (primary) hypertension May 302024 2:40pm Essential tremor August 18, 2024 8:11a m Polyneuropathy August 18, 2024 8:11a m Chief Complaint Admit Date 10 M FU August 18, 2024 8:11a m HTN November 04, 2024 5:1 5pm Reason for Visit Admit Date Polyneuropathy August 18, 2024 8:11a m Essential tremor August 18, 2024 8:11a m Family History Relationship Condition Age at Onset Recorded Date/T kevin mother Cardiac disease Unknown Diabetes mellitus Unknown father Alzheimer's disease Unknown Advance Directives Advance Directive Response Recorded Date/ Time Living Will No May 04 3:08pm Power of Quill Worker No May 04, 2021 3:08pm Advance Directive Response Recorded Date/ Time Living Will No May 04 3:08pm Do you have a Healthcare Power of Quill Worker? No May 04, 2021 3:08pm Advance Directive Response Recorded Date/ Time Living Will No May 04 3:08pm Do you have a Healthcare Power of Quill Worker? No May 04, 2021 3:08pm Do you have a Healthcare Power of Quill Worker? Yes November 04, 2024 5:20pm Name of Medical Power of Quill Worker CHELO GODFREY November 04, 2024 5:20pm Summary Purpose Additional Source Comments Goals (unrecognized section and content) Goals may be documented in a n alternate sectionGoals may be documented in an alternate sectionGoals may be documented in an alternate sectionGoals may be documented in an alternate sectionGoals may be documented in an alternate sectionGoals may be documented in an alternate sectionGoals may be documented in an alternate sectionGoals may be documented in an alternate section Care Teams (unrecognized sec tion and content) Team Status: Active Member Role Status Dates Dr. Willow Eason MD Family Provider Active Dr. Willow Eason MD Primary Care Provider Active Team Status: Inactive Member Role Status Dates Dr. Willow Eason MD Primary Care Provider Active Dr. Erick Medina MD Attending Provider, Referring Provider Active Team Status: Inactive Member Role Status Dates Dr. Willow Eason MD Primary Care Provider, Attendin g Provider Active Team Status: Active Member Role Status Dates Dr. Willow Eason MD Primary Care Provider Active Team Status: Inactive Member Role Status Dates Dr. Willow Eason MD Primary Care Provider Active Start: March 14, 2024 End: March 14, 2024 Dr. Willow Eason MD Attending Provider Active Start: March 14, 2024 End: March 14, 2024 Dr. Willow Eason MD Referring Provider Active Start: March 14, 2024 End: March 14, 2024 Team Status: Inactive Member Role Status Dates Dr. Willow Eason MD Primary Care Provider Active Start: May 06, 2024 End: May 06, 2024 Dr. Willow Eason MD Referring Provider Active Start: May 06, 2024 End: May 06, 2024 Dr. Anish Capps MD Attending Provider Active S tart: May 06, 2024 End: May 06, 2024 Team Status: Inactive Member Role Status Dates Dr. Willow Eason MD Primary Care Provider Active Start: May 27, 2024 End: May 27, 2024 Dr. Anish Capps MD Attending Provider Active S tart: May 27, 2024 End: May 27, 2024 Dr. Anish Capps MD Referring Provider Active S tart: May 27, 2024 End: May 27, 2024 Team Status: Active Member Role Status Dates Dr. Willow Eason MD Primary Care Provider Active Start: May 27, 2024 Dr. Jose Mello MD Attending Provider Active S tart: May 27, 2024 Dr. Anish Capps MD Referring Provider Active S tart: May 27, 2024 Team Status: Inactive Member Role Status Dates Dr. Willow Eason MD Primary Care Provider Active Start: June 16, 2024 End: June 16, 2024 Dr. Willow Eason MD Referring Provider Active Start: June 16, 2024 End: June 16, 2024 Dr. Anish Capps MD Attending Provider Active S tart: June 16, 2024 End: June 16, 2024 Team Status: Inactive Member Role Status Dates Dr. Willow Eason MD Primary Care Provider Active Start: June 18, 2024 End: June 18, 2024 Dr. Anish Capps MD Attending Provider Active S tart: June 18, 2024 End: June 18, 2024 Dr. Anish Capps MD Referring Provider Active S tart: June 18, 2024 End: June 18, 2024 Team Status: Active Member Role Status Dates Dr. Willow Eason MD Primary Care Provider Active Start: June 18, 2024 Dr. Anish Capps MD Attending Provider Active S tart: June 18, 2024 Team Status: Inactive Member Role Status Dates Dr. Willow Eason MD Primary Care Provider Active Start: August 18, 2024 End: August 18, 2024 Dr. Willow Eason MD Referring Provider Active Start: August 18, 2024 End: August 18, 2024 Dr. Erick Medina MD Attending Provider Active Start: August 18, 2024 End: August 18, 2024 Team Status: Active Member Role/Relationship Status Dates Dr. Will Polk MD Primary Care Provider Acti ve Team Status: Inactive Member Role/Relationship Status Dates Dr. Willow Eason MD Primary Care Provider Active Start: August 18, 2024 End: August 18, 2024 Dr. Willow Eason MD Referring Provider Active Start: August 18, 2024 End: August 18, 2024 Dr. Erick Medina MD Attending Provider Active Start: August 18, 2024 End: August 18, 2024 Team Status: Inactive Member Role/Relationship Status Dates Dr. Aaron Baig MD Emergency Provider Active Sta rt: November 04, 2024 End: November 04, 2024 Dr. Will Polk MD Primary Care Provider Acti ve Start: November 04, 2024 End: November 04, 2024 INFORMATION SOURCE (unrecogn ized section and content) DATE CREATED AUTHOR 08/19/2024 [facility] FOR RECORDS PERTAINING TO PATIENTS WHO ARE OR HAVE BEEN ENROLLED IN A CHEMICAL DEPENDENCY/SUBSTANCEABUSE PROGRAM, SOME INFORMATION MAY BE OMITTED. This clinical summary was aggregated from multiple sources. Caution should be exercised in using it in the provision of clinical care. This summary normalizes information from multiple sources, and as a consequence, information in this document may materially change the coding, format and clinical context of patient data. In addition, data may be omitted in some cases. CLINICAL DECISIONS SHOULD BE BASED ON THE PRIMARY CLINICAL RECORDS. [employer] provides no warranty or guarantee of the accuracy or completeness of information in this document.
== END 2024-11-04 19:02 | disposition home or self-care (01) ==
PROVIDERS: Emergency Provider Emergency Medicine; PCP Family Medicine; Visit Provider Emergency Medicine
DX: I10 Essential (primary) hypertension (principal); E78.5 Hyperlipidemia, unspecified; R80.9 Proteinuria, unspecified; E87.1 Hypo-osmolality and hyponatremia; R31.9 Hematuria, unspecified; Z79.899 Other long term (current) drug therapy
CPT/HCPCS: 80048; 81001; 99283

== ENCOUNTER 2024-12-06 09:22 | Emergency (ER) | payer MEDICARE, OTHER, SELFPAY ==
[2024-12-06 09:23] VITALS: BP 178/66; PULSE 86; RESP 16; TEMP 36.6; O2SAT 100; BMI 27.4
--- OUTSIDE RECORDS SUMMARY | 2024-12-06 09:39 | XMS RPT_ITS | CCD ---
Author Organization [facility] CliniSywv Care Team Providers Care Data Transcriber Name Role Phone Dr. Willow Eason Primary [...] Provider Dr. Erick Medina MD Attending Provider Dr. Willow Eason MD Primary Care Provider Dr. Willow Eason MD Referring Provider [phone] Dr. Aaron Baig MD Emergency Provider Jam PARK, Dr. Solis Primary Care Provider Jefry, [place] Attending Unavailable Jolliff, Willow S Primary Care Unavailable Jefry, Anish Referring Unavailable Will Polk Primary Care Unavailable Aaron Baig Attending Unavailable Jolliff, Willow Octavio Primary Care Unavailable Jefry, Anish Attending Unavailable Jolliff, Willow S Primary Care Unavailable Jefry, Anish Referring Unavailable Jose Mello Attending Unavailable Erick Medina Attending Unavailable Jolliff, Willow S Referring Unavailable Jolliff, Willow S Primary Care Unavailable Jefry, [place] Attending Unavailable Jolliff, Willow S Primary Care Unavailable Jolliff, Willow S Referring Unavailable Jolliff, Willow S Primary Care Unavailable Jefry, [place] Attending Unavailable Jolliff, Willow S Referring Unavailable Jolliff, Willow S Primary Care Unavailable Jolliff, Willow S Attending Unavailable Jolliff, Willow S Referring Unavailable Jolliff, Willow S Primary Care Unavailable Jefry, Anish Attending Unavailable Jefry, Anish Referring Unavailable Medications Current Medications Medication Drug Class(es) Dates [...] 100 mg PO TWICE A DAY 180 August 18, 2024 8:53am hydroCHLOROthiazide 12.5 mg / lisinopril 20 mg oral tablet (12 sources) Thiazide Diuretic, Angiotensin Converting Enzyme Inhibitor Start: 05-04-2021 End: 05-06-2024 Lisinopril-Hydrochl orothiazide 20-12.5 mg tablet Active 2 {tbl} PO DAILY May 06, 2024 10:39am Start: 05-04-2021 take 1 tablet by dolores once daily Lisinopril-Hydrochlorothiazide Active 1 TABLET PO [...] 2021 1:00am November 04, 2024 6:09pm Problems Active Problems Problem Classification Problem Date Documented Da te Episodic/Chronic Disorders of lipid metabolism (5 sources) Hyperlipidemia; [...] sources) Fatigue; Translations: [Other fatigue] 2022 Episodic Open wounds of extremities (5 sources) Laceration of left thumb; Translations: [Laceration without foreign body of left thumb without damage to nail, initial encounter] 01-19-2022 Episodic Osteoporosis (4 sources) Osteoporosis; Translations: [Age-related osteoporosis without current pathological fracture] 04-27-2024 Chronic Other circulatory disease (9 sources) Carotid bruit; Translations: [Other specified symptoms and signs involving the circulatory and respiratory systems] 05-06-2024 Episodic Other ear and sense organ disorders [...] Cystitis; Translations: [Cystitis, unspecified without hematuria] Episodic Past or Other Problems Problem Classification Problem Date Documented Da te Episodic/Chronic Cardiac dysrhythmias (15 sources) Bradycardia; Translations: [Bradycardia, unspecified] Onset: 05-06-2024 04-27-2024 Episodic Nonspecific chest pain (10 sources) Chest pain; Translations: [Chest pain, unspecified] Onset: 06-26-2024 05-06-2024 Episodic Other circulatory disease (1 source) Other specified symptoms and signs involving the circulatory and respiratory systems; Translations: [Other specified symptoms and signs involving the circulatory and respiratory systems] Onset: 06-07-2024 Episodic Results Test Name Value Interpretation Reference Range Facility Anion gap in Serum or Plasma Ordered By: Aaron Baig on 11-04-2024 Anion gap [Moles/Vol] 16 mmol/L High 5-15 [facility] BUN/creatinine ratioOrdered By: Aaron Baig on 11-04-2024 Urea nitrogen/Creatinine [Mass ratio] 19.8 mg/mg - [facility] Basic Metabolic Profile (BMP )on 11-04-2024 BUN/CRE 19.8 RATIO Normal 01-18 [facility] Comment on above: Performed By: #### L 500.2500 #### [facility] [address] [place], [address] Calcium [Mass/Vol] 9.2 mg/dL Normal 7.6-11.0 [facility] Comment on above: Performed By: #### L 500.2500 #### [facility] [address] [place], [address] Chloride [Moles/Vol] 95 mmol/L Low 98-108 [facility] Comment on above: Performed By: #### L 500.2500 #### [facility] [address] [place], [address] CO2 [Moles/Vol] 20.9 mmol/L Low 21.0-32.0 [facility] Comment on above: Performed By: #### L 500.2500 #### [facility] [address] [place], [address] Creatinine [Mass/Vol] 1.11 mg/dL Normal 0.70-1.20 [facility] Comment on above: Performed By: #### L 500.2500 #### [facility] [address] [place], [address] ECRCL 34.52 ml/min Low 50-250 [facility] Comment on above: Performed By: #### L 500.2500 #### [facility] [address] [place], [address] GAP 16 High 5-15 [facility] Comment on above: Performed By: #### L 500.2500 #### [facility] [address] [place], [address] GFR/1.73 sq M.predicted among non-blacks MDRD (S/P/Bld) [Vol rate/Area] 48 mL/min/{1.73_m2} Low >60 [facility] Comment on above: Result Comment: mL/m in/1.73m2 CKD-EPI Creatinine Equation (2020) Performed By: #### L 500.2500 #### [facility] [address] [place], [address] Glucose [Mass/Vol] 96 mg/dL Normal 70-99 [facility] Comment on above: Performed By: #### L 500.2500 #### [facility] [address] [place], [address] Potassium [Moles/Vol] 3.7 mmol/L Normal 3.3-5.1 [facility] Comment on above: Result Comment: Hemo lysis present, Results??could be affected. ?? Performed By: #### L 500.2500 #### [facility] [address] [place], [address] Sodium [Moles/Vol] 131 mmol/L Low 133-145 [facility] Comment on above: Performed By: #### L 500.2500 #### [facility] [address] [place], [place], [address] Urea nitrogen [Mass/Vol] 22 mg/dL High 4-19 [facility] Comment on above: Performed By: #### L 500.2500 #### [facility] [address] [place], [place], [address] Bilirubin Test strip Ql (U)O rdered By: Aaron Baig on 11-04-2024 Bilirubin Ql (U) Negative Negative [facility] Carbon dioxide, total [Moles /volume] in Central venous bloodOrdered By: Aaron Baig on 11-04-2024 CO2 [Moles/Vol] 20.9 mmol/L Low 21.0-32.0 [facility] Chloride assayOrdered By: Doe Baig on 11-04-2024 Chloride [Moles/Vol] 95 mmol/L Low 98-108 [facility] Emergency Department Summary on 11-04-2024 Emergency Department Summary [facility] Medical Records Department [address] [place] [address] Emergency Department Summary 11/04/24 MR#: [id number] Acct: [id number] Name: MALINI WALTER Rep #: [id number] : 1935 89 From: Aaron Baig MD PCP: Dr. Will Polk MD Status:REG ER Location: ED HPI History of Present [...] ripping pain going through to her back. She denies back pain. Prior similar symptoms: Yes Recent Illness/Hospitalizat ion: No PFSH PFS Medical History Bradycardia Hyperlipidemia Essential (primary) hypertension Osteoporosis Paresthesia Hearing loss Tachycardia Fatigue Essential tremor Bilateral carpal tunnel syndrome Polyneuropathy Home Medications ???Medication ???Instructions ???Recorded ???Last Taken ???Type Bilateral wrist splints #2 ea 07/25/21 Unknown Rx acetaminophen 500 mg oral powder 500 mg PO Q6H PRN 01/22/22 Unknown History packet (Tylenol Extra Strength) aspirin 81 mg chewable tablet 81 mg PO DAILY 07/23/22 Unknown Hi story cranberry 500 mg capsule 500 mg PO BID 10/24/23 Unknown His tory loratadine 10 mg tablet 10 mg PO DAILY PRN 10/24/23 Unknow n History naproxen 500 mg tablet 500 mg PO BID PRN 10/24/23 Unknown History psyllium husk 0.4 gram capsule 0.8 g PO DAILY 10/24/23 Unknown Hi story (Fiber (psyllium husk)) cholecalciferol (vitamin D3) 25 25 mcg PO QDAY 04/27/24 Unknown Hi story mcg (1,000 unit) capsule lisinopril 20 2 tab PO DAILY 05/06/24 11/04/24 H istory mg-hydrochlorothiazi de 12.5 mg tablet metoprolol succinate 50 mg 50 mg PO QDAY #90 tabs 05/06/24 Rx tablet,extended release 24 hr (Toprol XL) gabapentin 100 mg capsule 100 mg PO BID #180 caps 08/18/24 U nknown Rx Allergy/AdvReac Type Severity Reaction Status Date [...] do you participate in: walking and swimming ruddy/baptism: Episcopal seatbelt use: always ROS ROS ED Constitutional Constitutional ED: Denies chills or fever(s) Eyes Eyes: Denies blurry vision, change in vision or diplopia ENT ENT ED: Denies ear pain, rhinorrhea or sore throat Cardiovascular Cardiovascular: Denies chest pain, orthopnea, palpitations, paroxysmal nocturnal dyspnea or racing heartbeat Respiratory/Chest Respiratory/Chest: Denies cough, dyspnea, dyspnea on exertion, orthopnea or paroxysmal nocturnal dyspnea Gastrointestinal Gastrointestinal: Denies abdominal pain, nausea or vomiting Musculoskeletal Musculoskeletal: Denies arthralgias, back pain, myalgias or neck pain Integumentary Denies rash Neurologic Neurologic: Denies headache(s), paresthesias or weakness Hematologic/Lymphati c Hematologic/Lymphati c: Reports systems reviewed and no addt'l complaints, except as documented EXAM Physical Exam Const Vital Signs: 11/04/24 17:15 11/04/24 17:20 11/04/24 18:15 Temperature 97.2 F L Temperature Source Temporal Pulse Rate 87 69 Respiratory Rate 20 H 21 H (more content not included)... Normal [facility] Glomerular filtration rate ( GFR) estimation/1.73 sq m using serum, plasma, or whole bOrdered By: Aaron Baig on 11-04-2024 GFR/1.73 sq M.predicted among non-blacks MDRD (S/P/Bld) [Vol rate/Area] 48 mL/min/{1.73_m2} Low >60 [facility] Comment on above: mL/min/1.73m2 CKD-EP I Creatinine Equation (2020) Ketones Test strip Ql (U)Ord ered By: Aaron Baig on 11-04-2024 Ketones Ql (U) Negative Negative [facility] Microscopic analysis of urin e for red blood cells (RBC)Ordered By: Aaron Baig on 11-04-2024 Microscopic analysis of urine for red blood cells (RBC) 0-5 SEEN /hpf 0-5 [facility] Mucus LM Ql (Urine sed)Order ed By: Aaron Baig on 11-04-2024 Mucus Ql (Urine sed) 0 SEEN /hpf [facility] Nitrite Test strip Ql (U)Ord ered By: Aaron Baig on 11-04-2024 Nitrite Ql (U) Negative Negative [facility] Potassium measurement (mass/ volume)Ordered By: Aaron Baig on 11-04-2024 Potassium (Unsp spec) [Mass/Vol] 3.7 mmol/L 3.3-5.1 [facility] Comment on above: Hemolysis present, R esults could be affected. Protein Test strip Ql (U)Ord ered By: Aaron Baig on 11-04-2024 Protein Ql (U) 30 mg/dl High Negative [facility] Serum creatinine measurement (mass/volume)Ordered By: Aaron Baig on 11-04-2024 Creatinine [Mass/Vol] 1.11 mg/dL 0.70-1.20 [facility] Serum glucose measurement (m ass/volume)Ordered By: Aaron Baig on 11-04-2024 Glucose [Mass/Vol] 96 mg/dL 70-99 [facility] Serum or plasma calcium jaron urement (mass/volume)Ordered By: Aaron Baig on 11-04-2024 Calcium [Mass/Vol] 9.2 mg/dL 7.6-11.0 [facility] Serum or plasma urea nitroge n measurement (mass/volume)Ordered By: Aaron Baig on 11-04-2024 Urea nitrogen [Mass/Vol] 22 mg/dL High 4-19 [facility] Sodium levelOrdered By: Aaron Baig on 11-04-2024 Sodium [Moles/Vol] 131 mmol/L Low 133-145 [facility] Squamous epithelial cells de tection in urine sediment by light microscopyOrdered By: Aaron Baig on 11-04-2024 Epithelial cells.squamous LM Ql (Urine sed) 0-5 SEEN /hpf 5-10 [facility] Urinalysis, Completeon 11-04 BACTERIA 1+ /hpf Normal None Seen [facility] Comment on above: Order Comment: CLEAN CATCH Performed By: #### L 400.0001 #### [facility] [address] [place], [address] EPI,SQUAMOUS 0-5 SEEN Normal 5-10 [facility] Comment on above: Order Comment: CLEAN CATCH Performed By: #### L 400.0001 #### [facility] [address] [place], [address] RBC 0-5 SEEN Normal 0-5 [facility] Comment on above: Order Comment: CLEAN CATCH Performed By: #### L 400.0001 #### [facility] [address] [place], [address] WBC 0-5 SEEN Normal 0-5 [facility] Comment on above: Order Comment: CLEAN CATCH Performed By: #### L 400.0001 #### [facility] [address] [place], [address] Mucus Ql (Urine sed) 0 SEEN Normal [facility] Comment on above: Order Comment: CLEAN CATCH Performed By: #### L 400.0001 #### [facility] [address] [place], [place], [id number] Urine clarityOrdered By: Aaron Baig on 11-04-2024 Clarity (U) Clear Clear [facility] Urine color determinationOrd ered By: Aaron Baig on 11-04-2024 Color (U) Yellow Yellow [facility] Urine glucose detectionOrder ed By: Aaron Baig on 11-04-2024 Glucose Ql (U) Normal mg/dl Normal [facility] Urine leukocyte esterase det ection by dipstickOrdered By: Aaron Baig on 11-04-2024 Leukocyte esterase Test strip Ql (U) 100 /ul High Negative [facility] Urine pHOrdered By: Aaron brown on 11-04-2024 pH (U) 6.0 [pH] 5.0 - 8.0 [facility] Urine sediment bacteria coun t by microscopy (number/high power field)Ordered By: Aaron Baig on 11-04-2024 Bacteria LM.HPF (Urine sed) [#/Area] 1 /[HPF] None Seen [facility] Urine specific gravity measu rementOrdered By: Aaron Baig on 11-04-2024 Specific gravity (U) [Rel density] 1.010 1.002-1.030 [facility] Urine urobilinogen measureme ntOrdered By: Aaron Baig on 11-04-2024 Urobilinogen Ql (U) Normal mg/dl Normal [facility] White blood cell countOrdere d By: Aaron Baig on 11-04-2024 White blood cell count 0-5 SEEN /hpf 0-5 [facility] Neurology Visit Reporton Neurology Visit Report [facility] [address] [place] [address], [address] [place] [address] OFFICE VISIT Date of Service: 08/18/24 MR#: [id number] Acct: [id number] Name: MALINI WALTER Rep #: [id number] : 1935 Provider: Dr. Erick chow MD Age/Sex: 88/F Location: [facility] Status: Signed HPI HPI Chief Complaint: Details: [...] cardiac monitoring. She was evaluated by a top installer, Dr. Capps, and is on antihypertensive medication. [...] (05/04/2021): Findings: (more content not included)... Normal [facility] Cardiovascular stress test r eportOrdered By: Anish Capps on 06-18-2024 Study report [facility] [address] [place] [address] MR#: [id number] Acct: [id number] Name: MALINI WALTER Rep #: [id number] [...] Dr. Anish Capps MD ~ Date Dictated: 06/18/241405 Date Transcribed: 06/18/241405 Hatchery Worker: [place] Signed [facility] Work Phone: Echo Complete 06-18-2024 Echo Complete [facility] [address] [place] [address] Echo Complete 06/18/24 0839 MR#: [id number] Acct: [id number] Name: MALINI WALTER Rep #: [id number] : 1935 88 From: Anish Capps MD Attending Dr: Dr. Anish Capps MD Status: IBIS BALL Ordering Dr: Anish Capps MD Date: 06/18/24 Location: [facility] Sex: F C Admitted: Reason For Study [...] Dictated: 06/18/24 0839 Date Transcribed: 06/18/24 125 Hatchery Worker: Signed Normal [facility] Echocardiogram study reportO rdered By: Anish Capps on 06-18-2024 Study report [facility] [address] [place] [address] Echo Complete 06/18/24 0839 MR#: [id number] Acct: [id number] Name: MALINI WALTER Rep #:[id number] : 1935 88 From: Anish Esposito Attending Dr: Dr. Anish Capps MD S tatus: REG CLI Ordering Dr: Anish Capps MD Date: Location: [facility] Sex: F C Admitted: Reason For Study [...] Dictated: 06/18/24 0839 Date Transcribed: 06/18/24 1251 Hatchery Worker: Signed [facility] Work Phone: Stress Reporton 06-18-2024 Stress Report [facility] [address] [place] [address] MR#: [id number] Acct: [id number] Name: MALINI WALTER Rep #: [id number] : 1935 88 From: Anish Capps MD [...] MD; Dr. Anish Capps MD Date Dictated: 06/18/241405 Date Transcribed: 06/18/241405 Hatchery Worker: CO Signed Normal [facility] Cardiology Visit Reporton Cardiology Visit Report [facility] [address] [place] [address] OFFICE VISIT Date of Service: 06/16/24 MR#: [id number] Acct: [id number] Name: MALINI WALTER Rep #: [id number] : 1935 Provider: Dr. Anish Capps MD Age/Sex: 88/F Location: [facility] Status: Signed HPI HPI History of Present [...] Monitor Intake Visit Reasons: 6 W FU Shell Grader Required: No Accompanied by: Self Is patient [...] do you participate in: walking and swimming ruddy/baptism: Episcopal seatbelt use: always ROS Const Const: Negative [...] related structur (more content not included)... Normal [facility] Carotid Duplex Ultrasoundon 05-27-2024 Carotid Duplex Ultrasound [facility] [address] [facility] [place] [address] Carotid Duplex Ultrasound 05/27/24 0947 MR#: [id number] Acct: [id number] Name: MALINI WALTER Rep #: [id number] : 1935 88 From: Jose Mello MD Attending Dr: Dr. Anish Capps MD Status: REG Mona BALL Ordering Dr: Anish Capps MD Date: 05/27/24 Location: [facility] Sex: F C Admitted: Reason [...] the left vertebral artery. Procedure Carotid Duplex 61509. This is a Carotid Duplex examination using [...] MD; Dr. Anish Capps MD Date Dictated: 05/27/2447 Date Transcribed: 05/27/241831 Hatchery Worker: Signed Normal [facility] Duplex ultrasound of carotid artery reportOrdered By: Jose Mello on 05-27-2024 Study report [facility] [address] [place] [address] Carotid Duplex Ultrasound 05/27/24946 MR#: [id number] Acct: [id number] Name: MALINI WALTER Rep #:[id number] : 1935 88 From: Jose Esposito Attending Dr: Dr. Anish Capps MD S tatus: REG CLI Ordering Dr: Anish Capps MD Date: Location: [facility] Sex: F C Admitted: Reason For Study [...] the left vertebral artery. Procedure Carotid Duplex 99627. This is a Carotid Duplex examination using [...] Dr. Anish Capps MD ~ Date Dictated: 05/27/2447 Date Transcribed: 05/27/241831 Hatchery Worker: Signed [facility] Work Phone: 12 Lead EKG performed by [facility] on 05-06-2024 12 Lead EKG performed by [facility] [address] [place] [address] 12 Lead EKG performed by [facility] 05/06/24 0851 MR#: [id number] Acct: [id number] Name: MALINI WALTER Rep #: [id number] : 1935 88 From: Anish Capps MD Attending Dr: Dr. Anish Capps MD Status: DEP A MB Ordering Dr: Anish Capps MD Date: 05/06/24 Location: [facility] Sex: F C Admitted: BMS/12 Lead EKG performed by [facility] ECG Report Interpretation ------Sinus Rhythm -Frequent pvcs -ventricular bigeminy -Combined atrial enlargement. ABNORMAL RHYTHMElectronically signed on 05/07/2024 at 11:38 by Anish Cappswood Software Version [id number] 05/07/24 1140 Date Anish Capps MD CC: Dr. Willow Eason MD Date Dictated: 05/06/24850 Date Transcribed: 05/06/24850 Hatchery Worker: CO Signed Normal [facility] Cardiology Visit Reporton Cardiology Visit Report [facility] [address] [place] [address] OFFICE VISIT Date of Service: 05/06/24 MR#: [id number] Acct: [id number] Name: MALINI WALTER Rep #: [id number] : 1935 Provider: Dr. Anish Capps MD Age/Sex: 88/F Location: [facility] Status: Signed HPI HPI History of Present [...] room air Intake Visit Reasons: TACHYCARDIA (JOLLIFF) Shell Grader Required: No Accompanied by: Self Is patient [...] do you participate in: walking and swimming ruddy/baptism: Episcopal seatbelt use: always ROS Const Const: Positive for headache(s); Negative for fatigue, weakness, daytime sleepiness or difficulty sleeping ENT ENT: Positive for headache(s); Negative for dizziness or Nosebleed/epistaxis Cardio Chest Pain: Yes Frequency: other (comes and goes) Character: other (tightness) Onset: other Location: mid sternal and left chest Duration: brief Palpitations: Yes feels like its: skipping Edema: Bi (more content not included)... Normal [facility] Albumin to globulin ratioOrd ered By: Willow Eason on 03-14-2024 Albumin/Globulin [Mass ratio] 1.3 {ratio} 0.9-2.4 [facility] Bilirubin, totalOrdered By: Willow Eason on 03-14-2024 Bilirubin [Mass/Vol] 0.80 mg/dL 0.20-1.00 [facility] Comment on above: For patients on eltr ombopag therapy, use of Dimension [place] TBIL is not recommended. Blood urea nitrogen (BUN)/cr eatinine ratioOrdered By: Willow Eason on 03-14-2024 Urea nitrogen/Creatinine [Mass ratio] 26.5 mg/mg High 10-20 [facility] CBC-Complete Blood Cnt No Di ffon 03-14-2024 Erythrocyte distribution width (RBC) [Ratio] 13.2 % Normal 11.6-14.6 [facility] Comment on above: Order Comment: Order Date: 03/13/24Order Info: [id number] - CBC Performed By: #### L 501.9520, L500.4050, L100.0500 ####[facility] [address] [place], [address] Hematocrit (Bld) [Volume fraction] 38.9 % Normal 37-47 [facility] Comment on above: Order Comment: Order Date: 03/13/24Order Info: [id number] - CBC Performed By: #### L 501.9520, L500.4050, L100.0500 ####[facility] [address] [place], [address] Hemoglobin (Bld) [Mass/Vol] 13.4 g/dL Normal 12.0-15.0 [facility] Comment on above: Order Comment: Order Date: 03/13/24Order Info: [id number] - CBC Performed By: #### L 501.9520, L500.4050, L100.0500 ####[facility] [address] [place], [address] MCH (RBC) [Entitic mass] 33.6 pg High 27.0-32.0 [facility] Comment on above: Order Comment: Order Date: 03/13/24Order Info: [id number] - CBC Performed By: #### L 501.9520, L500.4050, L100.0500 ####[facility] [address] [place], [address] MCHC (RBC) [Mass/Vol] 34.4 g/dL Normal 32-36 [facility] Comment on above: Order Comment: Order Date: 03/13/24Order Info: [id number] - CBC Performed By: #### L 501.9520, L500.4050, L100.0500 ####[facility] [address] [place], [address] MCV (RBC) [Entitic vol] 97.5 fL Normal 81-99 [facility] Comment on above: Order Comment: Order Date: 03/13/24Order Info: [id number] - CBC Performed By: #### L 501.9520, L500.4050, L100.0500 ####[facility] [address] [place], [address] Platelet mean volume (Bld) [Entitic vol] 10.9 fL Normal 6.2-12.0 [facility] Comment on above: Order Comment: Order Date: 03/13/24Order Info: [id number] - CBC Performed By: #### L 501.9520, L500.4050, L100.0500 ####[facility] [address] [place], [address] Platelets (Bld) [#/Vol] 194 10*3/uL Normal 150-450 [facility] Comment on above: Order Comment: Order Date: 03/13/24Order Info: [id number] - CBC Performed By: #### L 501.9520, L500.4050, L100.0500 ####[facility] [address] [place], [address] RBC (Bld) [#/Vol] 3.99 10*6/uL Low 4.2-5.4 [facility] Comment on above: Order Comment: Order Date: 03/13/24Order Info: [id number] - CBC Performed By: #### L 501.9520, L500.4050, L100.0500 ####[facility] [address] [place], [address] RDW SD 47.5 fl High 35.1-43.9 [facility] Comment on above: Order Comment: Order Date: 03/13/24Order Info: [id number] - CBC Performed By: #### L 501.9520, L500.4050, L100.0500 ####[facility] [address] [place], [address] WBC (Bld) [#/Vol] 6.3 10*3/uL Normal 4.4-11.0 [facility] Comment on above: Order Comment: Order Date: 03/13/24Order Info: [id number] - CBC Performed By: #### L 501.9520, L500.4050, [id number] ####[facility] [address] [place], [address] Carbon dioxide measurementOr dered By: Willow Eason on 03-14-2024 CO2 [Moles/Vol] 26.0 mmol/L 21.0-32.0 [facility] Chloride measurementOrdered By: Willow Eason on 03-14-2024 Chloride [Moles/Vol] 107 mmol/L 98-107 [facility] Comprehensive Metabolic Prof ilon 03-14-2024 Albumin [Mass/Vol] 4.2 g/dL Normal 3.2-5.0 [facility] Comment on above: Order Comment: Order Date: 03/13/24Order Info: [id number] - CMPOrder Info: 3 - TSH Performed By: #### L [id number], [id number], [id number] ####[facility] [address] [place], [address] Albumin/Globulin [Mass ratio] 1.3 {ratio} Normal 0.9-2.4 [facility] Comment on above: Order Comment: Order Date: 03/13/24Order Info: [id number] - CMPOrder Info: 3 - TSH Performed By: #### L [id number], [id number], [id number] ####[facility] [address] [place], [address] ALK P 70 U/L Normal 45-117 [facility] Comment on above: Order Comment: Order Date: 03/13/24Order Info: [id number] - CMPOrder Info: 3 - TSH Performed By: #### L [id number], [id number], [id number] ####[facility] [address] [place], [address] ALT [Catalytic activity/Vol] 13 U/L Normal 13-56 [facility] Comment on above: Order Comment: Order Date: 03/13/24Order Info: [id number] - CMPOrder Info: 3 - TSH Performed By: #### L [id number], [id number], [id number] ####[facility] [address] [place], [address] AST [Catalytic activity/Vol] 15 U/L Normal 15-37 [facility] Comment on above: Order Comment: Order Date: 03/13/24Order Info: [id number] - CMPOrder Info: 3015-3 - TSH Performed By: #### L [id number], [id number], [id number] ####[facility] [address] [place], [address] Bilirubin [Mass/Vol] 0.80 mg/dL Normal 0.20-1.00 [facility] Comment on above: Order Comment: Order Date: 03/13/24Order Info: [id number] - CMPOrder Info: 3016-3 - TSH Result Comment: For patients on eltrombopag therapy, use of Dimension [place] TBIL is not recommended. Performed By: #### L [id number], [id number], L100.0500 ####[facility] [address] [place], [address] BUN/CRE 26.5 RATIO High 10-20 [facility] Comment on above: Order Comment: Order Date: 03/13/24Order Info: [id number] - CMPOrder Info: [id number] - TSH Performed By: #### L [id number], [id number], L100.0500 ####[facility] [address] [place], [address] CA,Total 9.6 mg/dL Normal 8.5-10.1 [facility] Comment on above: Order Comment: Order Date: 03/13/24Order Info: [id number] - CMPOrder Info: 3016-3 - TSH Performed By: #### L [id number], [id number], L100.0500 ####[facility] [address] [place], [address] Chloride [Moles/Vol] 107 mmol/L Normal 98-107 [facility] Comment on above: Order Comment: Order Date: 03/13/24Order Info: [id number] - CMPOrder Info: 3016-3 - TSH Performed By: #### L [id number], [id number], L100.0500 ####[facility] [address] [place], [address] CO2 [Moles/Vol] 26.0 mmol/L Normal 21.0-32.0 [facility] Comment on above: Order Comment: Order Date: 03/13/24Order Info: [id number] - CMPOrder Info: 3016-3 - TSH Performed By: #### L [id number], [id number], L100.0500 ####[facility] [address] [place], [address] Creatinine [Mass/Vol] 1.02 mg/dL Normal 0.55-1.02 [facility] Comment on above: Order Comment: Order Date: 03/13/24Order Info: [id number] - CMPOrder Info: 3015-05 - TSH Result Comment: The validity of the calculated GFR GFRAA in patients over 70 years has not been determined. Clinical correlation is essential. Performed By: #### L 501.9520, L500.4050, L100.0500 ####[facility] [address] [place], [address] EST GFR - AA 66 mL/min Normal >60 [facility] Comment on above: Order Comment: Order Date: 03/13/24Order Info: [id number] - CMPOrder Info: 3015-05 - TSH Result Comment: Afri can Palauan GFR Calc Performed By: #### L [id number], [id number], L100.0500 ####[facility] [address] [place], [address] GAP 8 Normal 5-15 [facility] Comment on above: Order Comment: Order Date: 03/13/24Order Info: [id number] - CMPOrder Info: 3015-05 - TSH Performed By: #### L [id number], [id number], L100.0500 ####[facility] [address] [place], [address] GFR/1.73 sq M.predicted among non-blacks MDRD (S/P/Bld) [Vol rate/Area] 54 mL/min/{1.73_m2} Low >60 [facility] Comment on above: Order Comment: Order Date: 03/13/24Order Info: [id number] - CMPOrder Info: 3015-05 - TSH Result Comment: Non- GFR Calc Performed By: #### L [id number], L500.4050, L100.0500 ####[facility] [address] [place], [address] Globulin (S) [Mass/Vol] 3.2 g/dL Normal 2.2-4.2 [facility] Comment on above: Order Comment: Order Date: 03/13/24Order Info: [id number] - CMPOrder Info: 3 - TSH Performed By: #### L [id number], [id number], L100.0500 ####[facility] [address] [place], [address] Glucose [Mass/Vol] 108 mg/dL High 74-106 [facility] Comment on above: Order Comment: Order Date: 03/13/24Order Info: [id number] - CMPOrder Info: 3015-05 - TSH Result Comment: Fast ing Glucose result from 100 to 125 mg/dL suggests IMPAIRED HOMEOSTASIS per A.D.A. criteria. Performed By: #### L [id number], L500.4050, L100.0500 ####[facility] [address] [place], [address] Potassium [Moles/Vol] 4.3 mmol/L Normal 3.5-5.1 [facility] Comment on above: Order Comment: Order Date: 03/13/24Order Info: [id number] - CMPOrder Info: 3015-05 - TSH Performed By: #### L [id number], [id number], L100.0500 ####[facility] [address] [place], [address] Sodium [Moles/Vol] 140 mmol/L Normal 136-145 [facility] Comment on above: Order Comment: Order Date: 03/13/24Order Info: 07 - CMPOrder Info: [id number] - TSH Performed By: #### L [id number], [id number], L100.0500 ####[facility] [address] [place], [place], [address] T PROT 7.4 g/dL Normal 6.4-8.2 [facility] Comment on above: Order Comment: Order Date: 03/13/24Order Info: [id number] - CMPOrder Info: [id number] - TSH Performed By: #### L [id number], L500.4050, L100.0500 ####[facility] [address] [place], [address] Urea nitrogen [Mass/Vol] 27 mg/dL High 7-18 [facility] Comment on above: Order Comment: Order Date: 03/13/24Order Info: [id number] - CMPOrder Info: [id number] - TSH Performed By: #### L [id number], L500.4050, L100.0500 ####[facility] [address] [place], [address] Erythrocyte distribution wid th ratioOrdered By: Willow Eason on 03-14-2024 Erythrocyte distribution width (RBC) [Ratio] 13.2 % 11.6-14.6 [facility] Erythrocyte distribution wid th standard deviationOrdered By: Willow Eason on 03-14-2024 Erythrocyte distribution width (RBC) [Entitic vol] 47.5 fL High 35.1-43.9 [facility] Estimated glomerular filtrat ion rate (GFR) AmericanOrdered By: Willow Eason on 03-14-2024 Estimated GFR (MDRD) Amer 66 mL/min >60 [facility] Comment on above: GFR Calc Glomerular filtration rate ( GFR) estimationOrdered By: Willow Eason on 03-14-2024 Estimated GFR (MDRD) Non-Af Amer 54 mL/min Low >60 [facility] Comment on above: Non- GFR Calc Glucose measurementOrdered B y: Willow Eason on 03-14-2024 Glucose [Mass/Vol] 108 mg/dL High 74-106 [facility] Comment on above: Fasting Glucose resu lt from 100 to 125 mg/dL suggests IMPAIRED HOMEOSTASIS per A.D.A. criteria. Hematocrit Auto (Bld) [Volum e fraction]Ordered By: Willow Eason on 03-14-2024 Hematocrit (Bld) [Volume fraction] 38.9 % 37-47 [facility] Hemoglobin measurementOrdere d By: Willow Eason on 03-14-2024 Hemoglobin (Bld) [Mass/Vol] 13.4 g/dL 12.0-15.0 [facility] Laboratory - Chemistry and C hemistry - challengeOrdered By: Willow Eason on 03-14-2024 AST [Catalytic activity/Vol] 15 U/L 15-37 [facility] MCV (mean corpuscular volume ) determinationOrdered By: Willow Eason on 03-14-2024 MCV (RBC) [Entitic vol] 97.5 fL 81-99 [facility] Mean corpuscular hemoglobin (MCH) determinationOrdered By: Willow Eason on 03-14-2024 MCH (RBC) [Entitic mass] 33.6 pg High 27.0-32.0 [facility] Mean corpuscular hemoglobin concentration (MCHC) determinationOrdered By: Willow Eason on 03-14-2024 MCHC (RBC) [Mass/Vol] 34.4 g/dL 32-36 [facility] Mean platelet volume determi nationOrdered By: Willow Eason on 03-14-2024 Platelet mean volume (Bld) [Entitic vol] 10.9 fL 6.2-12.0 [facility] Platelet countOrdered By: Mart Eason on 03-14-2024 Platelets (Bld) [#/Vol] 194 10*3/uL 150-450 [facility] Potassium measurementOrdered By: Willow Eason on 03-14-2024 Potassium [Moles/Vol] 4.3 mmol/L 3.5-5.1 [facility] RBC Auto (Bld) [#/Vol]Ordere d By: Willow Eason on 03-14-2024 RBC (Bld) [#/Vol] 3.99 10*6/uL Low 4.2-5.4 [facility] Serum anion gap measurementO rdered By: Willow Eason on 03-14-2024 Anion gap [Moles/Vol] 8 mmol/L 5-15 [facility] Serum globulin measurementOr dered By: Willow Eason on 03-14-2024 Globulin (S) [Mass/Vol] 3.2 g/dL 2.2-4.2 [facility] Serum or plasma alanine man otransferase (ALT) measurementOrdered By: Willow Eason on 03-14-2024 ALT [Catalytic activity/Vol] 13 U/L 13-56 [facility] Serum or plasma albumin jaron urement (mass/volume)Ordered By: Willow Eason on 03-14-2024 Albumin [Mass/Vol] 4.2 g/dL 3.2-5.0 [facility] Serum or plasma alkaline sissy sphatase measurementOrdered By: Willow Eason on 03-14-2024 ALP [Catalytic activity/Vol] 70 U/L 45-117 [facility] Serum or plasma calcium jaron urement (mass/volume)Ordered By: Willow Eason on 03-14-2024 Calcium [Mass/Vol] 9.6 mg/dL 8.5-10.1 [facility] Serum or plasma creatinine m easurement (mass/volume)Ordered By: Willow Eason on 03-14-2024 Creatinine [Mass/Vol] 1.02 mg/dL 0.55-1.02 [facility] Comment on above: The validity of the calculated GFR & GFRAA in patients over 70 years has not been determined. Clinical correlation is essential. Serum or plasma urea nitroge n measurement (mass/volume)Ordered By: Willow Eason on 03-14-2024 Urea nitrogen [Mass/Vol] 27 mg/dL High 7-18 [facility] Sodium levelOrdered By: Willow Eason on 03-14-2024 Sodium [Moles/Vol] 140 mmol/L 136-145 [facility] TSH QnOrdered By: Willow courtney on 03-14-2024 Thyroid Stimulating Hormone (TSH) 1.490 uIU/mL 0.358-3.740 [facility] Thyroid Stim Hormone (TSH)on 03-14-2024 TSH 1.490 uIU/mL Normal 0.358-3.740 [facility] Comment on above: Order Comment: Order Date: 03/13/24Order Info: [id number] - CMPOrder Info: [id number] - TSH Performed By: #### L [id number], L500.4050, L100.0500 ####[facility] [address] [place], [address] Total proteinOrdered By: Willow Eason on 03-14-2024 Protein [Mass/Vol] 7.4 g/dL 6.4-8.2 [facility] White blood cell (WBC) count Ordered By: Willow Eason on 03-14-2024 WBC (Bld) [#/Vol] 6.3 10*3/uL 4.4-11.0 [facility] Basophil percentageOrdered B y: Willow Eason on 07-30-2022 Chloride [Moles/Vol] 106 mmol/L 98-107 [facility] Cholesterol [Mass/Vol] 164 mg/dL <200 [facility] Comment on above: <200 mg/dL Desirable 200-240 mg/dL Borderline >240 mg/dL High Risk Glucose [Mass/Vol] 76 mg/dL 74-106 [facility] Potassium [Moles/Vol] 3.6 mmol/L 3.5-5.1 [facility] Sodium [Moles/Vol] 141 mmol/L 136-145 [facility] Triglyceride [Mass/Vol] 144 mg/dL <199 [facility] Comment on above: The drugs N-Acetylcy steine and Metamizole may falsely depress this assay.Serum Triglycerides Reference Interval Normal <150 mg/dL Borderline high 150 - 199 mg/dL High 200 - 499 mg/dL Very High > or = 500 mg/dL Laboratory - Chemistry and C hemistry - challengeOrdered By: Willow Eason on 07-30-2022 ALT [Catalytic activity/Vol] 19 U/L 13-56 [facility] CO2 [Moles/Vol] 27.0 mmol/L 21.0-32.0 [facility] Urea nitrogen/Creatinine [Mass ratio] 38.3 mg/mg 10-20 [facility] No Panel InformationOrdered By: Willow Eason on 07-30-2022 Estimated GFR (MDRD) Amer 70 mL/min >60 [facility] Comment on above: GFR Calc Estimated GFR (MDRD) Non-Af Amer 58 mL/min >60 [facility] Comment on above: Non- GFR Calc Urine Microalbumin/Creatinine Ratio 28.9 mg/g CRE <30 [facility] Serum or plasma calcium jaron urement (mass/volume)Ordered By: Willow Eason on 07-30-2022 Calcium [Mass/Vol] 9.6 mg/dL 8.5-10.1 [facility] Serum or plasma cholesterol in HDL measurement (mass/volume)Ordered By: Willow Eason on 07-30-2022 Cholesterol in HDL [Mass/Vol] 44 mg/dL >40 [facility] Comment on above: The drugs N-Acetylcy steine and Metamizole may falsely depress this assay. Reference Range HDL <40 mg/dL Low HDL Cholesterol HDL >or= 60 mg/dL High HDL Cholesterol Serum or plasma cholesterol in VLDL measurement (mass/volume)Ordered By: Willow Eason on 07-30-2022 Cholesterol in VLDL [Mass/Vol] 29 mg/dL 5-40 [facility] Serum or plasma creatinine m easurement (mass/volume)Ordered By: Willow Eason on 07-30-2022 Creatinine [Mass/Vol] 0.97 mg/dL 0.55-1.02 [facility] Comment on above: The validity of the calculated GFR & GFRAA in patients over 70 years has not been determined. Clinical correlation is essential. Serum or plasma low density lipoprotein (LDL) cholesterol measurement (mass/volume)Ordered By: Willow Eason on 07-30-2022 Cholesterol in LDL [Mass/Vol] 91 mg/dL 0-130 [facility] Serum or plasma urea nitroge n measurement (mass/volume)Ordered By: Willow Eason on 07-30-2022 Urea nitrogen [Mass/Vol] 37 mg/dL 7-18 [facility] Thin prep Papanicolaou smear with manual screeningOrdered By: Willow Eason on 07-30-2022 Thin prep Papanicolaou smear with manual screening 15 U/L 15-37 [facility] Thin prep Papanicolaou smear with manual screening 8 5-15 [facility] Thin prep Papanicolaou smear with manual screening 27.1 mg/L NO RANGE EST. [facility] Urine creatinine measurement (mass/volume)Ordered By: Willow Eason on 07-30-2022 Creatinine (U) [Mass/Vol] 93.70 mg/dL NO RANGE EST. [facility] Basophil percentageon 2021 Basophil percentage 5-10 SEEN /hpf 0-5 [facility] Work Phone: Bilirubin Test strip Ql (U)o n 12-16-2021 Bilirubin Ql (U) Negative Negative [facility] Work Phone: Ketones Test strip Ql (U)on 12-16-2021 Ketones Ql (U) Negative Negative [facility] Work Phone: Laboratory - Chemistry and C hemistry - challengeon 12-16-2021 Bilirubin Ql (U) Negative [facility] Work Phone: Glucose Ql (U) Negative [facility] Work Phone: Ketones Ql (U) Negative [facility] Work Phone: pH (U) 6.5 [pH] [facility] Work Phone: Specific gravity (U) [Rel density] 1.005 [facility] Work Phone: Urobilinogen (U) [Mass/Vol] Negative [facility] Work Phone: Laboratory - Hematology and Cell countson 12-16-2021 Hemoglobin Ql (U) Hemolyzed [facility] Work Phone: Laboratory - Specimen inform ationon 12-16-2021 Clarity (U) Cloudy [facility] Work Phone: Color (U) YELLOW [facility] Work Phone: Laboratory - Urinalysison Nitrite Ql (U) Positive [facility] Work Phone: Protein Ql (U) Negative [facility] Work Phone: Mucus LM Ql (Urine sed)on Mucus Ql (Urine sed) 0 SEEN /hpf [facility] Work Phone: Nitrite Test strip Ql (U)on 12-16-2021 Nitrite Ql (U) Negative Negative [facility] Work Phone: No Panel Informationon 12-16 Urine Leukocytes Positive [facility] Work Phone: Urine Non-Hemolyzed Blood Large [facility] Work Phone: Protein Test strip Ql (U)on 12-16-2021 Protein Ql (U) 15 mg/dl Negative [facility] Work Phone: Squamous epithelial cells de tection in urine sediment by light microscopyon 12-16-2021 Epithelial cells.squamous LM Ql (Urine sed) 0 SEEN /hpf 5-10 [facility] Work Phone: Urine blood detectionon 11-30 RBC Ql (U) 150 /ul Negative [facility] Work Phone: RBC Ql (U) 0 SEEN /hpf 0-5 [facility] Work Phone: Urine clarityon 12-16-2021 Clarity (U) Clear Clear [facility] Work Phone: Urine color determinationon 12-16-2021 Color (U) Yellow Yellow [facility] Work Phone: Urine glucose detectionon Glucose Ql (U) Normal mg/dl Normal [facility] Work Phone: Urine leukocyte esterase det ection by dipstickon 12-16-2021 Leukocyte esterase Test strip Ql (U) 500 /ul Negative [facility] Work Phone: Urine pHon 12-16-2021 pH (U) 6.5 [pH] 5.0 - 8.0 [facility] Work Phone: Urine sediment bacteria coun t by microscopy (number/high power field)on 12-16-2021 Bacteria LM.HPF (Urine sed) [#/Area] 0 /[HPF] None Seen [facility] Work Phone: Urine specific gravity measu rementon 12-16-2021 Specific gravity (U) [Rel density] 1.005 1.002-1.030 [facility] Work Phone: Urobilinogen Auto test strip Ql (U)on 12-16-2021 Urobilinogen Ql (U) Normal mg/dl Normal [facility] Work Phone: Basophil percentageon 2021 Bilirubin [Mass/Vol] 0.50 mg/dL 0.20-1.00 [facility] Work Phone: Comment on above: For patients on eltr ombopag therapy, use of Dimension [place] TBIL is not recommended. Chloride [Moles/Vol] 101 mmol/L 98-107 [facility] Work Phone: Glucose [Mass/Vol] 89 mg/dL 74-106 [facility] Work Phone: Potassium [Moles/Vol] 3.9 mmol/L 3.5-5.1 [facility] Work Phone: Protein [Mass/Vol] 7.5 g/dL 6.4-8.2 [facility] Work Phone: Sodium [Moles/Vol] 136 mmol/L 136-145 [facility] Work Phone: Laboratory - Chemistry and C hemistry - challengeon 07-26-2021 ALP [Catalytic activity/Vol] 61 U/L 45-117 [facility] Work Phone: [phone] ALT [Catalytic activity/Vol] 18 U/L 13-56 [facility] Work Phone: [phone] CO2 [Moles/Vol] 27.0 mmol/L 21.0-32.0 [facility] Work Phone: [phone] Cobalamin (Vitamin B12) [Mass/Vol] 402 pg/mL 211-911 [facility] Work Phone: [phone] Globulin (S) [Mass/Vol] 3.4 g/dL 2.2-4.2 [facility] Work Phone: Urea nitrogen/Creatinine [Mass ratio] 21.6 mg/mg 10-20 [facility] Work Phone: No Panel Informationon 07-26 Estimated GFR (MDRD) Amer 103 mL/min >60 [facility] Work Phone: Comment on above: GFR Calc Estimated GFR (MDRD) Non-Af Amer 85 mL/min >60 [facility] Work Phone: Comment on above: Non- GFR Calc Free Lambda Light Chains, Quant 12.3 mg/L 5.7-26.3 [facility] Work Phone: Thyroid Stimulating Hormone (TSH) 1.60 uIU/mL 0.358-3.74 [facility] Work Phone: Whole Blood Vitamin B1 Level 118.0 nmol/L 66.5-200.0 [facility] Work Phone: Comment on above: Performed at: [address] [id number] Director: Darren Britt PhD, Phone: [phone] at: [facility] [address] [id number] Director: Barrera Castro MD, Phone: [phone] Serum immunoglobulin kappa l ight chains/immunoglobulin lambda light chains mass ratioon 07-26-2021 Immunoglobulin light chains.kappa/Immunoglobu pippa light chains.lambda (S) [Mass ratio] 1.17 0.26-1.65 [facility] Work Phone: Serum or plasma albumin jaron urement (mass/volume)on 07-26-2021 Albumin [Mass/Vol] 4.1 g/dL 3.2-5.0 [facility] Work [facility]: Serum or plasma albumin/glob ulin mass ratioon 07-26-2021 Albumin/Globulin [Mass ratio] 1.2 {ratio} 0.9-2.4 [facility] Work Phone: Serum or plasma calcium jaron urement (mass/volume)on 07-26-2021 Calcium [Mass/Vol] 9.3 mg/dL 8.5-10.1 [facility] Work Phone: Serum or plasma creatinine m easurement (mass/volume)on 07-26-2021 Creatinine [Mass/Vol] 0.69 mg/dL 0.55-1.02 [facility] Work Phone: Comment on above: The validity of the calculated GFR & GFRAA in patients over 70 years has not been determined. Clinical correlation is essential. Serum or plasma folate measu rement (mass/volume)on 07-26-2021 Folate [Mass/Vol] 39.70 ng/mL 3.1-55.4 [facility] Work Phone: Serum or plasma immunoglobul in kappa light chains measurement (mass/volume)on 07-26-2021 Immunoglobulin light chains.kappa [Mass/Vol] 14.4 mg/L 3.3-19.4 [facility] Work Phone: Serum or plasma urea nitroge n measurement (mass/volume)on 07-26-2021 Urea nitrogen [Mass/Vol] 15 mg/dL 7-18 [facility] Work Phone: Thin prep Papanicolaou smear with manual screeningon 07-26-2021 Thin prep Papanicolaou smear with manual screening 15 U/L 15-37 [facility] Work Phone: Thin prep Papanicolaou smear with manual screening 8 5-15 [facility] Work Phone: Whole blood hemoglobin A1c/t otal hemoglobin ratio (mass fraction)on 07-26-2021 HbA1c (Bld) [Mass fraction] 5.4 % 3.8-5.6 [facility] Work Phone: Comment on above: Normal < 5.7 % Predi abetic 5.7 - 6.4 % Diabetic >or= 6.5 % Please note range changes. Absolute lymphocyte counton 05-04-2021 Lymphocytes Auto (Unsp spec) [#/Vol] 1.72 10*3/uL 0.83-4.51 [facility] Work Phone: Basophil percentageon 2021 Basophils/100 WBC (Bld) 0.7 % 0-1 [facility] Work Phone: [phone] Chloride [Moles/Vol] 101 mmol/L 98-107 [facility]: [phone] Eosinophils/100 WBC (Bld) 3.1 % 0-5 [facility] Work Phone: Glucose [Mass/Vol] 147 mg/dL 74-106 [facility] Work Phone: Comment on above: Fasting Glucose resu lt greater than or equal to 126 mg/dL suggests DIABETES MELLITUS per A.D.A. criteria. Neutrophils (Bld) [#/Vol] 3.5 10*3/uL 2.0-7.7 [facility] Work Phone: Neutrophils/100 WBC (Bld) 59.7 % 47-70 [facility] Work Phone: Potassium [Moles/Vol] 3.7 mmol/L 3.5-5.1 [facility] Work Phone: [phone] Sodium [Moles/Vol] 135 mmol/L 136-145 [facility] Work Phone: WBC (Bld) [#/Vol] 5.9 10*3/uL 4.4-11.0 [facility] Work Phone: Blood erythrocytes count (nu mber/volume)on 05-04-2021 RBC (Bld) [#/Vol] 3.92 10*6/uL 4.2-5.4 [facility] Work Phone: Blood hemoglobin measurement (mass/volume)on 05-04-2021 Hemoglobin (Bld) [Mass/Vol] 13.5 g/dL 12.0-15.0 [facility] Work Phone: Blood lymphocytes/100 leukoc yteson 05-04-2021 Lymphocytes/100 WBC (Bld) 29.4 % 19-41 [facility] Work Phone: Blood monocytes/100 leukocyt eson 05-04-2021 Monocytes/100 WBC (Bld) 6.8 % 0-10 [facility] Work Phone: Blood platelet mean volumeon 05-04-2021 Platelet mean volume (Bld) [Entitic vol] 10.2 fL 6.2-12.0 [facility] Work Phone: Determination of erythrocyte mean corpuscular volume (MCV)on 05-04-2021 MCV (RBC) [Entitic vol] 96.4 fL 81-99 [facility] Work Phone: Hematocrit Auto (Bld) [Volum e fraction]on 05-04-2021 Hematocrit (Bld) [Volume fraction] 37.8 % 37-47 [facility] Work Phone: Laboratory - Chemistry and C hemistry - challengeon 05-04-2021 CO2 [Moles/Vol] 27.0 mmol/L 21.0-32.0 [facility] Work Phone: Urea nitrogen/Creatinine [Mass ratio] 22.0 mg/mg 10-20 [facility] Work Phone: Laboratory - Hematology and Cell countson 05-04-2021 Erythrocyte distribution width (RBC) [Entitic vol] 44.1 fL 35.1-43.9 [facility] Work Phone: Erythrocyte distribution width (RBC) [Ratio] 12.5 % 11.6-14.6 [facility] Work Phone: Immature granulocytes/100 WBC (Bld) 0.300 % 0.0-0.9 [facility] Work Phone: Comment on above: IG% - Immature Granu locytes (promyelocytes, myelocytes and metamyelocytes) > 1% indicates that a LEFT SHIFT is Present. MCH (RBC) [Entitic mass] 34.4 pg 27.0-32.0 [facility] Work Phone: Nucleated RBC/100 WBC (Bld) [Ratio] 0 % 0-5 [facility] Work Phone: MCHC Auto (RBC) [Mass/Vol]on 05-04-2021 MCHC (RBC) [Mass/Vol] 35.7 g/dL 32-36 [facility] Work Phone: No Panel Informationon 05-04 Troponin I High Sensitivity 6 pg/mL 3.0-54.0 [facility] Work Phone: Comment on above: Please Note: New Jacque t Units and Gender Specific Reference Ranges. For more information see Policy Stat Procedure [place] High Sensitivity Troponin (TNIH) and attachments. Estimated Creatinine Clearance Calc 39.74 ml/min [facility] Work Phone: Estimated GFR (MDRD) Amer 76 mL/min >60 [facility] Work Phone: Comment on above: GFR Calc Estimated GFR (MDRD) Non-Af Amer 63 mL/min >60 [facility] Work Phone: Comment on above: Non- GFR Calc Platelets bldon 05-04-2021 Platelets (Bld) [#/Vol] 183 10*3/uL 150-450 [facility] Work Phone: Serum or plasma calcium jaron urement (mass/volume)on 05-04-2021 Calcium [Mass/Vol] 9.3 mg/dL 8.5-10.1 [facility] Work Phone: Serum or plasma creatinine m easurement (mass/volume)on 05-04-2021 Creatinine [Mass/Vol] 0.91 mg/dL 0.55-1.02 [facility] Work Phone: Comment on above: The validity of the calculated GFR & GFRAA in patients over 70 years has not been determined. Clinical correlation is essential. Serum or plasma urea nitroge n measurement (mass/volume)on 05-04-2021 Urea nitrogen [Mass/Vol] 20 mg/dL 7-18 [facility] Work Phone: Thin prep Papanicolaou smear with manual screeningon 05-04-2021 Thin prep Papanicolaou smear with manual screening 7 5-15 [facility] Work Phone: Culture, urine Bacteria identified Cx Nom (U) Presumptive E. coli [facility] Work Phone: Vital Signs Date Time Vital Sign Value Performing Clinician Faci lity 11-04-2024 19:01-0400 Body temperature 97.2 [degF] Dr. Willow Eason MD Work Phone: [facility] 11-04-2024 19:01-0400 Diastolic blood pressure 62 mm[Hg] Dr. Willow Eason MD Work Phone: [facility] 11-04-2024 19:01-0400 Heart rate 67 /min Dr. Willow Eason MD Work Phone: [facility] 11-04-2024 19:01-0400 Respiratory rate 15 /min Dr. Willow Eason MD Work Phone: [facility] 11-04-2024 19:01-0400 SaO2% (BldA) [Mass fraction] 100 % Dr. Willow Eason MD Work Phone: [facility] 11-04-2024 19:01-0400 Systolic blood pressure 168 mm[Hg] Dr. Willow Eason MD Work Phone: [facility] 11-04-2024 17:15-0400 Body height 162.[address] Willow Eason MD Work Phone: [facility] 11-04-2024 17:15-0400 Body mass index (BMI) [Ratio] 28 kg/m2 Dr. Willow Eason MD Work Phone: [facility] 11-04-2024 17:15-0400 Body weight [address] Willow Eason MD Work Phone: 0(450)258-717882 [address] 08-18-2024 08:10-0400 Body height 162.[address] Willow Eason MD Work Phone: 3(793)310-288087 [place] [address] 08-18-2024 08:10-0400 Body mass index (BMI) [Ratio] 29.2 kg/m2 Dr. Willow Eason MD Work Phone: 1(993)585-512107 [place] [address] 08-18-2024 08:10-0400 Body temperature 97.5 [degF] Dr. Willow Eason MD Work Phone: 4(491)288-366787 [place] [address] 08-18-2024 08:10-0400 Body weight 77.[address] Willow Eason MD Work Phone: 8(197)528-387407 [place] [address] 08-18-2024 08:10-0400 Diastolic blood pressure 59 mm[Hg] Dr. Willow Eason MD Work Phone: 6(717)638-180007 [place] [address] 08-18-2024 08:10-0400 Heart rate 72 /min Dr. Willow Eason MD Work Phone: 4(618)272-670907 [place] [address] 08-18-2024 08:10-0400 Respiratory rate 16 /min Dr. Willow Eason MD Work Phone: 8(059)404-757807 [place] [address] 08-18-2024 08:10-0400 SaO2% (BldA) [Mass fraction] 98 % Dr. Willow Eason MD Work Phone: 8(299)263-776307 [place] [address] 08-18-2024 08:10-0400 Systolic blood pressure 148 mm[Hg] Dr. Willow Eason MD Work Phone: 8(509)133-851187 [place] [address] 06-16-2024 14:41-0400 Body height 162.[address] Willow Eason MD Work Phone: 6(794)301-952407 [place] [address] 06-16-2024 14:41-0400 Body mass index (BMI) [Ratio] 28.5 kg/m2 Dr. Willow Eason MD Work Phone: 5(040)954-969387 [place] [address] 06-16-2024 14:41-0400 Body weight 75.[address] Willow Eason MD Work Phone: [facility] 06-16-2024 14:41-0400 Diastolic blood pressure 63 mm[Hg] Dr. Willow Eason MD Work Phone: 6(751)268-028987 [place] [address] 06-16-2024 14:41-0400 Heart rate 70 /min Dr. Willow Eason MD Work Phone: 1(531)166-631682 [address] 06-16-2024 14:41-0400 Respiratory rate 16 /min Dr. Willow Eason MD Work Phone: 4(257)731-393487 [place] [address] 06-16-2024 14:41-0400 Systolic blood pressure 111 mm[Hg] Dr. Willow Eason MD Work Phone: 3(686)855-010207 [place] [address] 05-06-2024 08:51-0500 Body height 162.[address] Willow Eason MD Work Phone: 9(246)721-113507 [place] [address] 05-06-2024 08:51-0500 Body mass index (BMI) [Ratio] 29.2 kg/m2 Dr. Willow Eason MD Work Phone: 7(082)242-376382 [address] 05-06-2024 08:51-0500 Body weight 77.[address] Willow Eason MD Work Phone: 4(713)894-430707 [place] [address] 05-06-2024 08:51-0500 Diastolic blood pressure 65 mm[Hg] Dr. Willow Eason MD Work Phone: 6(042)757-518987 [place] [address] 05-06-2024 08:51-0500 Heart rate 44 /min Dr. Willow Eason MD Work Phone: 7(334)885-773587 [place] [address] 05-06-2024 08:51-0500 Respiratory rate 16 /min Dr. Willow Eason MD Work Phone: 3(145)636-053807 [place] [address] 05-06-2024 08:51-0500 Systolic blood pressure 184 mm[Hg] Dr. Willow Eason MD Work Phone: 8(627)691-757782 [address] 09-11-2022 09:19-0400 Body height 162.[address] Willow Eason Work Phone: 9(103)169-547987 [place] [address] 09-11-2022 09:19-0400 Body mass index (BMI) [Ratio] 26.9 kg/m2 Dr. Willow Eason Work Phone: 2(753)360-456587 [place] [address] 09-11-2022 09:19-0400 Body temperature 98.2 [degF] Dr. Willow Eason Work Phone: 2(208)733-768607 [place] [address] 09-11-2022 09:19-0400 Body weight 71.[address] Willow Eason Work Phone: 5(700)216-148107 [place] [address] 09-11-2022 09:19-0400 Diastolic blood pressure 60 mm[Hg] Dr. Willow Eason Work Phone: 1(365)727-202607 [place] [address] 09-11-2022 09:19-0400 Heart rate 48 /min Dr. Willow Eason Work Phone: 9(164)234-525507 [place] [address] 09-11-2022 09:19-0400 Respiratory rate 17 /min Dr. Willow Eason Work Phone: 7(079)555-399007 [place] [address] 09-11-2022 09:19-0400 SaO2% (BldA) [Mass fraction] 97 % Dr. Willow Eason Work Phone: 3(394)047-401707 [place] [address] 09-11-2022 09:19-0400 Systolic blood pressure 128 mm[Hg] Dr. Willow Eason Work Phone: 3(350)791-943307 [place] [address] 07-23-2022 13:33-0400 Body mass index (BMI) [Ratio] 26.6 kg/m2 Dr. Willow Eason Work Phone: 0(147)833-134587 [place] [address] 07-23-2022 13:33-0400 Body temperature 98 [degF] Dr. Willow Eason Work Phone: 4(944)907-122407 [place] [address] 07-23-2022 13:33-0400 Body weight 70.[address] Willow Eason Work Phone: 6(148)524-452787 [place] [address] 07-23-2022 13:33-0400 Diastolic blood pressure 64 mm[Hg] Dr. Willow Eason Work Phone: 1(546)568-660587 [place] [address] 07-23-2022 13:33-0400 Heart rate 76 /min Dr. Willow Eason Work Phone: [facility] 07-23-2022 13:33-0400 Respiratory rate 17 /min Dr. Willow Eason Work Phone: [facility] 07-23-2022 13:33-0400 SaO2% (BldA) [Mass fraction] 98 % Dr. Willow Eason Work Phone: [facility] 07-23-2022 13:33-0400 Systolic blood pressure 130 mm[Hg] Dr. Willow Eason Work Phone: [facility] 12-16-2021 09:19-0400 Body temperature 97.8 [degF] Dr. Willow Eason Work Phone: [facility] Work Phone: 12-16-2021 09:19-0400 Diastolic blood pressure 76 mm[Hg] Dr. Willow Eason Work Phone: [facility] Work Phone: 12-16-2021 09:19-0400 Heart rate 52 /min Dr. Willow Eason Work Phone: [facility] Work Phone: 12-16-2021 09:19-0400 Respiratory rate 14 /min Dr. Willow Eason Work Phone: [facility] Work Phone: 12-16-2021 09:19-0400 SaO2% (BldA) [Mass fraction] 99 % Dr. Willow Eason Work Phone: [facility] Work Phone: 12-16-2021 09:19-0400 Systolic blood pressure 142 mm[Hg] Dr. Willow Eason Work Phone: [facility] Work Phone: 11-11-2021 11:49-0400 Body height 162.[address] Willow Eason Work Phone: [facility] Work Phone: 11-11-2021 11:49-0400 Body mass index (BMI) [Ratio] 27.4 kg/m2 Dr. Willow Eason Work Phone: [facility] Work Phone: 11-11-2021 11:49-0400 Body temperature 97.3 [degF] Dr. Willow Eason Work Phone: [facility] Work Phone: 11-11-2021 11:49-0400 Body weight 72.[address] Willow Eason Work Phone: [facility] Work Phone: 11-11-2021 11:49-0400 Diastolic blood pressure 64 mm[Hg] Dr. Willow Eason Work Phone: [facility] Work Phone: 11-11-2021 11:49-0400 Heart rate 63 /min Dr. Willow Eason Work Phone: [facility] Work Phone: 11-11-2021 11:49-0400 Respiratory rate 15 /min Dr. Willow Eason Work Phone: [facility] Work Phone: 11-11-2021 11:49-0400 SaO2% (BldA) [Mass fraction] 99 % Dr. Willow Eason Work Phone: [facility] Work Phone: 11-11-2021 11:49-0400 Systolic blood pressure 160 mm[Hg] Dr. Willow Eason Work Phone: [facility] Work Phone: 07-25-2021 10:08-0400 Body height 162.[address] Willow Eason Work Phone: [facility] Work Phone: 07-25-2021 10:08-0400 Body mass index (BMI) [Ratio] 27.9 kg/m2 Dr. Willow Eason Work Phone: [facility] Work Phone: 07-25-2021 10:08-0400 Body temperature 97.7 [degF] Dr. Willow Eason Work Phone: [facility] Work Phone: 07-25-2021 10:08-0400 Body weight 73.[address] Willow Eason Work Phone: [facility] Work Phone: 07-25-2021 10:08-0400 Diastolic blood pressure 100 mm[Hg] Dr. Willow Eason Work Phone: [facility] Work Phone: 07-25-2021 10:08-0400 Heart rate 77 /min Dr. Willow Eason Work Phone: [facility] Work Phone: 07-25-2021 10:08-0400 Respiratory rate 16 /min Dr. Willow Eason Work Phone: [facility] Work Phone: 07-25-2021 10:08-0400 SaO2% (BldA) [Mass fraction] 99 % Dr. Willow Eason Work Phone: [facility] Work Phone: 07-25-2021 10:08-0400 Systolic blood pressure 190 mm[Hg] Dr. Willow Eason Work Phone: [facility] Work Phone: 07-25-2021 10:08-0400 Body height 162.[address] Willow Eason Work Phone: [facility] Work Phone: 07-25-2021 10:08-0400 Body mass index (BMI) [Ratio] 27.9 kg/m2 Dr. Willow Eason Work Phone: [facility] Work Phone: 07-25-2021 10:08-0400 Body temperature 97.7 [degF] Dr. Willow Eason Work Phone: [facility] Work Phone: 07-25-2021 10:08-0400 Body weight 73.[address] Willow Eason Work Phone: [facility] Work Phone: 07-25-2021 10:08-0400 Diastolic blood pressure 100 mm[Hg] Dr. Willow Eason Work Phone: [facility] Work Phone: 07-25-2021 10:08-0400 Heart rate 77 /min Dr. Willow Eason Work Phone: [facility] Work Phone: 07-25-2021 10:08-0400 Respiratory rate 16 /min Dr. Willow Eason Work Phone: [facility] Work Phone: 07-25-2021 10:08-0400 SaO2% (BldA) [Mass fraction] 99 % Dr. Willow Eason Work Phone: [facility] Work Phone: 07-25-2021 10:08-0400 Systolic blood pressure 190 mm[Hg] Dr. Willow Eason Work Phone: [facility] Work Phone: 05-04-2021 12:25-0500 Body mass index (BMI) [Ratio] 27.4 kg/m2 Dr. Willow Eason Work Phone: [facility] Work Phone: 05-04-2021 12:25-0500 Body temperature 97.5 [degF] Dr. Willow Eason Work Phone: [facility] Work Phone: 05-04-2021 12:25-0500 Body weight 72.[address] Willow Eason Work Phone: [facility] Work Phone: 05-04-2021 12:25-0500 Diastolic blood pressure 94 mm[Hg] Dr. Willow Eason Work Phone: [facility] Work Phone: 05-04-2021 12:25-0500 Heart rate 53 /min Dr. Willow Eason Work Phone: [facility] Work Phone: 05-04-2021 12:25-0500 Respiratory rate 16 /min Dr. Willow Eason Work Phone: [facility] Work Phone: 05-04-2021 12:25-0500 SaO2% (BldA) [Mass fraction] 99 % Dr. Willow Eason Work Phone: [facility] Work Phone: 05-04-2021 12:25-0500 Systolic blood pressure 218 mm[Hg] Dr. Willow Eason Work Phone: [facility] Work Phone: Encounters Encounter Date Encounter Type Care Provider Facility Start: 11-04-2024 End: 11-04-2024 Emergency department patient visit Dr. Willow Eason MD Work Phone: -Emergency Department Work Phone: Start: 08-18-2024 End: 08-18-[address] Erick Medina MD -[facility] Work Phone: Start: 08-18-2024 End: 08-18-[address] Willow Eason MD Work Phone: [facility] Work Phone: Start: 06-18-2024 ambulatory Willow Eason Facility: [facility] Start: 06-18-2024 Non-patient / Non-visit Dr. Sharonda P[facility] Start: 06-18-2024 End: 06-18-[address] Willow Eason MD Work Phone: [facility] Work Phone: Start: 06-18-2024 End: 06-18-[address] Anish Capps MD -[facility] Work Phone: Start: 06-18-2024 End: 06-18-2024 ambulatory Anish Capps Facility:[facility] Start: 06-16-2024 End: 06-16-[address] Anish Capps MD -[facility] Work Phone: Start: 06-16-2024 End: 06-16-2024 ambulatory Willow Eason Facility:[facility] Start: 05-27-2024 ambulatory Willow Eason Facility: [facility] Start: 05-27-2024 Non-patient / Non-visit Dr. Jose rene MD -[facility] Start: 05-27-2024 End: 05-27-[address] Willow Eason MD Work Phone: [facility] Work Phone: Start: 05-27-2024 End: 05-27-[address] Anish Capps MD -[facility] Work Phone: Start: 05-27-2024 End: 05-27-2024 ambulatory Willow Eason Facility:[facility] Start: 05-06-2024 End: 05-06-[address] Anish Capps MD -[facility] Work Phone: Start: 05-06-2024 End: 05-06-2024 ambulatory Anish Capps Facility:[facility] Start: 03-14-2024 End: 03-14-[address] Willow Eason MD -Laboratory Work Phone: Start: 03-14-2024 End: 03-14-2024 ambulatory Willow Eason Facility:[facility] Start: 09-11-2022 End: 09-11-[address] Willow Eason Work Phone: [facility] Work Phone: Start: 07-30-2022 End: 07-30-[address] [facility] Start: 07-23-2022 End: 07-23-[address] Willow Eason Work Phone: [facility] Work Phone: Start: 12-16-2021 End: 12-16-[address] Willow Eason Work Phone: [facility] Work Phone: Start: 12-16-2021 End: 12-16-[address] [facility] Start: 12-16-2021 End: 12-16-[address] Willow Eason Work Phone: [facility] Start: 11-11-2021 End: 11-11-[address] Willow Eason Work Phone: [facility] Start: 09-13-2021 End: 09-13-[address] [facility] Start: 07-26-2021 End: 07-26-[address] [facility] Start: 07-25-2021 End: 07-25-[address] Willow Eason Work Phone: [facility] Start: 05-04-2021 End: 05-04-2021 Emergency department patient visit Dr. Willow Eason Work Phone: [facility]-Emergency Department Procedures Date Procedure Procedure Detail Performing [...] Date Care Activity Detail Author Start: 11-04-2024 [facility] Patient Education [facility] Work Phone: Patient referral [facility] Work Phone: Radionuclide imaging of perfusion of myocardium under exercise stress [facility] Immunizations Immunization Date Immunization Notes Care Provider Fa yoni 01-01-2024 influenza, seasonal, injectable, preservative free Dr. Willow Eason MD Work Phone: [facility] 01-02-2023 influenza, injectabl e, quadrivalent, preservative free Dr. Willow Eason MD Work Phone: [facility] 11-11-2021 tetanus toxoid, redu ethel diphtheria toxoid, and acellular pertussis vaccine, adsorbed Dr. Willow Eason Work Phone: [facility] 12-30-2015 influenza, injectabl e, quadrivalent, preservative free Dr. Willow Eason MD Work Phone: [facility] 12-30-2015 influenza, seasonal, injectable Dr. Willow Eason Work Phone: [facility] 12-29-2014 influenza, injectabl e, quadrivalent, preservative free Dr. Willow Eason MD Work Phone: [facility] 12-29-2014 influenza, seasonal, injectable Dr. Willow Eason Work Phone: [facility] 12-16-2013 influenza, injectabl e, quadrivalent, preservative free Dr. Willow Eason MD Work Phone: [facility] 12-16-2013 influenza, seasonal, injectable Dr. Willow Eason Work Phone: [facility] Payers Date Payer Category Payer Self-pay [id number] 2020 Medicare [id number] Private Health Insurance [id number] Unknown [id number] [id number] [id number] Unknown [id number] 2.16.8 [id number] Unknown [id number] 2.16.8 [id number] Unknown [id number] 2.16.8 [id number] Unknown [id number] 2.16.8 [id number] Unknown [id number] 2.16.8 [id number] Unknown [id number] 2.16.8 [id number] Unknown [id number] 2.16.8 [id number] Unknown [id number] 2.16.8 [id number] Social History Date Type Detail Facility Start: 07-25-2021 End: 09-11-2022 Tobacco smoking status VAIS Unknown if ever smoked [facility] Start: 1935 Sex Assigned At Female [facility] Start: 03-14-2023 End: 11-04-2024 Tobacco smoking status NHIS Never smoked tobacco (finding) [facility] Start: 06-07-2024 End: 06-26-2024 Sex Female (finding) [facility] Mental Status Date Assessment Result Facility 11-04-2024 Cognitive function Level Of Cons ciousness Awake;Alert;Appropriate;Follow s Commands [facility] Work Phone: 05-04-2021 Cognitive function Voice/Name [facility] Work Phone: Discharge summary 11-04-2024 Note Date & Type Note Facility 11-04-2024 Discharge summary [facility] Discharge summary 11-04-2024 Note Date & Type Note Facility 11-04-2024 Discharge summary Note Date/Time November 04, 2024 6:55pm [facility] Medical Records Department [address] [place] [address] Emergency Department Summary 11/04/24 MR#: [id number] Acct: [id number] Name: MALINI WALTER Rep #:[id number] : [...] Prior similar symptoms: Yes Recent [facility]ness[facility]: [facility] Medical History Bradycardia Hyperlipidemia Essential (primary) hypertension [...] do you participate in: walking and swimming ruddy/baptism: [employer] seatbelt use: always ROS ROS ED Constitutional [...] Clarity Clear Urine pH 6.0 Ur Specific [place] 1.010 Urine Protein 30 H Urine Glucose [...] Care Provider] - 1-2 Weeks Print Language: Chilean Disposition Disposition: Home, Self Care What to do if you have Problems For any increased pain, shortness of breath, bleeding, nausea or vomiting, chestpain, or any unexpected problems, contact your Primary Care Provider. Call [facility] ([phone]) or report to the closest Emergency Room. Call 911 if necessary. 11/04/24 1855 <Electronically signed by Aaron Baig MD> Cosigner Signature (if applicable): CC: Dr. Will Polk MD ~ Signed [facility] Work Phone: Evaluation note 08-18-2024 Note Date & Type Note Facility 08-18-2024 Evaluation note Diagnosis Onset Date Resolution Polyneuropathy chronic August 18, 2024 8:11am Essential tremor inactive July 8:11am [facility] Work Phone: Evaluation note 05-06-2024 Note Date & Type Note Facility 05-06-2024 Evaluation note Diagnosis Onset Date Resolution Bradycardia acute May 06, 2024 8:49am Carotid bruit acute May 8:49am Chest pain acute May 06, 2024 8:49am Essential (primary) hypertension acute May 06 8:49am [facility] Work Phone: Evaluation note 05-06-2024 Note Date [...] (primary) hypertension acute June 16, 2024 2:40pm [facility] Work Phone: Evaluation note 05-06-2024 Note Date [...] 8:11am Polyneuropathy chronic August 18, 2024 8:11am [facility] Work Phone: Evaluation note Note Date & Type Note Facility Evaluation note Diagnosis Onset Date Polyneuropathy chronic [facility] Work Phone: Evaluation note Note Date & Type Note Facility Evaluation note Diagnosis Onset Date Cystitis acute [facility] Work Phone: Evaluation note Note Date & Type Note Facility Evaluation note Diagnosis Onset Date Essential tremor chronic Fatigue chronic Polyneuropathy chronic Fatigue chronic [facility] Work Phone: Reason for referral (narrative) Note Date & Type Note Facility Reason for referral (narrative) No reason for referral information available [facility] Work Phone: Chief Complaint and Reason for [...] August 18, 2024 8:11a m Family History No Family History Records Found Relationship Condition Age at Onset Recorded Date/T kevin mother Cardiac disease Unknown Diabetes mellitus Unknown father Alzheimer's disease Unknown Advance Directives No Advanced Directives Records Found Advance Directive Response Recorded Date/ Time Living Will No May 04 3:08pm Power of Environmental Studies Department Chair No May 04, 2021 3:08pm Advance Directive Response Recorded Date/ Time Living Will No May 04 3:08pm Do you have a Healthcare Power of Environmental Studies Department Chair? No May 04, 2021 3:08pm Advance Directive Response Recorded Date/ Time Living Will No May 04 3:08pm Do you have a Healthcare Power of Environmental Studies Department Chair? No May 04, 2021 3:08pm Do you have a Healthcare Power of Environmental Studies Department Chair? Yes November 04, 2024 5:20pm Name of Medical Power of Environmental Studies Department Chair ALANNA- SON November 04, 2024 5:20pm Summary Purpose Additional [...] 2024 End: March 14, 2024 Dr. Willow Easno MD Referring Provider Active Start: March 14, [...] 18, 2024 End: June 18, 2024 Dr. Anihs Capps MD Attending Provider Active S tart: [...] ized section and content) DATE CREATED AUTHOR 11/07/2024 [facility] FOR RECORDS PERTAINING TO PATIENTS WHO ARE [...] BE BASED ON THE PRIMARY CLINICAL RECORDS. [employer] provides no warranty or guarantee of the accuracy or completeness of information in this document.
[2024-12-06] MEDS: Rabies Immune Globulin/PF 300 UNIT/ML, 5 ML VIAL 1450 UNIT IM (10:34)
[2024-12-06] MEDS: Lidocaine 2% (20 ml mdv) 20 ML Vial 10 ML INFILT (10:35)
--- NOTE | 2024-12-06 10:40 | EX.ED.GENINJ ---
HPI History of Present Illness Chief Complaint: Bite Informant: patient Narrative Narrative: Patient is a 89-year-old female who takes daily 81 mg aspirin presenting with injury to her left index finger. Patient states that she was carrying a raccoon trap it with a raccoon. She is regularly particularly feisty. It either clawed at her and bit her through the cage. She did let the raccoon go. She continued to have some bleeding and pain of her finger so she came in for further evaluation. She denies any numbness or tingling. Denies other injuries. Never had rabies vaccination before. No other complaints or concerns at this time. Tetanus Immunization: <5 years [facility] Medical History Bradycardia Hyperlipidemia Essential (primary) hypertension Osteoporosis Paresthesia Hearing loss Tachycardia Fatigue Essential tremor Bilateral carpal tunnel syndrome Polyneuropathy Home Medications ?Medication ?Instructions ?Recorded ?Last Taken ?Type Bilateral wrist splints #2 ea 07/25/21 Unknown Rx acetaminophen 500 mg oral powder 500 mg PO Q6H PRN 01/22/22 Unknown History packet (Tylenol Extra Strength) aspirin 81 mg chewable tablet 81 mg PO DAILY 07/23/22 Unknown History cranberry 500 mg capsule 500 mg PO BID 10/24/23 Unknown History loratadine 10 mg tablet 10 mg PO DAILY PRN 10/24/23 Unknown History naproxen 500 mg tablet 500 mg PO BID PRN 10/24/23 Unknown History psyllium husk 0.4 gram capsule 0.8 g PO DAILY 10/24/23 Unknown History (Fiber (psyllium husk)) cholecalciferol (vitamin D3) 25 25 mcg PO QDAY 04/27/24 Unknown History mcg (1,000 unit) capsule lisinopril 20 2 tab PO DAILY 05/06/24 11/04/24 History mg-hydrochlorothiazide 12.5 mg tablet metoprolol succinate 50 mg 50 mg PO QDAY #90 tabs 05/06/24 11/03/24 Rx tablet,extended release 24 hr (Toprol XL) gabapentin 100 mg capsule 100 mg PO BID #180 caps 08/18/24 Unknown Rx Allergy/AdvReac Type Severity Reaction Status Date / Time No Known Allergies Allergy Verified 12/06/24 09:23 Family History Mother Heart disease Diabetes Father Alzheimer disease Surgical History History of hysterectomy History of cataract surgery Social History Smoking Status: Never smoker second hand exposure: No alcohol intake: current details: rarely substance use type: does not use what type of physical activity do you participate in: walking and swimming ruddy/taoist: Uatsdin seatbelt use: always ROS ROS ED Constitutional Constitutional ED: Denies chills or fever(s) Musculoskeletal Musculoskeletal: Reports other Details: Left index finger pain Integumentary Reports other Details: Wound to her left index finger Neurologic Neurologic: Denies paresthesias or weakness Hematologic/Lymphatic Hematologic/Lymphatic: Denies easy bleeding or easy bruising EXAM Physical Exam Const Vital Signs: 12/06/24 09:23 12/06/24 10:51 Temperature 97.9 F 97.9 F Temperature Source Oral Pulse Rate 86 86 Respiratory Rate 16 16 Blood Pressure 178/66 H 164/70 H Blood Pressure Mean 103 101 Pulse Ox 100 100 Oxygen Delivery Method Room Air Positive well nourished and well developed General Appearance ED: well developed and NAD HEENT atraumatic Chest Wall inspection of chest normal Resp normal respiratory effort and clear to auscultation bilaterally Cardio regular rhythm Rate: regular rate Extremity Extremity Narrative: Left index finger?normal range of motion in flexion extension. Soft tissue injury to the distal left index finger. No mallet deformity present. Neuro oriented x3, moves all extremities, no focal motor deficits and no sensory deficits noted Psych mental status grossly normal Skin Skin Narrative: Nail avulsion of the left index finger with associated soft tissue injury. Patient was not aware that she was missing her fingernail. There is some active venous bleeding present. MDM MDM MDM Narrative Medical decision making narrative: Patient is evaluated for left index finger injury after a raccoon bite versus scratch. She has complete avulsion of the nail. Wound care applied. She is treated with rabies immunoglobulin and vaccine. Digital nerve block is performed using 2% lidocaine without epinephrine at the base of the finger for ring block to better tolerate wound care and immunoglobulin. Bleeding controlled with Surgicel and direct pressure. Patient given wound care instructions. Will follow-up with primary care doctor for wound check. Will return for rabies series. Patient neuro vastly intact. No concern for foreign body underlying fracture. I do not think she requires x-ray. Discharge Plan Triage Chief Complaint: Bite ED Provider: Kristi Sherman Dx/Rx/DC Orders Clinical Impression: Avulsion of nail of left index finger, Other contact with raccoon, initial encounter, Need for immunization against rabies Instructions: ED Animal Bite (General), ED Detached Fingernail or Toenail Prescriptions: No Action (DME) Bilateral wrist splints See Rx Instructions .Route .MEDSUPPLY Qty: 2 0RF Rx Instructions: Wear at night. Tylenol Extra Strength 500 mg powder in packet 500 mg PO Q6H PRN aspirin 81 mg tablet,chewable 81 mg PO DAILY cranberry 500 mg capsule 500 mg PO BID Rx Instructions: administer with meals psyllium husk [Fiber (psyllium husk)] 0.4 gram capsule 0.8 g PO DAILY loratadine 10 mg tablet 10 mg PO DAILY PRN naproxen 500 mg tablet 500 mg PO BID PRN gabapentin 100 mg capsule 100 mg PO BID Qty: 180 1RF cholecalciferol (vitamin D3) 25 mcg (1,000 unit) capsule 25 mcg PO QDAY lisinopril-hydrochlorothiazide 20-12.5 mg tablet 2 tab PO DAILY metoprolol succinate [Toprol XL] 50 mg tablet extended release 24 hr 50 mg PO QDAY Qty: 90 2RF Primary Care Provider: Will Polk Referrals: Will Polk MD [Primary Care Provider] - Activity Restrictions/Additional Instructions: Follow-up with wound check with your family doctor. There is a chance your nail might not grow back or grow back abnormally. Return to the ER as instructed for the rest of the rabies series. Alternate ibuprofen and Tylenol for pain. I would stop your aspirin for the next few days to help limit bleeding. Print Language: American Disposition Disposition: Home, Self Care Discharge Date/Time: 12/06/24 11:27
[2024-12-06 10:51] VITALS: BP 164/70; PULSE 86; RESP 16; TEMP 36.6; O2SAT 100
== END 2024-12-06 11:27 | disposition home or self-care (01) ==
PROVIDERS: Emergency Provider Emergency Medicine; PCP Family Medicine; Visit Provider Emergency Medicine
DX: S61.301A Unspecified open wound of left index finger with damage to nail, initial encounter (principal); W55.89XA Other contact with other mammals, initial encounter; Z23 Encounter for immunization; I10 Essential (primary) hypertension; E78.5 Hyperlipidemia, unspecified; Z79.82 Long term (current) use of aspirin; Z79.899 Other long term (current) drug therapy
CPT/HCPCS: 64450; 90675; 96372; 99282; 90375

== ENCOUNTER 2024-12-11 14:24 | Outpatient (CLI) | payer MEDICARE, OTHER, SELFPAY ==
[2024-12-11 17:52] LABS: Hematocrit 34.6 % (37-47); Hemoglobin 12.3 g/dL (12.0-15.0); Immature Granulocytes Count 0.020 X10^3/uL (0.0-0.0); Mean Corp Hgb Conc 35.5 g/dL (32-36); Mean Corpuscular Volume 96.9 fL (81-99); Mean Platelet Vol. 10.8 fl (6.2-12.0); NRBC Flagged by Analyzer 0 % (0-5); Platelet Count 199 K/mm3 (150-450); RBC Distribution Width CV 13.3 % (11.6-14.6); RBC Distribution Width SD 47.5 fl (35.1-43.9); Red Blood Count 3.57 M/mm3 (4.2-5.4); White Blood Count 5.6 K/mm3 (4.4-11.0)
[2024-12-11 18:45] LABS: AST(SGOT) 22 U/L (<=31); Alanine Aminotransfer ALT/SGPT 13 U/L (<=34); Albumin, Serum 4.5 g/dL (3.4-4.8); Alkaline Phosphatase 55 U/L (35-104); Anion Gap 12 (5-15); BUN 27 mg/dL (4-19); BUN/Creat Ratio 27.7 RATIO (10-20); Calcium,Total 9.9 mg/dL (7.6-11.0); Carbon Dioxide 25.5 mmol/L (21.0-32.0); Chloride 100 mmol/L (98-108); Cholesterol 157 mg/dL (<=200); Globulin 2.6 g/dL (2.2-4.2); Glucose 102 mg/dL (70-99); Low Density Lipoprotein Calc. 81 mg/dL; Potassium 4.6 mmol/L (3.3-5.1); Triglycerides 156 mg/dL; Very Low Density Lipoprotein 31 mg/dL (5-40); Vitamin B12 244 pg/mL (180-914); Vitamin D,25 Hydroxy 37.9 ng/mL (30-100); cholesterol:hdl ratio screen 3.53
== END 2024-12-11 23:59 | disposition home or self-care (01) ==
LOC: MFPLAB 14:27
PROVIDERS: PCP Family Medicine; Referring Provider Family Medicine; Visit Provider Family Medicine
DX: Z00.00 Encounter for general adult medical examination without abnormal findings (principal)
CPT/HCPCS: 80053; 80061; 82306; 82607; 84439; 84443; 85025

== ENCOUNTER 2024-12-20 08:46 | Outpatient (CLI) | payer MEDICARE, OTHER, SELFPAY ==
[2024-12-20 08:46] VITALS: BP 156/97; PULSE 87; RESP 16; O2SAT 98
[2024-12-20 08:47] VITALS: BP 156/97; PULSE 87; RESP 16; O2SAT 98; BMI 26.9
--- OUTSIDE RECORDS SUMMARY | 2024-12-20 08:58 | XMS RPT_ITS | CCD ---
Author Organization [facility] [place] Care Team Providers Care Vice President Sales Name Role Phone Dr. Willow Eason Primary [...] Dr. Willow Eason MD Primary Care Provider Yumi PARK Dr. Willow Cunningham Referring Provider Jovanni PARK, Dr. Walker Emergency Provider Jam PARK, Dr. Solis Primary Care Provider Jovanni PARK, Dr. Walker Attending Provider Whit MOSELEY, Dr. Berry Emergency Provider Yumi PARK, Dr. Willow Cunningham Primary Care Physician Carol PARK, Dr. Suarez Attending Physician Jovanni PARK, Dr. Walker Attending Physician Jovanni PARK, Dr. Walker Emergency Department Physician Jam PARK, Dr. Solis Primary Care Physicia n Whit MOSELEY, Dr. Berry Attending Physician Whit MOSELEY, Dr. Berry Emergency Department Physi halie Deion PARK, Dr. Rocco Calzada Attending Physician Deion PARK, Dr. Rocco Calzada Referring Provider Deion PARK, Dr. Rocco Calzada Primary Care Physician Will Polk Primary Care Unavailable Kristi Sherman Attending Unavailable Jolliff, Willow S Primary Care Unavailable Jolliff, Willow S Attending Unavailable Gayelliff, Willow S Referring Unavailable Rocco Albarran Referring Unavailable Will Polk Primary Care Unavailable Rocco Albarran Attending Unavailable Jolliff, Willow S Primary Care Unavailable Jefry, Anish Attending Unavailable Jefry, Anish Referring Unavailable Jolliff, Willow S Referring Unavailable Adryan Sheikhyler Attending Unavailable Rocco Albararn Primary Care Unavailable Jolliff, Willow S Primary Care Unavailable Jefry, Bethel Attending Unavailable Jolliff, Willow S Referring Unavailable Jefry, Anish Attending Unavailable Jolliff, Willow S Primary Care Unavailable Jolliff, Willow S Referring Unavailable Jefry, Bethel Attending Unavailable Jolliff, Willow S Primary Care Unavailable Jolliff, Willow S Primary Care Unavailable Jefry, Anish Referring Unavailable Jose Mello Attending Unavailable Willow Eason Referring Unavailable Willow Eason Primary Care Unavailable Erick Medina Attending Unavailable Anish Capps Attending Unavailable Willow Eason Primary Care Unavailable Anish Capps Referring Unavailable Kristi Sherman Attending Unavailable Rocco Albarran Primary Care Unavailable Aaron Baig Attending Unavailable Will Polk Primary Care Unavailable Will Polk Primary Care Unavailable Kristi Sherman Attending Unavailable Medications Current Medications Medication Drug Class(es) Dates Sig (Normalized) Sig (Original) acetaminophen 500 mg oral powder (1 source) Start: 01-22-2022 take 500 mg by mouth every six hours as needed Acetaminophen (Tylenol Extra Strength) 500 mg powder in packet (7 sources) Start: 01-22-2022 take 500 mg by [...] 2022 12:00am aspirin 81 mg chewable tablet (8 sources) Platelet Aggregation Inhibitor, Nonsteroidal Anti-inflammatory Drug Start: 07-23-2022 take 1 tablet by mouth once daily Bilateral wrist splints (11 sources) Start: 07-25-2021 Bilateral wris t splints Active [...] at night. cholecalciferol 0.025 mg oral capsule (7 sources) Vitamin D Start: 04-27-2024 take 1 capsule by mouth once daily Cranberry (7 sources) Non-Standardized Food Allergenic Extract, Non-Standardized Plant Allergenic Extract Start: 10-24-2023 take 1 capsule by mouth twice daily at mealtime Start: 10-24-2023 take 1 capsule by mo [facility] twice daily at mealtime Cranberry 500 mg capsule Active 500 mg PO TWICE A DAY October 24, 2023 12:00am administer with meals gabapentin 100 mg oral capsule (10 sources) Anti-epileptic Agent Start: 08-18-2024 End: 08-18-2024 take 1 capsule by mouth twice daily hydroCHLOROthiazide 12.5 mg / lisinopril 20 mg oral tablet (18 sources) Thiazide Diuretic, Angiotensin Converting Enzyme Inhibitor Start: 05-04-2021 End: 05-06-2024 Start: 05-04-2021 [facility] Lisinopril-Hydrochlorothiazide Active 1 TABLET PO DAILY May 04, 2021 1:00am loratadine 10 mg oral tablet (7 sources) Start: 10-24-2023 take 1 tablet by mouth once daily as needed 24 hr metoprolol succinate 50 mg extended release oral tablet (7 sources) beta-Adrenergic Wilfred Start: 05-06-2024 take 1 tablet by mouth once daily naproxen 500 mg oral tablet (7 sources) Nonsteroidal Anti-inflammatory Drug Start: 10-24-2023 take 1 tablet by mouth twice daily as needed psyllium 400 mg oral capsule (7 sources) Start: 10-24-2023 Completed/Discontinued Medications Medication Drug Class(es) Dates Sig (Normalized) Sig (Original) amLODIPine 5 mg oral tablet (8 sources) Dihydropyridine Calcium Channel Wilfred Start: 07-23-2022 End: 05-06-2024 take 1 tablet by mouth once daily Amlodipine 5 mg tablet Discontinued 5 mg PO DAILY July 23, 2022 12:00am May 06, 2024 10:01am cephalexin 500 mg oral capsule (9 sources) Cephalosporin Antibacterial Start: 12-16-2021 End: 12-26-2021 [...] in the evening Duloxetine 30 mg capsule,delayed release(/EC) Discontinued 30 mg PO .Every evening 30 December 25, 2021 5:18pm January 22, 2022 2:24pm simvastatin 10 mg oral tablet (11 sources) HMG-CoA Reductase Inhibitor Start: 05-04-2021 End: 11-04-2024 take 1 tablet by mouth once daily Simvastatin 10 mg tablet Discontinued 10 mg PO DAILY May 04, 2021 1:00am November 04, 2024 6:09pm Problems Active Problems Problem Classification Problem Date Documented Da te Episodic/Chronic Cardiac dysrhythmias (1 source) Cardiac arrhythmia, unspecified; Translations: [Cardiac arrhythmia, unspecified] Onset: 12-18-2024 Chronic Disorders of lipid metabolism (8 sources) Hyperlipidemia; Translations: [Hyperlipidemia, unspecified] Onset: 05-06-2024 04-27-2024 Chronic E Codes: Natural/environment (3 sources) Other contact with raccoon, initial encounter; Translations: [Other contact with raccoon, initial encounter] 12-06-2024 Episodic Essential hypertension (20 sources) Hypertensive disorder; Translations: [Essential (primary) hypertension] Onset: 11-09-2024 05-12-2021 Chronic Fluid and electrolyte disorders (8 sources) Increased anion gap; Translations: [Other disorders of electrolyte and fluid balance, not elsewhere classified] 11-04-2024 Episodic Genitourinary symptoms and ill-defined conditions (4 sources) Blood in urine; Translations: [Hematuria, unspecified] 11-04-2024 Episodic Immunizations and screening for infectious disease (4 sources) Requires rabies vaccination course; Translations: [Encounter for immunization] Onset: 12-14-2024 12-06-2024 Episodic Malaise and fatigue (1 source) Chronic fatigue, unspecified; Translations: [Chronic fatigue, unspecified] Onset: 05-06-2024 Chronic Malaise and fatigue (10 sources) Fatigue; Translations: [Other fatigue] 2022 Episodic Open wounds of extremities (12 sources) Laceration of left thumb; Translations: [Laceration without foreign body of left thumb without damage to nail, initial encounter] Onset: 12-11-2024 01-19-2022 Episodic Osteoporosis (7 sources) Osteoporosis; Translations: [Age-related osteoporosis without current pathological fracture] 04-27-2024 Chronic Other circulatory disease (12 sources) Carotid bruit; Translations: [Other specified symptoms and signs involving the circulatory and respiratory systems] 05-06-2024 Episodic Other ear and sense organ disorders (7 sources) Hearing loss; Translations: [Unspecified hearing loss, unspecified ear] 04-27-2024 Chronic Other hereditary and degenerative nervous system conditions (13 sources) Essential tremor; Translations: [Essential tremor] 01-22-2022 Chronic Other hereditary and degenerative nervous system conditions (1 source) Essential tremor; Translations: [Essential and other specified forms of tremor] 07-23-2022 Chronic Other nervous system disorders (11 sources) Acute radial nerve palsy; Translations: [Lesion of radial nerve, left upper limb] 05-12-2021 Chronic Other nervous system disorders (16 sources) Polyneuropathy; Translations: [Polyneuropathy, unspecified] 07-25-2021 Chronic Other nervous system disorders (10 sources) Carpal tunnel syndrome; Translations: [Carpal tunnel syndrome, bilateral upper limbs] 07-25-2021 Chronic Other nervous system disorders (3 sources) Polyneuropathy, unspecified; Translations: [Unspecified hereditary and idiopathic peripheral neuropathy] Chronic Other nervous system disorders (1 source) Bilateral carpal tunnel syndrome; Translations: [Carpal tunnel syndrome, bilateral upper limbs] 04-27-2024 Chronic Other nervous system disorders (1 source) Carpal tunnel syndrome, bilateral upper limbs; Translations: [Carpal tunnel syndrome, bilateral upper limbs] Onset: 05-06-2024 Chronic Other nervous system disorders (7 sources) Paresthesia; Translations: [Paresthesia of skin] 04-27-2024 Episodic Urinary tract infections (3 sources) Cystitis; Translations: [Cystitis, unspecified without hematuria] Episodic Past or Other Problems Problem Classification Problem Date Documented Da te Episodic/Chronic Cardiac dysrhythmias (20 sources) Bradycardia; Translations: [Bradycardia, unspecified] Onset: 05-06-2024 04-27-2024 Episodic Nonspecific chest pain (13 sources) Chest pain; Translations: [Chest pain, unspecified] Onset: 06-26-2024 05-06-2024 Episodic Other circulatory disease (1 source) Other specified symptoms and signs involving the circulatory and respiratory systems; Translations: [Other specified symptoms and signs involving the circulatory and respiratory systems] Onset: 06-07-2024 Episodic Results Test Name Value Interpretation Reference Range Facility Cardiology Visit Reporton Cardiology Visit Report [facility] [address] [place], [place] [address] OFFICE VISIT Date of Service: 12/18/24 MR#: [id number] Acct: [id number] Name: MALINI MCNAIR Rep #: [id number] : 1935 Provider: DYLAN Storm Age/Sex: 89/F Location: [facility] [place] Status: Signed HPI HPI History of Present Illness Details: Malini Mcnair is an 89-year-old female who presents to office today for follow-up for monitoring her cardiovascular health. Patient has a history of hypertension. She was evaluated with concerns of chest tightness and was noted to be very hypertensive and was noted to have some cardiac arrhythmias. She was placed on medication for this and reported doing quite well. 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 Upon presentation today, patient reports doing well. She denies any change in her palpitations since last seen. She was seen in the ER in October for hypertension and reports being under a great amount of stress at that time secondary to son-in-law suddenly passing away. She reports chronic minor LE edema that she reports she hardly notices. Her PCP increased her amlodipine yesterday. Further ROS below. 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: No Accompanied by: Self Is patient in pain?: No Allergies No Known Allergies Allergy (Verified 12/18/24 08:20) Medications ???Medication ???Instructions ???Recorded ???Confirmed ???Type Bilateral wrist splints #2 ea 07/25/21 01/22/23 Rx acetaminophen 500 mg oral powder 500 mg PO Q6H PRN 01/22/22 5 History packet (Tylenol Extra Strength) aspirin 81 mg chewable tablet 81 mg PO DAILY 07/23/22 12/18/24 H istory cranberry 500 mg capsule 500 mg PO BID 10/24/23 12/18/24 Hi story loratadine 10 mg tablet 10 mg PO DAILY PRN 10/24/23 History naproxen 500 mg tablet 500 mg PO BID PRN 10/24/23 5 History cholecalciferol (vitamin D3) 25 25 mcg PO QDAY 04/27/24 12/18/24 H istory mcg (1,000 unit) capsule lisinopril 20 2 tab PO DAILY 05/06/24 12/18/24 H istory mg-hydrochlorothiazi de 12.5 mg tablet metoprolol succinate 50 mg 50 mg PO QDAY #90 tabs 05/06/24 Rx tablet,extended release 24 hr (Toprol XL) amlodipine 5 mg tablet 5 mg PO QDAY 12/18/24 12/18/24 His tory psyllium husk 0.4 gram capsule 0.8 g PO DAILY PRN 12/18/24 History (Fiber (psyllium husk)) simvastatin 10 mg tablet 10 mg PO QDAY 12/18/24 12/18/24 Hi story Ejection fraction %: 55 Have you fallen in the past year?: [...] do you participate in: walking and swimming ruddy/alevism: Muslim seatbelt use: always ROS Const Const: Negative for fatigue or weakness Eyes Eyes: Negative for change in vision ENT ENT: Negative for dizziness or balance problems Cardio Chest Pain: No Palpitations: No Edema: Bilateral (slight) Resp Respiratory: Negative for SOB with activity, SOB at rest or SOB orthopnea SOB lying down GI GI: Negative nausea or heartburn Musc Musc: Negative for balance problems Neuro Neuro: Negative for dizziness, lightheadedness, near syncope, syncope or weakness Endo Endo: Negative for fatigue Cardiology Exam Const Appearance: cooperative, comfortable, no acute distress and well developed; Negative diaphoretic or ill appearing Nutritional Appearance: average body habitus Orientation: alert and oriented x3 Ambulating without assistive device Head Head: normal to inspection, normocephalic and atraumatic Ears: hearing grossly normal bilaterally Nose: exte (more content not included)... Normal [facility] Absolute lymphocyte countOrd ered By: Rocco Albarran on 12-11-2024 Lymphocytes Auto (Unsp spec) [#/Vol] 1.26 10*3/uL 0.83-4.51 [facility] Absolute neutrophil countOrd ered By: Rocco Albarran on 12-11-2024 Neutrophils (Bld) [#/Vol] 3.7 10*3/uL 2.0-7.7 [facility] Anion gap in Serum or Plasma Ordered By: Rocco Albarran on 12-11-2024 Anion gap [Moles/Vol] 12 mmol/L 5-15 [facility] Automated lymphocyte count a s percentage of total leukocytesOrdered By: Rocco Albarran on 12-11-2024 Lymphocytes/100 WBC Auto (Unsp spec) 22.3 % 19-41 [facility] BUN/creatinine ratioOrdered By: Rocco Albarran on 12-11-2024 Urea nitrogen/Creatinine [Mass ratio] 27.7 mg/mg High 10-20 [facility] Basophil percentageOrdered B y: Rocco Albarran on 12-11-2024 Basophils/100 WBC (Bld) 1.2 % High 0-1 [facility] Bilirubin, totalOrdered By: Rocco Albarran on 12-11-2024 Bilirubin [Mass/Vol] 0.30 mg/dL 0.00-1.30 [facility] CBC W/Diff, Automatedon 11-30 Absolute Lymph 1.26 X10 3/uL Normal 0.83-4.51 [facility] Comment on above: Order Comment: Order Date: 12/11/24 Order Info: [id number] - CBCD Performed By: #### L 506.0400, L501.9520, L500.4050, L500.4100, L100.0100 #### [facility] [address] [place], [address] Absolute Neut 3.7 X10 3/uL Normal 2.0-7.7 [facility] Comment on above: Order Comment: Order Date: 12/11/24 Order Info: [id number] - CBCD Performed By: #### L 506.0400, L501.9520, L500.4050, L500.4100, L100.0100 #### [facility] [address] [place], [address] Basophils/100 WBC (Bld) 1.2 % High 0-1 [facility] Comment on above: Order Comment: Order Date: 12/11/24 Order Info: [id number] - CBCD Performed By: #### L 506.0400, L501.9520, L500.4050, L500.4100, L100.0100 #### [facility] [address] [place], [address] Eosinophils/100 WBC (Bld) 3.7 % Normal 0-5 [facility] Comment on above: Order Comment: Order Date: 12/11/24 Order Info: [id number] - CBCD Performed By: #### L 506.0400, L501.9520, L500.4050, L500.4100, L100.0100 #### [facility] [address] [place], [address] Erythrocyte distribution width (RBC) [Ratio] 13.3 % Normal 11.6-14.6 [facility] Comment on above: Order Comment: Order Date: 12/11/24 Order Info: [id number] - CBCD Performed By: #### L 506.0400, L501.9520, L500.4050, L500.4100, L100.0100 #### [facility] [address] [place], [address] Hematocrit (Bld) [Volume fraction] 34.6 % Low 37-47 [facility] Comment on above: Order Comment: Order Date: 12/11/24 Order Info: [id number] - CBCD Performed By: #### L 506.0400, L501.9520, L500.4050, L500.4100, L100.0100 #### [facility] [address] [place], [address] Hemoglobin (Bld) [Mass/Vol] 12.3 g/dL Normal 12.0-15.0 [facility] Comment on above: Order Comment: Order Date: 12/11/24 Order Info: [id number] - CBCD Performed By: #### L 506.0400, L501.9520, L500.4050, L500.4100, L100.0100 #### [facility] [address] [place], [address] IG% 0.400 Normal 0.0-0.9 [facility] Comment on above: Order Comment: Order Date: 12/11/24 Order Info: [id number] - CBCD Result Comment: IG% - Immature Granulocytes (promyelocytes, myelocytes and metamyelocytes) > 1% indicates that a LEFT SHIFT is Present. Performed By: #### L 506.0400, L501.9520, L500.4050, L500.4100, L100.0100 #### [facility] [address] [place], [address] Lymphocytes/100 WBC (Bld) 22.3 % Normal 19-41 [facility] Comment on above: Order Comment: Order Date: 12/11/24 Order Info: 0184- - CBCD Performed By: #### L 506.0400, L501.9520, L500.4050, L500.4100, L100.0100 #### [facility] [address] [place], [address] MCH (RBC) [Entitic mass] 34.5 pg High 27.0-32.0 [facility] Comment on above: Order Comment: Order Date: 12/11/24 Order Info: 0184- - CBCD Performed By: #### L 506.0400, L501.9520, L500.4050, L500.4100, L100.0100 #### [facility] [address] [place], [address] MCHC (RBC) [Mass/Vol] 35.5 g/dL Normal 32-36 [facility] Comment on above: Order Comment: Order Date: 12/11/24 Order Info: 0184- - CBCD Performed By: #### L 506.0400, L501.9520, L500.4050, L500.4100, L100.0100 #### [facility] [address] [place], [address] MCV (RBC) [Entitic vol] 96.9 fL Normal 81-99 [facility] Comment on above: Order Comment: Order Date: 12/11/24 Order Info: 0184- - CBCD Performed By: #### L 506.0400, L501.9520, L500.4050, L500.4100, L100.0100 #### [facility] [address] [place], [address] Monocytes/100 WBC (Bld) 6.9 % Normal 0-10 [facility] Comment on above: Order Comment: Order Date: 12/11/24 Order Info: 0184- - CBCD Performed By: #### L 506.0400, L501.9520, L500.4050, L500.4100, L100.0100 #### [facility] [address] [place], [address] Neutrophils/100 WBC (Bld) 65.5 % Normal 47-70 [facility] Comment on above: Order Comment: Order Date: 12/11/24 Order Info: 0184-1 - CBCD Performed By: #### L 506.0400, L501.9520, L500.4050, L500.4100, L100.0100 #### [facility] [address] [place], [address] Nucleated RBC (Bld) [#/Vol] 0 10*3/uL Normal 0-5 [facility] Comment on above: Order Comment: Order Date: 12/11/24 Order Info: 0184- - CBCD Performed By: #### L 506.0400, L501.9520, L500.4050, L500.4100, L100.0100 #### [facility] [address] [place], [address] Platelet mean volume (Bld) [Entitic vol] 10.8 fL Normal 6.2-12.0 [facility] Comment on above: Order Comment: Order Date: 12/11/24 Order Info: 0184- - CBCD Performed By: #### L 506.0400, L501.9520, L500.4050, L500.4100, L100.0100 #### [facility] [address] [place], [address] Platelets (Bld) [#/Vol] 199 10*3/uL Normal 150-450 [facility] Comment on above: Order Comment: Order Date: 12/11/24 Order Info: [id number] - CBCD Performed By: #### L 506.0400, L501.9520, L500.4050, L500.4100, L100.0100 #### [facility] [address] [place], [address] RBC (Bld) [#/Vol] 3.57 10*6/uL Low 4.2-5.4 [facility] Comment on above: Order Comment: Order Date: 12/11/24 Order Info: [id number] - CBCD Performed By: #### L 506.0400, L501.9520, L500.4050, L500.4100, L100.0100 #### [facility] [address] [place], [address] RDW SD 47.5 fl High 35.1-43.9 [facility] Comment on above: Order Comment: Order Date: 12/11/24 Order Info: [id number] - CBCD Performed By: #### L 506.0400, L501.9520, L500.4050, L500.4100, L100.0100 #### [facility] [address] [place], [address] WBC (Bld) [#/Vol] 5.6 10*3/uL Normal 4.4-11.0 [facility] Comment on above: Order Comment: Order Date: 12/11/24 Order Info: [id number] - CBCD Performed By: #### L 506.0400, L501.9520, L500.4050, L500.4100, L100.0100 #### [facility] [address] [place], [address] Calculated very low density lipoprotein (VLDL) cholesterol measurementOrdered By: Rocco Albarran on 12-11-2024 Calculated very low density lipoprotein (VLDL) cholesterol measurement 31 mg/dL 5-40 [facility] Carbon dioxide, total [Moles /volume] in Central venous bloodOrdered By: Rocco Albarran on 12-11-2024 CO2 [Moles/Vol] 25.5 mmol/L 21.0-32.0 [facility] Chloride assayOrdered By: Gaye Albarran on 12-11-2024 Chloride [Moles/Vol] 100 mmol/L 98-108 [facility] Comprehensive Metabolic Prof ilon 12-11-2024 Albumin [Mass/Vol] 4.5 g/dL Normal 3.4-4.8 [facility] Comment on above: Order Comment: Order Date: 12/11/24 Order Info: [id number] - CMP Order Info: [id number] - LIPID Order Info: 3 - TSH Order Info: [id number] - T4F Performed By: #### L 506.0400, L501.9520, L500.4050, L500.4100, L100.0100 #### [facility] [address] [place], [address] Albumin/Globulin [Mass ratio] 1.7 {ratio} Normal 0.9-2.4 [facility] Comment on above: Order Comment: Order Date: 12/11/24 Order Info: [id number] - CMP Order Info: - LIPID Order Info: 3 - TSH Order Info: [id number] - T4F Performed By: #### L 506.0400, L501.9520, L500.4050, L500.4100, L100.0100 #### [facility] [address] [place], [place], [address] ALK PHOS 55 U/L Normal 35-104 [facility] Comment on above: Order Comment: Order Date: 12/11/24 Order Info: 07-1 - CMP Order Info: [id number] - LIPID Order Info: 3 - TSH Order Info: [id number] - T4F Performed By: #### L 506.0400, L501.9520, L500.4050, L500.4100, L100.0100 #### [facility] [address] [place], [address] ALT [Catalytic activity/Vol] 13 U/L Normal <=34 [facility] Comment on above: Order Comment: Order Date: 12/11/24 Order Info: 07-1 - CMP Order Info: [id number] - LIPID Order Info: [id number] - TSH Order Info: 4-7 - T4F Performed By: #### L 506.0400, L501.9520, L500.4050, L500.4100, L100.0100 #### [facility] [address] [place], [address] AST [Catalytic activity/Vol] 22 U/L Normal <=31 [facility] Comment on above: Order Comment: Order Date: 12/11/24 Order Info: 86-1 - CMP Order Info: [id number] - LIPID Order Info: 3 - TSH Order Info: 7 - T4F Performed By: #### L 506.0400, L501.9520, L500.4050, L500.4100, L100.0100 #### [facility] [address] [place], [address] Bilirubin [Mass/Vol] 0.30 mg/dL Normal 0.00-1.30 [facility] Comment on above: Order Comment: Order Date: 12/11/24 Order Info: [id number]- - CMP Order Info: - LIPID Order Info: [id number] - TSH Order Info: 7 - T4F Performed By: #### L 506.0400, L501.9520, L500.4050, L500.4100, L100.0100 #### [facility] [address] [place], [address] BUN/CRE 27.7 RATIO High 10-20 [facility] Comment on above: Order Comment: Order Date: 12/11/24 Order Info: 07-1 - CMP Order Info: [id number] - LIPID Order Info: 3 - TSH Order Info: 3024-7 - T4F Performed By: #### L 506.0400, L501.9520, L500.4050, L500.4100, L100.0100 #### [facility] [address] [place], [address] Calcium [Mass/Vol] 9.9 mg/dL Normal 7.6-11.0 [facility] Comment on above: Order Comment: Order Date: 12/11/24 Order Info: 785-1 - CMP Order Info: [id number] - LIPID Order Info: 3 - TSH Order Info: 3023-7 - T4F Performed By: #### L 506.0400, L501.9520, L500.4050, L500.4100, L100.0100 #### [facility] [address] [place], [address] Chloride [Moles/Vol] 100 mmol/L Normal 98-108 [facility] Comment on above: Order Comment: Order Date: 12/11/24 Order Info: 785- - CMP Order Info: - LIPID Order Info: 3 - TSH Order Info: 7 - T4F Performed By: #### L 506.0400, L501.9520, L500.4050, L500.4100, L100.0100 #### [facility] [address] [place], [address] CO2 [Moles/Vol] 25.5 mmol/L Normal 21.0-32.0 [facility] Comment on above: Order Comment: Order Date: 12/11/24 Order Info: [id number] - CMP Order Info: - LIPID Order Info: [id number] - TSH Order Info: 4-7 - T4F Performed By: #### L 506.0400, L501.9520, L500.4050, L500.4100, L100.0100 #### [facility] [address] [place], [address] Creatinine [Mass/Vol] 0.98 mg/dL Normal 0.70-1.20 [facility] Comment on above: Order Comment: Order Date: 12/11/24 Order Info: 785- - CMP Order Info: [id number] - LIPID Order Info: 3 - TSH Order Info: 7 - T4F Performed By: #### L 506.0400, L501.9520, L500.4050, L500.4100, L100.0100 #### [facility] [address] [place], [address] GAP 12 Normal 5-15 [facility] Comment on above: Order Comment: Order Date: 12/11/24 Order Info: 785-1 - CMP Order Info: [id number] - LIPID Order Info: 3 - TSH Order Info: 7 - T4F Performed By: #### L 506.0400, L501.9520, L500.4050, L500.4100, L100.0100 #### [facility] [address] [facility] [place], [place], [address] GFR/1.73 sq M.predicted among non-blacks MDRD (S/P/Bld) [Vol rate/Area] 56 mL/min/{1.73_m2} Low >60 [facility] Comment on above: Order Comment: Order Date: 12/11/24 Order Info: [id number] - CMP Order Info: - LIPID Order Info: [id number] - TSH Order Info: 3023-09 - T4F Result Comment: mL/m in/1.73m2 CKD-EPI Creatinine Equation (2020) Performed By: #### L 506.0400, L501.9520, L500.4050, L500.4100, L100.0100 #### [facility] [address] [place], [place], [address] Globulin (S) [Mass/Vol] 2.6 g/dL Normal 2.2-4.2 [facility] Comment on above: Order Comment: Order Date: 12/11/24 Order Info: 07-1 - CMP Order Info: [id number] - LIPID Order Info: 3 - TSH Order Info: 7 - T4F Performed By: #### L 506.0400, L501.9520, L500.4050, L500.4100, L100.0100 #### [facility] [address] [place], [address] Glucose [Mass/Vol] 102 mg/dL High 70-99 [facility] Comment on above: Order Comment: Order Date: 12/11/24 Order Info: [id number] - CMP Order Info: [id number] - LIPID Order Info: [id number] - TSH Order Info: 3024-7 - T4F Performed By: #### L 506.0400, L501.9520, L500.4050, L500.4100, L100.0100 #### [facility] [address] [place], [address] Potassium [Moles/Vol] 4.6 mmol/L Normal 3.3-5.1 [facility] Comment on above: Order Comment: Order Date: 12/11/24 Order Info: 785- - CMP Order Info: [id number] - LIPID Order Info: 3 - TSH Order Info: 3024-7 - T4F Performed By: #### L 506.0400, L501.9520, L500.4050, L500.4100, L100.0100 #### [facility] [address] [place], [address] Sodium [Moles/Vol] 137 mmol/L Normal 133-145 [facility] Comment on above: Order Comment: Order Date: 12/11/24 Order Info: 07-1 - CMP Order Info: [id number] - LIPID Order Info: [id number] - TSH Order Info: 3024-7 - T4F Performed By: #### L 506.0400, L501.9520, L500.4050, L500.4100, L100.0100 #### [facility] [address] [place], [address] T PROT 7.1 g/dL Normal 5.9-8.4 [facility] Comment on above: Order Comment: Order Date: 12/11/24 Order Info: [id number] - CMP Order Info: [id number] - LIPID Order Info: 6-3 - TSH Order Info: 3023-7 - T4F Performed By: #### L 506.0400, L501.9520, L500.4050, L500.4100, L100.0100 #### [facility] [address] [place], [address] Urea nitrogen [Mass/Vol] 27 mg/dL High 4-19 [facility] Comment on above: Order Comment: Order Date: 12/11/24 Order Info: [id number] - CMP Order Info: [id number] - LIPID Order Info: 3 - TSH Order Info: 7 - T4F Performed By: #### L 506.0400, L501.9520, L500.4050, L500.4100, L100.0100 #### [facility] [address] [place], [address] Eosinophil percentageOrdered By: Rocco Albarran on 12-11-2024 Eosinophils/100 WBC (Bld) 3.7 % 0-5 [facility] Erythrocyte distribution wid th ratioOrdered By: Rocco Albarran on 12-11-2024 Erythrocyte distribution width (RBC) [Ratio] 13.3 % 11.6-14.6 [facility] Erythrocyte distribution wid th standard deviationOrdered By: Rocco Albarran on 12-11-2024 Erythrocyte distribution width (RBC) [Ratio] 47.5 fl High 35.1-43.9 [facility] Glomerular filtration rate ( GFR) estimation/1.73 sq m using serum, plasma, or whole bOrdered By: Rocco Albarran on 12-11-2024 GFR/1.73 sq M.predicted among non-blacks MDRD (S/P/Bld) [Vol rate/Area] 56 mL/min/{1.73_m2} Low >60 [facility] Comment on above: mL/min/1.73m2 CKD-EP I Creatinine Equation (2020) Hematocrit Auto (Bld) [Volum e fraction]Ordered By: Rocco Albarran on 12-11-2024 Hematocrit (Bld) [Volume fraction] 34.6 % Low 37-47 [facility] Hemoglobin measurementOrdere d By: Rocco Albarran on 12-11-2024 Hemoglobin (Bld) [Mass/Vol] 12.3 g/dL 12.0-15.0 [facility] Immature granulocytes/100 WB C Auto (Bld)Ordered By: Rocco Albarran on 12-11-2024 Immature granulocytes/100 WBC (Bld) 0.400 % 0.0-0.9 [facility] Comment on above: IG% - Immature Granu locytes (promyelocytes, myelocytes and metamyelocytes) > 1% indicates that a LEFT SHIFT is Present. LDL calc ser/plasOrdered By: Rocco Albarran on 12-11-2024 Cholesterol in LDL [Mass/Vol] 81 mg/dL [facility] Comment on above: Ghkhbwvqih=024-156 m g/dL & Higher Ksma=490 mg/dL or greaterFriedwald Equation for LDL-C Laboratory - Chemistry and C hemistry - challengeOrdered By: Rocco Albarran on 12-11-2024 AST [Catalytic activity/Vol] 22 U/L <32 [facility] Lipid Profileon 12-11-2024 CHOL:HDL 3.53 Normal [facility] Comment on above: Order Comment: Order Date: 12/11/24 Order Info: [id number] - CMP Order Info: [id number] - LIPID Order Info: [id number] - TSH Order Info: 3024-7 - T4F Performed By: #### L 506.0400, L501.9520, L500.4050, L500.4100, L100.0100 #### [facility] [address] [place], [address] Cholesterol [Mass/Vol] 157 mg/dL Normal <=200 [facility] Comment on above: Order Comment: Order Date: 12/11/24 Order Info: [id number] - CMP Order Info: [id number] - LIPID Order Info: [id number] - TSH Order Info: 3024-7 - T4F Result Comment: Chol esterol level, Desirable <200 mg/dL Borderline high cholesterol 200-239 mg/dL High cholesterol >=240 mg/dL Recommendations of the NCEP Adult Treatment Panel for the following risk-cutoff thresholds for the [place] population. Performed By: #### L 506.0400, L501.9520, L500.4050, L500.4100, L100.0100 #### [facility] [address] [place], [address] Cholesterol in HDL [Mass/Vol] 45 mg/dL Normal [facility] Comment on above: Order Comment: Order Date: 12/11/24 Order Info: 0786-1 - CMP Order Info: [id number] - LIPID Order Info: 3 - TSH Order Info: 3023-09 T4F Result Comment: Andie onal Cholesterol Education Program (NCEP) guidelines: <40 mg/dL: Low HDL-cholesterol (major risk factor for CHD) >= 60 mg/dL: High HDL-cholesterol (negative risk factor for CHD) HDL-cholesterol is affected by a number of factors, e.g. smoking, exercise, hormones, sex and age. Performed By: #### L 506.0400, L501.9520, L500.4050, L500.4100, L100.0100 #### [facility] [address] [place], [address] Cholesterol in LDL [Mass/Vol] 81 mg/dL Normal [facility] Comment on above: Order Comment: Order Date: 12/11/24 Order Info: 0786- - CMP Order Info: [id number] - LIPID Order Info: [id number] - TSH Order Info: 3023-09 T4F Result Comment: Bord zqsitl=700-403 mg/dL Higher Pcov=058 mg/dL or greater Friedwald Equation for LDL-C Performed By: #### L 506.0400, L501.9520, L500.4050, L500.4100, L100.0100 #### [facility] [address] [place], [address] Cholesterol in VLDL [Mass/Vol] 31 mg/dL Normal 5-40 [facility] Comment on above: Order Comment: Order Date: 12/11/24 Order Info: [id number] - CMP Order Info: [id number] - LIPID Order Info: 3 - TSH Order Info: 3023-09 - T4F Performed By: #### L 506.0400, L501.9520, L500.4050, L500.4100, L100.0100 #### [facility] [address] [place], [place], [address] Triglyceride [Mass/Vol] 156 mg/dL Normal [facility] Comment on above: Order Comment: Order Date: 12/11/24 Order Info: [id number] - CMP Order Info: [id number] - LIPID Order Info: [id number] - TSH Order Info: 3023-09 - T4F Result Comment: The drugs N-Acetylcysteine and Metamizole may falsely depress this assay. Normal range: <150 mg/dL Borderline High: 150-199 mg/dL High: 200-499 mg/dL Very High: >500 mg/dL Performed By: #### L 506.0400, L501.9520, L500.4050, L500.4100, L100.0100 #### [facility] [address] [place], [place], [address] MCV (mean corpuscular volume ) determinationOrdered By: Rocco Albarran on 12-11-2024 MCV (RBC) [Entitic vol] 96.9 fL 81-99 [facility] Mean corpuscular hemoglobin (MCH) determinationOrdered By: Rocco Albarran on 12-11-2024 MCH (RBC) [Entitic mass] 34.5 pg High 27.0-32.0 [facility] Mean corpuscular hemoglobin concentration (MCHC) determinationOrdered By: Rocco Albarran on 12-11-2024 MCHC (RBC) [Mass/Vol] 35.5 g/dL 32-36 [facility] Mean platelet volume determi nationOrdered By: Rocco Albarran on 12-11-2024 Platelet mean volume (Bld) [Entitic vol] 10.8 fL 6.2-12.0 [facility] Monocyte percentageOrdered B y: Rocco Albarran on 12-11-2024 Monocytes/100 WBC (Bld) 6.9 % 0-10 [facility] Neutrophil percentageOrdered By: Rocco Albarran on 12-11-2024 Neutrophils/100 WBC (Bld) 65.5 % 47-70 [facility] Nucleated red blood cell per centageOrdered By: Rocco Albarran on 12-11-2024 Nucleated RBC/100 WBC (Bld) [Ratio] 0 % 0-5 [facility] Platelet countOrdered By: Gaye Albarran on 12-11-2024 Platelets (Bld) [#/Vol] 199 10*3/uL 150-450 [facility] Potassium measurement (mass/ volume)Ordered By: Rocco Albarran on 12-11-2024 Potassium (Unsp spec) [Mass/Vol] 4.6 mmol/L 3.3-5.1 [facility] RBC Auto (Bld) [#/Vol]Ordere d By: Rocco Albarran on 12-11-2024 RBC (Bld) [#/Vol] 3.57 10*6/uL Low 4.2-5.4 [facility] Screening total cholesterol/ high density lipoprotein (HDL) cholesterol ratioOrdered By: Rocco Albarran on 12-11-2024 Cholesterol.total/Choles terol in HDL [Mass ratio] 3.53 {ratio} [facility] Serum creatinine measurement (mass/volume)Ordered By: Rocco Albarran on 12-11-2024 Creatinine [Mass/Vol] 0.98 mg/dL 0.70-1.20 [facility] Serum globulin measurementOr dered By: Rocco Albarran on 12-11-2024 Globulin (S) [Mass/Vol] 2.6 g/dL 2.2-4.2 [facility] Serum glucose measurement (m ass/volume)Ordered By: Rocco Albarran on 12-11-2024 Glucose [Mass/Vol] 102 mg/dL High 70-99 [facility] Serum or plasma alanine man otransferase (ALT) measurementOrdered By: Rocco Albarran on 12-11-2024 ALT [Catalytic activity/Vol] 13 U/L <35 [facility] Serum or plasma albumin jaron urement (mass/volume)Ordered By: Rocco Albarran on 12-11-2024 Albumin [Mass/Vol] 4.5 g/dL 3.4-4.8 [facility] Serum or plasma albumin/glob ulin mass ratioOrdered By: Rocco Albarran on 12-11-2024 Albumin/Globulin [Mass ratio] 1.7 {ratio} 0.9-2.4 [facility] Serum or plasma alkaline sissy sphatase measurementOrdered By: Rocco Albarran on 12-11-2024 ALP [Catalytic activity/Vol] 55 U/L 35-104 [facility] Serum or plasma calcium jaron urement (mass/volume)Ordered By: Rocco Albarran on 12-11-2024 Calcium [Mass/Vol] 9.9 mg/dL 7.6-11.0 [facility] Serum or plasma cholesterol in HDL measurement (mass/volume)Ordered By: Rocco Albarran on 12-11-2024 Cholesterol in HDL [Mass/Vol] 45 mg/dL >40 [facility] Comment on above: National Cholesterol Education Program (NCEP) guidelines:<40 mg/dL: Low HDL-cholesterol (major risk factor for CHD)>= 60 mg/dL: High HDL-cholesterol (negative risk factor for CHD)HDL-cholesterol is affected by a number of factors, e.g. smoking, exercise, hormones, sex and age. Serum or plasma cholesterol measurement (mass/volume)Ordered By: Rocco Albarran on 12-11-2024 Cholesterol [Mass/Vol] 157 mg/dL <201 [facility] Comment on above: Cholesterol level, D esirable <200 mg/dLBorderline high cholesterol 200-239 mg/dLHigh cholesterol >=240 mg/dLRecommendations of the NCEP Adult Treatment Panel for the following risk-cutoff thresholds for the [place] population. Serum or plasma urea nitroge n measurement (mass/volume)Ordered By: Rocco Albarran on 12-11-2024 Urea nitrogen [Mass/Vol] 27 mg/dL High 4-19 [facility] Sodium levelOrdered By: Rocco Albarran on 12-11-2024 Sodium [Moles/Vol] 137 mmol/L 133-145 [facility] T4 Free Directon 12-11-2024 T4 FREE DIRECT 1.30 ng/dL Normal 0.76-1.46 [facility] Comment on above: Order Comment: Order Date: 12/11/24 Order Info: [id number] - CMP Order Info: [id number] - LIPID Order Info: 63 - TSH Order Info: 7 - T4F Performed By: #### L 506.0400, L501.9520, L500.4050, L500.4100, L100.0100 #### [facility] [address] [place], [place], [id number] T4 freeOrdered By: Rocco laird on 12-11-2024 Free T4 [Mass/Vol] 1.30 ng/dL 0.76-1.46 [facility] TSH DL <= 0.005 mIU/L QnOrde red By: Rocco Albarran on 12-11-2024 TSH Qn 0.942 uIU/mL 0.300-4.200 [facility] Thyroid Stim Hormone (TSH)on 12-11-2024 TSH 0.942 uIU/mL Normal 0.300-4.200 [facility] Comment on above: Order Comment: Order Date: 12/11/24 Order Info: [id number] - CMP Order Info: [id number] - LIPID Order Info: 3 - TSH Order Info: 7 - T4F Performed By: #### L 506.0400, L501.9520, L500.4050, L500.4100, L100.0100 #### [facility] [address] [place], [place], [address] Total proteinOrdered By: Anil Albarran on 12-11-2024 Protein [Mass/Vol] 7.1 g/dL 5.9-8.4 [facility] Triglycerides measurementOrd ered By: Rocco Albarran on 12-11-2024 Triglyceride [Mass/Vol] 156 mg/dL <199 [facility] Comment on above: The drugs N-Acetylcy steine and Metamizole may falsely depress this assay. Normal range: <150 mg/dLBorderline High: 150-199 mg/dLHigh: 200-499 mg/dLVery High: >500 mg/dL Vitamin B12on 12-11-2024 Cobalamin (Vitamin B12) [Mass/Vol] 244 pg/mL Normal 180-914 [facility] Comment on above: Order Comment: Order Date: 12/11/24 Order Info: [id number] - CMP Order Info: [id number] - LIPID Order Info: [id number] - TSH Order Info: 302-7 - T4F Performed By: #### L 503.0106, L506.1001 #### [facility] [address] [place], [address] Vitamin B12 ser/plasOrdered By: Rocco Albarran on 12-11-2024 Cobalamin (Vitamin B12) [Mass/Vol] 244 pg/mL 180-914 [facility] Vitamin D,25 Hydroxyon 12-11 Vitamin D 25-OH 37.9 ng/mL Normal 30-100 [facility] Comment on above: Order Comment: Order Date: 12/11/24 Order Info: [id number] - CMP Order Info: [id number] - LIPID Order Info: [id number] - TSH Order Info: 3024-7 - T4F Result Comment: Cari min D Status Deficiency: <20 ng/mL (50nmol/L) Insufficiency: 20-30 ng/mL (50-75 nmol/L) Sufficiency: 30-100 ng/mL (75-250 nmol/L) Toxicity: >100 ng/mL (>250 nmol/L) Performed By: #### L 503.0106, L506.1001 #### [facility] [address] [place], [place], [address] White blood cell (WBC) count Ordered By: Rocco Albarran on 12-11-2024 WBC (Bld) [#/Vol] 5.6 10*3/uL 4.4-11.0 [facility] Emergency Department Summary on 12-06-2024 Emergency Department Summary [facility] Medical Records Department [address] [place] [address] Emergency Department Summary 12/06/24 MR#: [id number] Acct: [id number] Name: MALINI MCNAIR Rep #: [id number] : [id number] From: Kristi Sherman DO PCP: Dr. Will Polk MD Status:DEP ER Location: ED HPI History of Present Illness Chief Complaint: Bite Informant: patient Narrative Narrative: Patient is a 89-year-old female who takes daily 81 mg aspirin presenting with injury to her left index finger. Patient states that she was carrying a raccoon trap it with a raccoon. She is regularly particularly feisty. It either clawed at her and bit her through the cage. She did let the raccoon go. She continued to have some bleeding and pain of her finger so she came in for further evaluation. She denies any numbness or tingling. Denies other injuries. Never had rabies vaccination before. No other complaints or concerns at this time. Tetanus Immunization: <5 years [facility] Medical History Bradycardia Hyperlipidemia Essential (primary) [...] / Time No Known Allergies Allergy Verified 12/06/24 09:23 Family History Mother Heart disease Diabetes Father Alzheimer disease Surgical History History of hysterectomy History of cataract surgery Social History Smoking Status: Never smoker second hand exposure: No alcohol intake: current details: rarely substance use type: does not use what type of physical activity do you participate in: walking and swimming ruddy/alevism: Muslim seatbelt use: always ROS ROS ED Constitutional Constitutional ED: Denies chills or fever(s) Musculoskeletal Musculoskeletal: Reports other Details: Left index finger pain Integumentary Reports other Details: Wound to her left index finger Neurologic Neurologic: Denies paresthesias or weakness Hematologic/Lymphati c Hematologic/Lymphati c: Denies easy bleeding or easy bruising EXAM Physical Exam Const Vital Signs: 12/06/24 09:23 12/06/24 10:51 Temperature 97.9 F 97.9 F Temperature Source Oral Pulse Rate 86 86 Respiratory Rate 16 16 Blood Pressure 178/66 H 164/70 H Blood Pressure Mean 103 101 Pulse Ox 100 100 Oxygen Delivery Method Room Air Positive well nourished and well developed General Appearance ED: well developed and NAD HEENT atraumatic Chest Wall inspection of chest normal Resp normal respiratory effort and clear to auscultation bilaterally Cardio regular rhythm Rate: regular rate Extremity Extremity Narrative: Left index finger???normal range of motion in flexion extension. Soft tissue injury to the distal left index finger. No mallet deformity present. Neuro oriented x3, moves all extremities, no focal motor deficits and no sensory deficits noted Psych mental status grossly normal Skin Skin Narrative: Nail avulsion of the left index finger with associated soft tissue injury. Patient was not aware that she was missing her fingernail. There is some active venous bleeding present. MDM MDM MDM Narrative Medical decision making narrative: Patient is evaluated for left index finger injury after a raccoon bite versus scratch. She has complete avulsion of the nail. Wound care applied. She is treated with rabies immunoglobulin and vaccine. Digital nerve block is performed (more content not included)... Normal [facility] Anion gap in Serum or Plasma Ordered By: Aaron Baig on 11-04-2024 Anion gap [Moles/Vol] 16 mmol/L High 5-15 [facility] BUN/creatinine ratioOrdered By: Aaron Baig on 11-04-2024 Urea nitrogen/Creatinine [Mass ratio] 19.8 mg/mg 10-20 [facility] Basic Metabolic Profile (BMP )on 11-04-2024 BUN/CRE 19.8 RATIO Normal - [facility] Comment on above: Performed By: #### L 500.2500 #### [facility] [address] [place], [address] Calcium [Mass/Vol] 9.2 mg/dL Normal 7.6-11.0 [facility] Comment on above: Performed By: #### L 500.2500 #### [facility] [address] [place], [address] Chloride [Moles/Vol] 95 mmol/L Low 98-108 [facility] Comment on above: Performed By: #### L 500.2500 #### [facility] [address] [place], [address] CO2 [Moles/Vol] 20.9 mmol/L Low 21.0-32.0 [facility] Comment on above: Performed By: #### L 500.2500 #### [facility] [address] [place], [address] Creatinine [Mass/Vol] 1.11 mg/dL Normal 0.70-1.20 [facility] Comment on above: Performed By: #### L 500.2500 #### [facility] [address] [place], [address] ECRCL 34.52 ml/min Low 50-250 [facility] Comment on above: Performed By: #### L 500.2500 #### [facility] [address] [place], [address] GAP 16 High 5-15 [facility] Comment on above: Performed By: #### L 500.2500 #### [facility] [address] [place], [address] GFR/1.73 sq M.predicted among non-blacks MDRD (S/P/Bld) [Vol rate/Area] 48 mL/min/{1.73_m2} Low >60 [facility] Comment on above: Result Comment: mL/m in/1.73m2 CKD-EPI Creatinine Equation (2020) Performed By: #### L 500.2500 #### [facility] [address] [place], [address] Glucose [Mass/Vol] 96 mg/dL Normal 70-99 [facility] Comment on above: Performed By: #### L 500.2500 #### [facility] [address] [place], [address] Potassium [Moles/Vol] 3.7 mmol/L Normal 3.3-5.1 [facility] Comment on above: Result Comment: Hemo lysis present, Results??could be affected. ?? Performed By: #### L 500.2500 #### [facility] [address] [place], [address] Sodium [Moles/Vol] 131 mmol/L Low 133-145 [facility] Comment on above: Performed By: #### L 500.2500 #### [facility] [address] [place], [address] Urea nitrogen [Mass/Vol] 22 mg/dL High 4-19 [facility] Comment on above: Performed By: #### L 500.2500 #### [facility] [address] [place], [address] Bilirubin Test strip Ql (U)O rdered By: Aaron Baig on 11-04-2024 Bilirubin Ql (U) Negative Negative [facility] Carbon dioxide, total [Moles /volume] in Central venous bloodOrdered By: Aaron Baig on 11-04-2024 CO2 [Moles/Vol] 20.9 mmol/L Low 21.0-32.0 [facility] Chloride assayOrdered By: Ug kevin Baig on 11-04-2024 Chloride [Moles/Vol] 95 mmol/L Low 98-108 [facility] Emergency Department Summary on 11-04-2024 Emergency Department Summary [facility] Medical Records Department [address] [place] [address] Emergency Department Summary 11/04/24 MR#: [id number] Acct: [id number] Name: MALINI MCNAIR Rep #: [id number] : 1935 89 From: Aaron Baig MD [...] symptoms: Yes Recent Illness/Hospitalizat ion: No PFSH PFSH Medical History Bradycardia Hyperlipidemia [...] do you participate in: walking and swimming ruddy/alevism: Muslim seatbelt use: always ROS ROS ED Constitutional [...] 21 H (more content not included)... Normal [facility] Glomerular filtration rate ( GFR) estimation/1.73 sq m using serum, plasma, or whole bOrdered By: Aaron Baig on 11-04-2024 GFR/1.73 sq M.predicted among non-blacks MDRD (S/P/Bld) [Vol rate/Area] 48 mL/min/{1.73_m2} Low >60 [facility] Comment on above: mL/min/1.73m2 CKD-EP I Creatinine Equation (2020) Ketones Test strip Ql (U)Ord ered By: Aaron Baig on 11-04-2024 Ketones Ql (U) Negative Negative [facility] Microscopic analysis of urin e for red blood cells (RBC)Ordered By: Aaron Baig on 11-04-2024 Microscopic analysis of urine for red blood cells (RBC) 0-5 SEEN /hpf 0-5 [facility] Mucus LM Ql (Urine sed)Order ed By: Aaron Baig on 11-04-2024 Mucus Ql (Urine sed) 0 SEEN /hpf [facility] Nitrite Test strip Ql (U)Ord ered By: Aaron Baig on 11-04-2024 Nitrite Ql (U) Negative Negative [facility] Potassium measurement (mass/ volume)Ordered By: Aaron Baig on 11-04-2024 Potassium (Unsp spec) [Mass/Vol] 3.7 mmol/L 3.3-5.1 [facility] Comment on above: Hemolysis present, R esults could be affected. Protein Test strip Ql (U)Ord ered By: Aaron Baig on 11-04-2024 Protein Ql (U) 30 mg/dl High Negative [facility] Serum creatinine measurement (mass/volume)Ordered By: Aaron Baig on 11-04-2024 Creatinine [Mass/Vol] 1.11 mg/dL 0.70-1.20 [facility] Serum glucose measurement (m ass/volume)Ordered By: Aaron Baig on 11-04-2024 Glucose [Mass/Vol] 96 mg/dL 70-99 [facility] Serum or plasma calcium jaron urement (mass/volume)Ordered By: Aaron Baig on 11-04-2024 Calcium [Mass/Vol] 9.2 mg/dL 7.6-11.0 [facility] Serum or plasma urea nitroge n measurement (mass/volume)Ordered By: Aaron Baig on 11-04-2024 Urea nitrogen [Mass/Vol] 22 mg/dL High 4-19 [facility] Sodium levelOrdered By: Aaron Baig on 11-04-2024 Sodium [Moles/Vol] 131 mmol/L Low 133-145 [facility] Squamous epithelial cells de tection in urine sediment by light microscopyOrdered By: Aaron Baig on 11-04-2024 Epithelial cells.squamous LM Ql (Urine sed) 0-5 SEEN /hpf 5-10 [facility] Urinalysis, Completeon 11-04 BACTERIA 1+ /hpf Normal None Seen [facility] Comment on above: Order Comment: CLEAN CATCH Performed By: #### L 400.0001 #### [facility] Laboratory [address] [place], [address] EPI,SQUAMOUS 0-5 SEEN Normal -10 [facility] Comment on above: Order Comment: CLEAN CATCH Performed By: #### L 400.0001 #### [facility] Laboratory [address] [place], [address] RBC 0-5 SEEN Normal 0-5 [facility] Comment on above: Order Comment: CLEAN CATCH Performed By: #### L 400.0001 #### [facility] Laboratory [address] [place], [address] WBC 0-5 SEEN Normal 0-5 [facility] Comment on above: Order Comment: CLEAN CATCH Performed By: #### L 400.0001 #### [facility] Laboratory [address] [place], [address] Mucus Ql (Urine sed) 0 SEEN Normal [facility] Comment on above: Order Comment: CLEAN CATCH Performed By: #### L 400.0001 #### [facility] Laboratory [address] [place], [address] Urine clarityOrdered By: Aaron Baig on 11-04-2024 Clarity (U) Clear Clear [facility] Urine color determinationOrd ered By: Aaron Baig on 11-04-2024 Color (U) Yellow Yellow [facility] Urine glucose detectionOrder ed By: Aaron Baig on 11-04-2024 Glucose Ql (U) Normal mg/dl Normal [facility] Urine leukocyte esterase det ection by dipstickOrdered By: Aaron Baig on 11-04-2024 Leukocyte esterase Test strip Ql (U) 100 /ul High Negative [facility] Urine pHOrdered By: Aaron brown on 11-04-2024 pH (U) 6.0 [pH] 5.0 - 8.0 [facility] Urine sediment bacteria coun t by microscopy (number/high power field)Ordered By: Aaron Baig on 11-04-2024 Bacteria LM.HPF (Urine sed) [#/Area] 1 /[HPF] None Seen [facility] Urine specific gravity measu rementOrdered By: Aaron Baig on 11-04-2024 Specific gravity (U) [Rel density] 1.010 1.002-1.030 [facility] Urine urobilinogen measureme ntOrdered By: Aaron Baig on 11-04-2024 Urobilinogen Ql (U) Normal mg/dl Normal [facility] White blood cell countOrdere d By: Aaron Baig on 11-04-2024 White blood cell count 0-5 SEEN /hpf 0-5 [facility] Neurology Visit Reporton Neurology Visit Report [facility] [address], [address] [place] [address] OFFICE VISIT Date of Service: 08/18/24 MR#: [id number] Acct: [id number] Name: MALINI MCNAIR Rep #: [id number] : 1935 Provider: Dr. Erick chow MD Age/Sex: 88/F [place] [facility] Status: Signed [facility] Chief Complaint: Details: Interim History: Malini returns [...] cardiac monitoring. She was evaluated by a telemetry registered nurse, Dr. Capps, and is on antihypertensive medication. She has a history of chronic anosmia. She has had a mild intermittent tremor affecting the hands that occurs with action such as holding a steering wheel. Her tremor began around 2019 and had previously slightly worsened over time. [...] (05/04/2021): Findings: (more content not included)... Normal [facility] Cardiovascular stress test r eportOrdered By: Anish Capps on 06-18-2024 Study report [facility] [address] [place] [address] MR#: [id number] Acct: [id number] Name: MALINI MCNAIR Rep #: [id number] : 1935 88 [...] Date Dictated: 06/18/24 140 Date Transcribed: 06/18/241405 Hydrant Setter: CO Signed [facility] Work Phone: Echo Completeon 06-18-2024 Echo Complete [facility] Cardi[facility] Services [address] [place] [address] Echo Complete 06/18/24 0839 MR#: [id number] Acct: [id number] Name: MALINI MCNAIR Rep #: [id number] : 1935 88 From: Anish Capps MD Attending Dr: Dr. Anish Capps MD Status: IBIS BALL Ordering Dr: Anish Capps MD Date: 06/18/24 Location: [facility] Sex: F C Admitted: Reason [...] Capps Performed By: Juana Beal RCS 06/18/24 125 Date Anish Capps MD CC: Dr. Willow Eason MD; Dr. Anish Capps MD Date Dictated: 06/18/2439 Date Transcribed: 06/18/24 1251 Hydrant Setter: Signed Normal [facility] Echocardiogram study reportO rdered By: Anish Capps on 06-18-2024 Study report [facility] [address] [place] [address] Echo Complete 06/18/24838 MR#: [id number] Acct: [id number] Name: MALINI MCNAIR Rep #:[id number] : 1935 88 From: Anish Esposito Attending Dr: Dr. Anish Capps MD S tatus: REG CLI Ordering Dr: Anish Capps MD Date: Location: [facility] Sex: F C Admitted: Reason [...] Dictated: 06/18/24 0839 Date Transcribed: 06/18/24 1251 Hydrant Setter: Signed [facility] Work Phone: Stress Reporton 06-18-2024 Stress Report [facility] [address] [place] [address] MR#: [id number] Acct: [id number] Name: CHAYAROBERTMALINI VIDAL Anshu Rep #: [id number] : 1935 88 From: Anish Capps MD [...] MD Date Dictated: 06/18/241405 Date Transcribed: 06/18/241405 Hydrant Setter: CO Signed Normal [facility] Cardiology Visit Reporton Cardiology Visit Report [facility] [address] [place] [address] OFFICE VISIT Date of Service: 06/16/24 MR#: [id number] Acct: [id number] Name: MALINI MCNAIR Rep #: [id number] : 1935 Provider: Dr. Anish Capps MD Age/Sex: 88/F [place] [facility] [place] Status: Signed HPI HPI History [...] Monitor Intake Visit Reasons: 6 W FU Batch Unloader Required: No Accompanied by: Self Is patient [...] do you participate in: walking and swimming ruddy/alevism: Muslim seatbelt use: always ROS Const Const: Negative [...] related structur (more content not included)... Normal [facility] Carotid Duplex Ultrasoundon 05-27-2024 Carotid Duplex Ultrasound [facility] [address] [place] [address] Carotid Duplex Ultrasound 05/27/24 0947 MR#: [id number] Acct: [id number] Name: MALINI MCNAIR Rep #: [id number] : 1935 88 From: Jose Mello MD Attending Dr: Dr. Anish Capps MD Status: IBIS BALL Ordering Dr: Anish Capps MD Date: 05/27/24 Location: [facility] Sex: F C Admitted: Reason [...] the left vertebral artery. Procedure Carotid Duplex 02442. This is a Carotid Duplex examination using [...] MD; Dr. Anish Capps MD Date Dictated: 05/27/24 0947 Date Transcribed: 05/27/241831 Hydrant Setter: Signed [facility] Duplex ultrasound of carotid artery reportOrdered By: Jose Mello on 05-27-2024 Study report [facility] [address] [place] [address] Carotid Duplex Ultrasound 05/27/24 0947 MR#: [id number] Acct: [id number] Name: MALINI MCNAIR Rep #:[id number] : 1935 88 From: [...] the left vertebral artery. Procedure Carotid Duplex 23421. This is a Carotid Duplex examination using B-mode, color flow and specral Doppler. Exam performed in department. VL/Carotid Duplex Ultrasound Interpretation Summary Mild (<50%) stenosis right extracranial internal carotid. Normal left extracranial internal carotid. Patent and antegrade vertebrals bilaterally. Ordering Physician: Anish Capps Referring Physician: Willow Eason M.D. Performed By: Shantel Marshall Rosa 05/27/241831 Date _ Jose Mello MD CC: Dr. Willow Eason MD; Dr. Anish Capps MD ~ Date Dictated: 05/27/2447 Date Transcribed: 05/27/241831 Hydrant Setter: Signed [facility] Work Phone: 12 Lead EKG performed by [facility] on 05-06-2024 12 Lead EKG performed by [facility] [address] [place] [address] 12 Lead EKG performed by [facility] 05/06/24 0851 MR#: [id number] Acct: [id number] Name: MALINI MCNAIR Rep #: [id number] : 1935 88 From: Anish Capps MD Attending Dr: Dr. Anish Capps MD Status: DEP A MB Ordering Dr: Anish Capps MD Date: 05/06/24 Location: [facility] [place] Sex: F C Admitted: BMS/12 Lead EKG performed by [facility] ECG Report Interpretation ------Sinus Rhythm -Frequent pvcs -ventricular bigeminy -Combined atrial enlargement. ABNORMAL RHYTHMElectronically signed on 05/07/2024 at 11:38 by Anish Capps Software Version 8610 05/07/24 1140 Date Anish Capps MD CC: Dr. Willow Eason MD Date Dictated: 05/06/24850 Date Transcribed: 05/06/24850 Hydrant Setter: CO Signed Normal [facility] Cardiology Visit Reporton Cardiology Visit Report [facility] [facility] [address] [place] [address] OFFICE VISIT Date of Service: 05/06/24 MR#: [id number] Acct: [id number] Name: MALINI MCNAIR Rep #: [id number] : 1935 Provider: Dr. Anish Capps MD Age/Sex: 88/F Location: [facility] [place] Status: Signed HPI HPI History of Present [...] room air Intake Visit Reasons: TACHYCARDIA (JOLLIFF) Batch Unloader Required: No Accompanied by: Self Is patient [...] do you participate in: walking and swimming ruddy/alevism: Muslim seatbelt use: always ROS Const Const: Positive for headache(s); Negative for fatigue, weakness, daytime sleepiness or difficulty sleeping ENT ENT: Positive for headache(s); Negative for dizziness or Nosebleed/epistaxis Cardio Chest Pain: Yes Frequency: other (comes and goes) Character: other (tightness) Onset: other Location: mid sternal and left chest Duration: brief Palpitations: Yes feels like its: skipping Edema: Bi (more content not included)... Normal [facility] Albumin to globulin ratioOrd ered By: Willow Eason on 03-14-2024 Albumin/Globulin [Mass ratio] 1.3 {ratio} 0.9-2.4 [facility] Bilirubin, totalOrdered By: Willow Eason on 03-14-2024 Bilirubin [Mass/Vol] 0.80 mg/dL 0.20-1.00 [facility] Comment on above: For patients on eltr ombopag therapy, use of Dimension [place] TBIL is not recommended. Blood urea nitrogen (BUN)/cr eatinine ratioOrdered By: Willow Eason on 03-14-2024 Urea nitrogen/Creatinine [Mass ratio] 26.5 mg/mg High 10-20 [facility] CBC-Complete Blood Cnt No Di ffon 03-14-2024 Erythrocyte distribution width (RBC) [Ratio] 13.2 % Normal 11.6-14.6 [facility] Comment on above: Order Comment: Order Date: 03/13/24Order Info: [id number] - CBC Performed By: #### L 500.2500 #### [facility] Laboratory [address] [place], [address] Hematocrit (Bld) [Volume fraction] 38.9 % Normal 37-47 [facility] Comment on above: Order Comment: Order Date: 03/13/24Order Info: [id number] - CBC Performed By: #### L 500.2500 #### [facility] [address] [place], [address] Hemoglobin (Bld) [Mass/Vol] 13.4 g/dL Normal 12.0-15.0 [facility] Comment on above: Order Comment: Order Date: 03/13/24Order Info: [id number] - CBC Performed By: #### L 500.2500 #### [facility] [address] [place], [address] MCH (RBC) [Entitic mass] 33.6 pg High 27.0-32.0 [facility] Comment on above: Order Comment: Order Date: 03/13/24Order Info: [id number] - CBC Performed By: #### L 500.2500 #### [facility] [address] [place], [address] MCHC (RBC) [Mass/Vol] 34.4 g/dL Normal 32-36 [facility] Comment on above: Order Comment: Order Date: 03/13/24Order Info: [id number] - CBC Performed By: #### L 500.2500 #### [facility] [address] [place], [address] MCV (RBC) [Entitic vol] 97.5 fL Normal 81-99 [facility] Comment on above: Order Comment: Order Date: 03/13/24Order Info: [id number] - CBC Performed By: #### L 500.2500 #### [facility] [address] [place], [address] Platelet mean volume (Bld) [Entitic vol] 10.9 fL Normal 6.2-12.0 [facility] Comment on above: Order Comment: Order Date: 03/13/24Order Info: [id number] - CBC Performed By: #### L 500.2500 #### [facility] [address] [place], [address] Platelets (Bld) [#/Vol] 194 10*3/uL Normal 150-450 [facility] Comment on above: Order Comment: Order Date: 03/13/24Order Info: [id number] - CBC Performed By: #### L 500.2500 #### [facility] [address] [place], [address] RBC (Bld) [#/Vol] 3.99 10*6/uL Low 4.2-5.4 [facility] Comment on above: Order Comment: Order Date: 03/13/24Order Info: [id number] - CBC Performed By: #### L 500.2500 #### [facility] [address] [place], [address] RDW SD 47.5 fl High 35.1-43.9 [facility] Comment on above: Order Comment: Order Date: 03/13/24Order Info: [id number] - CBC Performed By: #### L 500.2500 #### [facility] [address] [place], [address] WBC (Bld) [#/Vol] 6.3 10*3/uL Normal 4.4-11.0 [facility] Comment on above: Order Comment: Order Date: 03/13/24Order Info: [id number] - CBC Performed By: #### L 500.2500 #### [facility] [address] [place], [address] Carbon dioxide measurementOr dered By: Willow Eason on 03-14-2024 CO2 [Moles/Vol] 26.0 mmol/L 21.0-32.0 [facility] Chloride measurementOrdered By: Willow Eason on 03-14-2024 Chloride [Moles/Vol] 107 mmol/L 98-107 [facility] Comprehensive Metabolic Prof ilon 03-14-2024 Albumin [Mass/Vol] 4.2 g/dL Normal 3.2-5.0 [facility] Comment on above: Order Comment: Order Date: 12/11/24 Order Info: [id number] - CBCD Performed By: #### L 506.0400, L501.9520, L500.4050, L500.4100, L100.0100 #### [facility] [address] [place], [address] Albumin/Globulin [Mass ratio] 1.3 {ratio} Normal 0.9-2.4 [facility] Comment on above: Order Comment: Order Date: 12/11/24 Order Info: 0184-1 - CBCD Performed By: #### L 506.0400, L501.9520, L500.4050, L500.4100, L100.0100 #### [facility] [address] [place], [address] ALK P 70 U/L Normal 45-117 [facility] Comment on above: Order Comment: Order Date: 12/11/24 Order Info: 0184-1 - CBCD Performed By: #### L 506.0400, L501.9520, L500.4050, L500.4100, L100.0100 #### [facility] [address] [place], [address] ALT [Catalytic activity/Vol] 13 U/L Normal 13-56 [facility] Comment on above: Order Comment: Order Date: 12/11/24 Order Info: 0184-1 - CBCD Performed By: #### L 506.0400, L501.9520, L500.4050, L500.4100, L100.0100 #### [facility] [address] [place], [address] AST [Catalytic activity/Vol] 15 U/L Normal 15-37 [facility] Comment on above: Order Comment: Order Date: 12/11/24 Order Info: 0184-1 - CBCD Performed By: #### L 506.0400, L501.9520, L500.4050, L500.4100, L100.0100 #### [facility] [address] [place], [address] Bilirubin [Mass/Vol] 0.80 mg/dL Normal 0.20-1.00 [facility] Comment on above: Order Comment: Order Date: 12/11/24 Order Info: 0184-1 - CBCD Result Comment: For patients on eltrombopag therapy, use of Dimension [place] TBIL is not recommended. Performed By: #### L 506.0400, L501.9520, L500.4050, L500.4100, L100.0100 #### [facility] [address] [place], [address] BUN/CRE 26.5 RATIO High 10-20 [facility] Comment on above: Order Comment: Order Date: 12/11/24 Order Info: 0184-1 - CBCD Performed By: #### L 506.0400, L501.9520, L500.4050, L500.4100, L100.0100 #### [facility] [address] [place], [address] CA,Total 9.6 mg/dL Normal 8.5-10.1 [facility] Comment on above: Order Comment: Order Date: 12/11/24 Order Info: 0184-1 - CBCD Performed By: #### L 506.0400, L501.9520, L500.4050, L500.4100, L100.0100 #### [facility] [address] [place], [address] Chloride [Moles/Vol] 107 mmol/L Normal 98-107 [facility] Comment on above: Order Comment: Order Date: 12/11/24 Order Info: 0184-1 - CBCD Performed By: #### L 506.0400, L501.9520, L500.4050, L500.4100, L100.0100 #### [facility] [address] [place], [address] CO2 [Moles/Vol] 26.0 mmol/L Normal 21.0-32.0 [facility] Comment on above: Order Comment: Order Date: 12/11/24 Order Info: 0184-1 - CBCD Performed By: #### L 506.0400, L501.9520, L500.4050, L500.4100, L100.0100 #### [facility] [address] [place], [address] Creatinine [Mass/Vol] 1.02 mg/dL Normal 0.55-1.02 [facility] Comment on above: Order Comment: Order Date: 12/11/24 Order Info: 0184-1 - CBCD Result Comment: The validity of the calculated GFR GFRAA in patients over 70 years has not been determined. Clinical correlation is essential. Performed By: #### L 506.0400, L501.9520, L500.4050, L500.4100, L100.0100 #### [facility] [address] [place], [address] EST GFR - AA 66 mL/min Normal >60 [facility] Comment on above: Order Comment: Order Date: 12/11/24 Order Info: 0184-1 - CBCD Result Comment: Afri can [place] GFR Calc Performed By: #### L 506.0400, L501.9520, L500.4050, L500.4100, L100.0100 #### [facility] [address] [place], [address] GAP 8 Normal 5-15 [facility] Comment on above: Order Comment: Order Date: 12/11/24 Order Info: 0184- - CBCD Performed By: #### L 506.0400, L501.9520, L500.4050, L500.4100, L100.0100 #### [facility] [address] [place], [address] GFR/1.73 sq M.predicted among non-blacks MDRD (S/P/Bld) [Vol rate/Area] 54 mL/min/{1.73_m2} Low >60 [facility] Comment on above: Order Comment: Order Date: 12/11/24 Order Info: 0184- - CBCD Result Comment: Non- GFR Calc Performed By: #### L 506.0400, L501.9520, L500.4050, L500.4100, L100.0100 #### [facility] [address] [place], [address] Globulin (S) [Mass/Vol] 3.2 g/dL Normal 2.2-4.2 [facility] Comment on above: Order Comment: Order Date: 12/11/24 Order Info: 0184- - CBCD Performed By: #### L 506.0400, L501.9520, L500.4050, L500.4100, L100.0100 #### [facility] [address] [place], [address] Glucose [Mass/Vol] 108 mg/dL High 74-106 [facility] Comment on above: Order Comment: Order Date: 12/11/24 Order Info: 0184- - CBCD Result Comment: Fast ing Glucose result from 100 to 125 mg/dL suggests IMPAIRED HOMEOSTASIS per A.D.A. criteria. Performed By: #### L 506.0400, L501.9520, L500.4050, L500.4100, L100.0100 #### [facility] [address] [place], [address] Potassium [Moles/Vol] 4.3 mmol/L Normal 3.5-5.1 [facility] Comment on above: Order Comment: Order Date: 12/11/24 Order Info: 0184-1 - CBCD Performed By: #### L 506.0400, L501.9520, L500.4050, L500.4100, L100.0100 #### [facility] [address] [place], [address] Sodium [Moles/Vol] 140 mmol/L Normal 136-145 [facility] Comment on above: Order Comment: Order Date: 12/11/24 Order Info: 018- - CBCD Performed By: #### L 506.0400, L501.9520, L500.4050, L500.4100, L100.0100 #### [facility] [address] [place], [address] T PROT 7.4 g/dL Normal 6.4-8.2 [facility] Comment on above: Order Comment: Order Date: 12/11/24 Order Info: 0184-1 - CBCD Performed By: #### L 506.0400, L501.9520, L500.4050, L500.4100, L100.0100 #### [facility] [address] [place], [address] Urea nitrogen [Mass/Vol] 27 mg/dL High 7-18 [facility] Comment on above: Order Comment: Order Date: 12/11/24 Order Info: 0184-1 - CBCD Performed By: #### L 506.0400, L501.9520, L500.4050, L500.4100, L100.0100 #### [facility] [place], [address] Erythrocyte distribution wid th ratioOrdered By: Willow Eason on 03-14-2024 Erythrocyte distribution width (RBC) [Ratio] 13.2 % 11.6-14.6 [facility] Erythrocyte distribution wid th standard deviationOrdered By: Willow Eason on 03-14-2024 Erythrocyte distribution width (RBC) [Entitic vol] 47.5 fL High 35.1-43.9 [facility] Estimated glomerular filtrat ion rate (GFR) AmericanOrdered By: Willow Eason on 03-14-2024 Estimated GFR (MDRD) Amer 66 mL/min >60 [facility] Comment on above: GFR Calc Glomerular filtration rate ( GFR) estimationOrdered By: Willow Eason on 03-14-2024 Estimated GFR (MDRD) Non-Af Amer 54 mL/min Low >60 [facility] Comment on above: Non- GFR Calc Glucose measurementOrdered B y: Willow Eason on 03-14-2024 Glucose [Mass/Vol] 108 mg/dL High 74-106 [facility] Comment on above: Fasting Glucose resu lt from 100 to 125 mg/dL suggests IMPAIRED HOMEOSTASIS per A.D.A. criteria. Hematocrit Auto (Bld) [Volum e fraction]Ordered By: Willow Eason on 03-14-2024 Hematocrit (Bld) [Volume fraction] 38.9 % 37-47 [facility] Hemoglobin measurementOrdere d By: Willow Eason on 03-14-2024 Hemoglobin (Bld) [Mass/Vol] 13.4 g/dL 12.0-15.0 [facility] Laboratory - Chemistry and C hemistry - challengeOrdered By: Willow Eason on 03-14-2024 AST [Catalytic activity/Vol] 15 U/L 15-37 [facility] MCV (mean corpuscular volume ) determinationOrdered By: Willow Eason on 03-14-2024 MCV (RBC) [Entitic vol] 97.5 fL 81-99 [facility] Mean corpuscular hemoglobin (MCH) determinationOrdered By: Willow Eason on 03-14-2024 MCH (RBC) [Entitic mass] 33.6 pg High 27.0-32.0 [facility] Mean corpuscular hemoglobin concentration (MCHC) determinationOrdered By: Willow Eason on 03-14-2024 MCHC (RBC) [Mass/Vol] 34.4 g/dL 32-36 [facility] Mean platelet volume determi nationOrdered By: Willow Eason on 03-14-2024 Platelet mean volume (Bld) [Entitic vol] 10.9 fL 6.2-12.0 [facility] Platelet countOrdered By: Mart Eason on 03-14-2024 Platelets (Bld) [#/Vol] 194 10*3/uL 150-450 [facility] Potassium measurementOrdered By: Willow Eason on 03-14-2024 Potassium [Moles/Vol] 4.3 mmol/L 3.5-5.1 [facility] RBC Auto (Bld) [#/Vol]Ordere d By: Willow Eason on 03-14-2024 RBC (Bld) [#/Vol] 3.99 10*6/uL Low 4.2-5.4 [facility] Serum anion gap measurementO rdered By: Willow Eason on 03-14-2024 Anion gap [Moles/Vol] 8 mmol/L 5-15 [facility] Serum globulin measurementOr dered By: Willow Eason on 03-14-2024 Globulin (S) [Mass/Vol] 3.2 g/dL 2.2-4.2 [facility] Serum or plasma alanine man otransferase (ALT) measurementOrdered By: Willow Eason on 03-14-2024 ALT [Catalytic activity/Vol] 13 U/L 13-56 [facility] Serum or plasma albumin jaron urement (mass/volume)Ordered By: Willow Eason on 03-14-2024 Albumin [Mass/Vol] 4.2 g/dL 3.2-5.0 [facility] Serum or plasma alkaline sissy sphatase measurementOrdered By: Willow Eason on 03-14-2024 ALP [Catalytic activity/Vol] 70 U/L 45-117 [facility] Serum or plasma calcium jaron urement (mass/volume)Ordered By: Willow Eason on 03-14-2024 Calcium [Mass/Vol] 9.6 mg/dL 8.5-10.1 [facility] Serum or plasma creatinine m easurement (mass/volume)Ordered By: Willow Eason on 03-14-2024 Creatinine [Mass/Vol] 1.02 mg/dL 0.55-1.02 [facility] Comment on above: The validity of the calculated GFR & GFRAA in patients over 70 years has not been determined. Clinical correlation is essential. Serum or plasma urea nitroge n measurement (mass/volume)Ordered By: Willow Eason on 03-14-2024 Urea nitrogen [Mass/Vol] 27 mg/dL High 7-18 [facility] Sodium levelOrdered By: Willow Eason on 03-14-2024 Sodium [Moles/Vol] 140 mmol/L 136-145 [facility] TSH QnOrdered By: Willow courtney on 03-14-2024 Thyroid Stimulating Hormone (TSH) 1.490 uIU/mL 0.358-3.740 [facility] Thyroid Stim Hormone (TSH)on 03-14-2024 TSH 1.490 uIU/mL Normal 0.358-3.740 [facility] Comment on above: Order Comment: Order Date: 12/11/24 Order Info: [id number] - CBCD Performed By: #### L 506.0400, L501.9520, L500.4050, L500.4100, L100.0100 #### [facility] Laboratory [facility] [place], [place], [id number] Total proteinOrdered By: Willow Eason on 03-14-2024 Protein [Mass/Vol] 7.4 g/dL 6.4-8.2 [facility] White blood cell (WBC) count Ordered By: Willow Eason on 03-14-2024 WBC (Bld) [#/Vol] 6.3 10*3/uL 4.4-11.0 [facility] Basophil percentageOrdered B y: Willow Eason on 07-30-2022 Chloride [Moles/Vol] 106 mmol/L 98-107 [facility] Cholesterol [Mass/Vol] 164 mg/dL <200 [facility] Comment on above: <200 mg/dL Desirable 200-240 mg/dL Borderline >240 mg/dL High Risk Glucose [Mass/Vol] 76 mg/dL 74-106 [facility] Potassium [Moles/Vol] 3.6 mmol/L 3.5-5.1 [facility] Sodium [Moles/Vol] 141 mmol/L 136-145 [facility] Triglyceride [Mass/Vol] 144 mg/dL <199 [facility] Comment on above: The drugs N-Acetylcy steine and Metamizole may falsely depress this assay.Serum Triglycerides Reference Interval Normal <150 mg/dL Borderline high 150 - 199 mg/dL High 200 - 499 mg/dL Very High > or = 500 mg/dL Laboratory - Chemistry and C hemistry - challengeOrdered By: Willow Eason on 07-30-2022 ALT [Catalytic activity/Vol] 19 U/L 13-56 [facility] CO2 [Moles/Vol] 27.0 mmol/L 21.0-32.0 [facility] Urea nitrogen/Creatinine [Mass ratio] 38.3 mg/mg 10-20 [facility] No Panel InformationOrdered By: Willow Eason on 07-30-2022 Estimated GFR (MDRD) Amer 70 mL/min >60 [facility] Comment on above: GFR Calc Estimated GFR (MDRD) Non-Af Amer 58 mL/min >60 [facility] Comment on above: Non- GFR Calc Urine Microalbumin/Creatinine Ratio 28.9 mg/g CRE <30 [facility] Serum or plasma calcium jaron urement (mass/volume)Ordered By: Willow Eason on 07-30-2022 Calcium [Mass/Vol] 9.6 mg/dL 8.5-10.1 [facility] Serum or plasma cholesterol in HDL measurement (mass/volume)Ordered By: Willow Eason on 07-30-2022 Cholesterol in HDL [Mass/Vol] 44 mg/dL >40 [facility] Comment on above: The drugs N-Acetylcy steine and Metamizole may falsely depress this assay. Reference Range HDL <40 mg/dL Low HDL Cholesterol HDL >or= 60 mg/dL High HDL Cholesterol Serum or plasma cholesterol in VLDL measurement (mass/volume)Ordered By: Willow Eason on 07-30-2022 Cholesterol in VLDL [Mass/Vol] 29 mg/dL 5-40 [facility] Serum or plasma creatinine m easurement (mass/volume)Ordered By: Willow Eason on 07-30-2022 Creatinine [Mass/Vol] 0.97 mg/dL 0.55-1.02 [facility] Comment on above: The validity of the calculated GFR & GFRAA in patients over 70 years has not been determined. Clinical correlation is essential. Serum or plasma low density lipoprotein (LDL) cholesterol measurement (mass/volume)Ordered By: Willow Eason on 07-30-2022 Cholesterol in LDL [Mass/Vol] 91 mg/dL 0-130 [facility] Serum or plasma urea nitroge n measurement (mass/volume)Ordered By: Willow Eason on 07-30-2022 Urea nitrogen [Mass/Vol] 37 mg/dL 7-18 [facility] Thin prep Papanicolaou smear with manual screeningOrdered By: Willow Eason on 07-30-2022 Thin prep Papanicolaou smear with manual screening 15 U/L 15-37 [facility] Thin prep Papanicolaou smear with manual screening 8 5-15 [facility] Thin prep Papanicolaou smear with manual screening 27.1 mg/L NO RANGE EST. [facility] Urine creatinine measurement (mass/volume)Ordered By: Willow Eason on 07-30-2022 Creatinine (U) [Mass/Vol] 93.70 mg/dL NO RANGE EST. [facility] Basophil percentageon 2021 Basophil percentage 5-10 SEEN /hpf 0-5 [facility] Work Phone: Bilirubin Test strip Ql (U)o n 12-16-2021 Bilirubin Ql (U) Negative Negative [facility] Work Phone: Ketones Test strip Ql (U)on 12-16-2021 Ketones Ql (U) Negative Negative [facility] Work Phone: Laboratory - Chemistry and C hemistry - challengeon 12-16-2021 Bilirubin Ql (U) Negative [facility] Work Phone: Glucose Ql (U) Negative [facility] Work Phone: Ketones Ql (U) Negative [facility] Work Phone: pH (U) 6.5 [pH] [facility] Work Phone: Specific gravity (U) [Rel density] 1.005 [facility] Work Phone: Urobilinogen (U) [Mass/Vol] Negative [facility] Work Phone: Laboratory - Hematology and Cell countson 12-16-2021 Hemoglobin Ql (U) Hemolyzed [facility] Work Phone: Laboratory - Specimen inform ationon 12-16-2021 Clarity (U) Cloudy [facility] Work Phone: Color (U) YELLOW [facility] Work Phone: Laboratory - Urinalysison Nitrite Ql (U) Positive [facility] Work Phone: Protein Ql (U) Negative [facility] Work Phone: Mucus LM Ql (Urine sed)on Mucus Ql (Urine sed) 0 SEEN /hpf [facility] Work Phone: Nitrite Test strip Ql (U)on 12-16-2021 Nitrite Ql (U) Negative Negative [facility] Work Phone: No Panel Informationon 12-16 Urine Leukocytes Positive [facility] Work Phone: Urine Non-Hemolyzed Blood Large [facility] Work Phone: Protein Test strip Ql (U)on 12-16-2021 Protein Ql (U) 15 mg/dl Negative [facility] Work Phone: Squamous epithelial cells de tection in urine sediment by light microscopyon 12-16-2021 Epithelial cells.squamous LM Ql (Urine sed) 0 SEEN /hpf 5-10 [facility] Work Phone: Urine blood detectionon 11-30 RBC Ql (U) 150 /ul Negative [facility] Work Phone: RBC Ql (U) 0 SEEN /hpf 0-5 [facility] Work Phone: Urine clarityon 12-16-2021 Clarity (U) Clear Clear [facility] Work Phone: Urine color determinationon 12-16-2021 Color (U) Yellow Yellow [facility] Work Phone: Urine glucose detectionon Glucose Ql (U) Normal mg/dl Normal [facility] Work Phone: Urine leukocyte esterase det ection by dipstickon 12-16-2021 Leukocyte esterase Test strip Ql (U) 500 /ul Negative [facility] Work Phone: Urine pHon 12-16-2021 pH (U) 6.5 [pH] 5.0 - 8.0 [facility] Work Phone: Urine sediment bacteria coun t by microscopy (number/high power field)on 12-16-2021 Bacteria LM.HPF (Urine sed) [#/Area] 0 /[HPF] None Seen [facility] Work Phone: Urine specific gravity measu rementon 12-16-2021 Specific gravity (U) [Rel density] 1.005 1.002-1.030 [facility] Work Phone: Urobilinogen Auto test strip Ql (U)on 12-16-2021 Urobilinogen Ql (U) Normal mg/dl Normal [facility] Work Phone: Basophil percentageon 2021 Bilirubin [Mass/Vol] 0.50 mg/dL 0.20-1.00 [facility] Work Phone: Comment on above: For patients on eltr ombopag therapy, use of Dimension [place] TBIL is not recommended. Chloride [Moles/Vol] 101 mmol/L 98-107 [facility] Work Phone: Glucose [Mass/Vol] 89 mg/dL 74-106 [facility] Work Phone: Potassium [Moles/Vol] 3.9 mmol/L 3.5-5.1 [facility] Work Phone: [phone] Protein [Mass/Vol] 7.5 g/dL 6.4-8.2 [facility] Work Phone: [phone] Sodium [Moles/Vol] 136 mmol/L 136-145 [facility] Work Phone: Laboratory - Chemistry and C hemistry - challengeon 07-26-2021 ALP [Catalytic activity/Vol] 61 U/L 45-117 [facility] Work Phone: ALT [Catalytic activity/Vol] 18 U/L 13-56 [facility] Work Phone: CO2 [Moles/Vol] 27.0 mmol/L 21.0-32.0 [facility] Work Phone: Cobalamin (Vitamin B12) [Mass/Vol] 402 pg/mL 211-911 [facility] Work Phone: Globulin (S) [Mass/Vol] 3.4 g/dL 2.2-4.2 [facility] Work Phone: Urea nitrogen/Creatinine [Mass ratio] 21.6 mg/mg 10-20 [facility] Work Phone: No Panel Informationon 07-26 Estimated GFR (MDRD) Amer 103 mL/min >60 [facility] Work Phone: Comment on above: GFR Calc Estimated GFR (MDRD) Non-Af Amer 85 mL/min >60 [facility] Work Phone: Comment on above: Non- GFR Calc Free Lambda Light Chains, Quant 12.3 mg/L 5.7-26.3 [facility] Work Phone: Thyroid Stimulating Hormone (TSH) 1.60 uIU/mL 0.358-3.74 [facility] Work Phone: Whole Blood Vitamin B1 Level 118.0 nmol/L 66.5-200.0 [facility] Work Phone: Comment on above: Performed at: [facility] [place], [place] [id number] Director: Darren Britt PhD, Phone: [phone] at: [facility] Lab[address] [id number] Director: Barrera Castro MD, Phone: [phone] Serum immunoglobulin kappa l ight chains/immunoglobulin lambda light chains mass ratioon 07-26-2021 Immunoglobulin light chains.kappa/Immunoglobu pippa light chains.lambda (S) [Mass ratio] 1.17 0.26-1.65 [facility] Work Phone: Serum or plasma albumin jaron urement (mass/volume)on 07-26-2021 Albumin [Mass/Vol] 4.1 g/dL 3.2-5.0 [facility] Work Phone: Serum or plasma albumin/glob ulin mass ratioon 07-26-2021 Albumin/Globulin [Mass ratio] 1.2 {ratio} 0.9-2.4 [facility] Work Phone: Serum or plasma calcium jaron urement (mass/volume)on 07-26-2021 Calcium [Mass/Vol] 9.3 mg/dL 8.5-10.1 [facility] Work Phone: Serum or plasma creatinine m easurement (mass/volume)on 07-26-2021 Creatinine [Mass/Vol] 0.69 mg/dL 0.55-1.02 [facility] Work Phone: Comment on above: The validity of the calculated GFR & GFRAA in patients over 70 years has not been determined. Clinical correlation is essential. Serum or plasma folate measu rement (mass/volume)on 07-26-2021 Folate [Mass/Vol] 39.70 ng/mL 3.1-55.4 [facility] Work Phone: Serum or plasma immunoglobul in kappa light chains measurement (mass/volume)on 07-26-2021 Immunoglobulin light chains.kappa [Mass/Vol] 14.4 mg/L 3.3-19.4 [facility] Work Phone: Serum or plasma urea nitroge n measurement (mass/volume)on 07-26-2021 Urea nitrogen [Mass/Vol] 15 mg/dL 7-18 [facility] Work Phone: Thin prep Papanicolaou smear with manual screeningon 07-26-2021 Thin prep Papanicolaou smear with manual screening 15 U/L 15-37 [facility] Work Phone: Thin prep Papanicolaou smear with manual screening 8 5-15 [facility] Work Phone: Whole blood hemoglobin A1c/t otal hemoglobin ratio (mass fraction)on 07-26-2021 HbA1c (Bld) [Mass fraction] 5.4 % 3.8-5.6 [facility] Work Phone: Comment on above: Normal < 5.7 % Predi abetic 5.7 - 6.4 % Diabetic >or= 6.5 % Please note range changes. Absolute lymphocyte counton 05-04-2021 Lymphocytes Auto (Unsp spec) [#/Vol] 1.72 10*3/uL 0.83-4.51 [facility] Work Phone: Basophil percentageon 2021 Basophils/100 WBC (Bld) 0.7 % 0-1 [facility] Work Phone: Chloride [Moles/Vol] 101 mmol/L 98-[address] [facility] [facility] Work Phone: Eosinophils/100 WBC (Bld) 3.1 % 0-5 [facility] Work Phone: Glucose [Mass/Vol] 147 mg/dL 74-106 [facility] Work Phone: Comment on above: Fasting Glucose resu lt greater than or equal to 126 mg/dL suggests DIABETES MELLITUS per A.D.A. criteria. Neutrophils (Bld) [#/Vol] 3.5 10*3/uL 2.0-7.7 [facility] Work Phone: Neutrophils/100 WBC (Bld) 59.7 % 47-70 [facility] Work Phone: Potassium [Moles/Vol] 3.7 mmol/L 3.5-5.1 [facility] Work Phone: Sodium [Moles/Vol] 135 mmol/L 136-145 [facility] Work Phone: WBC (Bld) [#/Vol] 5.9 10*3/uL 4.4-11.0 [facility] Work Phone: Blood erythrocytes count (nu mber/volume)on 05-04-2021 RBC (Bld) [#/Vol] 3.92 10*6/uL 4.2-5.4 [facility] Work Phone: Blood hemoglobin measurement (mass/volume)on 05-04-2021 Hemoglobin (Bld) [Mass/Vol] 13.5 g/dL 12.0-15.0 [facility] Work Phone: Blood lymphocytes/100 leukoc yteson 05-04-2021 Lymphocytes/100 WBC (Bld) 29.4 % 19-41 [facility] Work Phone: Blood monocytes/100 leukocyt eson 05-04-2021 Monocytes/100 WBC (Bld) 6.8 % 0-10 [facility] Work Phone: Blood platelet mean volumeon 05-04-2021 Platelet mean volume (Bld) [Entitic vol] 10.2 fL 6.2-12.0 [facility] Work Phone: Determination of erythrocyte mean corpuscular volume (MCV)on 05-04-2021 MCV (RBC) [Entitic vol] 96.4 fL 81-99 [facility] Work Phone: Hematocrit Auto (Bld) [Volum e fraction]on 05-04-2021 Hematocrit (Bld) [Volume fraction] 37.8 % 37-47 [facility] Work Phone: Laboratory - Chemistry and C hemistry - challengeon 05-04-2021 CO2 [Moles/Vol] 27.0 mmol/L 21.0-32.0 [facility] Work Phone: Urea nitrogen/Creatinine [Mass ratio] 22.0 mg/mg 10-20 [facility] Work Phone: Laboratory - Hematology and Cell countson 05-04-2021 Erythrocyte distribution width (RBC) [Entitic vol] 44.1 fL 35.1-43.9 [facility] Work Phone: Erythrocyte distribution width (RBC) [Ratio] 12.5 % 11.6-14.6 [facility] Work Phone: Immature granulocytes/100 WBC (Bld) 0.300 % 0.0-0.9 [facility] Work Phone: Comment on above: IG% - Immature Granu locytes (promyelocytes, myelocytes and metamyelocytes) > 1% indicates that a LEFT SHIFT is Present. MCH (RBC) [Entitic mass] 34.4 pg 27.0-32.0 [facility] Work Phone: Nucleated RBC/100 WBC (Bld) [Ratio] 0 % 0-5 [facility] Work Phone: MCHC Auto (RBC) [Mass/Vol]on 05-04-2021 MCHC (RBC) [Mass/Vol] 35.7 g/dL 32-36 [facility] Work Phone: No Panel Informationon 05-04 Troponin I High Sensitivity 6 pg/mL 3.0-54.0 [facility] Work Phone: Comment on above: Please Note: New Jacque t Units and Gender Specific Reference Ranges. For more information see Policy Stat Procedure [place] High Sensitivity Troponin (TNIH) and attachments. Estimated Creatinine Clearance Calc 39.74 ml/min [facility] Work Phone: Estimated GFR (MDRD) Amer 76 mL/min >60 [facility] Work Phone: Comment on above: GFR Calc Estimated GFR (MDRD) Non-Af Amer 63 mL/min >60 [facility] Work Phone: Comment on above: Non- GFR Calc Platelets bldon 05-04-2021 Platelets (Bld) [#/Vol] 183 10*3/uL 150-450 [facility] Work Phone: Serum or plasma calcium jaron urement (mass/volume)on 05-04-2021 Calcium [Mass/Vol] 9.3 mg/dL 8.5-10.1 [facility] Work Phone: Serum or plasma creatinine m easurement (mass/volume)on 05-04-2021 Creatinine [Mass/Vol] 0.91 mg/dL 0.55-1.02 [facility] Work Phone: Comment on above: The validity of the calculated GFR & GFRAA in patients over 70 years has not been determined. Clinical correlation is essential. Serum or plasma urea nitroge n measurement (mass/volume)on 05-04-2021 Urea nitrogen [Mass/Vol] 20 mg/dL 7-18 [facility] Work Phone: Thin prep Papanicolaou smear with manual screeningon 05-04-2021 Thin prep Papanicolaou smear with manual screening 7 5-15 [facility] Work Phone: Culture, urine Bacteria identified Cx Nom (U) Presumptive E. coli [facility] Work Phone: Vital Signs Date Time Vital Sign Value Performing Clinician Minii abhishek 12-16-2024 08:59-0400 Body temperature 97.9 [degF] Dr. Willow Eason MD Work Phone: [facility] 12-16-2024 08:59-0400 Diastolic blood pressure 85 mm[Hg] Dr. Willow Eason MD Work Phone: [phone])901-428114 [address] 12-16-2024 08:59-0400 Heart rate 77 /min Dr. Willow Eason MD Work Phone: [phone])508-986249 [place] [address] 12-16-2024 08:59-0400 Respiratory rate 16 /min Dr. Willow Eason MD Work Phone: [phone])223-074349 [place] [address] 12-16-2024 08:59-0400 SaO2% (BldA) [Mass fraction] 97 % Dr. Willow Eason MD Work Phone: [phone](613)183-352749 [place] [address] 12-16-2024 08:59-0400 Systolic blood pressure 157 mm[Hg] Dr. Willow Eason MD Work Phone: [phone](194)741-919349 [place] [address] 12-16-2024 08:42-0400 Body mass index (BMI) [Ratio] 27.1 kg/m2 Dr. Willow Eason MD Work Phone: 4(074)299-790849 [place] [address] 12-16-2024 08:42-0400 Body weight 71.[address] Willow Eason MD Work Phone: [phone])203-405149 [place] [address] 12-16-2024 08:40-0400 Body height 162.[address] Willow Easno MD Work Phone: [phone])[phone] [place] [address] 12-09-2024 09:02-0400 Body height 162.[address] Willow Eason MD Work Phone: [phone] [place] [address] 12-09-2024 09:02-0400 Body mass index (BMI) [Ratio] 27.4 kg/m2 Dr. Willow Eason MD Work Phone: 5(284)969-551849 [place] [address] 12-09-2024 09:02-0400 Body temperature 96.3 [degF] Dr. Willow Eason MD Work Phone: [phone])[phone] [place] [address] 12-09-2024 09:02-0400 Body weight 72.[address] Willow Eason MD Work Phone: [phone] [place] [address] 12-09-2024 09:02-0400 Diastolic blood pressure 79 mm[Hg] Dr. Willow Eason MD Work Phone: [facility] 12-09-2024 09:02-0400 Heart rate 67 /min Dr. Willow Eason MD Work Phone: [facility] 12-09-2024 09:02-0400 Respiratory rate 20 /min Dr. Willow Eason MD Work Phone: [facility] 12-09-2024 09:02-0400 SaO2% (BldA) [Mass fraction] 99 % Dr. Willow Eason MD Work Phone: [facility] 12-09-2024 09:02-0400 Systolic blood pressure 165 mm[Hg] Dr. Willow Eason MD Work Phone: [phone])980-201214 [address] 12-06-2024 10:51-0400 Body temperature 97.9 [degF] Dr. Willow Eason MD Work Phone: [phone])[phone] [place] [address] 12-06-2024 10:51-0400 Diastolic blood pressure 70 mm[Hg] Dr. Willow Eason MD Work Phone: [phone])[phone] [place] [address] 12-06-2024 10:51-0400 Heart rate 86 /min Dr. Willow Eason MD Work Phone: [facility] 12-06-2024 10:51-0400 Respiratory rate 16 /min Dr. Willow Eason MD Work Phone: [facility] 12-06-2024 10:51-0400 SaO2% (BldA) [Mass fraction] 100 % Dr. Willow Eason MD Work Phone: [facility] 12-06-2024 10:51-0400 Systolic blood pressure 164 mm[Hg] Dr. Willow Eason MD Work Phone: [facility] 12-06-2024 09:23-0400 Body height 162.[address] Willow Eason MD Work Phone: [facility] 12-06-2024 09:23-0400 Body mass index (BMI) [Ratio] 27.4 kg/m2 Dr. Willow Eason MD Work Phone: [phone] [place] [address] 12-06-2024 09:23-0400 Body weight 72.[address] Willow Eason MD Work Phone: [phone] [place] [address] 11-04-2024 19:01-0400 Body temperature 97.2 [degF] Dr. Willow Eason MD Work Phone: 0(988)095-966149 [place] [address] 11-04-2024 19:01-0400 Diastolic blood pressure 62 mm[Hg] Dr. Willow Easno MD Work Phone: 3(182)427-424149 [place] [address] 11-04-2024 19:01-0400 Heart rate 67 /min Dr. Willow Eason MD Work Phone: 0(851)424-782749 [place] [address] 11-04-2024 19:01-0400 Respiratory rate 15 /min Dr. Willow Eason MD Work Phone: 7(549)469-547049 [place] [address] 11-04-2024 19:01-0400 SaO2% (BldA) [Mass fraction] 100 % Dr. Willow Eason MD Work Phone: 3(804)532-868949 [place] [address] 11-04-2024 19:01-0400 Systolic blood pressure 168 mm[Hg] Dr. Willow Eason MD Work Phone: 2(947)372-879149 [place] [address] 11-04-2024 17:15-0400 Body height 162.[address] Willow Eason MD Work Phone: 1(931)087-174049 [place] [address] 11-04-2024 17:15-0400 Body mass index (BMI) [Ratio] 28 kg/m2 Dr. Willow Eason MD Work Phone: 8(122)019-906249 [place] [address] 11-04-2024 17:15-0400 Body weight [address] Willow Eason MD Work Phone: 2(203)061-769349 [place] [address] 08-18-2024 08:10-0400 Body height 162.[address] Willow Eason MD Work Phone: 8(286)097-517949 [place] [address] 08-18-2024 08:10-0400 Body mass index (BMI) [Ratio] 29.2 kg/m2 Dr. Willow Eason MD Work Phone: [facility] 08-18-2024 08:10-0400 Body temperature 97.5 [degF] Dr. Willow Eason MD Work Phone: [facility] 08-18-2024 08:10-0400 Body weight 77.[address] Willow Eason MD Work Phone: [facility] 08-18-2024 08:10-0400 Diastolic blood pressure 59 mm[Hg] Dr. Willow Eason MD Work Phone: [facility] 08-18-2024 08:10-0400 Heart rate 72 /min Dr. Willow Eason MD Work Phone: [facility] 08-18-2024 08:10-0400 Respiratory rate 16 /min Dr. Willow Eason MD Work Phone: [facility] 08-18-2024 08:10-0400 SaO2% (BldA) [Mass fraction] 98 % Dr. Willow Eason MD Work Phone: [facility] 08-18-2024 08:10-0400 Systolic blood pressure 148 mm[Hg] Dr. Willow Eason MD Work Phone: [facility] 06-16-2024 14:41-0400 Body height 162.[address] Willow Eason MD Work Phone: [facility] 06-16-2024 14:41-0400 Body mass index (BMI) [Ratio] 28.5 kg/m2 Dr. Willow Eason MD Work Phone: [facility] 06-16-2024 14:41-0400 Body weight 75.[address] Willow aEson MD Work Phone: [facility] 06-16-2024 14:41-0400 Diastolic blood pressure 63 mm[Hg] Dr. Willow Eason MD Work Phone: [facility] 06-16-2024 14:41-0400 Heart rate 70 /min Dr. Willow Eason MD Work Phone: [facility] 06-16-2024 14:41-0400 Respiratory rate 16 /min Dr. Willow Eason MD Work Phone: [facility] 06-16-2024 14:41-0400 Systolic blood pressure 111 mm[Hg] Dr. Willow Eason MD Work Phone: 8(827)715-655765 [place] [address] 05-06-2024 08:51-0500 Body height 162.[address] Willow Eason MD Work Phone: 4(994)900-803914 [address] 05-06-2024 08:51-0500 Body mass index (BMI) [Ratio] 29.2 kg/m2 Dr. Willow Eason MD Work Phone: 7(734)419-209514 [address] 05-06-2024 08:51-0500 Body weight 77.[address] Willow Eason MD Work Phone: 9(444)620-246965 [place] [address] 05-06-2024 08:51-0500 Diastolic blood pressure 65 mm[Hg] Dr. Willow Eason MD Work Phone: 4(518)775-254765 [place] [address] 05-06-2024 08:51-0500 Heart rate 44 /min Dr. Willow Eason MD Work Phone: 9(347)982-690265 [place] [address] 05-06-2024 08:51-0500 Respiratory rate 16 /min Dr. Willow Eason MD Work Phone: 2(815)808-489265 [place] [address] 05-06-2024 08:51-0500 Systolic blood pressure 184 mm[Hg] Dr. Willow Eaosn MD Work Phone: 3(089)534-183465 [place] [address] 09-11-2022 09:19-0400 Body height 162.[address] Willow Eason Work Phone: 3(742)027-388414 [address] 09-11-2022 09:19-0400 Body mass index (BMI) [Ratio] 26.9 kg/m2 Dr. Willow Eason Work Phone: 7(392)749-606865 [place] [address] 09-11-2022 09:19-0400 Body temperature 98.2 [degF] Dr. Willow Eason Work Phone: [facility] 09-11-2022 09:19-0400 Body weight 71.[address] Willow Eason Work Phone: [facility] 09-11-2022 09:19-0400 Diastolic blood pressure 60 mm[Hg] Dr. Willow Eason Work Phone: [facility] 09-11-2022 09:19-0400 Heart rate 48 /min Dr. Willow Eason Work Phone: [facility] 09-11-2022 09:19-0400 Respiratory rate 17 /min Dr. Willow Eason Work Phone: [facility] 09-11-2022 09:19-0400 SaO2% (BldA) [Mass fraction] 97 % Dr. Willow Eason Work Phone: [facility] 09-11-2022 09:19-0400 Systolic blood pressure 128 mm[Hg] Dr. Willow Eason Work Phone: [facility] 07-23-2022 13:33-0400 Body mass index (BMI) [Ratio] 26.6 kg/m2 Dr. Willow Eason Work Phone: [facility] 07-23-2022 13:33-0400 Body temperature 98 [degF] Dr. Willow Eason Work Phone: [facility] 07-23-2022 13:33-0400 Body weight 70.[address] Willow Eason Work Phone: [facility] 07-23-2022 13:33-0400 Diastolic blood pressure 64 mm[Hg] Dr. Willow Eason Work Phone: [facility] 07-23-2022 13:33-0400 Heart rate 76 /min Dr. Willow Eason Work Phone: [facility] 07-23-2022 13:33-0400 Respiratory rate 17 /min Dr. Willow Eason Work Phone: [facility] 07-23-2022 13:33-0400 SaO2% (BldA) [Mass fraction] 98 % Dr. Willow Eason Work Phone: [facility] 07-23-2022 13:33-0400 Systolic blood pressure 130 mm[Hg] Dr. Willow Eason Work Phone: [facility] 12-16-2021 09:19-0400 Body temperature 97.8 [degF] Dr. Willow Eason Work Phone: [facility] Work Phone: 12-16-2021 09:19-0400 Diastolic blood pressure 76 mm[Hg] Dr. Willow Eason Work Phone: [facility] Work Phone: 12-16-2021 09:19-0400 Heart rate 52 /min Dr. Willow Eason Work Phone: [facility] Work Phone: 12-16-2021 09:19-0400 Respiratory rate 14 /min Dr. Willow Eason Work Phone: [facility] Work Phone: 12-16-2021 09:19-0400 SaO2% (BldA) [Mass fraction] 99 % Dr. Willow Eason Work Phone: [facility] Work Phone: 12-16-2021 09:19-0400 Systolic blood pressure 142 mm[Hg] Dr. Willow Eason Work Phone: [facility] Work Phone: 11-11-2021 11:49-0400 Body height 162.[address] Willow Eason Work Phone: [facility] Work Phone: 11-11-2021 11:49-0400 Body mass index (BMI) [Ratio] 27.4 kg/m2 Dr. Willow Eason Work Phone: [facility] Work Phone: 11-11-2021 11:49-0400 Body temperature 97.3 [degF] Dr. Willow Eason Work Phone: [facility] Work Phone: 11-11-2021 11:49-0400 Body weight 72.[address] Willow Eason Work Phone: [facility] Work Phone: 11-11-2021 11:49-0400 Diastolic blood pressure 64 mm[Hg] Dr. Willow Eason Work Phone: [facility] Work Phone: 11-11-2021 11:49-0400 Heart rate 63 /min Dr. Willow aEson Work Phone: [facility] Work Phone: 11-11-2021 11:49-0400 Respiratory rate 15 /min Dr. Willow Eason Work Phone: [facility] Work Phone: 11-11-2021 11:49-0400 SaO2% (BldA) [Mass fraction] 99 % Dr. Willow Eason Work Phone: [facility] Work Phone: 11-11-2021 11:49-0400 Systolic blood pressure 160 mm[Hg] Dr. Willow Eason Work Phone: [facility] Work Phone: 07-25-2021 10:08-0400 Body height 162.[address] Willow Eason Work Phone: [facility] Work Phone: 07-25-2021 10:08-0400 Body mass index (BMI) [Ratio] 27.9 kg/m2 Dr. Willow Eason Work Phone: [facility] Work Phone: 07-25-2021 10:08-0400 Body temperature 97.7 [degF] Dr. Willow Eason Work Phone: [facility] Work Phone: 07-25-2021 10:08-0400 Body weight 73.[address] Willow Eason Work Phone: [facility] Work Phone: 07-25-2021 10:08-0400 Diastolic blood pressure 100 mm[Hg] Dr. Willow Eason Work Phone: [facility] Work Phone: 07-25-2021 10:08-0400 Heart rate 77 /min Dr. Willow Eason Work Phone: [facility] Work Phone: 07-25-2021 10:08-0400 Respiratory rate 16 /min Dr. Willow Eason Work Phone: [facility] Work Phone: 07-25-2021 10:08-0400 SaO2% (BldA) [Mass fraction] 99 % Dr. Willow Eason Work Phone: [facility] Work Phone: 07-25-2021 10:08-0400 Systolic blood pressure 190 mm[Hg] Dr. Willow Eason Work Phone: [facility] Work Phone: 07-25-2021 10:08-0400 Body height 162.[address] Willow Eason Work Phone: [facility] Work Phone: 07-25-2021 10:08-0400 Body mass index (BMI) [Ratio] 27.9 kg/m2 Dr. Willow Eason Work Phone: [facility] Work Phone: 07-25-2021 10:08-0400 Body temperature 97.7 [degF] Dr. Willow Eason Work Phone: [facility] Work Phone: 07-25-2021 10:08-0400 Body weight 73.[address] Willow Eason Work Phone: [facility] Work Phone: 07-25-2021 10:08-0400 Diastolic blood pressure 100 mm[Hg] Dr. Willow Eason Work Phone: [facility] Work Phone: 07-25-2021 10:08-0400 Heart rate 77 /min Dr. Willow Eason Work Phone: [facility] Work Phone: 07-25-2021 10:08-0400 Respiratory rate 16 /min Dr. Willow Eason Work Phone: [facility] Work Phone: 07-25-2021 10:08-0400 SaO2% (BldA) [Mass fraction] 99 % Dr. Willow Eason Work Phone: [facility] Work Phone: 07-25-2021 10:08-0400 Systolic blood pressure 190 mm[Hg] Dr. Willow Eason Work Phone: [facility] Work Phone: 05-04-2021 12:25-0500 Body mass index (BMI) [Ratio] 27.4 kg/m2 Dr. Willow Eason Work Phone: [facility] Work Phone: 05-04-2021 12:25-0500 Body temperature 97.5 [degF] Dr. Willow Eason Work Phone: [facility] Work Phone: 05-04-2021 12:25-0500 Body weight 72.[address] Willow Eason Work Phone: [facility] Work Phone: 05-04-2021 12:25-0500 Diastolic blood pressure 94 mm[Hg] Dr. Willow Eason Work Phone: [facility] Work Phone: 05-04-2021 12:25-0500 Heart rate 53 /min Dr. Willow Eason Work Phone: [facility] Work Phone: 05-04-2021 12:25-0500 Respiratory rate 16 /min Dr. Willow Eason Work Phone: [facility] Work Phone: 05-04-2021 12:25-0500 SaO2% (BldA) [Mass fraction] 99 % Dr. Willow Eason Work Phone: [facility] Work Phone: 05-04-2021 12:25-0500 Systolic blood pressure 218 mm[Hg] Dr. Willow Eason Work Phone: [facility] Work Phone: Encounters Encounter Date Encounter Type Care Provider Facility Start: 12-18-2024 End: 12-18-2024 ambulatory Willow Eason Facility[place] Start: 12-16-2024 End: 12-16-2024 Emergency department patient visit Dr. Willow Eason MD Work Phone: -Emergency Department Work Phone: Start: 12-16-2024 End: 12-16-2024 ambulatory Kristi [facility] Facility:[facility] Start: 12-11-[address] Rocco Albarran MD -Laboratory [facility] Start: 12-11-2024 ambulatory Rocco Albarran [facility] y:[facility] Start: 12-09-2024 End: 12-09-2024 Emergency department patient visit Dr. Willow Eason MD Work Phone: -Emergency Department Work Phone: Start: 12-06-2024 End: 12-06-2024 Emergency department patient visit Dr. Willow Eason MD Work Phone: -Emergency Department Work Phone: Start: 11-04-2024 End: 11-04-2024 Emergency department patient visit Dr. Willow Eason MD Work Phone: -Emergency Department Work Phone: Start: 08-18-2024 End: 08-18-[address] Erick Medina MD -[facility] Work Phone: Start: 08-18-2024 End: 08-18-[address] Willow Eason MD Work Phone: [facility] Work Phone: Start: 06-18-2024 ambulatory [facility] Facility:[facility] Start: 06-18-2024 Non-patient / Non-visit [facility] Shar[facility] Start: 06-18-2024 End: 06-18-[address] Willow Eason MD Work Phone: [facility] Work Phone: Start: 06-18-2024 End: 06-18-[address] Anish Capps MD -Cardiovascular Services Work Phone: Start: 06-18-2024 End: 06-18-2024 ambulatory [facility] Facility:[facility] Start: 06-16-2024 End: 06-16-[address] Anish Capps MD -[facility] Work Phone: Start: 06-16-2024 End: 06-16-2024 ambulatory Anish Capps Facility:[facility] Start: 05-27-2024 ambulatory Willow Eason Facility: [facility] Start: 05-27-2024 Non-patient / Non-visit [facility]. Jose rene MD -[facility] Start: 05-27-2024 End: 05-27-[address] Willow Eason MD Work Phone: [facility] Work Phone: Start: 05-27-2024 End: 05-27-[address] Anish Capps MD -Cardiovascular Services Work Phone: Start: 05-27-2024 End: 05-27-2024 ambulatory Willow Eason Facility:[facility] Start: 05-06-2024 End: 05-06-[address] Anish Capps MD -[facility] Work Phone: Start: 05-06-2024 End: 05-06-2024 ambulatory Willow Eason Facility[place] Start: 03-14-2024 End: 03-14-[address] Willow Eason MD -Laboratory Work Phone: Start: 03-14-2024 End: 03-14-2024 ambulatory Willow Eason Facility:[facility] Start: 09-11-2022 End: 09-11-[address] Willow Eason Work Phone: [facility] Work Phone: Start: 07-30-2022 End: 07-30-[address] Willow Eason Work Phone: [facility] Start: 07-23-2022 End: 07-23-[address] Willow Eason Work Phone: [facility] Work Phone: Start: 12-16-2021 End: 12-16-[address] Willow Eason Work Phone: [facility] Work Phone: Start: 12-16-2021 End: 12-16-[address] Willow Eason Work Phone: [facility]-Laboratory, Specimen Start: 12-16-2021 End: 12-16-[address] Willow Eason Work Phone: [facility] Start: 11-11-2021 End: 11-11-[address] Willow Eason Work Phone: [facility] Start: 09-13-2021 End: 09-13-[address] Willow Eason Work Phone: [facility]-Pulmonary Services/Neurology Start: 07-26-2021 End: 07-26-[address] Willow Eason Work Phone: [facility]-Laboratory Start: 07-25-2021 End: 07-25-[address] Willow Eason Work Phone: [facility] Start: 05-04-2021 End: 05-04-2021 Emergency department patient visit Dr. Willow Eason Work Phone: [facility]-Emergency Department Procedures Date Procedure Procedure Detail Performing Clinician Start: 12-11-2024 Vitamin D, 25-hydrox y measurement Dr. Willow Eason MD Work Phone: Comment on above: Vitamin D StatusDefi ciency: <20 ng/mL (50nmol/L)Insufficiency: 20-30 ng/mL (50-75 nmol/L)Sufficiency: 30-100 ng/mL (75-250 nmol/L)Toxicity: >100 ng/mL (>250 nmol/L) Start: 11-04-2024 Urnls dip stick/tabl et reagent [...] Treatment Date Care Activity Detail Author Start: 12-06-2024 Injection aa&/strd o ther peripheral nerve/branch NJX AA&/STRD OTHER PN/BRANCH [facility] Start: 12-06-2024 [facility] Start: 11-04-2024 [facility] Patient Education [facility] Work Phone: Patient referral [facility] Work Phone: Radionuclide imaging of perfusion of myocardium under exercise stress [facility] Immunizations Immunization Date Immunization Notes Care Provider Fa cility 12-16-2024 rabies vaccine, for intramuscular injection Dr. Willow Eason MD Work Phone: [facility] 12-09-2024 rabies vaccine, for intramuscular injection Dr. Willow Eason MD Work Phone: [facility] 12-06-[address] Pricila Eason MD Work Phone: [facility] 12-06-2024 rabies vaccine, for intramuscular injection Dr. Willow Eason MD Work Phone: [facility] 01-01-2024 influenza, seasonal, injectable, preservative free Dr. Willow Eason MD Work Phone: [facility] 01-02-2023 influenza, injectabl e, quadrivalent, preservative free Dr. Willow Eason MD Work Phone: [facility] 11-11-2021 tetanus toxoid, redu ethel diphtheria toxoid, and acellular pertussis vaccine, adsorbed Dr. Willow Eason Work Phone: [facility] 12-30-2015 influenza, injectabl e, quadrivalent, preservative free Dr. Willow Eason MD Work Phone: [facility] 12-30-2015 influenza, seasonal, injectable Dr. Willow Eason Work Phone: [facility] 12-29-2014 influenza, injectabl e, quadrivalent, preservative free Dr. Willow Eason MD Work Phone: [facility] 12-29-2014 influenza, seasonal, injectable Dr. Willow Eason Work Phone: [facility] 12-16-2013 influenza, injectabl e, quadrivalent, preservative free Dr. Willow Eason MD Work Phone: [facility] 12-16-2013 influenza, seasonal, injectable Dr. Willow Eason Work Phone: [facility] Payers Date Payer Category Payer Self-pay [id number] 2020 Medicare [id number] Private Health Insurance [id number] Unknown [id number] 2.16.8 [id number] Unknown [id number] 2.16.8 [id number] Unknown [id number] 2.16.8 [id number] Unknown [id number] 2.16.8 [id number] Unknown [id number] 2.16.8 [id number] Unknown [id number] 2.16.8 [id number] Unknown [id number] 2.16.8 [id number] Unknown [id number] 2.16.8 [id number] Unknown [id number] 2.16.8 [id number] Unknown [id number] 2.16.8 [id number] Unknown [id number] 2.16.8 [id number] Unknown [id number] 2.16.8 [id number] Unknown [id number] 2.16.8 [id number] Unknown [id number] 2.16.8 [id number] Social History Date Type Detail Facility Start: 07-25-2021 End: 09-11-2022 Tobacco smoking status NHIS Unknown if ever smoked [facility] Start: 1935 Sex Assigned At Female [facility] Start: 03-14-2023 End: 12-06-2024 Tobacco smoking status NHIS Never smoked tobacco (finding) [facility] Start: 06-07-2024 End: 06-26-2024 Sex Female (finding) [facility] Sex Female [facility] Mental Status Date Assessment Result Facility 11-04-2024 Cognitive function Level Of Cons ciousness Awake;Alert;Appropriate;Follow s Commands [facility] Work Phone: 05-04-2021 Cognitive function Voice/Name [facility] Work Phone: Clinical Notes 05-06-2024 to 11-04-2024 Note Date & Type Note Facility 11-04-2024 Discharge summary [facility] 11-04-2024 Discharge summary Note Date/Time November 04, 2024 6:55pm [facility] Medical Records Department [address] [place] [id number] Emergency Department Summary 11/04/24 MR#: [id number] Acct: [id number] Name: MALINI MCNAIR Rep #:[id number] : 1935 89 From: [...] similar symptoms: Yes Recent Illness/Hospitalization: No [facility] Medical History Bradycardia Hyperlipidemia Essential (primary) [...] lisinopril 20 2 tab PO DAILY 05/06/24 08/0 09/23 History mg-hydrochlorothiazide 12.5 mg tablet metoprolol succinate [...] do you participate in: walking and swimming ruddy/alevism: Muslim seatbelt use: always ROS ROS ED Constitutional [...] Clarity Clear Urine pH 6.0 Ur Specific [place] 1.010 Urine Protein 30 H Urine Glucose [...] Care Provider] - 1-2 Weeks Print Language: Greenlandic Disposition Disposition: Home, Self Care What to do if you have Problems For any increased pain, shortness of breath, bleeding, nausea or vomiting, chestpain, or any unexpected problems, contact your Primary Care Provider. Call [facility] ([phone]) or report to the closest Emergency Room. Call 911 if necessary. 11/04/241854 <Electronically signed by Aaron Baig MD> Cosigner Signature (if applicable): CC: Dr. Will Polk MD ~ Signed [facility] Work Phone: 1(343) 231-657505-20-2025 Evaluation note* Diagnosis Onset Date Resolution Status Admit Date Polyneuropathy chronic August 18, 2024 8:11am Essential tremor inactive July 8:11am [facility] Work Phone: 1(530) 665-388002-05-2025 Evaluation note* Diagnosis Onset Date Resolution Status Admit Date Bradycardia acute May 06, 2024 8:49am Carotid bruit acute May 8:49am Chest pain acute May 06, 2024 8:49am Essential (primary) hypertension acute May 06 8:49am [facility] Work Phone: 1(369) 249-251202-05-2025 Evaluation note* Diagnosis Onset Date Resolution Status Admit Date Bradycardia acute May 06, 2024 8:49am Carotid bruit acute May 8:49am Chest pain acute May 06, 2024 8:49am Essential (primary) hypertension acute May 06 8:49am Bradycardia acute June 16, 2 025 2:40pm Carotid bruit acute June 16, 2024 2:40pm Chest pain acute June 16 2:40pm Essential (primary) hypertension acute June 16, 2024 2:40pm [facility] Work Phone: 1(622) 315-508502-05-2025 Evaluation note* Diagnosis Onset Date Resolution Status Admit Date Bradycardia acute May 06, 2024 8:49am Carotid bruit acute May 8:49am Chest pain acute May 06, 2024 8:49am Essential (primary) hypertension acute May 06 8:49am Bradycardia acute June 16, 2:40pm Carotid bruit acute June 16, 2024 2:40pm Chest pain acute June 16 2:40pm Essential (primary) hypertension acute June 16, 2024 2:40pm Essential tremor chronic July 8:11am Polyneuropathy chronic August 18, 2024 8:11am [facility] Work Phone: Evaluation note* Diagnosis Onset Date Resolution Status Polyneuropathy chronic [facility] Work Phone: Evaluation note* Diagnosis Onset Date Resolution Status Cystitis acute [facility] Work Phone: Evaluation note* Diagnosis Onset Date Resolution Status Essential tremor chronic Fatigue chronic Polyneuropathy chronic Fatigue chronic [facility] Work Phone: Hospital Discharge instructionsAdditional Instructions Follow-up with wound check with your family doctor. There is a chance your nail might not grow back or grow back abnormally. Return to the ER as instructed for the rest of the rabies series. Alternate ibuprofen and Tylenol for pain. I would stop your aspirin for the next few days to help limit bleeding.[facility] Work Phone: Reason for referral (narrative)No reason for referral information availableWHenry [facility] Work Phone: Chief Complaint and Reason for Visit Chief Complaint Admit Date 10 M FU August 18, 2024 8:11a m HTN November 04, 2024 5:1 5pm bite December 06, 2024 9:22am Reason for Visit Admit Date Polyneuropathy August 18, 2024 8:11a m Essential tremor August 18, 2024 8:11a m Chief Complaint N/T NUMBNESS AND TINGLING IN [...] 06, 2024 8 :49am Essential (primary) hypertension r 2024 8:49am Bradycardia June 16, 2024 2:4 0pm Carotid bruit June 16, 2024 2:4 0pm Chest pain June 16, 2024 2:4 0pm Essential (primary) hypertension May 302024 2:40pm Essential tremor August 18, 2024 8:11a m Polyneuropathy August 18, 2024 8:11a m Chief Complaint Admit Date 10 M FU August 18, 2024 8:11a m HTN November 04, 2024 5:1 5pm Chief Complaint Admit Date 10 M August 18, 2024 8:11a m HTN November 04, 2024 5:1 5pm bite December 06, 2024 9:22am meds December 09, 2024 8:49am Chief Complaint Admit Date 10 M FU August 18, 2024 8:11a m HTN November 04, 2024 5:1 5pm bite December 06, 2024 9:22am meds December 09, 2024 8:49am med only December 16, 2024 8:38am Family History No Family History Records Found Relationship Condition Age at Onset Recorded Date/T kevin mother Cardiac disease Unknown Diabetes mellitus Unknown father Alzheimer's disease Unknown Advance Directives No Advanced Directives Records Found Advance Directive Response Recorded Date/ Time Living Will No May 04 3:08pm Power of [employer] No May 04, 2021 3:08pm Advance Directive Response Recorded Date/ Time Living Will No May 04 3:08pm Do you have a Healthcare Power of [employer]? No May 04, 2021 3:08pm Advance Directive Response Recorded Date/ Time Living Will No May 04 3:08pm Do you have a Healthcare Power of [employer]? No May 04, 2021 3:08pm Do you have a Healthcare Power of [employer]? Yes November 04, 2024 5:20pm Name of Medical Power of [employer] CHELO GODFREY November 04, 2024 5:20pm Advance Directive Response Recorded Date/ Time Living Will No May 04 3:08pm Do you have a Healthcare Power of [employer]? No May 04, 2021 3:08pm Do you have a Healthcare Power of [employer]? Yes November 04, 2024 5:20pm Name of Medical Power of [employer] CHELO GODFREY November 04, 2024 5:20pm Do you have a Healthcare Power of [employer]? Yes December 06, 2024 9:39am Summary Purpose Additional Source Comments Goals (unrecognized [...] November 04, 2024 End: November 04, 2024 Team Status: Inactive Member Role/Relationship Status Dates Dr. Aaron Baig MD Attending Provider Active Sta rt: November 04, 2024 End: November 04, 2024 Dr. Aaron Baig MD Emergency Provider Active Sta rt: November 04, 2024 End: November 04, 2024 Dr. Will Polk MD Primary Care Provider Acti ve Start: November 04, 2024 End: November 04, 2024 Team Status: Inactive Member Role/Relationship Status Dates Dr. Will Polk MD Primary Care Provider Acti ve Start: December 06, 2024 End: December 06, 2024 Dr. Kristi Sherman DO Emergency Provider Active Start: December 06, 2024 End: December 06, 2024 Team Status: Inactive Member Role/Relationship Status Dates Dr. Will Polk MD Primary Care Provider Acti ve Start: December 09, 2024 End: December 09, 2024 Dr. Kristi Sherman DO Emergency Provider Active Start: December 09, 2024 End: December 09, 2024 Team Status: Active Member Role/Relationship Status Dates Dr. Rocco Albarran MD Primary care physician Active Team Status: Inactive Member Role/Relationship Status Dates Dr. Willow Eason MD Primary care physician Active Start: August 18, 2024 End: August 18, 2024 Dr. Willow Eason MD Referring Provider Active Start: August 18, 2024 End: August 18, 2024 Dr. Erick Medina MD Attending physician Active Start: August 18, 2024 End: August 18, 2024 Team Status: Inactive Member Role/Relationship Status Dates Dr. Aaron Baig MD Attending physician Active St art: November 04, 2024 End: November 04, 2024 Dr. Aaron Baig MD Emergency Department Physician Active Start: November 04, 2024 End: November 04, 2024 Dr. Will Polk MD Primary care physician Act denae Start: November 04, 2024 End: November 04, 2024 Team Status: Inactive Member Role/Relationship Status Dates Dr. Will Polk MD Primary care physician Act denae Start: December 06, 2024 End: December 06, 2024 Dr. Kristi Sherman DO Attending physician Active Start: December 06, 2024 End: December 06, 2024 Dr. Kristi Sherman DO Emergency Depart ent Physician Active Start: December 06, 2024 End: December 06, 2024 Team Status: Inactive Member Role/Relationship Status Dates Dr. Will Polk MD Primary care physician Act denae Start: December 09, 2024 End: December 09, 2024 Dr. Kristi Sherman DO Attending physician Active Start: December 09, 2024 End: December 09, 2024 Dr. Kristi Sherman DO Emergency Departm ent Physician Active Start: December 09, 2024 End: December 09, 2024 Team Status: Active Member Role/Relationship Status Dates Dr. Will Polk MD Primary care physician Act denae Start: December 11, 2024 Dr. Rocco Albarran MD Attending physician Active Start: December 11, 2024 Dr. Rocco Albarran MD Referring Provider Active Start: December 11, 2024 Team Status: Inactive Member Role/Relationship Status Dates Dr. Rocco Albarran MD Primary care physician Active Start: December 16, 2024 End: December 16, 2024 Dr. Kristi Sherman DO Emergency Depart ent Physician Active Start: December 16, 2024 End: December 16, 2024 INFORMATION SOURCE (unrecogn ized section and content) DATE CREATED AUTHOR 12/19/2024 [facility] FOR RECORDS PERTAINING TO PATIENTS WHO [...] BE BASED ON THE PRIMARY CLINICAL RECORDS. [employer] provides no warranty or guarantee of the accuracy or completeness of information in this document.
[2024-12-20 09:31] VITALS: TEMP 36.6
--- NOTE | 2024-12-20 09:48 | ED.RN ---
Patient states she does not want to stay for her rabies shot time. pt states she has spiritism to go to.
[2024-12-20 09:49] VITALS: BP 156/97; PULSE 87; RESP 16; TEMP 36.6; O2SAT 98
--- OUTSIDE RECORDS SUMMARY | 2024-12-20 12:01 | XMS RPT_ITS | CCD ---
Author Organization [facility] Care Team Providers Care President/G[employer] Experiences Name Role Phone Dr. Willow Eason Primary [...] PARK, Dr. Willow Cunningham Primary Care Physician [phone] Carol PARK, Dr. Suarez Attending Physician Jovanni [...] Referring Unavailable Adryan Sheikhyler Attending Unavailable Rocco Albarran Primary Care Unavailable Jolliff, Willow S Primary Care Unavailable Jefry, Cameron Attending Unavailable Jolliff, Willow S Referring Unavailable Jefry, Anish Attending Unavailable Jolliff, Willow S Primary Care Unavailable Jolliff, Willow S Referring Unavailable Jefry, Cameron Attending Unavailable Jolliff, Willow S Primary Care [...] Start: 10-24-2023 take 1 capsule by mo [facility] twice daily at mealtime Cranberry 500 [...] 05-06-2024 Start: 05-04-2021 [facility] Lisinopril-Hydrochlorothiazide Active 1 TABLET PO [...] Facility Cardiology Visit Reporton Cardiology Visit Report [facility] 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 Normal [facility] Absolute lymphocyte countOrd ered By: Rocco Albarran on 12-11-2024 Lymphocytes Auto (Unsp spec) [#/Vol] 1.26 10*3/uL 0.83-4.51 [facility] Absolute neutrophil countOrd ered By: Rocco Albarran on 12-11-2024 Neutrophils (Bld) [#/Vol] 3.7 10*3/uL 2.0-7.7 [facility] Anion gap in Serum or Plasma Ordered By: Rocco Albarran on 12-11-2024 Anion gap [Moles/Vol] 12 mmol/L 5-15 [facility] Automated lymphocyte count a s percentage of total leukocytesOrdered By: Rocco Albarran on 12-11-2024 Lymphocytes/100 WBC Auto (Unsp spec) 22.3 % 19-41 [facility] BUN/creatinine ratioOrdered By: Rocco Albarran on 12-11-2024 Urea nitrogen/Creatinine [Mass ratio] 27.7 mg/mg High 10-20 [facility] Basophil percentageOrdered B y: Rocco Albarran on 12-11-2024 Basophils/100 WBC (Bld) 1.2 % High 0-1 [facility] Bilirubin, totalOrdered By: Rocco Albarran on 12-11-2024 Bilirubin [Mass/Vol] 0.30 mg/dL 0.00-1.30 [facility] CBC W/Diff, Automatedon 11-30 Absolute Lymph 1.26 X10 3/uL Normal 0.83-4.51 [facility] Comment on above: Order Comment: Order Date: 12/11/24 Order Info: 0184 - CBCD Performed By: #### L 506.0400, L501.9520, L500.4050, L500.4100, L100.0100 #### [facility] [address] [place], [address] Absolute Neut 3.7 X10 3/uL Normal 2.0-7.7 [facility] Comment on above: Order Comment: Order Date: 12/11/24 Order Info: 01806-30 - CBCD Performed By: #### L 506.0400, L501.9520, L500.4050, L500.4100, L100.0100 #### [facility] [address] [place], [address] Basophils/100 WBC (Bld) 1.2 % High 0-1 [facility] Comment on above: Order Comment: Order Date: 12/11/24 Order Info: 01806-30 - CBCD Performed By: #### L 506.0400, L501.9520, L500.4050, L500.4100, L100.0100 #### [facility] [address] [place], [address] Eosinophils/100 WBC (Bld) 3.7 % Normal 0-5 [facility] Comment on above: Order Comment: Order Date: 12/11/24 Order Info: 01806-30 - CBCD Performed By: #### L 506.0400, L501.9520, L500.4050, L500.4100, L100.0100 #### [facility] [address] [place], [address] Erythrocyte distribution width (RBC) [Ratio] 13.3 % Normal 11.6-14.6 [facility] Comment on above: Order Comment: Order Date: 12/11/24 Order Info: 0184-1 - CBCD Performed By: #### L 506.0400, L501.9520, L500.4050, L500.4100, L100.0100 #### [facility] [address] [place], [address] Hematocrit (Bld) [Volume fraction] 34.6 % Low 37-47 [facility] Comment on above: Order Comment: Order Date: 12/11/24 Order Info: 0184-1 - CBCD Performed By: #### L 506.0400, L501.9520, L500.4050, L500.4100, L100.0100 #### [facility] [address] [place], [address] Hemoglobin (Bld) [Mass/Vol] 12.3 g/dL Normal 12.0-15.0 [facility] Comment on above: Order Comment: Order Date: 12/11/24 Order Info: 0184-1 - CBCD Performed By: #### L 506.0400, L501.9520, L500.4050, L500.4100, L100.0100 #### [facility] [address] [place], [address] IG% 0.400 Normal 0.0-0.9 [facility] Comment on above: Order Comment: Order Date: 12/11/24 Order Info: 0184-1 - CBCD Result Comment: IG% - Immature Granulocytes (promyelocytes, myelocytes and metamyelocytes) > 1% indicates that a LEFT SHIFT is Present. Performed By: #### L 506.0400, L501.9520, L500.4050, L500.4100, L100.0100 #### [facility] [address] [place], [address] Lymphocytes/100 WBC (Bld) 22.3 % Normal 19-41 [facility] Comment on above: Order Comment: Order Date: 12/11/24 Order Info: 0184- - CBCD Performed By: #### L 506.0400, L501.9520, L500.4050, L500.4100, L100.0100 #### [facility] [address] [place], [address] MCH (RBC) [Entitic mass] 34.5 pg High 27.0-32.0 [facility] Comment on above: Order Comment: Order Date: 12/11/24 Order Info: 0184- - CBCD Performed By: #### L 506.0400, L501.9520, L500.4050, L500.4100, L100.0100 #### [facility] [address] [place], [address] MCHC (RBC) [Mass/Vol] 35.5 g/dL Normal 32-36 [facility] Comment on above: Order Comment: Order Date: 12/11/24 Order Info: 0184- - CBCD Performed By: #### L 506.0400, L501.9520, L500.4050, L500.4100, L100.0100 #### [facility] [address] [place], [address] MCV (RBC) [Entitic vol] 96.9 fL Normal 81-99 [facility] Comment on above: Order Comment: Order Date: 12/11/24 Order Info: 0184- - CBCD Performed By: #### L 506.0400, L501.9520, L500.4050, L500.4100, L100.0100 #### [facility] [address] [place], [address] Monocytes/100 WBC (Bld) 6.9 % Normal 0-10 [facility] Comment on above: Order Comment: Order Date: 12/11/24 Order Info: 0184- - CBCD Performed By: #### L 506.0400, L501.9520, L500.4050, L500.4100, L100.0100 #### [facility] [address] [place], [address] Neutrophils/100 WBC (Bld) 65.5 % Normal 47-70 [facility] Comment on above: Order Comment: Order Date: 12/11/24 Order Info: 0184-1 - CBCD Performed By: #### L 506.0400, L501.9520, L500.4050, L500.4100, L100.0100 #### [facility] [address] [place], [address] Nucleated RBC (Bld) [#/Vol] 0 10*3/uL Normal 0-5 [facility] Comment on above: Order Comment: Order Date: 12/11/24 Order Info: 0184- - CBCD Performed By: #### L 506.0400, L501.9520, L500.4050, L500.4100, L100.0100 #### [facility] [address] [place], [address] Platelet mean volume (Bld) [Entitic vol] 10.8 fL Normal 6.2-12.0 [facility] Comment on above: Order Comment: Order Date: 12/11/24 Order Info: 0184- - CBCD Performed By: #### L 506.0400, L501.9520, L500.4050, L500.4100, L100.0100 #### [facility] [address] [place], [address] Platelets (Bld) [#/Vol] 199 10*3/uL Normal 150-450 [facility] Comment on above: Order Comment: Order Date: 12/11/24 Order Info: 0184-1 - CBCD Performed By: #### L 506.0400, L501.9520, L500.4050, L500.4100, L100.0100 #### [facility] [address] [place], [address] RBC (Bld) [#/Vol] 3.57 10*6/uL Low 4.2-5.4 [facility] Comment on above: Order Comment: Order Date: 12/11/24 Order Info: 0184-1 - CBCD Performed By: #### L 506.0400, L501.9520, L500.4050, L500.4100, L100.0100 #### [facility] [address] [place], [address] RDW SD 47.5 fl High 35.1-43.9 [facility] Comment on above: Order Comment: Order Date: 12/11/24 Order Info: 0184-1 - CBCD Performed By: #### L 506.0400, L501.9520, L500.4050, L500.4100, L100.0100 #### [facility] [address] [place], [address] WBC (Bld) [#/Vol] 5.6 10*3/uL Normal 4.4-11.0 [facility] Comment on above: Order Comment: Order Date: 12/11/24 Order Info: 0184-1 - CBCD Performed By: #### L 506.0400, L501.9520, L500.4050, L500.4100, L100.0100 #### [facility] [address] [place], [address] Calculated very low density lipoprotein (VLDL) cholesterol measurementOrdered By: Rocco Albarran on 12-11-2024 Calculated very low density lipoprotein (VLDL) cholesterol measurement 31 mg/dL 5-40 [facility] Carbon dioxide, total [Moles /volume] in Central venous bloodOrdered By: Rocco Albarran on 12-11-2024 CO2 [Moles/Vol] 25.5 mmol/L 21.0-32.0 [facility] Chloride assayOrdered By: Gaye Albarran on 12-11-2024 Chloride [Moles/Vol] 100 mmol/L 98-108 [facility] Comprehensive Metabolic Prof ilon 12-11-2024 Albumin [Mass/Vol] 4.5 g/dL Normal 3.4-4.8 [facility] Comment on above: Order Comment: Order Date: 12/11/24 Order Info: 0786-1 - CMP Order Info: 72274-5 - LIPID Order Info: 3 - TSH Order Info: 302-7 - T4F Performed By: #### L 506.0400, L501.9520, L500.4050, L500.4100, L100.0100 #### [facility] [address] [place], [address] Albumin/Globulin [Mass ratio] 1.7 {ratio} Normal 0.9-2.4 [facility] Comment on above: Order Comment: Order Date: 12/11/24 Order Info: 785- - CMP Order Info: - LIPID Order Info: 3 - TSH Order Info: 30247 - T4F Performed By: #### L 506.0400, L501.9520, L500.4050, L500.4100, L100.0100 #### [facility] [address] [place], [place], [address] ALK PHOS 55 U/L Normal 35-104 [facility] Comment on above: Order Comment: Order Date: 12/11/24 Order Info: 07-1 - CMP Order Info: [id number] - LIPID Order Info: 3 - TSH Order Info: 3024-7 - T4F Performed By: #### L 506.0400, L501.9520, L500.4050, L500.4100, L100.0100 #### [facility] [address] [place], [address] ALT [Catalytic activity/Vol] 13 U/L Normal <=34 [facility] Comment on above: Order Comment: Order Date: 12/11/24 Order Info: 07-1 - CMP Order Info: 90085-9 - LIPID Order Info: 3016-3 - TSH Order Info: 4-7 - T4F Performed By: #### L 506.0400, L501.9520, L500.4050, L500.4100, L100.0100 #### [facility] [address] [place], [address] AST [Catalytic activity/Vol] 22 U/L Normal <=31 [facility] Comment on above: Order Comment: Order Date: 12/11/24 Order Info: 86-1 - CMP Order Info: [id number] - LIPID Order Info: 3 - TSH Order Info: 7 - T4F Performed By: #### L 506.0400, L501.9520, L500.4050, L500.4100, L100.0100 #### [facility] [address] [place], [address] Bilirubin [Mass/Vol] 0.30 mg/dL Normal 0.00-1.30 [facility] Comment on above: Order Comment: Order Date: 12/11/24 Order Info: 785- - CMP Order Info: - LIPID Order Info: 3015-05 - TSH Order Info: 7 - T4F Performed By: #### L 506.0400, L501.9520, L500.4050, L500.4100, L100.0100 #### [facility] [address] [place], [address] BUN/CRE 27.7 RATIO High 10-20 [facility] Comment on above: Order Comment: Order Date: 12/11/24 Order Info: 07-1 - CMP Order Info: 23792-1 - LIPID Order Info: 3 - TSH Order Info: 3024-7 - T4F Performed By: #### L 506.0400, L501.9520, L500.4050, L500.4100, L100.0100 #### [facility] [address] [place], [address] Calcium [Mass/Vol] 9.9 mg/dL Normal 7.6-11.0 [facility] Comment on above: Order Comment: Order Date: 12/11/24 Order Info: 785-1 - CMP Order Info: 38114-8 - LIPID Order Info: 3 - TSH Order Info: 3023-7 - T4F Performed By: #### L 506.0400, L501.9520, L500.4050, L500.4100, L100.0100 #### [facility] [address] [place], [address] Chloride [Moles/Vol] 100 mmol/L Normal 98-108 [facility] Comment on above: Order Comment: Order Date: 12/11/24 Order Info: 785- - CMP Order Info: - LIPID Order Info: 3 - TSH Order Info: 7 - T4F Performed By: #### L 506.0400, L501.9520, L500.4050, L500.4100, L100.0100 #### [facility] [address] [place], [address] CO2 [Moles/Vol] 25.5 mmol/L Normal 21.0-32.0 [facility] Comment on above: Order Comment: Order Date: 12/11/24 Order Info: 785-04 - CMP Order Info: - LIPID Order Info: 3015-05 - TSH Order Info: 4-7 - T4F Performed By: #### L 506.0400, L501.9520, L500.4050, L500.4100, L100.0100 #### [facility] [address] [place], [address] Creatinine [Mass/Vol] 0.98 mg/dL Normal 0.70-1.20 [facility] Comment on above: Order Comment: Order Date: 12/11/24 Order Info: 785- - CMP Order Info: [id number] - LIPID Order Info: 3 - TSH Order Info: 7 - T4F Performed By: #### L 506.0400, L501.9520, L500.4050, L500.4100, L100.0100 #### [facility] [address] [place], [address] GAP 12 Normal 5-15 [facility] Comment on above: Order Comment: Order Date: 12/11/24 Order Info: 785-1 - CMP Order Info: [id number] - LIPID Order Info: 3 - TSH Order Info: 7 - T4F Performed By: #### L 506.0400, L501.9520, L500.4050, L500.4100, L100.0100 #### [facility] [address] [facility] [place], [place], [address] GFR/1.73 sq M.predicted among non-blacks MDRD (S/P/Bld) [Vol rate/Area] 56 mL/min/{1.73_m2} Low >60 [facility] Comment on above: Order Comment: Order Date: 12/11/24 Order Info: 785-04 - CMP Order Info: - LIPID Order Info: 3015-05 - TSH Order Info: 3023-09 - T4F Result Comment: mL/m in/1.73m2 CKD-EPI Creatinine Equation (2020) Performed By: #### L 506.0400, L501.9520, L500.4050, L500.4100, L100.0100 #### [facility] [address] [place], [place], [address] Globulin (S) [Mass/Vol] 2.6 g/dL Normal 2.2-4.2 [facility] Comment on above: Order Comment: Order Date: 12/11/24 Order Info: 07-1 - CMP Order Info: [id number] - LIPID Order Info: 3 - TSH Order Info: 7 - T4F Performed By: #### L 506.0400, L501.9520, L500.4050, L500.4100, L100.0100 #### [facility] [address] [place], [address] Glucose [Mass/Vol] 102 mg/dL High 70-99 [facility] Comment on above: Order Comment: Order Date: 12/11/24 Order Info: 0786-1 - CMP Order Info: 25136-9 - LIPID Order Info: 3015-3 - TSH Order Info: 3024-7 - T4F Performed By: #### L 506.0400, L501.9520, L500.4050, L500.4100, L100.0100 #### [facility] [address] [place], [address] Potassium [Moles/Vol] 4.6 mmol/L Normal 3.3-5.1 [facility] Comment on above: Order Comment: Order Date: 12/11/24 Order Info: 785- - CMP Order Info: [id number] - LIPID Order Info: 3 - TSH Order Info: 3024-7 - T4F Performed By: #### L 506.0400, L501.9520, L500.4050, L500.4100, L100.0100 #### [facility] [address] [place], [address] Sodium [Moles/Vol] 137 mmol/L Normal 133-145 [facility] Comment on above: Order Comment: Order Date: 12/11/24 Order Info: 07-1 - CMP Order Info: 51400-7 - LIPID Order Info: 3016-3 - TSH Order Info: 3024-7 - T4F Performed By: #### L 506.0400, L501.9520, L500.4050, L500.4100, L100.0100 #### [facility] [address] [place], [address] T PROT 7.1 g/dL Normal 5.9-8.4 [facility] Comment on above: Order Comment: Order Date: 12/11/24 Order Info: 0786-1 - CMP Order Info: [id number] - LIPID Order Info: 6-3 - TSH Order Info: 3023-7 - T4F Performed By: #### L 506.0400, L501.9520, L500.4050, L500.4100, L100.0100 #### [facility] [address] [place], [address] Urea nitrogen [Mass/Vol] 27 mg/dL High 4-19 [facility] Comment on above: Order Comment: Order Date: 12/11/24 Order Info: 0786-1 - CMP Order Info: [id number] - LIPID Order Info: 3 - TSH Order Info: 7 - T4F Performed By: #### L 506.0400, L501.9520, L500.4050, L500.4100, L100.0100 #### [facility] [address] [place], [address] Eosinophil percentageOrdered By: Rocco Albarran on 12-11-2024 Eosinophils/100 WBC (Bld) 3.7 % 0-5 [facility] Erythrocyte distribution wid th ratioOrdered By: Rocco Albarran on 12-11-2024 Erythrocyte distribution width (RBC) [Ratio] 13.3 % 11.6-14.6 [facility] Erythrocyte distribution wid th standard deviationOrdered By: Rocco Albarran on 12-11-2024 Erythrocyte distribution width (RBC) [Ratio] 47.5 fl High 35.1-43.9 [facility] Glomerular filtration rate ( GFR) estimation/1.73 sq m using serum, plasma, or whole bOrdered By: Rocco Albarran on 12-11-2024 GFR/1.73 sq M.predicted among non-blacks MDRD (S/P/Bld) [Vol rate/Area] 56 mL/min/{1.73_m2} Low >60 [facility] Comment on above: mL/min/1.73m2 CKD-EP I Creatinine Equation (2020) Hematocrit Auto (Bld) [Volum e fraction]Ordered By: Rocco Albarran on 12-11-2024 Hematocrit (Bld) [Volume fraction] 34.6 % Low 37-47 [facility] Hemoglobin measurementOrdere d By: Rocco Albarran on 12-11-2024 Hemoglobin (Bld) [Mass/Vol] 12.3 g/dL 12.0-15.0 [facility] Immature granulocytes/100 WB C Auto (Bld)Ordered By: Rocco Albarran on 12-11-2024 Immature granulocytes/100 WBC (Bld) 0.400 % 0.0-0.9 [facility] Comment on above: IG% - Immature Granu locytes (promyelocytes, myelocytes and metamyelocytes) > 1% indicates that a LEFT SHIFT is Present. LDL calc ser/plasOrdered By: Rocco Albarran on 12-11-2024 Cholesterol in LDL [Mass/Vol] 81 mg/dL [facility] Comment on above: Gzujmchpnk=535-407 m g/dL & Higher Ueih=937 mg/dL or greaterFriedwald Equation for LDL-C Laboratory - Chemistry and C hemistry - challengeOrdered By: Rocco Albarran on 12-11-2024 AST [Catalytic activity/Vol] 22 U/L <32 [facility] Lipid Profileon 12-11-2024 CHOL:HDL 3.53 Normal [facility] Comment on above: Order Comment: Order Date: 12/11/24 Order Info: 0786-1 - CMP Order Info: 52888-6 - LIPID Order Info: 3016-3 - TSH Order Info: 3024-7 - T4F Performed By: #### L 506.0400, L501.9520, L500.4050, L500.4100, L100.0100 #### [facility] [address] [place], [address] Cholesterol [Mass/Vol] 157 mg/dL Normal <=200 [facility] Comment on above: Order Comment: Order Date: 12/11/24 Order Info: 0786-1 - CMP Order Info: 80168-0 - LIPID Order Info: 3016-3 - TSH Order Info: 3024-7 - T4F Result Comment: Chol esterol level, Desirable <200 mg/dL Borderline high cholesterol 200-239 mg/dL High cholesterol >=240 mg/dL Recommendations of the NCEP Adult Treatment Panel for the following risk-cutoff thresholds for the [place] population. Performed By: #### L 506.0400, L501.9520, L500.4050, L500.4100, L100.0100 #### [facility] [address] [place], [address] Cholesterol in HDL [Mass/Vol] 45 mg/dL Normal [facility] Comment on above: Order Comment: Order Date: 12/11/24 Order Info: 0786-1 - CMP Order Info: [id number] - LIPID Order Info: 3 - TSH [...] L 506.0400, L501.9520, L500.4050, L500.4100, L100.0100 #### [facility] [address] [place], [address] Cholesterol in LDL [Mass/Vol] 81 mg/dL Normal [facility] Comment on above: Order Comment: Order Date: 12/11/24 Order Info: 0786- - CMP Order Info: [id number] - LIPID Order Info: 3015-05 - TSH Order Info: 3023-09 T4F Result Comment: Bord hffqhd=808-032 mg/dL Higher Gibf=931 mg/dL or greater Friedwald Equation for LDL-C Performed By: #### L 506.0400, L501.9520, L500.4050, L500.4100, L100.0100 #### [facility] [address] [place], [address] Cholesterol in VLDL [Mass/Vol] 31 mg/dL Normal 5-40 [facility] Comment on above: Order Comment: Order Date: 12/11/24 Order Info: 0786-1 - CMP Order Info: [id number] - LIPID Order Info: 3 - TSH Order Info: 3023-09 - T4F Performed By: #### L 506.0400, L501.9520, L500.4050, L500.4100, L100.0100 #### [facility] [address] [place], [place], [address] Triglyceride [Mass/Vol] 156 mg/dL Normal [facility] Comment on above: Order Comment: Order Date: 12/11/24 Order Info: 0786-1 - CMP Order Info: 71260-0 - LIPID Order Info: 3015-05 - TSH Order Info: 3023-09 - T4F Result Comment: The drugs N-Acetylcysteine and Metamizole may falsely depress this assay. Normal range: <150 mg/dL Borderline High: 150-199 mg/dL High: 200-499 mg/dL Very High: >500 mg/dL Performed By: #### L 506.0400, L501.9520, L500.4050, L500.4100, L100.0100 #### [facility] [address] [place], [place], [address] MCV (mean corpuscular volume ) determinationOrdered By: Rocco Albarran on 12-11-2024 MCV (RBC) [Entitic vol] 96.9 fL 81-99 [facility] Mean corpuscular hemoglobin (MCH) determinationOrdered By: Rocco Albarran on 12-11-2024 MCH (RBC) [Entitic mass] 34.5 pg High 27.0-32.0 [facility] Mean corpuscular hemoglobin concentration (MCHC) determinationOrdered By: Rocco Albarran on 12-11-2024 MCHC (RBC) [Mass/Vol] 35.5 g/dL 32-36 [facility] Mean platelet volume determi nationOrdered By: Rocco Albarran on 12-11-2024 Platelet mean volume (Bld) [Entitic vol] 10.8 fL 6.2-12.0 [facility] Monocyte percentageOrdered B y: Rocco Albarran on 12-11-2024 Monocytes/100 WBC (Bld) 6.9 % 0-10 [facility] Neutrophil percentageOrdered By: Rocco Albarran on 12-11-2024 Neutrophils/100 WBC (Bld) 65.5 % 47-70 [facility] Nucleated red blood cell per centageOrdered By: Rocco Albarran on 12-11-2024 Nucleated RBC/100 WBC (Bld) [Ratio] 0 % 0-5 [facility] Platelet countOrdered By: Gaye Albarran on 12-11-2024 Platelets (Bld) [#/Vol] 199 10*3/uL 150-450 [facility] Potassium measurement (mass/ volume)Ordered By: Rcoco Albarran on 12-11-2024 Potassium (Unsp spec) [Mass/Vol] 4.6 mmol/L 3.3-5.1 [facility] RBC Auto (Bld) [#/Vol]Ordere d By: Rocco Albarran on 12-11-2024 RBC (Bld) [#/Vol] 3.57 10*6/uL Low 4.2-5.4 [facility] Screening total cholesterol/ high density lipoprotein (HDL) cholesterol ratioOrdered By: Rocco Albarran on 12-11-2024 Cholesterol.total/Choles terol in HDL [Mass ratio] 3.53 {ratio} [facility] Serum creatinine measurement (mass/volume)Ordered By: Rocco Albarran on 12-11-2024 Creatinine [Mass/Vol] 0.98 mg/dL 0.70-1.20 [facility] Serum globulin measurementOr dered By: Rocco Albarran on 12-11-2024 Globulin (S) [Mass/Vol] 2.6 g/dL 2.2-4.2 [facility] Serum glucose measurement (m ass/volume)Ordered By: Rocco Albarran on 12-11-2024 Glucose [Mass/Vol] 102 mg/dL High 70-99 [facility] Serum or plasma alanine man otransferase (ALT) measurementOrdered By: Rocco Albarran on 12-11-2024 ALT [Catalytic activity/Vol] 13 U/L <35 [facility] Serum or plasma albumin jaron urement (mass/volume)Ordered By: Rocco Albarran on 12-11-2024 Albumin [Mass/Vol] 4.5 g/dL 3.4-4.8 [facility] Serum or plasma albumin/glob ulin mass ratioOrdered By: Rocco Albarran on 12-11-2024 Albumin/Globulin [Mass ratio] 1.7 {ratio} 0.9-2.4 [facility] Serum or plasma alkaline sissy sphatase measurementOrdered By: Rocco Albarran on 12-11-2024 ALP [Catalytic activity/Vol] 55 U/L 35-104 [facility] Serum or plasma calcium jaron urement (mass/volume)Ordered By: Rocco Albarran on 12-11-2024 Calcium [Mass/Vol] 9.9 mg/dL 7.6-11.0 [facility] Serum or plasma cholesterol in HDL measurement (mass/volume)Ordered By: Rocco Albarran on 12-11-2024 Cholesterol in HDL [Mass/Vol] 45 mg/dL >40 [facility] Comment on above: National Cholesterol Education Program (NCEP) guidelines:<40 mg/dL: Low HDL-cholesterol (major risk factor for CHD)>= 60 mg/dL: High HDL-cholesterol (negative risk factor for CHD)HDL-cholesterol is affected by a number of factors, e.g. smoking, exercise, hormones, sex and age. Serum or plasma cholesterol measurement (mass/volume)Ordered By: Rocco Albarran on 12-11-2024 Cholesterol [Mass/Vol] 157 mg/dL <201 [facility] Comment on above: Cholesterol level, D esirable <200 mg/dLBorderline high cholesterol 200-239 mg/dLHigh cholesterol >=240 mg/dLRecommendations of the NCEP Adult Treatment Panel for the following risk-cutoff thresholds for the [place] population. Serum or plasma urea nitroge n measurement (mass/volume)Ordered By: Rocco Albarran on 12-11-2024 Urea nitrogen [Mass/Vol] 27 mg/dL High 4-19 [facility] Sodium levelOrdered By: Rocco Albarran on 12-11-2024 Sodium [Moles/Vol] 137 mmol/L 133-145 [facility] T4 Free Directon 12-11-2024 T4 FREE DIRECT 1.30 ng/dL Normal 0.76-1.46 [facility] Comment on above: Order Comment: Order Date: 12/11/24 Order Info: [id number] - CMP Order Info: [id number] - LIPID Order Info: 63 - TSH Order Info: 7 - T4F Performed By: #### L 506.0400, L501.9520, L500.4050, L500.4100, L100.0100 #### [facility] [address] [place], [place], [address] T4 freeOrdered By: Rocco laird on 12-11-2024 Free T4 [Mass/Vol] 1.30 ng/dL 0.76-1.46 [facility] TSH DL <= 0.005 mIU/L QnOrde red By: Rocco Albarran on 12-11-2024 TSH Qn 0.942 uIU/mL 0.300-4.200 [facility] Thyroid Stim Hormone (TSH)on 12-11-2024 TSH 0.942 uIU/mL Normal 0.300-4.200 [facility] Comment on above: Order Comment: Order Date: 12/11/24 Order Info: [id number] - CMP Order Info: [id number] - LIPID Order Info: 3 - TSH Order Info: 7 - T4F Performed By: #### L 506.0400, L501.9520, L500.4050, L500.4100, L100.0100 #### [facility] [address] [place], [place], [address] Total proteinOrdered By: Anil Albarran on 12-11-2024 Protein [Mass/Vol] 7.1 g/dL 5.9-8.4 [facility] Triglycerides measurementOrd ered By: Rocco Albarran on 12-11-2024 Triglyceride [Mass/Vol] 156 mg/dL <199 [facility] Comment on above: The drugs N-Acetylcy steine and Metamizole may falsely depress this assay. Normal range: <150 mg/dLBorderline High: 150-199 mg/dLHigh: 200-499 mg/dLVery High: >500 mg/dL Vitamin B12on 12-11-2024 Cobalamin (Vitamin B12) [Mass/Vol] 244 pg/mL Normal 180-914 [facility] Comment on above: Order Comment: Order Date: 12/11/24 Order Info: [id number] - CMP Order Info: [id number] - LIPID Order Info: [id number] - TSH Order Info: 302-7 - T4F Performed By: #### L 503.0106, L506.1001 #### [facility] [address] [place], [address] Vitamin B12 ser/plasOrdered By: Rocco Albarran on 12-11-2024 Cobalamin (Vitamin B12) [Mass/Vol] 244 pg/mL 180-914 [facility] Vitamin D,25 Hydroxyon 12-11 Vitamin D 25-OH 37.9 ng/mL Normal 30-100 [facility] Comment on above: Order Comment: Order Date: 12/11/24 Order Info: [id number] - CMP Order Info: [id number] - LIPID Order Info: [id number] - TSH Order Info: 3024-7 - T4F Result Comment: Cari min D Status Deficiency: <20 ng/mL (50nmol/L) Insufficiency: 20-30 ng/mL (50-75 nmol/L) Sufficiency: 30-100 ng/mL (75-250 nmol/L) Toxicity: >100 ng/mL (>250 nmol/L) Performed By: #### L 503.0106, L506.1001 #### [facility] [address] [place], [place], [address] White blood cell (WBC) count Ordered By: Rocco Albarran on 12-11-2024 WBC (Bld) [#/Vol] 5.6 10*3/uL 4.4-11.0 [facility] Emergency Department Summary on 12-06-2024 Emergency Department Summary [facility] Medical Records Department [address] [place] [address] Emergency Department Summary 12/06/24 MR#: [id number] Acct: [id number] Name: MALINI MCNAIR Rep #: [id number] : 1935 89 From: Kristi Sherman DO [...] at this time. Tetanus Immunization: <5 years [facility] Medical History Bradycardia Hyperlipidemia Essential (primary) [...] do you participate in: walking and swimming ruddy/presybeterian: Shinto seatbelt use: always ROS ROS ED Constitutional [...] is performed (more content not included)... Normal [facility] Anion gap in Serum or Plasma Ordered By: Aaron Baig on 11-04-2024 Anion gap [Moles/Vol] 16 mmol/L High 5-15 [facility] BUN/creatinine ratioOrdered By: Aaron Baig on 11-04-2024 Urea nitrogen/Creatinine [Mass ratio] 19.8 mg/mg 10-20 [facility] Basic Metabolic Profile (BMP )on 11-04-2024 BUN/CRE 19.8 RATIO Normal - [facility] Comment on above: Performed By: #### L 500.2500 #### [facility] [address] [place], [address] Calcium [Mass/Vol] 9.2 mg/dL Normal 7.6-11.0 [facility] Comment on above: Performed By: #### L 500.2500 #### [facility] [address] [place], [address] Chloride [Moles/Vol] 95 mmol/L Low 98-108 [facility] Comment on above: Performed By: #### L 500.2500 #### [facility] [address] [place], [address] CO2 [Moles/Vol] 20.9 mmol/L Low 21.0-32.0 [facility] Comment on above: Performed By: #### L 500.2500 #### [facility] [address] [place], [address] Creatinine [Mass/Vol] 1.11 mg/dL Normal 0.70-1.20 [facility] Comment on above: Performed By: #### L 500.2500 #### [facility] [address] [place], [address] ECRCL 34.52 ml/min Low 50-250 [facility] Comment on above: Performed By: #### L 500.2500 #### [facility] [address] [place], [address] GAP 16 High 5-15 [facility] Comment on above: Performed By: #### L 500.2500 #### [facility] [address] [place], [address] GFR/1.73 sq M.predicted among non-blacks MDRD (S/P/Bld) [Vol rate/Area] 48 mL/min/{1.73_m2} Low >60 [facility] Comment on above: Result Comment: mL/m in/1.73m2 CKD-EPI Creatinine Equation (2020) Performed By: #### L 500.2500 #### [facility] [address] [place], [address] Glucose [Mass/Vol] 96 mg/dL Normal 70-99 [facility] Comment on above: Performed By: #### L 500.2500 #### [facility] [address] [place], [address] Potassium [Moles/Vol] 3.7 mmol/L Normal 3.3-5.1 [facility] Comment on above: Result Comment: Hemo lysis present, Results??could be affected. ?? Performed By: #### L 500.2500 #### [facility] [address] [place], [address] Sodium [Moles/Vol] 131 mmol/L Low 133-145 [facility] Comment on above: Performed By: #### L 500.2500 #### [facility] [address] [place], [address] Urea nitrogen [Mass/Vol] 22 mg/dL High 4-19 [facility] Comment on above: Performed By: #### L 500.2500 #### [facility] [address] [place], [address] Bilirubin Test strip Ql (U)O rdered By: Aaron Baig on 11-04-2024 Bilirubin Ql (U) Negative Negative [facility] Carbon dioxide, total [Moles /volume] in Central venous bloodOrdered By: Aaron Baig on 11-04-2024 CO2 [Moles/Vol] 20.9 mmol/L Low 21.0-32.0 [facility] Chloride assayOrdered By: Ug kevin Baig on 11-04-2024 Chloride [Moles/Vol] 95 mmol/L Low 98-108 [facility] Emergency Department Summary on 11-04-2024 Emergency Department Summary [facility] Medical Records Department [address] [place] [address] Emergency Department Summary 11/04/24 MR#: [id number] Acct: [id number] Name: MALINI MCNAIR Rep #: [id number] : 1935 89 From: Aaron Baig MD [...] do you participate in: walking and swimming ruddy/presybeterian: Shinto seatbelt use: always ROS ROS ED Constitutional [...] 21 H (more content not included)... Normal [facility] Glomerular filtration rate ( GFR) estimation/1.73 sq m using serum, plasma, or whole bOrdered By: Aaron Baig on 11-04-2024 GFR/1.73 sq M.predicted among non-blacks MDRD (S/P/Bld) [Vol rate/Area] 48 mL/min/{1.73_m2} Low >60 [facility] Comment on above: mL/min/1.73m2 CKD-EP I Creatinine Equation (2020) Ketones Test strip Ql (U)Ord ered By: Aaron Baig on 11-04-2024 Ketones Ql (U) Negative Negative [facility] Microscopic analysis of urin e for red blood cells (RBC)Ordered By: Aaron Baig on 11-04-2024 Microscopic analysis of urine for red blood cells (RBC) 0-5 SEEN /hpf 0-5 [facility] Mucus LM Ql (Urine sed)Order ed By: Aaron Baig on 11-04-2024 Mucus Ql (Urine sed) 0 SEEN /hpf [facility] Nitrite Test strip Ql (U)Ord ered By: Aaron Baig on 11-04-2024 Nitrite Ql (U) Negative Negative [facility] Potassium measurement (mass/ volume)Ordered By: Aaron Baig on 11-04-2024 Potassium (Unsp spec) [Mass/Vol] 3.7 mmol/L 3.3-5.1 [facility] Comment on above: Hemolysis present, R esults could be affected. Protein Test strip Ql (U)Ord ered By: Aaron Baig on 11-04-2024 Protein Ql (U) 30 mg/dl High Negative [facility] Serum creatinine measurement (mass/volume)Ordered By: Aaron Baig on 11-04-2024 Creatinine [Mass/Vol] 1.11 mg/dL 0.70-1.20 [facility] Serum glucose measurement (m ass/volume)Ordered By: Aaron Baig on 11-04-2024 Glucose [Mass/Vol] 96 mg/dL 70-99 [facility] Serum or plasma calcium jaron urement (mass/volume)Ordered By: Aaron Baig on 11-04-2024 Calcium [Mass/Vol] 9.2 mg/dL 7.6-11.0 [facility] Serum or plasma urea nitroge n measurement (mass/volume)Ordered By: Aaron Baig on 11-04-2024 Urea nitrogen [Mass/Vol] 22 mg/dL High 4-19 [facility] Sodium levelOrdered By: Aaron Baig on 11-04-2024 Sodium [Moles/Vol] 131 mmol/L Low 133-145 [facility] Squamous epithelial cells de tection in urine sediment by light microscopyOrdered By: Aaron Baig on 11-04-2024 Epithelial cells.squamous LM Ql (Urine sed) 0-5 SEEN /hpf 5-10 [facility] Urinalysis, Completeon 11-04 BACTERIA 1+ /hpf Normal None Seen [facility] Comment on above: Order Comment: CLEAN CATCH Performed By: #### L 400.0001 #### [facility] [address] [place], [address] EPI,SQUAMOUS 0-5 SEEN Normal -10 [facility] Comment on above: Order Comment: CLEAN CATCH Performed By: #### L 400.0001 #### [facility] [address] [place], [address] RBC 0-5 SEEN Normal 0-5 [facility] Comment on above: Order Comment: CLEAN CATCH Performed By: #### L 400.0001 #### [facility] [address] [place], [address] WBC 0-5 SEEN Normal 0-5 [facility] Comment on above: Order Comment: CLEAN CATCH Performed By: #### L 400.0001 #### [facility] [address] [place], [address] Mucus Ql (Urine sed) 0 SEEN Normal [facility] Comment on above: Order Comment: CLEAN CATCH Performed By: #### L 400.0001 #### [facility] [address] [place], [address] Urine clarityOrdered By: Aaron Baig on 11-04-2024 Clarity (U) Clear Clear [facility] Urine color determinationOrd ered By: Aaron Baig on 11-04-2024 Color (U) Yellow Yellow [facility] Urine glucose detectionOrder ed By: Aaron Baig on 11-04-2024 Glucose Ql (U) Normal mg/dl Normal [facility] Urine leukocyte esterase det ection by dipstickOrdered By: Aaron Baig on 11-04-2024 Leukocyte esterase Test strip Ql (U) 100 /ul High Negative [facility] Urine pHOrdered By: Aaron brown on 11-04-2024 pH (U) 6.0 [pH] 5.0 - 8.0 [facility] Urine sediment bacteria coun t by microscopy (number/high power field)Ordered By: Aaron Baig on 11-04-2024 Bacteria LM.HPF (Urine sed) [#/Area] 1 /[HPF] None Seen [facility] Urine specific gravity measu rementOrdered By: Aaron Baig on 11-04-2024 Specific gravity (U) [Rel density] 1.010 1.002-1.030 [facility] Urine urobilinogen measureme ntOrdered By: Aaron Baig on 11-04-2024 Urobilinogen Ql (U) Normal mg/dl Normal [facility] White blood cell countOrdere d By: Aaron Baig on 11-04-2024 White blood cell count 0-5 SEEN /hpf 0-5 [facility] Neurology Visit Reporton Neurology Visit Report [facility] [address], [address] [place] [address] OFFICE VISIT Date of Service: 08/18/24 MR#: [id number] Acct: [id number] Name: MALINI MCNAIR Rep #: [id number] : 1935 Provider: Dr. Erick chow MD Age/Sex: 88/F Location: [facility]. Status: Signed [facility] Chief Complaint: Details: Interim History: Malini [...] cardiac monitoring. She was evaluated by a casket assembler, Dr. Capps, and is on antihypertensive medication. [...] (05/04/2021): Findings: (more content not included)... Normal [facility] Cardiovascular stress test r eportOrdered By: Anish Capps on 06-18-2024 Study report [facility] [address] [place] [address] MR#: [id number] Acct: [id number] Name: MALINI MCNAIR Rep #: [id number] [...] Date Dictated: 06/18/24 140 Date Transcribed: 06/18/241405 Special Education Superintendent: [place] Signed [facility] Work Phone: Echo Completeon 06-18-2024 Echo Complete [facility] Cardiovascular Services [address] [place] [address] Echo Complete 06/18/24 0839 MR#: [id number] Acct: [id number] Name: MALINI MCNAIR Rep #: [id number] : 1935 88 From: Anish Capps MD Attending Dr: Dr. Anish Capps MD Status: IBIS BALL Ordering Dr: Anish Capps MD Date: 06/18/24 Location: [facility] Sex: F C Admitted: Reason [...] Capps Performed By: Juana Beal RCS 06/18/24 1257 Date Anish Capps MD CC: Dr. Willow Eason MD; Dr. Anish Capps MD Date Dictated: 06/18/2439 Date Transcribed: 06/18/24 1251 Special Education Superintendent: Signed Normal [facility] Echocardiogram study reportO rdered By: Anish Capps on 06-18-2024 Study report [facility] [address] [place] [address] Echo Complete 06/18/24838 MR#: [id number] Acct: [id number] Name: MALINI MCNAIR Rep #:[id number] : 1935 88 From: Anish Esposito Attending Dr: Dr. Anish Capps MD S tatus: REG CLI Ordering Dr: Anish Capps MD Date: Location: [facility] Sex: F C Admitted: Reason [...] Dictated: 06/18/24 0839 Date Transcribed: 06/18/24 1251 Special Education Superintendent: Signed [facility] Work Phone: Stress Reporton 06-18-2024 Stress Report [facility] [address] [place] [address] MR#: [id number] Acct: [id number] Name: CHAYAROBERTMALINI VIDAL Anshu Rep #: [id number] : 1935 88 From: Anish Capps MD [...] MD Date Dictated: 06/18/241405 Date Transcribed: 06/18/241405 Special Education Superintendent: [place] Signed Normal [facility] Cardiology Visit Reporton Cardiology Visit Report [facility] [address] [place] [address] OFFICE VISIT Date of Service: 06/16/24 MR#: [id number] Acct: [id number] Name: MALINI MCNAIR Rep #: [id number] : 1935 Provider: Dr. Anish Capps MD Age/Sex: 88/F Location: [facility] Status: Signed HPI HPI History of [...] Monitor Intake Visit Reasons: 6 W FU Tube Tester Required: No Accompanied by: Self Is patient [...] do you participate in: walking and swimming ruddy/presybeterian: Shinto seatbelt use: always ROS Const Const: Negative [...] related structur (more content not included)... Normal [facility] Carotid Duplex Ultrasoundon 05-27-2024 Carotid Duplex Ultrasound [facility] Services [address] [place] [address] Carotid Duplex Ultrasound 05/27/24 0947 MR#: [id number] Acct: [id number] Name: MALINI MCNAIR Rep #: [id number] : 1935 88 From: Jose Mello MD Attending Dr: Dr. Anish Capps MD Status: IBIS BALL Ordering Dr: Anish Capps MD Date: 05/27/24 Location: [facility] Sex: F C Admitted: Reason [...] the left vertebral artery. Procedure Carotid Duplex 43612. This is a Carotid Duplex examination using [...] Date Dictated: 05/27/24 0947 Date Transcribed: 05/27/241831 Special Education Superintendent: Signed [facility] Duplex ultrasound of carotid artery reportOrdered By: Jose Mello on 05-27-2024 Study report [facility] Services [address] [place] [address] Carotid Duplex Ultrasound 05/27/24 0947 MR#: [id number] Acct: [id number] Name: MALINI MCNAIR Rep #:[id number] : [...] the left vertebral artery. Procedure Carotid Duplex 80743. This is a Carotid Duplex examination using [...] ~ Date Dictated: 05/27/2447 Date Transcribed: 05/27/241831 Special Education Superintendent: Signed [facility] Work Phone: 12 Lead EKG performed by [facility] on 05-06-2024 12 Lead EKG performed by [facility] [address] [place] [address] 12 Lead EKG performed by [facility] 05/06/24 0851 MR#: [id number] Acct: [id number] Name: MALINI MCNAIR Rep #: [id number] : 1935 88 From: Anish Capps MD Attending Dr: Dr. Anish Capps MD Status: DEP A MB Ordering Dr: Anish Capps MD Date: 05/06/24 Location: [facility] Sex: F C Admitted: BMS/12 Lead EKG performed by [facility] ECG Report Interpretation ------Sinus Rhythm -Frequent pvcs -ventricular bigeminy -Combined atrial enlargement. ABNORMAL RHYTHMElectronically signed on 05/07/2024 at 11:38 by Anish Capps Software Version 8610 05/07/24 1140 Date Anish Capps MD CC: Dr. Willow Eason MD Date Dictated: 05/06/24850 Date Transcribed: 05/06/24850 Special Education Superintendent: [place] Signed Normal [facility] Cardiology Visit Reporton Cardiology Visit Report [facility] [place] [address] OFFICE VISIT Date of Service: 05/06/24 MR#: [id number] Acct: [id number] Name: MALINI MCNAIR Rep #: [id number] : 1935 Provider: Dr. Anish Capps MD Age/Sex: 88/F Location: [facility] Status: Signed HPI HPI History of Present [...] room air Intake Visit Reasons: TACHYCARDIA (JOLLIFF) Tube Tester Required: No Accompanied by: Self Is patient [...] do you participate in: walking and swimming ruddy/presybeterian: Shinto seatbelt use: always ROS Const Const: Positive for headache(s); Negative for fatigue, weakness, daytime sleepiness or difficulty sleeping ENT ENT: Positive for headache(s); Negative for dizziness or Nosebleed/epistaxis Cardio Chest Pain: Yes Frequency: other (comes and goes) Character: other (tightness) Onset: other Location: mid sternal and left chest Duration: brief Palpitations: Yes feels like its: skipping Edema: Bi (more content not included)... Normal [facility] Albumin to globulin ratioOrd ered By: Willow Eason on 03-14-2024 Albumin/Globulin [Mass ratio] 1.3 {ratio} 0.9-2.4 [facility] Bilirubin, totalOrdered By: Willow Eason on 03-14-2024 Bilirubin [Mass/Vol] 0.80 mg/dL 0.20-1.00 [facility] Comment on above: For patients on eltr ombopag therapy, use of Dimension [place] TBIL is not recommended. Blood urea nitrogen (BUN)/cr eatinine ratioOrdered By: Willow Eason on 03-14-2024 Urea nitrogen/Creatinine [Mass ratio] 26.5 mg/mg High 10-20 [facility] CBC-Complete Blood Cnt No Di ffon 03-14-2024 Erythrocyte distribution width (RBC) [Ratio] 13.2 % Normal 11.6-14.6 [facility] Comment on above: Order Comment: Order Date: 03/13/24Order Info: [id number] - CBC Performed By: #### L 500.2500 #### [facility] [address] [place], [address] Hematocrit (Bld) [Volume fraction] 38.9 % Normal 37-47 [facility] Comment on above: Order Comment: Order Date: 03/13/24Order Info: [id number] - CBC Performed By: #### L 500.2500 #### [facility] [address] [place], [address] Hemoglobin (Bld) [Mass/Vol] 13.4 g/dL Normal 12.0-15.0 [facility] Comment on above: Order Comment: Order Date: 03/13/24Order Info: [id number] - CBC Performed By: #### L 500.2500 #### [facility] [address] [place], [address] MCH (RBC) [Entitic mass] 33.6 pg High 27.0-32.0 [facility] Comment on above: Order Comment: Order Date: 03/13/24Order Info: [id number] - CBC Performed By: #### L 500.2500 #### [facility] [address] [place], [address] MCHC (RBC) [Mass/Vol] 34.4 g/dL Normal 32-36 [facility] Comment on above: Order Comment: Order Date: 03/13/24Order Info: [id number] - CBC Performed By: #### L 500.2500 #### [facility] [address] [place], [address] MCV (RBC) [Entitic vol] 97.5 fL Normal 81-99 [facility] Comment on above: Order Comment: Order Date: 03/13/24Order Info: [id number] - CBC Performed By: #### L 500.2500 #### [facility] [address] [place], [address] Platelet mean volume (Bld) [Entitic vol] 10.9 fL Normal 6.2-12.0 [facility] Comment on above: Order Comment: Order Date: 03/13/24Order Info: [id number] - CBC Performed By: #### L 500.2500 #### [facility] [address] [place], [address] Platelets (Bld) [#/Vol] 194 10*3/uL Normal 150-450 [facility] Comment on above: Order Comment: Order Date: 03/13/24Order Info: [id number] - CBC Performed By: #### L 500.2500 #### [facility] [address] [place], [address] RBC (Bld) [#/Vol] 3.99 10*6/uL Low 4.2-5.4 [facility] Comment on above: Order Comment: Order Date: 03/13/24Order Info: [id number] - CBC Performed By: #### L 500.2500 #### [facility] [address] [place], [address] RDW SD 47.5 fl High 35.1-43.9 [facility] Comment on above: Order Comment: Order Date: 03/13/24Order Info: [id number] - CBC Performed By: #### L 500.2500 #### [facility] [address] [place], [address] WBC (Bld) [#/Vol] 6.3 10*3/uL Normal 4.4-11.0 [facility] Comment on above: Order Comment: Order Date: 03/13/24Order Info: [id number] - CBC Performed By: #### L 500.2500 #### [facility] [address] [place], [address] Carbon dioxide measurementOr dered By: Willow Eason on 03-14-2024 CO2 [Moles/Vol] 26.0 mmol/L 21.0-32.0 [facility] Chloride measurementOrdered By: Willow Eason on 03-14-2024 Chloride [Moles/Vol] 107 mmol/L 98-107 [facility] Comprehensive Metabolic Prof ilon 03-14-2024 Albumin [Mass/Vol] 4.2 g/dL Normal 3.2-5.0 [facility] Comment on above: Order Comment: Order Date: 12/11/24 Order Info: [id number] - CBCD Performed By: #### L 506.0400, L501.9520, L500.4050, L500.4100, L100.0100 #### [facility] [address] [place], [address] Albumin/Globulin [Mass ratio] 1.3 {ratio} Normal 0.9-2.4 [facility] Comment on above: Order Comment: Order Date: 12/11/24 Order Info: [id number] - CBCD Performed By: #### L 506.0400, L501.9520, L500.4050, L500.4100, L100.0100 #### [facility] [address] [place], [address] ALK P 70 U/L Normal 45-117 [facility] Comment on above: Order Comment: Order Date: 12/11/24 Order Info: 0184-1 - CBCD Performed By: #### L 506.0400, L501.9520, L500.4050, L500.4100, L100.0100 #### [facility] [address] [place], [address] ALT [Catalytic activity/Vol] 13 U/L Normal 13-56 [facility] Comment on above: Order Comment: Order Date: 12/11/24 Order Info: 0184-1 - CBCD Performed By: #### L 506.0400, L501.9520, L500.4050, L500.4100, L100.0100 #### [facility] [address] [place], [address] AST [Catalytic activity/Vol] 15 U/L Normal 15-37 [facility] Comment on above: Order Comment: Order Date: 12/11/24 Order Info: 0184-1 - CBCD Performed By: #### L 506.0400, L501.9520, L500.4050, L500.4100, L100.0100 #### [facility] [address] [place], [address] Bilirubin [Mass/Vol] 0.80 mg/dL Normal 0.20-1.00 [facility] Comment on above: Order Comment: Order Date: 12/11/24 Order Info: 0184-1 - CBCD Result Comment: For patients on eltrombopag therapy, use of Dimension [place] TBIL is not recommended. Performed By: #### L 506.0400, L501.9520, L500.4050, L500.4100, L100.0100 #### [facility] [address] [place], [address] BUN/CRE 26.5 RATIO High 10-20 [facility] Comment on above: Order Comment: Order Date: 12/11/24 Order Info: 0184-1 - CBCD Performed By: #### L 506.0400, L501.9520, L500.4050, L500.4100, L100.0100 #### [facility] [address] [place], [address] CA,Total 9.6 mg/dL Normal 8.5-10.1 [facility] Comment on above: Order Comment: Order Date: 12/11/24 Order Info: 0184-1 - CBCD Performed By: #### L 506.0400, L501.9520, L500.4050, L500.4100, L100.0100 #### [facility] [address] [place], [address] Chloride [Moles/Vol] 107 mmol/L Normal 98-107 [facility] Comment on above: Order Comment: Order Date: 12/11/24 Order Info: 0184-1 - CBCD Performed By: #### L 506.0400, L501.9520, L500.4050, L500.4100, L100.0100 #### [facility] [address] [place], [address] CO2 [Moles/Vol] 26.0 mmol/L Normal 21.0-32.0 [facility] Comment on above: Order Comment: Order Date: 12/11/24 Order Info: 0184-1 - CBCD Performed By: #### L 506.0400, L501.9520, L500.4050, L500.4100, L100.0100 #### [facility] [address] [place], [address] Creatinine [Mass/Vol] 1.02 mg/dL Normal 0.55-1.02 [facility] Comment on above: Order Comment: Order Date: 12/11/24 Order Info: 0184-1 - CBCD Result Comment: The validity of the calculated GFR GFRAA in patients over 70 years has not been determined. Clinical correlation is essential. Performed By: #### L 506.0400, L501.9520, L500.4050, L500.4100, L100.0100 #### [facility] [address] [place], [address] EST GFR - AA 66 mL/min Normal >60 [facility] Comment on above: Order Comment: Order Date: 12/11/24 Order Info: [id number] - CBCD Result Comment: Afri can Ug[place] GFR Calc Performed By: #### L 506.0400, [id number], L500.4050, L500.4100, L100.0100 #### [facility] [address] [place], [address] GAP 8 Normal 5-15 [facility] Comment on above: Order Comment: Order Date: 12/11/24 Order Info: [id number]- - CBCD Performed By: #### L 506.0400, [id number], L500.4050, L500.4100, L100.0100 #### [facility] [address] [place], [address] GFR/1.73 sq M.predicted among non-blacks MDRD (S/P/Bld) [Vol rate/Area] 54 mL/min/{1.73_m2} Low >60 [facility] Comment on above: Order Comment: Order Date: 12/11/24 Order Info: [id number]- - CBCD Result Comment: Non- GFR Calc Performed By: #### L 506.0400, [id number], L500.4050, L500.4100, L100.0100 #### [facility] [address] [place], [address] Globulin (S) [Mass/Vol] 3.2 g/dL Normal 2.2-4.2 [facility] Comment on above: Order Comment: Order Date: 12/11/24 Order Info: 0184- - CBCD Performed By: #### L 506.0400, [id number], L500.4050, L500.4100, L100.0100 #### [facility] [address] [place], [address] Glucose [Mass/Vol] 108 mg/dL High 74-106 [facility] Comment on above: Order Comment: Order Date: 12/11/24 Order Info: [id number]- - CBCD Result Comment: Fast ing Glucose result from 100 to 125 mg/dL suggests IMPAIRED HOMEOSTASIS per A.D.A. criteria. Performed By: #### L 506.0400, [id number], L500.4050, L500.4100, L100.0100 #### [facility] [address] [place], [address] Potassium [Moles/Vol] 4.3 mmol/L Normal 3.5-5.1 [facility] Comment on above: Order Comment: Order Date: 12/11/24 Order Info: [id number] - CBCD Performed By: #### L 506.0400, [id number], L500.4050, L500.4100, L100.0100 #### [facility] [address] [place], [address] Sodium [Moles/Vol] 140 mmol/L Normal 136-145 [facility] Comment on above: Order Comment: Order Date: 12/11/24 Order Info: [id number]- - CBCD Performed By: #### L 506.0400, [id number], L500.4050, L500.4100, L100.0100 #### [facility] [address] [place], [address] T PROT 7.4 g/dL Normal 6.4-8.2 [facility] Comment on above: Order Comment: Order Date: 12/11/24 Order Info: [id number] - CBCD Performed By: #### L 506.0400, [id number], L500.4050, L500.4100, L100.0100 #### [facility] [address] [place], [address] Urea nitrogen [Mass/Vol] 27 mg/dL High 7-18 [facility] Comment on above: Order Comment: Order Date: 12/11/24 Order Info: [id number] - CBCD Performed By: #### L 506.0400, [id number], L500.4050, L500.4100, L100.0100 #### [facility] [place], [address] Erythrocyte distribution wid th ratioOrdered By: Willow Eason on 03-14-2024 Erythrocyte distribution width (RBC) [Ratio] 13.2 % 11.6-14.6 [facility] Erythrocyte distribution wid th standard deviationOrdered By: Willow Eason on 03-14-2024 Erythrocyte distribution width (RBC) [Entitic vol] 47.5 fL High 35.1-43.9 [facility] Estimated glomerular filtrat ion rate (GFR) AmericanOrdered By: Willow Eason on 03-14-2024 Estimated GFR (MDRD) Amer 66 mL/min >60 [facility] Comment on above: GFR Calc Glomerular filtration rate ( GFR) estimationOrdered By: Willow Eason on 03-14-2024 Estimated GFR (MDRD) Non-Af Amer 54 mL/min Low >60 [facility] Comment on above: Non- GFR Calc Glucose measurementOrdered B y: Willow Eason on 03-14-2024 Glucose [Mass/Vol] 108 mg/dL High 74-106 [facility] Comment on above: Fasting Glucose resu lt from 100 to 125 mg/dL suggests IMPAIRED HOMEOSTASIS per A.D.A. criteria. Hematocrit Auto (Bld) [Volum e fraction]Ordered By: Willow Eason on 03-14-2024 Hematocrit (Bld) [Volume fraction] 38.9 % 37-47 [facility] Hemoglobin measurementOrdere d By: Willow Eason on 03-14-2024 Hemoglobin (Bld) [Mass/Vol] 13.4 g/dL 12.0-15.0 [facility] - Chemistry and C hemistry - challengeOrdered By: Willow Eason on 03-14-2024 AST [Catalytic activity/Vol] 15 U/L 15-37 [facility] MCV (mean corpuscular volume ) determinationOrdered By: Willow Eason on 03-14-2024 MCV (RBC) [Entitic vol] 97.5 fL 81-99 [facility] Mean corpuscular hemoglobin (MCH) determinationOrdered By: Willow Eason on 03-14-2024 MCH (RBC) [Entitic mass] 33.6 pg High 27.0-32.0 [facility] Mean corpuscular hemoglobin concentration (MCHC) determinationOrdered By: Willow Eason on 03-14-2024 MCHC (RBC) [Mass/Vol] 34.4 g/dL 32-36 [facility] Mean platelet volume determi nationOrdered By: Willow Eason on 03-14-2024 Platelet mean volume (Bld) [Entitic vol] 10.9 fL 6.2-12.0 [facility] Platelet countOrdered By: Mart Eason on 03-14-2024 Platelets (Bld) [#/Vol] 194 10*3/uL 150-450 [facility] Potassium measurementOrdered By: Willow Eason on 03-14-2024 Potassium [Moles/Vol] 4.3 mmol/L 3.5-5.1 [facility] RBC Auto (Bld) [#/Vol]Ordere d By: Willow Eason on 03-14-2024 RBC (Bld) [#/Vol] 3.99 10*6/uL Low 4.2-5.4 [facility] Serum anion gap measurementO rdered By: Willow Eason on 03-14-2024 Anion gap [Moles/Vol] 8 mmol/L 5-15 [facility] Serum globulin measurementOr dered By: Willow Eason on 03-14-2024 Globulin (S) [Mass/Vol] 3.2 g/dL 2.2-4.2 [facility] Serum or plasma alanine man otransferase (ALT) measurementOrdered By: Willow Eason on 03-14-2024 ALT [Catalytic activity/Vol] 13 U/L 13-56 [facility] Serum or plasma albumin jaron urement (mass/volume)Ordered By: Willow Eason on 03-14-2024 Albumin [Mass/Vol] 4.2 g/dL 3.2-5.0 [facility] Serum or plasma alkaline sissy sphatase measurementOrdered By: Willow Eason on 03-14-2024 ALP [Catalytic activity/Vol] 70 U/L 45-117 [facility] Serum or plasma calcium jaron urement (mass/volume)Ordered By: Willow Eason on 03-14-2024 Calcium [Mass/Vol] 9.6 mg/dL 8.5-10.1 [facility] Serum or plasma creatinine m easurement (mass/volume)Ordered By: Willow Eason on 03-14-2024 Creatinine [Mass/Vol] 1.02 mg/dL 0.55-1.02 [facility] Comment on above: The validity of the calculated GFR & GFRAA in patients over 70 years has not been determined. Clinical correlation is essential. Serum or plasma urea nitroge n measurement (mass/volume)Ordered By: Willow Eason on 03-14-2024 Urea nitrogen [Mass/Vol] 27 mg/dL High 7-18 [facility] Sodium levelOrdered By: Willow Eason on 03-14-2024 Sodium [Moles/Vol] 140 mmol/L 136-145 [facility] TSH QnOrdered By: Willow courtney on 03-14-2024 Thyroid Stimulating Hormone (TSH) 1.490 uIU/mL 0.358-3.740 [facility] Thyroid Stim Hormone (TSH)on 03-14-2024 TSH 1.490 uIU/mL Normal 0.358-3.740 [facility] Comment on above: Order Comment: Order Date: 12/11/24 Order Info: [id number] - CBCD Performed By: #### L 506.0400, L501.9520, L500.4050, L500.4100, L100.0100 #### [facility] [address] [place], [place], [id number] Total proteinOrdered By: Willow Eason on 03-14-2024 Protein [Mass/Vol] 7.4 g/dL 6.4-8.2 [facility] White blood cell (WBC) count Ordered By: Willow Eason on 03-14-2024 WBC (Bld) [#/Vol] 6.3 10*3/uL 4.4-11.0 [facility] Basophil percentageOrdered B y: Willow Eason on 07-30-2022 Chloride [Moles/Vol] 106 mmol/L 98-107 [facility] Cholesterol [Mass/Vol] 164 mg/dL <200 [facility] Comment on above: <200 mg/dL Desirable 200-240 mg/dL Borderline >240 mg/dL High Risk Glucose [Mass/Vol] 76 mg/dL 74-106 [facility] Potassium [Moles/Vol] 3.6 mmol/L 3.5-5.1 [facility] Sodium [Moles/Vol] 141 mmol/L 136-145 [facility] Triglyceride [Mass/Vol] 144 mg/dL <199 [facility] Comment on above: The drugs N-Acetylcy steine and Metamizole may falsely depress this assay.Serum Triglycerides Reference Interval Normal <150 mg/dL Borderline high 150 - 199 mg/dL High 200 - 499 mg/dL Very High > or = 500 mg/dL Laboratory - Chemistry and C hemistry - challengeOrdered By: Willow Eason on 07-30-2022 ALT [Catalytic activity/Vol] 19 U/L 13-56 [facility] CO2 [Moles/Vol] 27.0 mmol/L 21.0-32.0 [facility] Urea nitrogen/Creatinine [Mass ratio] 38.3 mg/mg 10-20 [facility] No Panel InformationOrdered By: Willow Eason on 07-30-2022 Estimated GFR (MDRD) Amer 70 mL/min >60 [facility] Comment on above: GFR Calc Estimated GFR (MDRD) Non-Af Amer 58 mL/min >60 [facility] Comment on above: Non- GFR Calc Urine Microalbumin/Creatinine Ratio 28.9 mg/g CRE <30 [facility] Serum or plasma calcium jaron urement (mass/volume)Ordered By: Willow Eason on 07-30-2022 Calcium [Mass/Vol] 9.6 mg/dL 8.5-10.1 [facility] Serum or plasma cholesterol in HDL measurement (mass/volume)Ordered By: Willow Eason on 07-30-2022 Cholesterol in HDL [Mass/Vol] 44 mg/dL >40 [facility] Comment on above: The drugs N-Acetylcy steine and Metamizole may falsely depress this assay. Reference Range HDL <40 mg/dL Low HDL Cholesterol HDL >or= 60 mg/dL High HDL Cholesterol Serum or plasma cholesterol in VLDL measurement (mass/volume)Ordered By: Willow Eason on 07-30-2022 Cholesterol in VLDL [Mass/Vol] 29 mg/dL 5-40 [facility] Serum or plasma creatinine m easurement (mass/volume)Ordered By: Willow Eason on 07-30-2022 Creatinine [Mass/Vol] 0.97 mg/dL 0.55-1.02 [facility] Comment on above: The validity of the calculated GFR & GFRAA in patients over 70 years has not been determined. Clinical correlation is essential. Serum or plasma low density lipoprotein (LDL) cholesterol measurement (mass/volume)Ordered By: Willow Eason on 07-30-2022 Cholesterol in LDL [Mass/Vol] 91 mg/dL 0-130 [facility] Serum or plasma urea nitroge n measurement (mass/volume)Ordered By: Willow Eason on 07-30-2022 Urea nitrogen [Mass/Vol] 37 mg/dL 7-18 [facility] Thin prep Papanicolaou smear with manual screeningOrdered By: Willow Eason on 07-30-2022 Thin prep Papanicolaou smear with manual screening 15 U/L 15-37 [facility] Thin prep Papanicolaou smear with manual screening 8 5-15 [facility] Thin prep Papanicolaou smear with manual screening 27.1 mg/L NO RANGE EST. [facility] Urine creatinine measurement (mass/volume)Ordered By: Willow Eason on 07-30-2022 Creatinine (U) [Mass/Vol] 93.70 mg/dL NO RANGE EST. [facility] Basophil percentageon 2021 Basophil percentage 5-10 SEEN /hpf 0-5 [facility] Work Phone: Bilirubin Test strip Ql (U)o n 12-16-2021 Bilirubin Ql (U) Negative Negative [facility] Work Phone: Ketones Test strip Ql (U)on 12-16-2021 Ketones Ql (U) Negative Negative [facility] Work Phone: Laboratory - Chemistry and C hemistry - challengeon 12-16-2021 Bilirubin Ql (U) Negative [facility] Work Phone: Glucose Ql (U) Negative [facility] Work Phone: Ketones Ql (U) Negative [facility] Work Phone: pH (U) 6.5 [pH] [facility] Work Phone: Specific gravity (U) [Rel density] 1.005 [facility] Work Phone: Urobilinogen (U) [Mass/Vol] Negative [facility] Work Phone: Laboratory - Hematology and Cell countson 12-16-2021 Hemoglobin Ql (U) Hemolyzed [facility] Work Phone: Laboratory - Specimen inform ationon 12-16-2021 Clarity (U) Cloudy [facility] Work Phone: Color (U) YELLOW [facility] Work Phone: Laboratory - Urinalysison Nitrite Ql (U) Positive [facility] Work Phone: Protein Ql (U) Negative [facility] Work Phone: Mucus LM Ql (Urine sed)on Mucus Ql (Urine sed) 0 SEEN /hpf [facility] Work Phone: Nitrite Test strip Ql (U)on 12-16-2021 Nitrite Ql (U) Negative Negative [facility] Work Phone: No Panel Informationon 12-16 Urine Leukocytes Positive [facility] Work Phone: Urine Non-Hemolyzed Blood Large [facility] Work Phone: Protein Test strip Ql (U)on 12-16-2021 Protein Ql (U) 15 mg/dl Negative [facility] Work Phone: Squamous epithelial cells de tection in urine sediment by light microscopyon 12-16-2021 Epithelial cells.squamous LM Ql (Urine sed) 0 SEEN /hpf 5-10 [facility] Work Phone: Urine blood detectionon 11-30 RBC Ql (U) 150 /ul Negative [facility] Work Phone: RBC Ql (U) 0 SEEN /hpf 0-5 [facility] Work Phone: Urine clarityon 12-16-2021 Clarity (U) Clear Clear [facility] Work Phone: Urine color determinationon 12-16-2021 Color (U) Yellow Yellow [facility] Work Phone: Urine glucose detectionon Glucose Ql (U) Normal mg/dl Normal [facility] Work Phone: Urine leukocyte esterase det ection by dipstickon 12-16-2021 Leukocyte esterase Test strip Ql (U) 500 /ul Negative [facility] Work Phone: Urine pHon 12-16-2021 pH (U) 6.5 [pH] 5.0 - 8.0 [facility] Work Phone: Urine sediment bacteria coun t by microscopy (number/high power field)on 12-16-2021 Bacteria LM.HPF (Urine sed) [#/Area] 0 /[HPF] None Seen [facility] Work Phone: Urine specific gravity measu rementon 12-16-2021 Specific gravity (U) [Rel density] 1.005 1.002-1.030 [facility] Work Phone: Urobilinogen Auto test strip Ql (U)on 12-16-2021 Urobilinogen Ql (U) Normal mg/dl Normal [facility] Work Phone: Basophil percentageon 2021 Bilirubin [Mass/Vol] 0.50 mg/dL 0.20-1.00 [facility] Work Phone: Comment on above: For patients on eltr ombopag therapy, use of Dimension [place] TBIL is not recommended. Chloride [Moles/Vol] 101 mmol/L 98-107 [facility] Work Phone: Glucose [Mass/Vol] 89 mg/dL 74-106 [facility] Work [facility]: Potassium [Moles/Vol] 3.9 mmol/L 3.5-5.1 [facility] Work Phone: [phone] Protein [Mass/Vol] 7.5 g/dL 6.4-8.2 [facility] Work Phone: [phone] Sodium [Moles/Vol] 136 mmol/L 136-145 [facility] Work Phone: Laboratory - Chemistry and C hemistry - challengeon 07-26-2021 ALP [Catalytic activity/Vol] 61 U/L 45-117 [facility] Work Phone: ALT [Catalytic activity/Vol] 18 U/L 13-56 [facility] Work Phone: CO2 [Moles/Vol] 27.0 mmol/L 21.0-32.0 [facility] Work Phone: Cobalamin (Vitamin B12) [Mass/Vol] 402 pg/mL 211-911 [facility] Work Phone: Globulin (S) [Mass/Vol] 3.4 g/dL 2.2-4.2 [facility] Work Phone: Urea nitrogen/Creatinine [Mass ratio] 21.6 mg/mg 10-20 [facility] Work Phone: No Panel Informationon 07-26 Estimated GFR (MDRD) Amer 103 mL/min >60 [facility] Work Phone: Comment on above: GFR Calc Estimated GFR (MDRD) Non-Af Amer 85 mL/min >60 [facility] Work Phone: Comment on above: Non- GFR Calc Free Lambda Light Chains, Quant 12.3 mg/L 5.7-26.3 [facility] Work Phone: Thyroid Stimulating Hormone (TSH) 1.60 uIU/mL 0.358-3.74 [facility] Work Phone: Whole Blood Vitamin B1 Level 118.0 nmol/L 66.5-200.0 [facility] Work Phone: Comment on above: Performed at: [facility], [place] [id number] Director: Darren Britt PhD, Phone: [phone] at: [facility] Lab[address] [id number] Director: Barrera Castro MD, Phone: [phone] Serum immunoglobulin kappa l ight chains/immunoglobulin lambda light chains mass ratioon 07-26-2021 Immunoglobulin light chains.kappa/Immunoglobu pippa light chains.lambda (S) [Mass ratio] 1.17 0.26-1.65 [facility] Work Phone: Serum or plasma albumin jaron urement (mass/volume)on 07-26-2021 Albumin [Mass/Vol] 4.1 g/dL 3.2-5.0 [facility] Work Phone: Serum or plasma albumin/glob ulin mass ratioon 07-26-2021 Albumin/Globulin [Mass ratio] 1.2 {ratio} 0.9-2.4 [facility] Work Phone: Serum or plasma calcium jaron urement (mass/volume)on 07-26-2021 Calcium [Mass/Vol] 9.3 mg/dL 8.5-10.1 [facility] Work Phone: Serum or plasma creatinine m easurement (mass/volume)on 07-26-2021 Creatinine [Mass/Vol] 0.69 mg/dL 0.55-1.02 [facility] Work Phone: Comment on above: The validity of the calculated GFR & GFRAA in patients over 70 years has not been determined. Clinical correlation is essential. Serum or plasma folate measu rement (mass/volume)on 07-26-2021 Folate [Mass/Vol] 39.70 ng/mL 3.1-55.4 [facility] Work Phone: Serum or plasma immunoglobul in kappa light chains measurement (mass/volume)on 07-26-2021 Immunoglobulin light chains.kappa [Mass/Vol] 14.4 mg/L 3.3-19.4 [facility] Work Phone: Serum or plasma urea nitroge n measurement (mass/volume)on 07-26-2021 Urea nitrogen [Mass/Vol] 15 mg/dL 7-18 [facility] Work Phone: Thin prep Papanicolaou smear with manual screeningon 07-26-2021 Thin prep Papanicolaou smear with manual screening 15 U/L 15-37 [facility] Work Phone: Thin prep Papanicolaou smear with manual screening 8 5-15 [facility] Work Phone: Whole blood hemoglobin A1c/t otal hemoglobin ratio (mass fraction)on 07-26-2021 HbA1c (Bld) [Mass fraction] 5.4 % 3.8-5.6 [facility] Work Phone: Comment on above: Normal < 5.7 % Predi abetic 5.7 - 6.4 % Diabetic >or= 6.5 % Please note range changes. Absolute lymphocyte counton 05-04-2021 Lymphocytes Auto (Unsp spec) [#/Vol] 1.72 10*3/uL 0.83-4.51 [facility] Work Phone: Basophil percentageon 2021 Basophils/100 WBC (Bld) 0.7 % 0-1 [facility] Work Phone: Chloride [Moles/Vol] 101 mmol/L 98-107 [facility] Work Phone: Eosinophils/100 WBC (Bld) 3.1 % 0-5 [facility] Work Phone: Glucose [Mass/Vol] 147 mg/dL 74-106 [facility] Work Phone: Comment on above: Fasting Glucose resu lt greater than or equal to 126 mg/dL suggests DIABETES MELLITUS per A.D.A. criteria. Neutrophils (Bld) [#/Vol] 3.5 10*3/uL 2.0-7.7 [facility] Work Phone: Neutrophils/100 WBC (Bld) 59.7 % 47-70 [facility] Work Phone: Potassium [Moles/Vol] 3.7 mmol/L 3.5-5.1 [facility] Work Phone: [phone] Sodium [Moles/Vol] 135 mmol/L 136-145 [facility] Work Phone: WBC (Bld) [#/Vol] 5.9 10*3/uL 4.4-11.0 [facility] Work Phone: Blood erythrocytes count (nu mber/volume)on 05-04-2021 RBC (Bld) [#/Vol] 3.92 10*6/uL 4.2-5.4 [facility] Work Phone: Blood hemoglobin measurement (mass/volume)on 05-04-2021 Hemoglobin (Bld) [Mass/Vol] 13.5 g/dL 12.0-15.0 [facility] Work Phone: Blood lymphocytes/100 leukoc yteson 05-04-2021 Lymphocytes/100 WBC (Bld) 29.4 % 19-41 [facility] Work Phone: Blood monocytes/100 leukocyt eson 05-04-2021 Monocytes/100 WBC (Bld) 6.8 % 0-10 [facility] Work Phone: Blood platelet mean volumeon 05-04-2021 Platelet mean volume (Bld) [Entitic vol] 10.2 fL 6.2-12.0 [facility] Work Phone: Determination of erythrocyte mean corpuscular volume (MCV)on 05-04-2021 MCV (RBC) [Entitic vol] 96.4 fL 81-99 [facility] Work Phone: Hematocrit Auto (Bld) [Volum e fraction]on 05-04-2021 Hematocrit (Bld) [Volume fraction] 37.8 % 37-47 [facility] Work Phone: Laboratory - Chemistry and C hemistry - challengeon 05-04-2021 CO2 [Moles/Vol] 27.0 mmol/L 21.0-32.0 [facility] Work Phone: Urea nitrogen/Creatinine [Mass ratio] 22.0 mg/mg 10-20 [facility] Work Phone: Laboratory - Hematology and Cell countson 05-04-2021 Erythrocyte distribution width (RBC) [Entitic vol] 44.1 fL 35.1-43.9 [facility] Work Phone: Erythrocyte distribution width (RBC) [Ratio] 12.5 % 11.6-14.6 [facility] Work Phone: Immature granulocytes/100 WBC (Bld) 0.300 % 0.0-0.9 [facility] Work Phone: Comment on above: IG% - Immature Granu locytes (promyelocytes, myelocytes and metamyelocytes) > 1% indicates that a LEFT SHIFT is Present. MCH (RBC) [Entitic mass] 34.4 pg 27.0-32.0 [facility] Work Phone: Nucleated RBC/100 WBC (Bld) [Ratio] 0 % 0-5 [facility] Work Phone: MCHC Auto (RBC) [Mass/Vol]on 05-04-2021 MCHC (RBC) [Mass/Vol] 35.7 g/dL 32-36 [facility] Work Phone: No Panel Informationon 05-04 Troponin I High Sensitivity 6 pg/mL 3.0-54.0 [facility] Work Phone: Comment on above: Please Note: New Jacque t Units and Gender Specific Reference Ranges. For more information see Policy Stat Procedure [place] High Sensitivity Troponin (TNIH) and attachments. Estimated Creatinine Clearance Calc 39.74 ml/min [facility] Work Phone: Estimated GFR (MDRD) Amer 76 mL/min >60 [facility] Work Phone: Comment on above: GFR Calc Estimated GFR (MDRD) Non-Af Amer 63 mL/min >60 [facility] Work Phone: Comment on above: Non- GFR Calc Platelets bldon 05-04-2021 Platelets (Bld) [#/Vol] 183 10*3/uL 150-450 [facility] Work Phone: Serum or plasma calcium jaron urement (mass/volume)on 05-04-2021 Calcium [Mass/Vol] 9.3 mg/dL 8.5-10.1 [facility] Work Phone: Serum or plasma creatinine m easurement (mass/volume)on 05-04-2021 Creatinine [Mass/Vol] 0.91 mg/dL 0.55-1.02 [facility] Work Phone: Comment on above: The validity of the calculated GFR & GFRAA in patients over 70 years has not been determined. Clinical correlation is essential. Serum or plasma urea nitroge n measurement (mass/volume)on 05-04-2021 Urea nitrogen [Mass/Vol] 20 mg/dL 7-18 [facility] Work Phone: Thin prep Papanicolaou smear with manual screeningon 05-04-2021 Thin prep Papanicolaou smear with manual screening 7 5-15 [facility] Work Phone: Culture, urine Bacteria identified Cx Nom (U) Presumptive E. coli [facility] Work Phone: Vital Signs Date Time Vital Sign Value Performing Clinician Minii [email or web address] 12-16-2024 08:59-0400 Body temperature 97.9 [degF] Dr. Willow Eason MD Work Phone: [facility] 12-16-2024 08:59-0400 Diastolic blood pressure 85 mm[Hg] Dr. Willow Eason MD Work Phone: [phone])475-186114 [address] 12-16-2024 08:59-0400 Heart rate 77 /min Dr. Willow Eason MD Work Phone: 1(008)687-331741 [place] [address] 12-16-2024 08:59-0400 Respiratory rate 16 /min Dr. Willow Eason MD Work Phone: [phone])056-490341 [place] [address] 12-16-2024 08:59-0400 SaO2% (BldA) [Mass fraction] 97 % Dr. Willow Eason MD Work Phone: 7(019)827-346341 [place] [address] 12-16-2024 08:59-0400 Systolic blood pressure 157 mm[Hg] Dr. Willow Eason MD Work Phone: 0([phone])846-374141 [place] [address] 12-16-2024 08:42-0400 Body mass index (BMI) [Ratio] 27.1 kg/m2 Dr. Willow Eason MD Work Phone: 5(365)396-648041 [place] [address] 12-16-2024 08:42-0400 Body weight 71.[address] Willow Eason MD Work Phone: 2(521)532-843041 [place] [address] 12-16-2024 08:40-0400 Body height 162.[address] Willow Eason MD Work Phone: 4(617)365-560141 [place] [address] 12-09-2024 09:02-0400 Body height 162.[address] Willow Eason MD Work Phone: 8([phone])435-917941 [place] [address] 12-09-2024 09:02-0400 Body mass index (BMI) [Ratio] 27.4 kg/m2 Dr. Willow Eason MD Work Phone: 8(096)217-310541 [place] [address] 12-09-2024 09:02-0400 Body temperature 96.3 [degF] Dr. Willow Eason MD Work Phone: 9([phone])[phone] [place] [address] 12-09-2024 09:02-0400 Body weight 72.[address] Willow Eason MD Work Phone: 2(546)536-915541 [place] [address] 12-09-2024 09:02-0400 Diastolic blood pressure 79 mm[Hg] Dr. Willow Eason MD Work Phone: [facility] 12-09-2024 09:02-0400 Heart rate 67 /min Dr. Willow Eason MD Work Phone: [facility] 12-09-2024 09:02-0400 Respiratory rate 20 /min Dr. Willow Eason MD Work Phone: [facility] 12-09-2024 09:02-0400 SaO2% (BldA) [Mass fraction] 99 % Dr. Willow Eason MD Work Phone: [facility] 12-09-2024 09:02-0400 Systolic blood pressure 165 mm[Hg] Dr. Willow Eason MD Work Phone: [phone] [address] 12-06-2024 10:51-0400 Body temperature 97.9 [degF] Dr. Willow Eason MD Work Phone: 6(762)085-885610 [place] [address] 12-06-2024 10:51-0400 Diastolic blood pressure 70 mm[Hg] Dr. Willow Eason MD Work Phone: 6([phone])355-050110 [place] [address] 12-06-2024 10:51-0400 Heart rate 86 /min Dr. Willow Eason MD Work Phone: [facility] 12-06-2024 10:51-0400 Respiratory rate 16 /min Dr. Willow Eason MD Work Phone: [facility] 12-06-2024 10:51-0400 SaO2% (BldA) [Mass fraction] 100 % Dr. Willow Eason MD Work Phone: [facility] 12-06-2024 10:51-0400 Systolic blood pressure 164 mm[Hg] Dr. Willow Eason MD Work Phone: [facility] 12-06-2024 09:23-0400 Body height 162.[address] Willow Eason MD Work Phone: [facility] 12-06-2024 09:23-0400 Body mass index (BMI) [Ratio] 27.4 kg/m2 Dr. Willow Eason MD Work Phone: 1(857)984-702910 [place] [address] 12-06-2024 09:23-0400 Body weight 72.[address] Willow Eason MD Work Phone: 6(835)626-581241 [place] [address] 11-04-2024 19:01-0400 Body temperature 97.2 [degF] Dr. Willow Eason MD Work Phone: 9(068)887-268241 [place] [address] 11-04-2024 19:01-0400 Diastolic blood pressure 62 mm[Hg] Dr. Willow Eason MD Work Phone: 5(098)556-689541 [place] [address] 11-04-2024 19:01-0400 Heart rate 67 /min Dr. Willow Eason MD Work Phone: 4(578)066-140841 [place] [address] 11-04-2024 19:01-0400 Respiratory rate 15 /min Dr. Willow Eason MD Work Phone: 9(918)312-131141 [place] [address] 11-04-2024 19:01-0400 SaO2% (BldA) [Mass fraction] 100 % Dr. Willow Eason MD Work Phone: 3(904)250-041741 [place] [address] 11-04-2024 19:01-0400 Systolic blood pressure 168 mm[Hg] Dr. Willow Eason MD Work Phone: 2(741)204-841141 [place] [address] 11-04-2024 17:15-0400 Body height 162.[address] Willow Eason MD Work Phone: 8(300)866-837541 [place] [address] 11-04-2024 17:15-0400 Body mass index (BMI) [Ratio] 28 kg/m2 Dr. Willow Eason MD Work Phone: 9(985)328-499341 [place] [address] 11-04-2024 17:15-0400 Body weight [address] Willow Eason MD Work Phone: 3(102)234-855141 [place] [address] 08-18-2024 08:10-0400 Body height 162.[address] Willow Eason MD Work Phone: 2(150)041-647141 [place] [address] 08-18-2024 08:10-0400 Body mass index (BMI) [Ratio] 29.2 kg/m2 Dr. Willow Eason MD Work Phone: [facility] 08-18-2024 08:10-0400 Body temperature 97.5 [degF] Dr. Willow Eason MD Work Phone: [facility] 08-18-2024 08:10-0400 Body weight 77.[address] Willow Eason MD Work Phone: [facility] 08-18-2024 08:10-0400 Diastolic blood pressure 59 mm[Hg] Dr. Willow Eason MD Work Phone: [facility] 08-18-2024 08:10-0400 Heart rate 72 /min Dr. Willow Eason MD Work Phone: [facility] 08-18-2024 08:10-0400 Respiratory rate 16 /min Dr. Willow Eason MD Work Phone: [facility] 08-18-2024 08:10-0400 SaO2% (BldA) [Mass fraction] 98 % Dr. Willow Eason MD Work Phone: [facility] 08-18-2024 08:10-0400 Systolic blood pressure 148 mm[Hg] Dr. Willow Eason MD Work Phone: [facility] 06-16-2024 14:41-0400 Body height 162.[address] Willow Eason MD Work Phone: [facility] 06-16-2024 14:41-0400 Body mass index (BMI) [Ratio] 28.5 kg/m2 Dr. Willow Eason MD Work Phone: [facility] 06-16-2024 14:41-0400 Body weight 75.[address] Willow Eason MD Work Phone: [facility] 06-16-2024 14:41-0400 Diastolic blood pressure 63 mm[Hg] Dr. Willow Eason MD Work Phone: [facility] 06-16-2024 14:41-0400 Heart rate 70 /min Dr. Willow Eason MD Work Phone: [facility] 06-16-2024 14:41-0400 Respiratory rate 16 /min Dr. Willow Eason MD Work Phone: [facility] 06-16-2024 14:41-0400 Systolic blood pressure 111 mm[Hg] Dr. Willow Eason MD Work Phone: 7(405)488-965910 [place] [address] 05-06-2024 08:51-0500 Body height 162.[address] Willow Eason MD Work Phone: 8(290)272-606114 [address] 05-06-2024 08:51-0500 Body mass index (BMI) [Ratio] 29.2 kg/m2 Dr. Willow Eason MD Work Phone: 3(629)538-508514 [address] 05-06-2024 08:51-0500 Body weight 77.[address] Willow Eason MD Work Phone: 4(564)943-328310 [place] [address] 05-06-2024 08:51-0500 Diastolic blood pressure 65 mm[Hg] Dr. Willow Eason MD Work Phone: 2(943)937-164810 [place] [address] 05-06-2024 08:51-0500 Heart rate 44 /min Dr. Willow Eason MD Work Phone: 2(943)830-815010 [place] [address] 05-06-2024 08:51-0500 Respiratory rate 16 /min Dr. Willow Eason MD Work Phone: 7(191)636-588910 [place] [address] 05-06-2024 08:51-0500 Systolic blood pressure 184 mm[Hg] Dr. Willow Eason MD Work Phone: 3(691)454-794910 [place] [address] 09-11-2022 09:19-0400 Body height 162.[address] Willow Eason Work Phone: 4(584)980-981714 [address] 09-11-2022 09:19-0400 Body mass index (BMI) [Ratio] 26.9 kg/m2 Dr. Willow Eason Work Phone: 1(638)791-197210 [place] [address] 09-11-2022 09:19-0400 Body temperature 98.2 [degF] Dr. Willow Eason Work Phone: [facility] 09-11-2022 09:19-0400 Body weight 71.[address] Willow Eason Work Phone: [facility] 09-11-2022 09:19-0400 Diastolic blood pressure 60 mm[Hg] Dr. Willow Eason Work Phone: [facility] 09-11-2022 09:19-0400 Heart rate 48 /min Dr. Willow Eason Work Phone: [facility] 09-11-2022 09:19-0400 Respiratory rate 17 /min Dr. Willow Eason Work Phone: [facility] 09-11-2022 09:19-0400 SaO2% (BldA) [Mass fraction] 97 % Dr. Willow Eason Work Phone: [facility] 09-11-2022 09:19-0400 Systolic blood pressure 128 mm[Hg] Dr. Willow Eason Work Phone: [facility] 07-23-2022 13:33-0400 Body mass index (BMI) [Ratio] 26.6 kg/m2 Dr. Willow Eason Work Phone: [facility] 07-23-2022 13:33-0400 Body temperature 98 [degF] Dr. Willow Eason Work Phone: [facility] 07-23-2022 13:33-0400 Body weight 70.[address] Willow Eason Work Phone: [facility] 07-23-2022 13:33-0400 Diastolic blood pressure 64 mm[Hg] Dr. Willow Eason Work Phone: [facility] 07-23-2022 13:33-0400 Heart rate 76 /min Dr. Willow Eason Work Phone: [facility] 07-23-2022 13:33-0400 Respiratory rate 17 /min Dr. Willow Eason Work Phone: [facility] 07-23-2022 13:33-0400 SaO2% (BldA) [Mass fraction] 98 % Dr. Willow Eason Work Phone: [facility] 07-23-2022 13:33-0400 Systolic blood pressure 130 mm[Hg] Dr. Willow Eason Work Phone: [facility] 12-16-2021 09:19-0400 Body temperature 97.8 [degF] Dr. Willow Eason Work Phone: [facility] Work Phone: 12-16-2021 09:19-0400 Diastolic blood pressure 76 mm[Hg] Dr. Willow Eason Work Phone: [facility] Work Phone: 12-16-2021 09:19-0400 Heart rate 52 /min Dr. Willow Eason Work Phone: [facility] Work Phone: 12-16-2021 09:19-0400 Respiratory rate 14 /min Dr. Willow Eason Work Phone: [facility] Work Phone: 12-16-2021 09:19-0400 SaO2% (BldA) [Mass fraction] 99 % Dr. Willow Eason Work Phone: [facility] Work Phone: 12-16-2021 09:19-0400 Systolic blood pressure 142 mm[Hg] Dr. Willow Eason Work Phone: [facility] Work Phone: 11-11-2021 11:49-0400 Body height 162.[address] Willow Eason Work Phone: [facility] Work Phone: 11-11-2021 11:49-0400 Body mass index (BMI) [Ratio] 27.4 kg/m2 Dr. Willow Eason Work Phone: [facility] Work Phone: 11-11-2021 11:49-0400 Body temperature 97.3 [degF] Dr. Willow Eason Work Phone: [facility] Work Phone: 11-11-2021 11:49-0400 Body weight 72.[address] Willow Eason Work Phone: [facility] Work Phone: 11-11-2021 11:49-0400 Diastolic blood pressure 64 mm[Hg] Dr. Willow Eason Work Phone: [facility] Work Phone: 11-11-2021 11:49-0400 Heart rate 63 /min Dr. Willow Eason Work Phone: [facility] Work Phone: 11-11-2021 11:49-0400 Respiratory rate 15 /min Dr. Willow Eason Work Phone: [facility] Work Phone: 11-11-2021 11:49-0400 SaO2% (BldA) [Mass fraction] 99 % Dr. Willow Eason Work Phone: [facility] Work Phone: 11-11-2021 11:49-0400 Systolic blood pressure 160 mm[Hg] Dr. Willow Eason Work Phone: [facility] Work Phone: 07-25-2021 10:08-0400 Body height 162.[address] Willow Eason Work Phone: [facility] Work Phone: 07-25-2021 10:08-0400 Body mass index (BMI) [Ratio] 27.9 kg/m2 Dr. Willow Eason Work Phone: [facility] Work Phone: 07-25-2021 10:08-0400 Body temperature 97.7 [degF] Dr. Willow Eason Work Phone: [facility] Work Phone: 07-25-2021 10:08-0400 Body weight 73.[address] Willow Eason Work Phone: [facility] Work Phone: 07-25-2021 10:08-0400 Diastolic blood pressure 100 mm[Hg] Dr. Willow Eason Work Phone: [facility] Work Phone: 07-25-2021 10:08-0400 Heart rate 77 /min Dr. Willow Eason Work Phone: [facility] Work Phone: 07-25-2021 10:08-0400 Respiratory rate 16 /min Dr. Willow Eason Work Phone: [facility] Work Phone: 07-25-2021 10:08-0400 SaO2% (BldA) [Mass fraction] 99 % Dr. Willow Eason Work Phone: [facility] Work Phone: 07-25-2021 10:08-0400 Systolic blood pressure 190 mm[Hg] Dr. Willow Eason Work Phone: [facility] Work Phone: 07-25-2021 10:08-0400 Body height 162.[address] Willow Eason Work Phone: [facility] Work Phone: 07-25-2021 10:08-0400 Body mass index (BMI) [Ratio] 27.9 kg/m2 Dr. Willow Eason Work Phone: [facility] Work Phone: 07-25-2021 10:08-0400 Body temperature 97.7 [degF] Dr. Willow Eason Work Phone: [facility] Work Phone: 07-25-2021 10:08-0400 Body weight 73.[address] Willow Eason Work Phone: [facility] Work Phone: 07-25-2021 10:08-0400 Diastolic blood pressure 100 mm[Hg] Dr. Willow Eason Work Phone: [facility] Work Phone: 07-25-2021 10:08-0400 Heart rate 77 /min Dr. Willow Eason Work Phone: [facility] Work Phone: 07-25-2021 10:08-0400 Respiratory rate 16 /min Dr. Willow Eason Work Phone: [facility] Work Phone: 07-25-2021 10:08-0400 SaO2% (BldA) [Mass fraction] 99 % Dr. Willow Eason Work Phone: [facility] Work Phone: 07-25-2021 10:08-0400 Systolic blood pressure 190 mm[Hg] Dr. Willow Eason Work Phone: [facility] Work Phone: 05-04-2021 12:25-0500 Body mass index (BMI) [Ratio] 27.4 kg/m2 Dr. Willow Eason Work Phone: [facility] Work Phone: 05-04-2021 12:25-0500 Body temperature 97.5 [degF] Dr. Willow Eason Work Phone: [facility] Work Phone: 05-04-2021 12:25-0500 Body weight 72.[address] Willow Eason Work Phone: [facility] Work Phone: 05-04-2021 12:25-0500 Diastolic blood pressure 94 mm[Hg] Dr. Willow Eason Work Phone: [facility] Work Phone: 05-04-2021 12:25-0500 Heart rate 53 /min Dr. Willow Eason Work Phone: [facility] Work Phone: 05-04-2021 12:25-0500 Respiratory rate 16 /min Dr. Willow Eason Work Phone: [facility] Work Phone: 05-04-2021 12:25-0500 SaO2% (BldA) [Mass fraction] 99 % Dr. Willow Eason Work Phone: [facility] Work Phone: 05-04-2021 12:25-0500 Systolic blood pressure 218 mm[Hg] Dr. Willow Eason Work Phone: [facility] Work Phone: Encounters Encounter Date Encounter Type Care Provider Facility Start: 12-18-2024 End: 12-18-2024 ambulatory Willow Eason Facility:[facility] Start: 12-16-2024 End: 12-16-2024 Emergency department patient visit Dr. Willow Eason MD Work Phone: -Emergency Department Work Phone: Start: 12-16-2024 End: 12-16-2024 ambulatory Kristi [facility] Facility:[facility] Start: 12-11-[address] Rocco Albarran MD -Laboratory [facility] Start: 12-11-2024 ambulatory Rocco Albarran [facility] y:[facility] Start: 12-09-2024 End: 12-09-2024 Emergency department patient [...] Patient encounter procedure Dr. Erick Medina MD -[facility] Work Phone: Start: 08-18-2024 End: 08-18-[address] Willow Eason MD Work Phone: [facility][1] Services Work Phone: Start: 06-18-2024 ambulatory [facility] Facility:[facility] Start: 06-18-2024 Non-patient / Non-visit Dr. Sharonda PARK -[facility] Start: 06-18-2024 End: 06-18-[address] Willow Eason MD Work Phone: [facility] Work Phone: Start: 06-18-2024 End: 06-18-[address] Anish Capps MD -Cardiovascular Services Work Phone: Start: 06-18-2024 End: 06-18-2024 ambulatory [facility] Facility:[facility] Start: 06-16-2024 End: 06-16-[address] Anish Capps MD -[facility] Work Phone: Start: 06-16-2024 End: 06-16-2024 ambulatory Anish Capps Facility:[facility] Start: 05-27-2024 ambulatory Willow Eason Facility: [facility] Start: 05-27-2024 Non-patient / Non-visit Dr. Jose rene MD -[facility] Start: 05-27-2024 End: 05-27-[address] Willow Eason MD Work Phone: [facility] Work Phone: Start: 05-27-2024 End: 05-27-[address] Anish Capps MD -Cardiovascular Services Work Phone: Start: 05-27-2024 End: 05-27-2024 ambulatory Willow Eason Facility:[facility] Start: 05-06-2024 End: 05-06-[address] Anish Capps MD -[facility] Work Phone: Start: 05-06-2024 End: 05-06-2024 ambulatory Willow Eason Facility:[facility] Start: 03-14-2024 End: 03-14-[address] Willow Eason MD -Laboratory Work Phone: Start: 03-14-2024 End: 03-14-2024 ambulatory Willow Eason Facility:[facility] Start: 09-11-2022 End: 09-11-[address] Willow Eason Work Phone: [facility] Work Phone: Start: 07-30-2022 End: 07-30-[address] Willow Eason Work Phone: [facility] Start: 07-23-2022 End: 07-23-[address] Willow Eason Work Phone: [facility] Work Phone: Start: 12-16-2021 End: 12-16-[address] Willow Eason Work Phone: [facility] Work Phone: Start: 12-16-2021 End: 12-16-[address] Willow Eason Work Phone: [facility]-Laboratory, Specimen Start: 12-16-2021 End: 12-16-[address] Willow Eason Work Phone: [facility] Start: 11-11-2021 End: 11-11-[address] Willow Eason Work Phone: [facility] Start: 09-13-2021 End: 09-13-[address] Willow Eason Work Phone: [facility] Services/Neurology Start: 07-26-2021 End: 07-26-[address] Willow Eason Work Phone: [facility]Laboratory Start: 07-25-2021 End: 07-25-[address] Willow Eason Work Phone: [facility] Start: 05-04-2021 End: 05-04-2021 Emergency department patient visit Dr. Willow Eason Work Phone: [facility]-Emergency Department Procedures Date Procedure Procedure Detail Performing [...] ther peripheral nerve/branch NJX AA&/STRD OTHER PN/BRANCH [facility] Start: 12-06-2024 [facility] Start: 11-04-2024 [facility] Patient Education [facility] Work Phone: Patient referral [facility] Work Phone: Radionuclide imaging of perfusion of myocardium under exercise stress [facility] Immunizations Immunization Date Immunization Notes Care Provider Fa cility 12-16-2024 rabies vaccine, for intramuscular injection Dr. Willow Eason MD Work Phone: [facility] 12-09-2024 rabies vaccine, for intramuscular injection Dr. Willow Eason MD Work Phone: [facility] 12-06-[address] Pricila Eason MD Work Phone: [facility] 12-06-2024 rabies vaccine, for intramuscular injection Dr. Willow Eason MD Work Phone: [facility] 01-01-2024 influenza, seasonal, injectable, preservative free Dr. Willow Eason MD Work Phone: [facility] 01-02-2023 influenza, injectabl e, quadrivalent, preservative free Dr. Willow Eason MD Work Phone: [facility] 11-11-2021 tetanus toxoid, redu ethel diphtheria toxoid, and acellular pertussis vaccine, adsorbed Dr. Willow Eason Work Phone: [facility] 12-30-2015 influenza, injectabl e, quadrivalent, preservative free Dr. Willow Eason MD Work Phone: [facility] 12-30-2015 influenza, seasonal, injectable Dr. Willow Eason Work Phone: [facility] 12-29-2014 influenza, injectabl e, quadrivalent, preservative free Dr. Willow Eason MD Work Phone: [facility] 12-29-2014 influenza, seasonal, injectable Dr. Willow Eason Work Phone: [facility] 12-16-2013 influenza, injectabl e, quadrivalent, preservative free Dr. Willow Eason MD Work Phone: [facility] 12-16-2013 influenza, seasonal, injectable Dr. Willow Eason Work Phone: [facility] Payers Date Payer Category Payer Self-pay [id number] 2020 Medicare [id number] Private Health Insurance [id number] Unknown [id number] 2.16.8 [id number] Unknown [id number] 2.16.8 [id number] Unknown [id number] 2.16.8 [id number] Unknown [id number] 2.16.8 [id number] Unknown [id number] 2.16.8 [id number] Unknown [id number] 2.16.8 [id number] Unknown [id number] 2.16.8 [id number] Unknown [id number] 2.16.8 [id number] Unknown [id number] 2.16.8 [id number] Unknown [id number] 2.16.8 [id number] Unknown [id number] 2.16.8 [id number] Unknown [id number] 2.16.8 [id number] Unknown [id number] 2.16.8 [id number] Unknown [id number] 2.16.8 [id number] Social History Date Type Detail Facility Start: 07-25-2021 End: 09-11-2022 Tobacco smoking status NHIS Unknown if ever smoked [facility] Start: 1935 Sex Assigned At Female [facility] Start: 03-14-2023 End: 12-06-2024 Tobacco smoking status NHIS Never smoked tobacco (finding) [facility] Start: 06-07-2024 End: 06-26-2024 Sex Female (finding) [facility] Sex Female [facility] Mental Status Date Assessment Result Facility 11-04-2024 Cognitive function Level Of Cons ciousness Awake;Alert;Appropriate;Follow s Commands [facility] Work Phone: 05-04-2021 Cognitive function Voice/Name [facility] Work Phone: Clinical Notes 05-06-2024 to 11-04-2024 Note Date & Type Note Facility 11-04-2024 Discharge summary [facility] 11-04-2024 Discharge summary Note Date/Time November 04, 2024 6:55pm [facility] Medical Records Department [address] [place] [id number] Emergency Department Summary 11/04/24 MR#: [id number] Acct: [id number] Name: MALINI MCNAIR Rep #:[id number] : [...] similar symptoms: Yes Recent Illness/Hospitalization: No [facility] Medical History Bradycardia Hyperlipidemia Essential (primary) [...] do you participate in: walking and swimming ruddy/presybeterian: Shinto seatbelt use: always ROS ROS ED Constitutional [...] Clarity Clear Urine pH 6.0 Ur Specific Eidson 1.010 Urine Protein 30 H Urine Glucose [...] Care Provider] - 1-2 Weeks Print Language: Latvian Disposition Disposition: Home, Self Care What to do if you have Problems For any increased pain, shortness of breath, bleeding, nausea or vomiting, chestpain, or any unexpected problems, contact your Primary Care Provider. Call [facility] ([phone]) or report to the closest Emergency Room. Call 911 if necessary. 11/04/241854 <Electronically signed by Aaron Baig MD> Cosigner Signature (if applicable): CC: Dr. Will Polk MD ~ Signed [facility] Work Phone: 1(542) 666-925405-20-2025 Evaluation note* Diagnosis Onset Date Resolution Status Admit Date Polyneuropathy chronic August 18, 2024 8:11am Essential tremor inactive July 8:11am [facility] Work Phone: 1(332) 529-141702-05-2025 Evaluation note* Diagnosis Onset Date Resolution Status Admit Date Bradycardia acute May 06, 2024 8:49am Carotid bruit acute May 8:49am Chest pain acute May 06, 2024 8:49am Essential (primary) hypertension acute May 06 8:49am [facility] Work Phone: 1(317) 806-547502-05-2025 Evaluation note* Diagnosis Onset Date Resolution Status Admit Date Bradycardia acute May 06, 2024 8:49am Carotid bruit acute May 8:49am Chest pain acute May 06, 2024 8:49am Essential (primary) hypertension acute May 06 8:49am Bradycardia acute June 16, 2 025 2:40pm Carotid bruit acute June 16, 2024 2:40pm Chest pain acute June 16 2:40pm Essential (primary) hypertension acute June 16, 2024 2:40pm [facility] Work Phone: 1(216) 852-523802-05-2025 Evaluation note* Diagnosis Onset Date Resolution Status [...] 8:11am Polyneuropathy chronic August 18, 2024 8:11am [facility] Work Phone: Evaluation note* Diagnosis Onset Date Resolution Status Polyneuropathy chronic [facility] Work Phone: Evaluation note* Diagnosis Onset Date Resolution Status Cystitis acute [facility] Work Phone: Evaluation note* Diagnosis Onset Date Resolution Status Essential tremor chronic Fatigue chronic Polyneuropathy chronic Fatigue chronic [facility] Work Phone: Hospital Discharge instructionsAdditional Instructions Follow-up with wound check with your family doctor. There is a chance your nail might not grow back or grow back abnormally. Return to the ER as instructed for the rest of the rabies series. Alternate ibuprofen and Tylenol for pain. I would stop your aspirin for the next few days to help limit bleeding.[facility] Work Phone: Reason for referral (narrative)No reason for [facility] Work Phone: Chief Complaint and Reason for [...] Will No May 04 3:08pm Power of Senior Software Systems Engineer No May 04, 2021 3:08pm Advance Directive Response Recorded Date/ Time Living Will No May 04 3:08pm Do you have a Healthcare Power of Senior Software Systems Engineer? No May 04, 2021 3:08pm Advance Directive Response Recorded Date/ Time Living Will No May 04 3:08pm Do you have a Healthcare Power of Senior Software Systems Engineer? No May 04, 2021 3:08pm Do you have a Healthcare Power of Senior Software Systems Engineer? Yes November 04, 2024 5:20pm Name of Medical Power of Senior Software Systems Engineer CHELO GODFREY November 04, 2024 5:20pm Advance Directive Response Recorded Date/ Time Living Will No May 04 3:08pm Do you have a Healthcare Power of Senior Software Systems Engineer? No May 04, 2021 3:08pm Do you have a Healthcare Power of Senior Software Systems Engineer? Yes November 04, 2024 5:20pm Name of Medical Power of Senior Software Systems Engineer CHELO GODFREY November 04, 2024 5:20pm Do you have a Healthcare Power of Senior Software Systems Engineer? Yes December 06, 2024 9:39am Summary Purpose [...] section and content) DATE CREATED AUTHOR 12/19/2024 [facility] FOR RECORDS PERTAINING TO PATIENTS WHO [...] BE BASED ON THE PRIMARY CLINICAL RECORDS. [employer] provides no warranty or guarantee of the accuracy or completeness of information in this document.
== END 2024-12-20 09:51 | disposition home or self-care (01) ==
PROVIDERS: PCP Family Medicine; Visit Provider Emergency Medicine
DX: Z20.3 Contact with and (suspected) exposure to rabies (principal); Z29.14 Encounter for prophylactic rabies immune globulin; Z23 Encounter for immunization
CPT/HCPCS: 90675; 96372

== ENCOUNTER → 2025-01-14 | Outpatient (CLI) | payer MEDICARE, OTHER, SELFPAY ==
[2025-01-14 09:27] LABS: Mucous, Urine 0 SEEN /hpf (<or=2+); Red Blood Cells-Urine 0 SEEN /hpf (0-5)
[2025-01-14 10:12] LABS: Color, Urine Yellow (Yellow); Glucose, Dipstick Normal (Normal); Ketone-Dipstick Negative (Negative); Leukocyte Esterase-Dipstick 500 /ul (Negative); Nitrite-Dipstick Negative (Negative); Occult Blood-Urine 10 /ul (Negative); Protein-Dipstick 15 mg/dl (Negative); Specific Gravity, Urine 1.010 (1.002-1.030); Urine Bilirubin Dipstick Negative (Negative)
[2025-01-14 10:23] LABS: Creatinine, Urine (random) 61.30 mg/dL (28.00-217.00); Protein, Urine (Random) 10.0 mg/dL (0.0-12.0); Protein:Creat Ratio 163 mg/g CRE (0-200)
[2025-01-14 10:27] LABS: Squamous Epithelial Cells - UA 0-5 SEEN /hpf (5-10)
[2025-01-14 13:00] LABS: PTHIN 40 pg/mL (11-61)
[2025-01-14 13:03] LABS: Anion Gap 12 (5-15); BUN 19 mg/dL (4-19); BUN/Creat Ratio 23.3 RATIO (10-20); Calcium,Total 9.9 mg/dL (7.6-11.0); Carbon Dioxide 26.2 mmol/L (21.0-32.0); Chloride 96 mmol/L (98-108); Glucose 92 mg/dL (70-99); Potassium 4.0 mmol/L (3.3-5.1)
== END | disposition home or self-care (01) ==
LOC: MFPLAB 09:25
PROVIDERS: PCP Family Medicine; Visit Provider Family Medicine
DX: N18.30 Chronic kidney disease, stage 3 unspecified (principal); R73.09 Other abnormal glucose; R82.81 Pyuria
CPT/HCPCS: 36415; 80048; 81001; 82570; 83036; 83970; 84100; 84156; 87086; 87088

== ENCOUNTER → 2025-01-27 | Outpatient (CLI) | payer MEDICARE, OTHER, SELFPAY ==
--- NOTE | 2025-01-27 08:25 | BD_ITS ---
PROCEDURE: BD/Dexa Bone Density Study
== END | disposition home or self-care (01) ==
LOC: OPBD 08:11
PROVIDERS: PCP Family Medicine; Referring Provider Family Medicine; Visit Provider Family Medicine
DX: M81.0 Age-related osteoporosis without current pathological fracture (principal)
CPT/HCPCS: 77080